=== PATIENT | female | born 1955 | race Caucasian/White ===

== ENCOUNTER 2017-01-13 12:57 | Outpatient (CLI) | payer OTHER ==
[2017-01-13 14:46] LABS: Mean Platelet Volume 7.7 fL (7.4-10.4); Red Blood Cell (RBC) Count 4.62 mill/uL (4.20-5.40); White Blood Cell (WBC) Count 6.5 thou/uL (4.8-10.8)
[2017-01-13 14:55] LABS: Prothrombin Time 12.7 SEC (12.0-14.7)
[2017-01-13 15:07] LABS: ALT (SGPT) 12 U/L (8-55); AST (SGOT) 12 U/L (5-34); Alkaline Phosphatase 53 U/L (40-150); Anion Gap 7 mmol/L (10-20); BUN (Urea Nitrogen) 32 mg/dL (9.8-20.1); Bilirubin, Total 0.4 mg/dL (0.2-1.2); Calc. Creatinine Clearance 0 mL/min (70-130); Calcium 9.1 mg/dL (7.8-10.44); Carbon Dioxide 36 mmol/L (22-29); Chloride 101 mmol/L (98-107); Estimated GFR-MDRD 49; Globulin 2.7 g/dL (2.4-3.5); Protein, Total 6.4 g/dL (6.0-8.3)
--- NOTE | 2017-01-13 15:30 | EKG ---
Test Reason : Blood Pressure : / mmHG Vent. Rate : 059 BPM Atrial Rate : 059 BPM P-R Int : 170 ms QRS Dur : 090 ms QT Int : 456 ms P-R-T Axes : 048 023 025 degrees QTc Int : 451 ms Sinus bradycardia Nonspecific ST abnormality Abnormal ECG When compared with ECG of 03-FEB-2013 07:49, No significant change was found Confirmed by DR. Hermes BAEZ ([id number]) on 01/13/2017 3:30:28 PM Referred By: YO Confirmed By:DR. Hermes BAEZ
--- OUTSIDE RECORDS SUMMARY | 2017-01-13 16:06 | XMS | Clinical Summary ---
:1955 Author Organization [facility] Address [address] [place] [address] Phone Care Team Providers Name Role Phone , Primary Care Provider Unavailable Allergies Not on File Current Medications Not on file Active Problems Not on file Social History Tobacco Use Types Packs/Day Years Used Date Never Assessed Sex Assigned at Date Recorded Not on file Last Filed Vital Signs Not on file Plan of Treatment Not on file Results Not on filefrom Last 3 Months
--- OUTSIDE RECORDS SUMMARY | 2017-01-13 16:06 | XMS | Clinical Summary ---
:1955 Author Organization [facility] Address [address] [place] [phone] Phone Care Team Providers Name Role Phone [...]
--- NOTE | 2017-01-13 16:17 | RAD ---
PA AND LATERAL VIEWS CHEST: 01/13/17 HISTORY: Preoperative evaluation. FINDINGS: The heart size is normal. A large hiatal hernia with herniation of the stomach in the right posterio r lower thorax with an air fluid level is again seen as on the CT scan obtained 12/07/16. No focal ar eas of consolidation, pneumothoraces, or left sided pleural effusion are identified. A right pleural effusion cannot be completely excluded on this study. There are degenerative changes in the spine. IMPRESSION: Large hiatal hernia. POS: SAMEER
== END 2017-01-13 12:58 | disposition home or self-care (01) ==
LOC: LABBT 12:57
PROVIDERS: ATTEND Internal Medicine
DX: Z01.818 Encounter for other preprocedural examination (principal); R93.1 Abnormal findings on diagnostic imaging of heart and coronary circulation; K44.9 Diaphragmatic hernia without obstruction or gangrene
CPT/HCPCS: 71020; 80053; 85027; 85610; 85730; 93005; 93010

== ENCOUNTER 2017-03-29 13:30 | Outpatient (CLI) | payer OTHER | END 2017-03-29 13:31 | disposition home or self-care (01) | LOC: BICCT 13:30 | PROVIDERS: ATTEND Internal Medicine Nephrology | DX: N18.9 Chronic kidney disease, unspecified (principal); K80.20 Calculus of gallbladder without cholecystitis without obstruction; N28.89 Other specified disorders of kidney and ureter; K44.9 Diaphragmatic hernia without obstruction or gangrene | CPT/HCPCS: 74176 ==

== ENCOUNTER 2017-05-29 19:16 | Observation (INO) | payer OTHER ==
[2017-05-29] MEDS ORDERED: Sodium Chloride 0.9% 1,000 ML IV SCH (22:03)
[2017-05-29] MEDS ORDERED: Ondansetron HCl/PF 4 MG/2 ML Vial IVP PRN (22:17)
[2017-05-29] MEDS ORDERED: Milk Of Magnesia 30 ML UDCUP PO PRN (22:17)
[2017-05-29] MEDS: Acetaminophen 325 MG TAB PO PRN (22:28)
[2017-05-29 22:59] VITALS: BMI 48.9
[2017-05-29] MEDS: Sodium Chloride 0.9% 1,000 ML IV SCH (23:00)
[2017-05-30] MEDS: traMADol HCl 50 MG TAB PO PRN ×4 (01:06→20:29)
[2017-05-30] MEDS: Sodium Chloride 0.9% 1,000 ML IV SCH (01:08)
[2017-05-30] MEDS: Acetaminophen 325 MG TAB PO PRN ×2 (03:26→22:32)
[2017-05-30 05:45] LABS: #Eosinphils 0.2 thou/uL (0.0-0.7); #Lymphocytes 1.4 thou/uL (1.20-3.40); #Monocytes 0.5 thou/uL (0.11-0.59); #Neutrophils 3.5 thou/uL (1.40-6.50); %Basophils 0.8 % (0.0-1.0); %Eosinophils 4.2 % (0.0-10.0); %Lymphocytes 24.7 % (21.0-51.0); %Monocytes 8.2 % (0.0-10.0); %Neutrophils 62.1 % (42.0-75.0); Hemoglobin 11.6 g/dL (12.0-16.0); Mean Corpuscular HGB CONC 32.7 g/dL (32.0-36.0); Mean Corpuscular Hemoglobin 28.2 pg (27.0-31.0); Mean Corpuscular Volume 86.3 fl (81.0-99.0); Mean Platelet Volume 7.9 fL (7.4-10.4); Platelet Count 198 thou/uL (130-400); RBC Distribution Width 15.7 % (11.5-14.5); Red Blood Cell (RBC) Count 4.11 mill/uL (4.20-5.40); White Blood Cell (WBC) Count 5.6 thou/uL (4.8-10.8)
[2017-05-30 05:54] LABS: Anion Gap 11 mmol/L (10-20); BUN (Urea Nitrogen) 20 mg/dL (9.8-20.1); Calc. Creatinine Clearance 103 mL/min (70-130); Calcium 8.9 mg/dL (7.8-10.44); Carbon Dioxide 35 mmol/L (22-29); Chloride 100 mmol/L (98-107); Estimated GFR-MDRD 46; Glucose 124 mg/dL (70-105); Potassium 3.1 mmol/L (3.5-5.1); Sodium 143 mmol/L (136-145)
--- NOTE | 2017-05-30 06:18 | HP ---
PRESENTING COMPLAINT: Abdominal pain. PRIMARY CARE PHYSICIAN: None. HISTORY OF PRESENT ILLNESS: Patient is a 62-year-old female with a past medical history of hypertension, PUD, cholelithiasis, and nephrolithiasis as well as a history of myocardial infarction 10 years ago, who presented to the emergency room with complaints of suprapubic pain, dysuria, and urinary frequency for several days. She was diagnosed with UTI at [facility] emergency room and was started on Macrobid; however, the patient reported continued symptoms with malaise, generalized weakness, dysuria, frequency, chills, diaphoresis, poor appetite, and reports she has been unable to ambulate for the past 24 hours. She went to [facility] and was given one dose of IV antibiotics, IV fluids, and was sent home. She however continued to have the same symptoms and presents to our emergency room here. Her suprapubic pain is described as 4-5/10 , burning/dull, does not radiate, with no aggravating or relieving factors. She also has dysuria, frequency, and urgency. PAST MEDICAL HISTORY: Arthritis, hernia, cholelithiasis, PUD, nephrolithiasis, hypertension, [place]. PAST SURGICAL HISTORY: Tonsillectomy. FAMILY HISTORY: Reviewed and noncontributory. SOCIAL HISTORY: Denies smoking, alcohol use, or illicit drug use. ALLERGIES: MORPHINE (hives), lisinopril (angioedema). HOME MEDICATIONS: Atenolol/chlorthalidone 100 mg/25 mg q.a.m., doxycycline 100 mg b.i.d., gabapentin 600 mg t.i.d., hydralazine 25 mg b.i.d., loratadine 10 mg daily, melatonin 20 mg at bedtime, amoxicillin 875 mg b.i.d. CODE STATUS: Full. REVIEW OF SYSTEMS: Constitutional: Positive for fever and malaise. Cardiovascular: Negative. Respiratory: Negative. GI: Per HPI. : Per HPI. Skin: Negative. Neurologic: Negative. Hematologic/lymphatic: Negative. Allergy/immunology: Negative. Musculoskeletal: Negative. Psychiatric: Negative. A 12-point review of systems conducted and negative apart from as stated in HPI. PHYSICAL EXAMINATION: VITAL SIGNS: Blood pressure 148/93, pulse rate 59, respiratory rate 20, temperature 98.4 degree Fahrenheit, oxygen saturation 97% on room air. CONSTITUTIONAL: Not in acute distress. Lying comfortably in bed. HEENT: Normocephalic, atraumatic. Not pale, anicteric. Moist mucous membranes. PERRLA. EOMI. RESPIRATORY: Vesicular breath sounds bilaterally. No wheezes or rales. CARDIOVASCULAR: S1 and S2 only. Regular rate and rhythm. No murmurs, rubs, or gallops. ABDOMEN: Tenderness in the suprapubic region, mild with no rebound or guarding. Bowel sounds present. No hepatosplenomegaly. NEUROLOGIC: Alert and oriented to time, place, and person. No focal deficits. MUSCULOSKELETAL: No edema, no skeletal abnormalities. SKIN: Warm, dry, well perfused. LABORATORY DATA: Chemistry significant for hypokalemia (3.1) and elevated BUN/ creatinine 23/1.23. WBC largely unremarkable. Urinalysis showed clear yellow urine with moderate amount of blood, leukocyte esterase, and 4-6 wbc's. ASSESSMENT AND PLAN: 1. Urinary tract infection: Persistent. Failed outpatient treatment. We will start on IV ceftriaxone and follow up urine cultures. 2. Acute kidney injury likely due to volume depletion from poor p.o. intake. She has been started on parenteral fluids. We will monitor creatinine. If not improving, we will consider retroperitoneal ultrasound to rule out obstructive uropathy. 3. Hypokalemia, likely due to probably poor p.o. intake. We will replete. 4. Hypertension. Blood pressure is currently at goal. We will restart her home medications. 5. Dehydration: As above. Deep venous thrombosis prophylaxis: subcutaneous heparin. MTDD
[2017-05-30] MEDS: Gabapentin 300 MG CAP PO SCH ×3 (08:44→20:29)
[2017-05-30] MEDS: Potassium Chloride 20 MEQ TAB PO SCH ×2 (08:44→17:31)
[2017-05-30] MEDS: Docusate 100 MG CAP PO SCH ×2 (08:45→20:29)
[2017-05-30] MEDS: hydrALAZINE 25 MG TAB PO SCH ×2 (08:45→20:29)
[2017-05-30] MEDS: Heparin 5,000 UNITS/ML VIAL SC SCH ×3 (08:45→20:30)
[2017-05-30] MEDS: cefTRIAXone\\ROCEPHIN 1 GM in Sterile Water 10 ML SLOW IVP SCH (08:59)
--- NOTE | 2017-05-30 13:25 | PDOC.PN ---
- Subjective Encounter Start Date: 05/30/17 Encounter Start Time: 10:40 Subjective: patient slightly improved, but continued abd pain and fatigue. - Objective Resuscitation Status: Resuscitation Status FULL:Full Resuscitation MAR Reviewed: Yes Vital Signs & Weight: Vital Signs (12 hours) Temp Pulse Resp BP BP Pulse Ox 05/30/17 12:41 97.7 F 64 20 128/76 05/30/17 08:45 60 05/30/17 08:20 98.2 F 60 20 147/92 H 96 05/30/17 08:00 98.3 F 65 18 05/30/17 04:15 98.3 F 65 18 113/54 L 95 Weight Weight 285 lb I&O: 05/29/17 05/30/17 05/31/17 06:59 06:59 06:59 Intake Total 1060 Output Total 550 Balance 510 Result Diagrams: 05/30/17 04:55 05/30/17 04:55 Phys Exam - Physical Examination Constitutional: NAD HEENT: PERRLA, moist MMs, sclera anicteric Neck: supple, full ROM Respiratory: no rhonchi, clear to auscultation bilateral Cardiovascular: RRR, no significant murmur Gastrointestinal: soft, non-tender, positive bowel sounds Musculoskeletal: no edema Neurological: non-focal, moves all 4 limbs Psychiatric: normal affect, A&O x 3 Skin: no rash Dx/Plan (1) UTI (urinary tract infection) Status: Acute (2) Staghorn calculus Code(s): N20.0 - CALCULUS OF KIDNEY Status: Chronic (3) Obesities, morbid Code(s): E66.01 - MORBID (SEVERE) OBESITY DUE TO EXCESS CALORIES Status: Chronic - Plan cont current plan of care, continue antibiotics EVAL FOR STONE REMOVAL. * .
--- NOTE | 2017-05-30 13:46 | CON ---
DATE OF CONSULTATION: 05/30/2017 HISTORY OF PRESENT ILLNESS: This is a 62-year-old white female I was asked to see [facility] regarding recurrent urinary tract infections. I have reviewed her Radiology and notes from her admissions in this hospital, also talked with her, she has a long history of kidney stones. She has had partial staghorns in both kidneys dating back to 2012. She has had 2 different procedures do fl since then. She saw Dr. Bennett in [place] and I believe had left ureteroscopy with some laser l ithotripsy and there was less stone burden seen on a CAT scan a year ago than that was in 2012. She also has seen Dr. Jameson at the [facility] and he apparently also has done something ureteroscopically on her also. She has not seen any of these doctors recently. She has been having what she feels is re current urinary tract infections and this is actually why she has been admitted. She has, however, a normal white blood cell count and she has had nothing higher than a low grade temperature and she weir s not had any blood pressure issues or pulse issues to suggest that she is septic. Her symptoms are some chills, some shakes, some fatigue and generally just not feeling well. Also for the last few da ys, she has had some dysuria that has not been severe, but she has had some and she says she has had this off and on for a number of months. Looking over her culture reports, she had a urine culture on 04/17/2017, on 04/10/2017 of this year that both were negative and in 06/2015 and 06/2014, she had u rine cultures that were not positive and she has not had any positive blood cultures here. She appar ently has been seen in [place] as well as the [facility] and I do not know if she has had positive cultu res there. As mentioned, her vital signs here are stable. She has been afebrile and her urinalysis here does show as expected, 4-6 white cells, 0-3 red cells and rare bacteria. This urine would look abnormal because of her kidney stones. Her creatinine is 1.19, potassium is slightly low at 3.1 and her white count was 5.6, hemoglobin is 11.6. She currently is on ceftriaxone for presumed infection, but again no fever and no elevated white count. She has been on antibiotics recently. She says she will be on them and off of them, on them and off of them per these presumed infections and that really gets much better, so it is certainly possible t hat maybe she has a vaginitis causing her dysuria. She does not have flank pain or anything that wou ld suggest urinary tract obstruction pain or kidney stone pain. PAST MEDICAL HISTORY: Arthritis, hiatal hernia, gallbladder disease, peptic ulcer disease, hypertens ion, history in the past of [facility]. PAST SURGICAL HISTORY: Includes these 2 procedures for stones both done apparently through her urete r and tonsillectomy. SOCIAL HISTORY: She does not smoke. She does not drink. HOME MEDICATIONS: Listed. PHYSICAL EXAMINATION: ABDOMEN: She has no flank tenderness. Her abdomen is obese. : She does have some vaginitis, probably this is a combination of possibly yeast, but probably jus t also atrophic vaginitis. There is no pelvic mass. There is no urethral mass. IMPRESSION: 1. Pyuria, which is consistent with having these bilateral partial staghorn stones. It is not clear that this is urinary tract source; in fact, she has had negative urine cultures when checked in the past. She has had repeat cultures done here. We will check and see what they show. 2. Bilateral renal stones. She has had at least 2 procedures done for this using a ureteroscope whi ch I would not be able to do because of the size of these stones perhaps she could revisit Dr. Alan hess in [place] or Dr. Jameson at the [facility] who both have attempted to do this and have taken her throug h this, but they would need to continue to do that to get her stone free. Percutaneous approach for this is certainly not unreasonable; however, because of her obesity, I do not know that we could get a tube from her skin into her kidney. I do think it is reasonable to repeat a noncontrast CAT scan t o look at her stone burden and see if it is increased. PLAN: At this point in time, I would wait for her urine culture to come back. If it is negative, I would stop her antibiotics and I think I would look at treating her with some Diflucan for possible y east vaginitis and possibly even considering using a topical Premarin or Estrace cream a couple of ti mes a week to see if that would help with some of her occasional dysuria. I do not think if her bloo d cultures are negative, urine cultures are negative and the fact that she has not demonstrated at le ast to this hospital positive blood or urine cultures ever that we should assume that her weakness, f atigue, and occasional shakes are related to sepsis. In any event, I will follow along with you and check on these cultures as they return hopefully tomorrow.
--- NOTE | 2017-05-30 14:53 | CT ---
CT ABDOMEN AND PELVIS NONCONTRAST: History: Right flank pain. Comparison: 04-28-16 FINDINGS: Each renal collecting system, ureter, and urinary bladder are decompressed. There is severe thinning of the cortex of each kidney. Multiple calcifications are present within the calices of each kidney. A 1.3 cm irregular coarse calc ification is associated with the cortex of the right kidney. At the inferior pole of the left kidney is a similar appearing 1.5 cm calcification favored to be associated with the cortex. At the left raysa al pelvis is an oval 0.8 cm calculus. Lack of contrast limits evaluation for other abnormalities. Hyperdense stones are apparent within the gallbladder lumen. The oval fluid density mass at the left adnexa is stable. IMPRESSION: 1. Multiple nonobstructing bilateral renal calculi, as detailed above. Overall stone burden has decre ased significantly compared to the 05-26-16 study. 2. Bilateral renal cortical atrophy. 3. Cholelithiasis. 4. Left adnexal mass is stable. POS: SAMEER
[2017-05-31 06:23] LABS: Anion Gap 10 mmol/L (10-20); BUN (Urea Nitrogen) 25 mg/dL (9.8-20.1); Calc. Creatinine Clearance 94 mL/min (70-130); Calcium 8.8 mg/dL (7.8-10.44); Carbon Dioxide 31 mmol/L (22-29); Chloride 104 mmol/L (98-107); Estimated GFR-MDRD 42; Glucose 101 mg/dL (70-105); Sodium 141 mmol/L (136-145)
--- NOTE | 2017-05-31 08:37 | PDOC.PN ---
- Subjective Encounter Start Date: 05/31/17 Encounter Start Time: 08:36 Subjective: FEELS A LITTLE BETTER TODAY - Objective Resuscitation Status: Resuscitation Status FULL:Full Resuscitation MAR Reviewed: Yes Vital Signs & Weight: Vital Signs (12 hours) Temp Pulse Resp BP Pulse Ox 05/31/17 07:44 97.6 F 69 20 05/31/17 07:43 97.6 F 69 20 125/72 97 Weight Admit Weight 285 lb Weight 285 lb I&O: 05/30/17 05/31/17 06/01/17 06:59 06:59 06:59 Intake Total 1060 2620 Output Total 550 600 Balance 510 2019 Result Diagrams: 05/30/17 04:55 05/31/17 05:27 Phys Exam - Physical Examination Constitutional: NAD HEENT: PERRLA, moist MMs, sclera anicteric Neck: supple, full ROM Respiratory: no wheezing, no rhonchi Cardiovascular: RRR, no significant murmur Gastrointestinal: soft MORBIDLY OBESE Musculoskeletal: edema present Neurological: non-focal, moves all 4 limbs Psychiatric: normal affect, A&O x 3 Skin: normal turgor Dx/Plan (1) UTI (urinary tract infection) Status: Acute (2) Staghorn calculus Code(s): N20.0 - CALCULUS OF KIDNEY Status: Chronic (3) Obesities, morbid Code(s): E66.01 - MORBID (SEVERE) OBESITY DUE TO EXCESS CALORIES Status: Chronic - Plan cont current plan of care, continue antibiotics URINE AND BCX FROM 05/29 NEGATIVE. WILL START DIFLUCAN . -: MOST LIKELY D/C TOMORROW F/U WITH PRIVATE ONCE CLEARED BY DR. MORGAN * .
[2017-05-31] MEDS: Docusate 100 MG CAP PO SCH ×2 (09:24→19:26)
[2017-05-31] MEDS: Gabapentin 300 MG CAP PO SCH ×3 (09:24→19:25)
[2017-05-31] MEDS: cefTRIAXone\\ROCEPHIN 1 GM in Sterile Water 10 ML SLOW IVP SCH (09:25)
[2017-05-31] MEDS: hydrALAZINE 25 MG TAB PO SCH ×2 (09:25→19:25)
[2017-05-31] MEDS: Heparin 5,000 UNITS/ML VIAL SC SCH ×3 (09:25→19:26)
[2017-05-31] MEDS: Capsaician 0.025% Cream 60 gm Tube TOP SCH ×3 (12:20→19:27)
[2017-05-31] MEDS: Fluconazole 100 MG TAB PO SCH (12:21)
[2017-05-31] MEDS: Acetaminophen 325 MG TAB PO PRN (19:26)
[2017-06-01 05:52] LABS: #Eosinphils 0.3 thou/uL (0.0-0.7); #Lymphocytes 1.3 thou/uL (1.20-3.40); #Monocytes 0.5 thou/uL (0.11-0.59); #Neutrophils 3.4 thou/uL (1.40-6.50); %Basophils 0.8 % (0.0-1.0); %Eosinophils 4.8 % (0.0-10.0); %Lymphocytes 23.1 % (21.0-51.0); %Monocytes 8.2 % (0.0-10.0); Anion Gap 10 mmol/L (10-20); BUN (Urea Nitrogen) 24 mg/dL (9.8-20.1); Calc. Creatinine Clearance 107 mL/min (70-130); Calcium 9.2 mg/dL (7.8-10.44); Carbon Dioxide 35 mmol/L (22-29); Chloride 99 mmol/L (98-107); Estimated GFR-MDRD 49; Glucose 108 mg/dL (70-105); Hemoglobin 11.7 g/dL (12.0-16.0); Mean Corpuscular HGB CONC 30.4 g/dL (32.0-36.0); Mean Corpuscular Hemoglobin 27.3 pg (27.0-31.0); Mean Corpuscular Volume 89.6 fl (81.0-99.0); Mean Platelet Volume 8.3 fL (7.4-10.4); Platelet Count 191 thou/uL (130-400); Potassium 4.1 mmol/L (3.5-5.1); RBC Distribution Width 16.1 % (11.5-14.5); Red Blood Cell (RBC) Count 4.29 mill/uL (4.20-5.40); Sodium 140 mmol/L (136-145); White Blood Cell (WBC) Count 5.4 thou/uL (4.8-10.8)
[2017-06-01] MEDS: Gabapentin 300 MG CAP PO SCH (09:16)
[2017-06-01] MEDS: hydrALAZINE 25 MG TAB PO SCH (09:16)
[2017-06-01] MEDS: cefTRIAXone\\ROCEPHIN 1 GM in Sterile Water 10 ML SLOW IVP SCH (09:17)
[2017-06-01] MEDS: Fluconazole 100 MG TAB PO SCH (09:17)
[2017-06-01] MEDS: Docusate 100 MG CAP PO SCH (09:17)
[2017-06-01] MEDS: Heparin 5,000 UNITS/ML VIAL SC SCH (09:18)
[2017-06-01] MEDS: Capsaician 0.025% Cream 60 gm Tube TOP SCH (09:19)
[2017-06-01 12:19] VITALS: TEMP 97.8
[2017-06-01] MEDS ORDERED: hydrALAZINE 25 MG TAB PO SCH (13:00)
[2017-06-01 14:02] VITALS: BP 138/94
--- NOTE | 2017-06-01 18:52 | DIS ---
DATE OF ADMISSION: 05/29/2017 DATE OF DISCHARGE: 06/01/2017 PRIMARY DISCHARGE DIAGNOSES: 1. Renal staghorn calculi. 2. Vaginitis. 3. Hypertension. 4. Acute kidney injury, resolved. HOSPITAL COURSE: The patient is a female who presented with suprapubic pain and dysuria. The patien t noted to have a history of multiple staghorn calculi and multiple UTIs or episodes of dysuria. Uro logy was consulted who evaluated the patient. It was felt that the patient should follow up with her prior urologist to possibly have another lithotripsy. Our urologists offered nothing at this time a nd felt that the patient did not have a UTI as her cultures were negative. CONSULTANTS: Dr. Carlisle, Urology. PROCEDURES: None. DISCHARGE DISPOSITION: To home. DISCHARGE DIET: Heart healthy. DISCHARGE ACTIVITY: As tolerated. DISCHARGE MEDICATIONS: We will resume her home medication regimen. We added capsaicin for arthritic pain and we also offered Diflucan for possible Bibi vaginitis. PHYSICAL EXAMINATION: GENERAL: No acute distress. HEENT: Normocephalic, atraumatic. EYES: PERRL. Extraocular muscles are intact. CARDIAC: Regular rate and rhythm. LUNGS: Clear to auscultation, but diminished. ABDOMEN: Morbidly obese, nontender. EXTREMITIES: No clubbing or cyanosis. There is trace to 1+ edema bilaterally. FOLLOWUP: The patient is encouraged to obtain a PCP for general preventive medicine management. She is also encouraged to follow up with her two prior urologists to consider a staghorn stone removal.
== END 2017-06-01 14:20 | disposition home or self-care (01) ==
LOC: ERS 19:16 → 3SE 21:53
PROVIDERS: ADMIT Internal Medicine; ATTEND Internal Medicine
DX: N20.0 Calculus of kidney (principal); I10 Essential (primary) hypertension; N17.9 Acute kidney failure, unspecified; N76.0 Acute vaginitis; I25.2 Old myocardial infarction; N39.0 Urinary tract infection, site not specified; M19.90 Unspecified osteoarthritis, unspecified site; E87.6 Hypokalemia; E86.0 Dehydration; E66.01 Morbid (severe) obesity due to excess calories; Z68.42 Body mass index [BMI] 45.0-49.9, adult; Z87.11 Personal history of peptic ulcer disease; Z87.442 Personal history of urinary calculi; Z87.440 Personal history of urinary (tract) infections; Z79.899 Other long term (current) drug therapy; Z88.5 Allergy status to narcotic agent; Z88.8 Allergy status to other drugs, medicaments and biological substances; Z79.2 Long term (current) use of antibiotics; Z98.890 Other specified postprocedural states
CPT/HCPCS: 36415; 74176; 80048; 85025; 96361; 96374; 96375; 96376; 99285; A4216; G0378; J0696; J1644; J2405

== ENCOUNTER 2017-06-21 17:17 | Observation (INO) | payer OTHER ==
[2017-06-21 18:35] LABS: ALT (SGPT) 9 U/L (8-55); AST (SGOT) 17 U/L (5-34); Albumin 4.1 g/dL (3.5-5.0); Alkaline Phosphatase 56 U/L (40-150); Anion Gap 12 mmol/L (10-20); BUN (Urea Nitrogen) 31 mg/dL (9.8-20.1); Bilirubin, Total 0.3 mg/dL (0.2-1.2); Calc. Creatinine Clearance 0 mL/min (70-130); Calcium 9.3 mg/dL (7.8-10.44); Carbon Dioxide 29 mmol/L (22-29); Chloride 102 mmol/L (98-107); Estimated GFR-MDRD 36; Globulin 3.5 g/dL (2.4-3.5); Glucose 106 mg/dL (70-105); Lipase 74 U/L (8-78); Potassium 3.2 mmol/L (3.5-5.1); Protein, Total 7.6 g/dL (6.0-8.3); Sodium 140 mmol/L (136-145)
[2017-06-21 18:39] LABS: #Basophils 0.1 thou/uL (0.0-0.2); #Eosinphils 0.2 thou/uL (0.0-0.7); #Lymphocytes 1.7 thou/uL (1.20-3.40); #Monocytes 0.4 thou/uL (0.11-0.59); %Basophils 0.7 % (0.0-1.0); %Eosinophils 2.6 % (0.0-10.0); %Lymphocytes 20.1 % (21.0-51.0); %Monocytes 5.2 % (0.0-10.0); %Neutrophils 71.3 % (42.0-75.0); Hemoglobin 14.5 g/dL (12.0-16.0); Mean Corpuscular HGB CONC 32.8 g/dL (32.0-36.0); Mean Corpuscular Hemoglobin 28.3 pg (27.0-31.0); Mean Corpuscular Volume 86.4 fl (81.0-99.0); Mean Platelet Volume 7.2 fL (7.4-10.4); Platelet Count 320 thou/uL (130-400); RBC Distribution Width 14.8 % (11.5-14.5); Red Blood Cell (RBC) Count 5.12 mill/uL (4.20-5.40); White Blood Cell (WBC) Count 8.5 thou/uL (4.8-10.8)
[2017-06-21 21:11] LABS: Bilirubin Negative (Negative); Clarity TURBID (Clear); Glucose, Urine (Dipstick) Negative (Negative); Leukocyte Large (Negative); Nitrite Positive (Negative); Protein, Urine (Dipstick) 30 mg/dL (Neg-Trace)
[2017-06-21 21:16] LABS: Bacteria/HPF None Seen HPF (None Seen); Hyaline Casts/LPF 4-6 HYALINE CAST LPF (0-3 Hyaline); Pathc Cast-AUWi Flag 1.47 (0-2.49)
[2017-06-21 21:24] LABS: Blood, Urine Trace (Negative)
[2017-06-21 21:25] LABS: Yeast-All Forms 1+ HPF (None Seen)
[2017-06-21] MEDS ORDERED: HYDROcodone/Acetaminophen 5/325 mg Tablet ONE (23:16)
--- NOTE | 2017-06-22 00:14 | CT ---
CT ABDOMEN AND PELVIS WITHOUT CONTRAST: 06/21/17 Multiple axial tomograms obtained through the abdomen and pelvis without IV enhancement. HISTORY: UTI. Kidney stones. Right flank pain. Comparison made to recent CT of 05/30/[address] of 05/26/16. The large diaphragmatic hernia is again noted. The entire stomach is located above the diaphragm pred ominantly in the right chest. The colon herniates through this defect and is located in the right yoly st. This large hernia is unchanged in appearance. Cholelithiasis again noted. Liver, spleen, and pancreas unremarkable. There are bilateral renal calculi which have been described previously. Large calculus in the inferio r left kidney measuring 1.5 to 2.0 cm, stable. There is a calculus in the left renal pelvis measuring up to 1.0 cm, stable from prior exam. Calculi in the lower pole right kidney unchanged. No hydronephrosis. No evidence of uterine calculus. Small bowel loops are normal caliber. Stool throughout the colon. The uterus is unremarkable. There is a left adnexal mass which has been previously described and is s table, continuing to measure approximately 3.8 cm. IMPRESSION: 1. The large diaphragmatic hernia is again noted as previously described. 2. Renal calculi appear stable from the recent exam. There is no ureteral calculus or hydronephr osis. 3. The left adnexal mass lesion is stable. 4. Cholelithiasis again noted. 5. No significant change from the recent exam of 05/30/17. POS: AGW
[2017-06-22] MEDS ORDERED: Ondansetron ODT 4 MG TAB SL PRN (01:39)
[2017-06-22] MEDS ORDERED: Acetaminophen 325 MG TAB PO PRN ×2 (01:39→22:11)
[2017-06-22] MEDS ORDERED: Ondansetron HCl/PF 4 MG/2 ML Vial IVP PRN (01:39)
[2017-06-22] MEDS ORDERED: Sodium Chloride 0.9% 1,000 ML IV SCH (01:45)
[2017-06-22] MEDS ORDERED: cefTRIAXone\\ROCEPHIN 1 GM, Syringe 0.4 ML in Sterile Water 9.6 ML SLOW IVP SCH (01:45)
[2017-06-22 02:02] VITALS: BMI 47.7
[2017-06-22] MEDS ORDERED: diphenhydrAMINE 25 MG CAP PO PRN (02:24)
[2017-06-22] MEDS: Sodium Chloride 0.9% 1,000 ML IV SCH ×2 (08:30→17:12)
[2017-06-22] MEDS: Potassium Chloride 20 MEQ TAB PO SCH ×2 (08:31→16:34)
[2017-06-22] MEDS ORDERED: Dicyclomine 20 MG TAB PO PRN (10:03)
[2017-06-22] MEDS ORDERED: Non-Formulary Item 1 EACH (Gabapentin [Gabapentin] 600 MG) PO PRN (10:03)
[2017-06-22] MEDS ORDERED: Metoclopramide HCl 10 MG TAB PO PRN (10:03)
[2017-06-22] MEDS ORDERED: Loratadine 10 MG TAB PO SCH (10:30)
[2017-06-22] MEDS: Gabapentin 300 MG CAP PO PRN ×2 (13:10→20:31)
[2017-06-22] MEDS: cefTRIAXone\\ROCEPHIN 1 GM, Syringe 0.4 ML in Sterile Water 9.6 ML SLOW IVP SCH (16:31)
[2017-06-22] MEDS: traMADol HCl 50 MG TAB PO PRN (16:33)
--- NOTE | 2017-06-22 17:56 | HP ---
PRIMARY CARE PHYSICIAN: The patient does not remember his name. PRESENTING COMPLAINT: Right abdominal pain. HISTORY OF PRESENT ILLNESS: Ms. Sung Clay is a 62-year-old female with a past medical history of nephrolithiasis, chronic recurrent UTIs, hypertension and history of myocardial infarction who wa s sent to the emergency room by her primary care physician due to failed outpatient treatment for UTI . She was started on Keflex, but her symptoms persisted. She complains of right lower quadrant pain rated 5-6/10, colicky and associated with subjective fevers and chills. She also had dysuria, but n o frequency or hematuria. She also reports some nausea, but no vomiting, no clear aggravating or rel ieving factors reported by the patient. PAST MEDICAL HISTORY: As stated in the HPI. PAST SURGICAL HISTORY: Tonsillectomy. FAMILY HISTORY: Reviewed and noncontributory. SOCIAL HISTORY: Denies drinking alcohol, smoking cigarettes or use of illicit drugs. ALLERGIES: LISINOPRIL, MORPHINE (causes rash). HOME MEDICATIONS: Keflex 500 mg q.6 hours, amlodipine 2.5 mg daily, atenolol/chlorthalidone one tabl et q.a.m., dicyclomine 20 mg q.i.d., gabapentin 600 mg t.i.d., hydralazine 25 mg b.i.d., loratadine 1 0 mg daily, melatonin 20 mg at bedtime, metoclopramide 10 mg t.i.d. REVIEW OF SYSTEMS: Constitutional: Positive for chills, subjective fever. Denies headache. HEENT: Negative. Cardiovascular: Negative. Respiratory: Negative. Gastrointestinal: Positive f or abdominal pain and nausea. Denies vomiting, diarrhea or constipation. Musculoskeletal: Negative. Genitourinary: Per HPI. Neurologic: Negative. Hematologic: Negative. Allergy/immunology: Neg ative. Psychiatric: Negative. PHYSICAL EXAMINATION: VITAL SIGNS: Temperature 97.9 degree Fahrenheit, pulse 61, respiratory rate 18, oxygen saturation 96 % on room air, blood pressure 116/86. GENERAL: Not in acute distress, sitting comfortably in bed, eating breakfast. HEENT: Not pale, anicteric. PERRLA, EOMI. Moist mucous membranes. RESPIRATORY: Vesicular breath sounds bilaterally. No wheezes, rales or rhonchi. NECK: Supple, full range of movement. No JVD. CARDIOVASCULAR: Regular rate and rhythm, S1 and S2 only. No murmurs, rubs or gallop. ABDOMEN: Mild tenderness in the right lower quadrant, not distended, no guarding or rebound tenderne ss. No organomegaly. No CVA tenderness. Bowel sounds normoactive. GENITOURINARY: Deferred. NEUROLOGIC: Alert and well oriented. No focal deficit. PSYCHIATRIC: Normal mood and affect. SKIN: Warm, dry, well-perfused. No rashes or lesions. PSYCHIATRIC: Normal mood and affect. LABORATORY DATA: CBC was unremarkable. CMP showed hypokalemia with potassium of 3.2, also with elev ated BUN and creatinine of 31 and 1.4. Urinalysis showed nitrites, leukocyte esterase, and WBC great er than 50. Culture is pending. Abdomen/pelvis CT: Showed large diaphragmatic hernia, unchanged. Renal calculi, which appear stable from recent exam. No calculus or hydronephrosis. Left adnexa are stable. Cholelithiasis again noted. No significant changes in the imaging from recent exam taken o n 05/30/2017. ASSESSMENT AND PLAN: 1. Recurrent urinary tract infections. The patient has failed outpatient therapy with Keflex. We w ill follow up blood cultures. Continue with parenteral hydration and continue IV ceftriaxone that wa s started in the emergency room. We will follow sensitivities and adjust antibiotics as necessary. ID will also be consulted. 2. Acute kidney injury, likely from poor p.o. intake. She has prerenal acute kidney injury. We cornelia l start her on parenteral hydration and monitor, also encourage the patient on her p.o. intake. 3. Hypertension. Blood pressure is at goal. We will gradually reintroduce her home medications. 4. History of nephrolithiasis. Current imaging shows more or less unchanged findings on CT abdomen. Patient follows up with Urology on outpatient basis, we will need to continue her follow up. 5. Diaphragmatic hernia. Patient to follow up on an outpatient basis. She is asymptomatic and ther e are no signs of obstruction or strangulation.
[2017-06-22] MEDS: hydrALAZINE 25 MG TAB PO SCH (20:27)
[2017-06-22] MEDS ORDERED: MELATONIN 20 MG PO SCH ×2 (21:00)
[2017-06-22] MEDS ORDERED: Melatonin 3 MG TAB PO PRN (22:11)
[2017-06-22] MEDS ORDERED: Acetaminophen/Codeine 30-300mg Tablet PO SCH (22:15)
[2017-06-23 04:19] LABS: #Basophils 0.1 thou/uL (0.0-0.2); #Eosinphils 0.3 thou/uL (0.0-0.7); #Lymphocytes 1.6 thou/uL (1.20-3.40); #Monocytes 0.6 thou/uL (0.11-0.59); #Neutrophils 3.6 thou/uL (1.40-6.50); %Eosinophils 4.9 % (0.0-10.0); %Lymphocytes 25.8 % (21.0-51.0); %Monocytes 10.2 % (0.0-10.0); %Neutrophils 58.1 % (42.0-75.0); Hemoglobin 11.8 g/dL (12.0-16.0); Mean Corpuscular HGB CONC 32.5 g/dL (32.0-36.0); Mean Corpuscular Hemoglobin 28.3 pg (27.0-31.0); Mean Corpuscular Volume 87.1 fl (81.0-99.0); Mean Platelet Volume 7.4 fL (7.4-10.4); Platelet Count 239 thou/uL (130-400); RBC Distribution Width 14.6 % (11.5-14.5); Red Blood Cell (RBC) Count 4.18 mill/uL (4.20-5.40); White Blood Cell (WBC) Count 6.2 thou/uL (4.8-10.8)
[2017-06-23 04:26] LABS: Anion Gap 9 mmol/L (10-20); BUN (Urea Nitrogen) 30 mg/dL (9.8-20.1); Calc. Creatinine Clearance 95 mL/min (70-130); Calcium 8.6 mg/dL (7.8-10.44); Carbon Dioxide 32 mmol/L (22-29); Chloride 105 mmol/L (98-107); Estimated GFR-MDRD 43; Glucose 118 mg/dL (70-105); Potassium 3.6 mmol/L (3.5-5.1); Sodium 142 mmol/L (136-145)
--- NOTE | 2017-06-23 04:56 | CON ---
DATE OF CONSULTATION: 06/22/2017 REASON FOR CONSULTATION: Urinary tract infection, pyelonephritis. HISTORY OF PRESENT ILLNESS: A 62-year-old patient who has a history of coronary artery disease, rheumatoid arthritis, nephrolithiasis. The patient has had extensive interventions reportedly previous at [facility] and eventually in May, she quit the other physicians and decided to come to [facility] with dysuria. The initial evaluation and exam demonstrated blood pressure 140/90, pulse 59, respirations 20, temperature 98.4. She had some tenderness in suprapubic region. The creatinine 1.23. White cell count was normal. Urinalysis, moderate amount of leukocyte esterase, but 4-6 wbc's. Last cultures from last admission was no growth at 36 hours. Last imaging study from 05/30/2017 showed multiple nonobstructing bilateral renal calculi. The strong burden was noted to have decreased significantly compared with 05/26/2017 study. There was bilateral renal cortical atrophy and stable left adrenal mass. At this time, patient presents with recurrence of dysuria, lower quadrant pain in the right lower quadrant, fever and chills subjectively. Initial findings included temperature 97.9, pulse 61, respirations 18. Mild tenderness in right lower quadrant. Initial labs included white cell count 8.5, normal hemoglobin and platelets normal, 71% neutrophils. Urinalysis with greater than 50 wbc's. Potassium 3.2 and creatinine 1.48, GFR is 36. The patient had a repeat abdomen and pelvis CT and this showed large diaphragmatic hernia, renal calculi stable, no ureteral calculus and no hydronephrosis. Currently, she is sitting up in bed. She does not appear in distress. No headaches, no visual symptoms, sore throat, odynophagia, dysphagia. No respiratory symptoms. No abdominal pain. Still with some dysuria. No back pain, no joint symptoms. PAST MEDICAL HISTORY: Includes obesity, nephrolithiasis, rheumatoid arthritis, gallstones with prior interventions including at [facility] with endoscopic laser lithotripsy, hypertension, and coronary artery disease with prior GA in 2007. PAST SURGICAL HISTORY: Tonsillectomy. ALLERGIES: MORPHINE and CODEINE. CURRENT MEDICATIONS: Norvasc, Tenormin, Rocephin, Hygroton, Benadryl, Neurontin , Apresoline, Claritin, and Reglan. PHYSICAL EXAMINATION: VITAL SIGNS: T-max 98.3, blood pressure 120/77, pulse 80, respirations 20, O2 saturation 94% to 97%. SKIN: Area of presacral erythema without ulceration. Peripheral IV access and no Lobato catheter. HEENT: Ocular movements conjugate. Oral cavity normal. NECK: Supple. LUNGS: With symmetric clear breath sounds. HEART: S1, S2, regular rate. No S3, S4. ABDOMEN: Soft, nondistended or tender except for the suprapubic area mild tenderness there. No bladder distention, no ascites. EXTREMITIES: No joint inflammatory activity. Pulses are 1+ in dorsalis pedis. Moves all extremities equally. NEUROLOGIC: Cognitive function appears to be intact. LABORATORY DATA: The labs have been discussed above. ASSESSMENT: Recurrent nephrolithiasis of uncertain etiology, prior interventions both at [facility] and at [facility], now with dysuria and subjective fever which has not been reproduced here in the hospital. The nephrolithiasis burden has improved markedly compared to prior exams. We will continue to monitor cultures. She does not have neutrophilia and may have been admitted just for cystitis. If the cultures remain negative, she will be eligible for discharge planning off antimicrobial therapy, if they turn positive, treatment according to results of susceptibility testing. If she develops fever or other signs of inflammatory change and then we will have to consider treating for longer period of time assuming upper tract involvement. GAB
[2017-06-23] MEDS: Gabapentin 300 MG CAP PO PRN ×2 (08:15→13:35)
[2017-06-23] MEDS: hydrALAZINE 25 MG TAB PO SCH (08:16)
[2017-06-23] MEDS: traMADol HCl 50 MG TAB PO PRN ×2 (08:19→16:00)
[2017-06-23] MEDS: Sodium Chloride 0.9% 1,000 ML IV SCH ×2 (08:22)
[2017-06-23] MEDS ORDERED: cefTRIAXone\\ROCEPHIN 1 GM in Sodium Chloride 0.9% 100 ML IVPB SCH (09:00)
[2017-06-23] MEDS ORDERED: [UNRECOGNIZED DRUG - OTHER] PO SCH (09:00)
[2017-06-23] MEDS ORDERED: CHLORTHALIDONE PO SCH (09:00)
[2017-06-23] MEDS ORDERED: Amlodipine 5 MG TAB PO SCH (09:00)
[2017-06-23] MEDS ORDERED: Atenolol 50 MG TAB PO SCH (09:00)
[2017-06-23] MEDS ORDERED: Chlorthalidone 25 MG TAB PO SCH (09:00)
[2017-06-23] MEDS ORDERED: Loratadine 10 MG TAB PO SCH ×2 (09:00)
[2017-06-23] MEDS ORDERED: ATENOLOL PO SCH (09:00)
[2017-06-23] MEDS: cefTRIAXone\\ROCEPHIN 1 GM, Syringe 0.4 ML in Sterile Water 9.6 ML SLOW IVP SCH (13:30)
[2017-06-23 16:13] VITALS: BP 140/95; TEMP 97.9
--- NOTE | 2017-06-26 14:55 | DIS ---
DATE OF ADMISSION: 06/22/2017 DATE OF DISCHARGE: 06/23/2017 DISCHARGE DIAGNOSES: Recurrent urinary tract infection, acute kidney injury, hypertension, history of nephrolithiasis, and diaphragmatic hernia. HISTORY OF PRESENT ILLNESS/HOSPITAL COURSE: Ms. Sung Clay is a 62-year- old female with a history of nephrolithiasis, chronic recurrent UTIs, hypertension, and myocardial infarction, who was sent to the emergency room by her primary care physician on accounts of abdominal pain, right-sided on lower quadrant, rates it 5/10 to 6/10, colicky associated with subjective fevers and chills. She also reports intermittent dysuria, but no history of frequency, urgency, or hematuria. She was seen by her primary care physician and started on p.o. antibiotics, but due to her continued symptoms, she was sent to the emergency room for evaluation. Her physical examination was largely unremarkable. Labs showed unremarkable CBC, but CMP showed hypokalemia with potassium of 3.2 and elevated BUN and creatinine of 31 and 1.4 respectively. She had a urinalysis done which showed nitrites, leukocyte esterase, and wbc greater than 50, but no bacteria. Cultures were taken. The abdomen/pelvis CT was also done that showed a large diaphragmatic hernia, which is unchanged from previous. She also had renal calculi, which appear stable from her recent examination. No calculus or hydronephrosis, with no significant changes and imaging from recent imaging taken on the 05/30/2017. She was started on IV fluids and IV ceftriaxone for possible urinary tract infection. Infectious Disease was called to evaluate and stated that patient could be discharged if urine culture remained negative and did not need any antibiotics on discharge. On day of discharge, she had no complaints and was deemed stable for discharge. DISCHARGE MEDICATIONS: Melatonin 20 mg oral at bedtime, gabapentin 600 mg t.i.d. as needed for neuropathy, hydralazine 25 mg twice a day, loratadine 10 mg daily, atenolol/chlorthalidone 1 tablet every morning, cephalexin 500 mg every 6 hours, dicyclomine, Bentyl 20 mg 4 times a day as needed for stomach pain, metoclopramide 10 mg 3 times a day as needed for stomach pain, and amlodipine 2.5 mg daily. PHYSICAL EXAMINATION: She was examined on the day of discharge. VITAL SIGNS: Temperature 98.5 degree Fahrenheit, pulse 72, respiratory rate 16 , oxygen saturation 97% on room air, blood pressure 121/66. GENERAL: Not in acute distress, lying comfortably in bed. HEENT: Not pale, anicteric. PERRLA, EOMI. Normocephalic, atraumatic. RESPIRATORY: Vesicular breath sounds. No wheezes or rales. CARDIOVASCULAR: S1 and S2, only with regular rate and rhythm. No murmurs, rubs or gallops. ABDOMEN: Soft, bowel sounds normoactive, nontender, nondistended. No hepatosplenomegaly or hernia demonstrated. NEUROLOGIC: Alert and well oriented to time, place and person. No focal deficits. SKIN: Warm, dry, well-perfused. No rashes or lesions. PSYCHIATRIC: Normal mood and affect. MUSCULOSKELETAL: No edema. LABORATORY DATA: WBC 6.2, hemoglobin 11.8, platelet count 239. Sodium 142, potassium 3.6, chloride 105, carbon dioxide 32, anion gap 9, BUN 30, creatinine 1.26, glucose 118, calcium 8.6. Urine culture grew yeast species less than 10, 000 CFU per mL, normal skin melina present on yeast species 10,000-25,000 CFU per mL. IMAGING: Abdomen/pelvis CT result as stated in HPI. PROCEDURES: None. CONSULTS: Infectious Disease. DIET: Heart healthy, low sodium. CONDITION AT DISCHARGE: Stable and improved. ACTIVITY: To resume as tolerated. CARE GOALS: To follow up with her primary care physician after discharge for repeat labs. Discharge time 65 minutes including chart review and documentation. [facility]
== END 2017-06-23 17:08 | disposition home or self-care (01) ==
LOC: ERS 17:17 → T4-A 06-22 01:26
PROVIDERS: ADMIT Internal Medicine; ATTEND Internal Medicine
DX: N39.0 Urinary tract infection, site not specified (principal); N17.9 Acute kidney failure, unspecified; I10 Essential (primary) hypertension; K44.9 Diaphragmatic hernia without obstruction or gangrene; I25.2 Old myocardial infarction; N20.0 Calculus of kidney; Z87.442 Personal history of urinary calculi; Z87.440 Personal history of urinary (tract) infections; Z79.899 Other long term (current) drug therapy; Z88.5 Allergy status to narcotic agent; Z88.8 Allergy status to other drugs, medicaments and biological substances
CPT/HCPCS: 36415; 36416; 74176; 80048; 80053; 81003; 81015; 83690; 85025; 87086; 96361; 96365; 96375; 96376; A4216; G0378; J0696; J0744; Q0162

== ENCOUNTER 2018-02-21 13:16 | Inpatient (IN) | payer OTHER ==
[2018-02-21] MEDS ORDERED: Ondansetron ODT 4 MG TAB PO PRN (15:19)
[2018-02-21] MEDS ORDERED: Acetaminophen 650 MG Suppository PR PRN (15:19)
[2018-02-21] MEDS ORDERED: Ondansetron PF 4 MG/2 ML Vial IVP PRN (15:19)
[2018-02-21] MEDS: Sodium Chloride 0.9% 1,000 ML IV SCH ×2 (16:24→20:05)
[2018-02-21] MEDS ORDERED: Acetaminophen 1,000 MG in Premix Bag 1 BAG IVPB SCH (16:45)
--- NOTE | 2018-02-21 16:48 | PDOC.EVN ---
Event Note - Event Note Event Note: S: Residents called to the bedside to assess abdominal pain. Patient reports pain is all over her abdomen and goes from neck to groin. This happens 8-10 times a year and she believes it is related to her hernia. She reports it improves with GI cocktail and "pain shot." She states it started at 1030 this morning. She denies any hematemesis or melena. She endorses nausea. This pain is not any different than prior episodes. O: VS 112/75 R 26 P 76 T 98.5 SPO2 92% on 4L NC Gen: awake, alert HEENT: atraumatic, NC in place CV: RRR, heart sound distant RESP: diminished air entry at bases, CTAB ABD: soft, nondistended, slightly diffusely tender, no rebound or guarding A/P: 62 F with abdominal pain - Suspect related to hernia - Will give GI cocktail and ofirmev as patient is nauseous and hx of morphine allergy (rash) - Received morphine with benadryl at OSH in ER with no reported reaction - Will re-assess with full H&P shortly MD Matilda, PGY-3
[2018-02-21] MEDS ORDERED: Lidocaine 2% Viscous Solution 10 ML, Aluminum & Magnesium Hydroxide 30 ML SSW SCH (18:00)
--- NOTE | 2018-02-21 18:16 | PDOC.FPRHP ---
- History of Present Illness Chief Complaint: Abdominal pain History of Present Illness: Ms. Almaraz presents from [facility] as a direct admit. She reports a long history of nonspecific back/abdominal pain, frequent work ups and unsuccessful treatment for UTIs. Currently she is reporting pain, chills , and SOLO. She denies an chest pain, syncope or confusion. She is at baseline SOB when she walks around and reports that a large hernia is compressing her lungs and causing this. She does not use O2 at home. She has been recently taking NSAIDs for her pain and reports decreased PO intake over the past two days. ED Course: Direct admit from [facility] CBC, CMP, CT ab/pelvis - Allergies/Adverse Reactions Allergies Allergy/AdvReac Type Severity Reaction Status Date / Time lisinopril Allergy Severe Anaphylaxis Verified 01/13/17 13:32 morphine Allergy Mild Rash Verified 01/13/17 13:32 - Home Medications Medication Instructions Recorded Confirmed Type Loratadine [Claritin] 10 mg PO DAILY 01/13/17 02/21/18 History hydrALAZINE [Apresoline] 25 mg PO BID 01/13/17 02/21/18 History Amlodipine [Norvasc] 2.5 mg PO DAILY 06/22/17 02/21/18 History Gabapentin 600 mg PO TID PRN 02/21/18 02/21/18 History Zolpidem Tartrate [Ambien] 10 mg PO HS PRN 02/21/18 02/21/18 History - History PMHx: HTN PSHx: Appendectomy FHx:DMII Social: no TAD - Review of Systems General: reports: fever/chills, night sweats, fatigue Eyes: denies: eye pain, vision changes ENT: denies: nasal congestion, rhinorrhea Respiratory: reports: shortness of breath. denies: cough, congestion Cardiovascular: denies: chest pain, palpitation, edema Gastrointestinal: reports: abdominal pain. denies: nausea, vomiting, diarrhea Genitourinary: denies: incontinence, dysuria, polyuria Skin: denies: rashes Musculoskeletal: reports: pain, tenderness Neurological: denies: numbness, syncope - Vital signs BP: 112/75 HR: 76 RR: 26 Tmax: 98.5 Pox: 92% on 4L Wt: - Physical Exam Constitutional: NAD, awake, alert and oriented HEENT: normocephalic and atraumatic, grossly normal vision, grossly normal hearing Neck: supple, trachea midline Chest: no-tender to palpation, no lesions Heart: RRR, normal S1/S2 Lungs: CTAB, no respiratory distress, good air movement, other (decreased lung sounds in RLL) Abdomen: soft, other (tender on lateral abdominal wall and superior to pubic symphisis) Musculoskeletal: normal structure, ROM grossly normal Neurological: no focal deficit, normal sensation Skin: no rash/lesions, good turgor Heme/Lymphatic: no unusual bruising or bleeding Psychiatric: other (poor insight) FMR H&P: Results - Labs Result Diagrams: 02/22/18 03:56 02/22/18 03:56 FMR H&P: A/P - Problem List (1) Acute and chronic respiratory failure with hypoxia Current Visit: Yes Status: Acute Code(s): J96.21 - ACUTE AND CHRONIC RESPIRATORY FAILURE WITH HYPOXIA (2) Acute kidney injury Current Visit: Yes Status: Acute Code(s): N17.9 - ACUTE KIDNEY FAILURE, UNSPECIFIED (3) History of chronic urinary tract infection Current Visit: Yes Status: Acute Code(s): Z87.440 - PERSONAL HISTORY OF URINARY (TRACT) INFECTIONS (4) HTN (hypertension) Current Visit: Yes Status: Acute Code(s): I10 - ESSENTIAL (PRIMARY) HYPERTENSION (5) Hiatal hernia Current Visit: Yes Status: Acute Code(s): K44.9 - DIAPHRAGMATIC HERNIA WITHOUT OBSTRUCTION OR GANGRENE (6) Leukocytosis Current Visit: Yes Status: Acute Code(s): D72.829 - ELEVATED WHITE BLOOD CELL COUNT, UNSPECIFIED - Plan Acute hypoxic respiratory failure - dropped to 76%, O2 NC began, most recently satting in the low 90s on 3L - continuous O2 monitoring - hx of hiatal hernia, possible cause - EKG, CXR to further evaluate COLLIN - elevated Cr above baseline upon admission, CT abdomen/pelvis neg for stones - recent NSAID use and decreased PO intake - hold NSAIDS - NS 150ml/hr - repeat CMP in AM hx of recurrent UTI - no positive cultures to date, most likely IC - UA, UCx pending - tylenol PRN for pain - consider urology consult in AM HTN - continue home meds leukocytosis - elevated from CBC in outside ER - LA pending - begin broad spectrum abx Code: full ppx: [facility] Disposition/LOS: monitor on onc, further evaluate hypoxia FMR H&P: Upper Level - Pertinent history Transfer from [place]. Noted negative urine culture recently on Cipro. Worsening renal function. States she is having abdominal pain that comes and goes and also has a hiatal hernia that gives her pain. - Pertinent findings EXAM significant findings. Morbid obesity, labored breathing, decreased R lung sounds, nontender or distended abdomen. On 3L O2 at 96%. VS reviewed. - Plan Date/Time: 02/21/181813 I, Parviz dean, have evaluated this patient and agree with findings/plan as outlined by international representative resident. Pertinent changes/additions are listed here. 1. Acute hypoxic respiratory failure - Likely 2/2 her severe R sided hiatal hernia occupying a large portion of her R lung cavity. Stable on O2, will order ABG and transfer to [facility] for closer monitoring. Does seem to be an acute problem, possibly worsened but overall weakness as she is developing sepsis. Pulm consult in am. EKG reviewed and initial trops negative. 2. Presumed Sepsis- Cultures pending. Spiked WBC to 14 today and fever this evening after our initial evaluation. CXR shows no evidence of PNA, Urine culture on 02/19 NGTD, repeat. Broad spectrum abx and IVF to maintain MAP >65. Has peripheral IV access. 3. Acute Renal Failure on CKD3 - Suspected etiology is her recent NSAID use that has been discontinued. Continue fluids. Cr is improving from 3.3-->3. Will order renal US. Recent CT yesterday shows small nonconstructive nephrolithiasis. Consult renal in AM. 4. HTN - Hold home meds including diuretic. 5. Hiatal Hernia: Severe on R side complicating #1. Consider surgery consult. 6. Morbid Obesity: Also contributing to respiratory difficulties. 7. CKD3: Avoid nephrotoxic medications 8: Arthritis: Stop NSAIDS. Tylenol PRN. Attending Addendum - Attending Addendum Date/Time: 02/22/18 0707 I personally evaluated the patient and discussed the management with Dr. Dean and Bon at time of admission yesterday. I agree with the History, Examination, Assessment and Plan documented above with any addition or exceptions noted below.
[2018-02-21] MEDS: Acetaminophen 325 MG TAB PO PRN (20:54)
--- NOTE | 2018-02-21 21:11 | RAD ---
RADIOGRAPH CHEST 1 VIEW: Date: 02/21/18 Time: 8:51 p.m. HISTORY: 62-year-old female with hypoxia. COMPARISON: 12/06/17, 11:56 a.m. FINDINGS: The previously very large right sided hiatal hernia or diaphragmatic hernia, has become even larger, and now occupies approximately 75% of the right hemithoracic volume. Only a small portion of the righ t pulmonary apex is aerated. The left upper and mid lung zones are grossly clear. No pneumothorax. IMPRESSION: Extremely large right sided hiatal hernia or diaphragmatic hernia has become even larger, occupying a n estimated approximately 75% of the right hemithoracic cavity volume. MANE [] POS: SAMEER
[2018-02-21 21:21] LABS: #Lymphocytes 0.8 thou/uL (1.20-3.40); #Neutrophils 12.3 thou/uL (1.40-6.50); %Basophils 0.1 % (0.0-1.0); %Eosinophils 0.3 % (0.0-10.0); %Lymphocytes 5.8 % (21.0-51.0); %Monocytes 6.9 % (0.0-10.0); Hemoglobin 12.7 g/dL (12.0-16.0); Mean Corpuscular HGB CONC 31.1 g/dL (32.0-36.0); Mean Corpuscular Hemoglobin 28.8 pg (27.0-31.0); Mean Corpuscular Volume 92.4 fL (78.0-98.0); Mean Platelet Volume 7.9 fL (7.4-10.4); Platelet Count 244 thou/uL (130-400); RBC Distribution Width 14.7 % (11.5-14.5); White Blood Cell (WBC) Count 14.1 thou/uL (4.8-10.8)
[2018-02-21 21:33] LABS: ALT (SGPT) Less than 7 U/L (8-55); AST (SGOT) 10 U/L (5-34); Albumin 2.8 g/dL (3.5-5.0); Alkaline Phosphatase 36 U/L (40-150); Anion Gap 11 mmol/L (10-20); BUN (Urea Nitrogen) 32 mg/dL (9.8-20.1); Bilirubin, Total 0.4 mg/dL (0.2-1.2); Calc. Creatinine Clearance 42 mL/min (70-130); Calcium 6.4 mg/dL (7.8-10.44); Carbon Dioxide 20 mmol/L (22-29); Chloride 114 mmol/L (98-107); Estimated GFR-MDRD 16; Glucose 98 mg/dL (70-105); Potassium 3.5 mmol/L (3.5-5.1); Protein, Total 4.8 g/dL (6.0-8.3); Sodium 141 mmol/L (136-145)
[2018-02-21 21:44] LABS: Bilirubin Small (Negative); Blood, Urine Moderate (Negative); Clarity TURBID (Clear); Glucose, Urine (Dipstick) Negative (Negative); Leukocyte Large (Negative); Nitrite Negative (Negative); Protein, Urine (Dipstick) 300 mg/dL (Neg-Trace); Specific Gravity, Urine 1.019 (1.002-1.036); Urobilinogen 0.2 mg/dL (0.2-1.0)
[2018-02-21 21:47] LABS: Pathc Cast-AUWi Flag 5.37 (0-2.49); Yeast-AUWi Flag 145.1 (0-25.0)
[2018-02-21 21:50] LABS: Bacteria/HPF 1+ HPF (None Seen); Crystals/HPF 3+ AMORPH URATES HPF (Negative); Yeast-All Forms None Seen HPF (None Seen)
[2018-02-21 21:53] LABS: Osmolality, Urine 345 mOsm/kg (300-900)
[2018-02-21 21:59] LABS: Sodium, Urine 54 mmol/L (Not Available)
[2018-02-21] MEDS: Piperacillin/Tazobactam 2.25 GM in Sodium Chloride 0.9% 100 ML IVPB SCH (22:23)
[2018-02-21 22:41] LABS: Hyaline Casts/LPF 0-3 HYALINE CAST LPF (0-3 Hyaline)
--- NOTE | 2018-02-21 22:52 | PDOC.EVN ---
Event Note - Event Note Event Note: evaluated Ms. Almaraz. Over the past hour she has complained of epigastric pain and chest pain adn abck pain. Over the course of the past several hours she has developed an oxygen requirement. She has developed a fever. Her WBC are elevated; her CXr shows a hiatal hernia that occupie sa clover postion of the right chest. An EKG was normal. Her HR is in the 80s. Her BP is normal. Her RR is 18. We suspected wither pneumonia, bacteremia, or UTI with sepsis. Because of her worsening condition in the context of a new oxygen requirement and sepsis we are moving her to the IMCU. Blood cultures ordered. Empiric antibiotics ordered. ABG will obtained after her arrival to the IMCU. Lactic acid has been ordered as well.
[2018-02-21] MEDS ORDERED: Lidocaine 2% Viscous Solution 20 ML, Aluminum & Magnesium Hydroxide 30 ML, Donnatal Eli... SSW SCH (23:30)
[2018-02-21 23:45] LABS: Actual Bicarbonate (HCO3a) 25.5 mEq/L (22-28); Calcium, Ionized 1.15 mmol/L (1.12-1.30); Carboxyhemoglobin (COHb) 2.1 gm% (0.0-3.0); Hemoglobin (Hb) 12.5 g/dL (12.0-16.0); O2 Tension (PaO2) 62.3 mmHg (> 80.0); Potassium - ABG Lab 4.21 mmol/L (3.70-5.30)
[2018-02-21 23:55] LABS: CO2 Tension 62.2 mmHg (35.0-45.0); Puncture Site RRA; pH, Arterial 7.23 (7.35-7.45)
[2018-02-21] MEDS ORDERED: Vancomycin HCl 1.5 GM in Sodium Chloride 0.9% 250 ML 300 ML IVPB SCH (23:59)
--- NOTE | 2018-02-22 00:41 | PDOC.EVN ---
Event Note - Event Note Event Note: upon arrival to [facility] ABG was obtained significant for respiratory acidosis, mentation and respiratory status improved upon reassesment. pt AOx3. continue to monitor respiratory status and mentation closely, repeat ABG in 1.5 hrs.
[2018-02-22] MEDS: Acetaminophen 325 MG TAB PO PRN ×2 (02:30→09:23)
[2018-02-22] MEDS ORDERED: Sodium Chloride 0.9% 1,000 ML IV SCH (03:30)
[2018-02-22 04:19] LABS: Actual Bicarbonate (HCO3a) 25.9 mEq/L (22-28); Base Excess (BEa) -3.1 mEq/L (-2.0 to +3.0); Calcium, Ionized 1.09 mmol/L (1.12-1.30); Carboxyhemoglobin (COHb) 2.4 gm% (0.0-3.0); Hemoglobin (Hb) 12.3 g/dL (12.0-16.0); O2 Tension (PaO2) 60.4 mmHg (> 80.0); Potassium - ABG Lab 4.34 mmol/L (3.70-5.30)
[2018-02-22 04:20] LABS: CO2 Tension 66.2 mmHg (35.0-45.0); Puncture Site RRA; pH, Arterial 7.21 (7.35-7.45)
[2018-02-22 04:36] LABS: #Lymphocytes 0.9 thou/uL (1.20-3.40); #Monocytes 1.1 thou/uL (0.11-0.59); #Neutrophils 14.4 thou/uL (1.40-6.50); %Basophils 0.1 % (0.0-1.0); %Eosinophils 0.2 % (0.0-10.0); %Lymphocytes 5.7 % (21.0-51.0); %Monocytes 6.4 % (0.0-10.0); %Neutrophils 87.7 % (42.0-75.0); Hemoglobin 12.1 g/dL (12.0-16.0); Mean Corpuscular HGB CONC 31.3 g/dL (32.0-36.0); Mean Corpuscular Hemoglobin 28.2 pg (27.0-31.0); Mean Corpuscular Volume 90.3 fL (78.0-98.0); Mean Platelet Volume 8.3 fL (7.4-10.4); Platelet Count 189 thou/uL (130-400); RBC Distribution Width 14.8 % (11.5-14.5); Red Blood Cell (RBC) Count 4.29 mill/uL (4.20-5.40); White Blood Cell (WBC) Count 16.4 thou/uL (4.8-10.8)
--- NOTE | 2018-02-22 04:50 | PDOC.EVN ---
Event Note - Event Note Event Note: repeat ABG shows worsening hypercapneic respiratory acidosis, pH 7.23-->7.21, CO2 62-->66. Will begin BiPAP at this time. repeat ABG one hour after beginning BiPAP. mental status unchanged, AOx3. monitor closely.
[2018-02-22 05:25] LABS: Anion Gap 17 mmol/L (10-20); BUN (Urea Nitrogen) 40 mg/dL (9.8-20.1); Calc. Creatinine Clearance 32 mL/min (70-130); Calcium 8.2 mg/dL (7.8-10.44); Carbon Dioxide 20 mmol/L (22-29); Chloride 107 mmol/L (98-107); Estimated GFR-MDRD 11; Glucose 122 mg/dL (70-105); Potassium 4.7 mmol/L (3.5-5.1); Sodium 139 mmol/L (136-145)
[2018-02-22] MEDS: Sodium Chloride 0.9% 1,000 ML IV SCH ×3 (05:39→15:05)
[2018-02-22] MEDS: Piperacillin/Tazobactam 2.25 GM in Sodium Chloride 0.9% 100 ML IVPB SCH ×3 (05:39→20:20)
[2018-02-22 06:09] LABS: Base Excess (BEa) -5.2 mEq/L (-2.0 to +3.0); CO2 Tension 56.8 mmHg (35.0-45.0); Carboxyhemoglobin (COHb) 1.9 gm% (0.0-3.0); Hemoglobin (Hb) 12.4 g/dL (12.0-16.0); O2 Tension (PaO2) 67.9 mmHg (> 80.0); Potassium - ABG Lab 4.43 mmol/L (3.70-5.30)
[2018-02-22 06:15] LABS: Puncture Site RRA; pH, Arterial 7.23 (7.35-7.45)
--- NOTE | 2018-02-22 07:17 | PDOC.EVN ---
Event Note - Event Note Event Note: Danna is more talkative this morning, still has back pain, Bipap has improved her PCo2 but respiratory acidosis has not improved much. Will consult pulmonology for recommendations, and gen surg for hiatal hernia recommendations. Nephrology consult for worsening renal function. antibiotics have been initiated over night.
[2018-02-22] MEDS ORDERED: Prevnar 13-Val Conj/PF 0.5 ML SYRINGE IM ONE (09:00)
[2018-02-22] MEDS ORDERED: Pantoprazole 40 MG VIAL IVP SCH ×2 (09:00→17:15)
--- NOTE | 2018-02-22 09:00 | ULT ---
RENAL ULTRASOUND: HISTORY: Acute renal failure. COMPARISON: None. TECHNIQUE: Sagittal and transverse imaging of the kidneys is performed. FINDINGS: Limited evaluation of both renal parenchyma. There appears to be diffuse bilateral renal cortical th inning, severe. The right kidney .3 x 7.1 x 6.0 cm. The left kidney measures 6.3 x 6.5 x 11.9 cm. There is an echogenic focus in the mid pole of the right kidney measuring 1.8 cm. Nonobstructing win culus is suspected. There is an echogenic focus in the inferior pole of the left kidney measuring 2. 6 cm which may represent a nonobstructing calculus or possible cortical calcification. The urinary bladder cannot be assessed. IMPRESSION: 1. Marked bilateral renal cortical thinning. No evidence of hydronephrosis. 2. Echogenic foci noted in the left and right kidney are compatible with calcifications as demonstra mayelin on CT performed on 02/20/2018. POS: SAMEER
--- NOTE | 2018-02-22 09:57 | PDOC.FM ---
- Subjective Subjective: Pt reports having a lot of pain in her mid epigastric area and in her mid chest. Pain radiates to the right side and back. She reports pain as constant and sharp. Pt is in some distress due to pain. Pt denies any fevers. Denies any vomiting. Reports nausea and constipation. She reports breathing better since being put on bipap. Pt denies any leg swelling. - Objective MAR Reviewed: Yes Vital Signs & Weight: Vital Signs (12 hours) Temp Pulse Resp BP BP Pulse Ox 02/22/18 07:23 98.2 F 82 20 116/87 100 02/22/18 03:42 99.0 F 91 18 114/49 L 96 02/22/18 03:00 92 18 85/63 L 96 02/22/18 02:00 88 22 H 98/75 95 02/22/18 01:00 88 88/57 L 02/22/18 00:15 98.8 F 02/22/18 00:00 88 20 91/58 L 95 02/21/18 22:40 98.8 F 87 18 104/68 95 02/21/18 21:57 99.5 F 87 18 105/71 94 L Weight Weight 135.199 kg I&O: 02/21/18 02/22/18 02/23/18 06:59 06:59 06:59 Intake Total 3060 Output Total 200 Balance 2860 Result Diagrams: 02/22/18 03:56 02/22/18 03:56 EKG Reviewed by me: Yes Radiology Reviewed by me: Yes Radiology: Renal U/S- marked bilateral renal cortical thinning. No evidence hydronephrosis. Echogenic foci noted in left and right kidney compatible with calcifications. 02/21/18 Cxray- Extemely large right sided hiatal hernia or diaphramatic hernia has become even larger. Occupying an estimated 75% of right hemithoracic cavity volume. <Kulwinder Duenas - Last Filed: 02/22/18 09:55> - Objective Vital Signs & Weight: Vital Signs (12 hours) Temp Pulse Resp BP BP Pulse Ox 02/22/18 10:48 98.3 F 84 21 H 105/73 96 02/22/18 10:23 85 19 02/22/18 08:00 95 02/22/18 07:23 98.2 F 82 20 116/87 100 02/22/18 03:42 99.0 F 91 18 114/49 L 96 02/22/18 03:00 92 18 85/63 L 96 Weight Weight 135.199 kg I&O: 02/21/18 02/22/18 02/23/18 06:59 06:59 06:59 Intake Total 3060 Output Total 200 Balance 2860 Result Diagrams: 02/22/18 03:56 02/22/18 03:56 <Glenda Carrera - Last Filed: 02/22/18 15:00> Phys Exam - Physical Examination Pt is in distress from pain. HEENT: PERRLA, moist MMs Neck: no nodes, no JVD, supple, full ROM Decreased breath sounds on the R. No wheezes or crackles noted Cardiovascular: RRR, no significant murmur, no rub Very TTP in the epigastric area. Tender in RUQ and R. flank. No massess noted. Hard to assess due to pt body habitus Musculoskeletal: no edema, pulses present Neurological: non-focal, normal sensation, moves all 4 limbs Lymphatic: no nodes Psychiatric: normal affect Skin: no rash, normal turgor, cap refill <2 seconds <Kulwinder Duenas - Last Filed: 02/22/18 09:55> Dx/Plan (1) Acute and chronic respiratory failure with hypoxia Code(s): J96.21 - ACUTE AND CHRONIC RESPIRATORY FAILURE WITH HYPOXIA Status: Acute (2) HTN (hypertension) Code(s): I10 - ESSENTIAL (PRIMARY) HYPERTENSION Status: Acute (3) Hiatal hernia Code(s): K44.9 - DIAPHRAGMATIC HERNIA WITHOUT OBSTRUCTION OR GANGRENE Status: Acute (4) Leukocytosis Code(s): D72.829 - ELEVATED WHITE BLOOD CELL COUNT, UNSPECIFIED Status: Acute (5) Acute renal failure Status: Acute (6) Obesities, morbid Code(s): E66.01 - MORBID (SEVERE) OBESITY DUE TO EXCESS CALORIES Status: Chronic - Plan Plan: Acute hypoxic respiratory failure -Likely related to large hernia in R. thoracic cavity. - Pt PCO2 on ABG elevated overnight. Pt hypoxic on nasal cannula. transitioned to IMCU for BIPAP. O2 sats and ABG improved. - continuous O2 monitoring -Pulmonology consulted- Dr. Prather- follow recs -General Surgery consulted- Dr. Hassan- want to assess hernia at this time. follow recs Hiatal vs Diaphragmatic Hernia -Likely cause of problem above. Pt CO2 dropped to 20 from 30's at prior hospitilizations. Concern for some form of strangluated bowel in the hernia due to patient pain and new metabolic acidosis. -General surgery consulted- Dr. Hassan- follow recs -Morphine for pain ARF - elevated Cr above baseline upon admission, CT abdomen/pelvis at outside hospital shows nonobstructive stone. -Cr increased to 4 today. - recent NSAID use and decreased PO intake - NS 150ml/hr -Nephrology consulted- Dr. Parker- follow recs hx of recurrent UTI - no positive cultures to date, most likely IC - UA, UCx pending- NGTD - tylenol/morphine PRN for pain HTN - continue home meds leukocytosis - elevated from CBC in outside ER. WBC count increased. Concern for possible infection. Possible strangulation of bowel vs chronic UTI -Vanc and Zosyn for abx coverage. - LA normal. -Procalcitonin pending. <Kulwinder Duenas - Last Filed: 02/22/18 09:55> Attending Addendum - Attending Addendum Date/Time: 02/22/18 [id number] I personally evaluated the patient and discussed the management with Dr. Duenas. I agree with the History, Examination, Assessment and Plan documented above with any addition or exceptions noted below. Pt is on bipap this morning. She is complaining of severe abdominal pain and has tenderness to palpation in the epigastric region with guarding which is new from yesterday. Dr. Hassan has been consulted as has Dr. Prather. <Glenda Carrera - Last Filed: 02/22/18 15:00>
[2018-02-22] MEDS ORDERED: Morphine 4 MG/ML VIAL SLOW IVP PRN (10:15)
[2018-02-22] MEDS ORDERED: diphenhydrAMINE 50 MG/ML VIAL IM SCH (10:15)
[2018-02-22] MEDS ORDERED: Bupivacaine/Epinephrine 0.25% 30 ML VIAL ONE (10:42)
[2018-02-22] MEDS ORDERED: Fentanyl 100 MCG/2 ML VIAL ONE (10:49)
[2018-02-22] MEDS ORDERED: Phenylephrine HCL 10 MG/ML VIAL ONE ×2 (10:50→14:19)
[2018-02-22] MEDS ORDERED: HYDROmorphone 2 MG/ML VIAL ONE (10:50)
[2018-02-22] MEDS ORDERED: Lidocaine 1% PF 5 ML VIAL ONE (11:53)
[2018-02-22] MEDS ORDERED: PHENYLEPHRINE-NS 100 MCG/ML 10 ML SYRINGE ONE ×2 (11:53→14:19)
[2018-02-22] MEDS ORDERED: PROPOFOL 200 MG/20 ML VIAL ONE (11:53)
[2018-02-22] MEDS ORDERED: ePHEDrine/0.9% NaCl/PF SYRINGE 50 mg/10 ml ONE (11:53)
[2018-02-22] MEDS ORDERED: Midazolam HCl 5 mg/5 ml Vial ONE (12:56)
--- NOTE | 2018-02-22 13:11 | CON ---
DATE OF CONSULTATION: 02/22/2018 CONSULTING PHYSICIAN: Dr. Arambula. REASON FOR CONSULTATION: Hypercapnic respiratory failure and a large hiatal hernia. HISTORY OF THE PRESENT ILLNESS: Ms. Almaraz is a 62-year-old female, who was transferred here from [place] last night. She has developed subacute abdominal pain in the xiphoid area. She is having a difficult time breathing. She had to be placed on BiPAP last night. She has been taking NSAIDs over the last several days for pain. She has had diminished oral intake. She has a history of a large hiatal hernia on the right. She has seen a surgeon in [place] in the past, who said this was something he cannot fix. In looking at her lab, she has a history of a chronic metabolic alkalosis indicating that she probably has a chronic respiratory acidosis. PAST MEDICAL HISTORY: Hypertension. PAST SURGICAL HISTORY: Appendectomy. FAMILY MEDICAL HISTORY: Remarkable for diabetes mellitus type 2. SOCIAL HISTORY: Nonsmoker. Does not consume alcohol. MEDICATIONS: Prior to admission, 1. Claritin 10 mg daily. 2. Hydralazine 25 mg b.i.d. 3. Amlodipine 2.5 mg daily. 4. Gabapentin 600 mg t.i.d. 5. Ambien 10 mg at night as needed. ALLERGIES: LISINOPRIL CAUSES ANGIOEDEMA. MORPHINE CAUSES MILD RASH. PHYSICAL EXAMINATION: VITAL SIGNS: Temperature 98.2, pulse 82, respirations 20 to 25, O2 sat 100% on BiPAP, and blood pressure 116/87. HEENT: Pupils are reactive. Sclerae are anicteric. Oropharynx has a BiPAP mask on. NECK: No adenopathy. No JVD. LUNGS: Almost absent breath sounds on the right chest, clear on the left. CARDIAC: S1 and S2. Slightly tachycardic. No murmur. ABDOMEN: She has palpable pain just below the xiphoid process. Some rebound tenderness. She has diffuse pain over right flank. Left side is fairly benign. EXTREMITIES: No clubbing, cyanosis, or edema. LABORATORY DATA: White blood cell count is 16.4, hematocrit 38.8, and platelet count 189. PH of 7.23, pCO2 of 56, and pO2 of 67. Sodium 139, potassium 4.7, chloride 107, CO2 of 20, BUN 40, creatinine 4.0, and glucose 122. IMAGING STUDIES: CT and chest x-ray were reviewed. She has almost 85% of a right hemothorax compromised by hiatal hernia. ASSESSMENT: 1. Severe metabolic acidosis. This could be from either compromised kidneys or from something worse such as ischemic bowel. 2. Chronic hypercapnic respiratory failure. 3. Acute renal failure. RECOMMENDATIONS: 1. General Surgery consultation to see if this is an acute abdomen and if operative repair is needed here or transfer as needed. 2. Agree with hydration. 3. BiPAP for the time being, but low threshold for endotracheal intubation, if she worsens. 4. We will follow with you. Job ID: [id number]
[2018-02-22] MEDS ORDERED: Sodium Chloride 0.9% 30 ML ONE (14:05)
[2018-02-22] MEDS ORDERED: Heparin 10,000 UNITS/1 ML VIAL ONE (14:05)
--- NOTE | 2018-02-22 14:52 | PQF ---
CLINICAL DOCUMENTATION IMPROVEMENT CLARIFICATION FORM: ICD-10 Updated PLEASE DO AN ADDENDUM TO THE PROGRESS NOTE WITH ANY DOCUMENTATION UPDATES OR ADDITIONS AND CARRY THROUGH TO DC SUMMARY. THANK YOU. DATE: 02/22/18 ATTN: DR. MCCLURE Please exercise your independent, professional judgment in responding to the clarification form. Clinical indicators are provided on the bottom of this form for your review Please check appropriate box(es): [ x] Sepsis due to: (Pna, UTI, gangrenous gall bladder, etc.) ___peforated ulcer Due to: [ ] Device (please specify) [ ] Implant [ ] Graft [ ] Infusion [ ] SIRS due to non-infectious process (please specify etiology) [ ] with organ dysfunction [ ] without organ dysfunction [ ] Severe sepsis with acute organ dysfunction of: (Examples: respiratory failure, encephalopathy, acute kidney failure, other) [ ] Septic Shock [ ] Localized infection without sepsis [ ] Other diagnosis [ ] Unable to determine In addition, please specify: Present on Admission (POA): [ ] Yes [ ] No [ ] Unable to determine For continuity of documentation, please document condition throughout progress notes and discharge summary. Thank You. CLINICAL INDICATORS - SIGNS / SYMPTOMS / LABS EVENT NOTE 02/21: "WE SUSPECT EITHER PNEUMONIA, BACTEREMIA, OR UTI WITH SEPSIS." "REPORTS CHILLS" (H&P) WBC 14.1 / 16.4 RR 21-26 RISKS: SUSPECTED PNEUMONIA (EVENT NOTE 02/21) SUSPECTED BACTEREMIA (EVENT NOTE 02/21) SUSPECTED UTI (EVENT NOTE 02/21) TREATMENT: IV ZOSYN (02/21-PRESENT) IV FLUIDS (02/21-PRESENT) IV VANCOMYCIN (02/21-PRESENT) URINE AND BLOOD CULTURES SERIAL LABS IMCU MONITORING (This form is maintained as a part of the permanent medical record) 2014 [employer] All Rights Reserved MARISOL [email or web address] Office: [phone] Attending: Sepsis 2/2 perforated ulcer GAB
[2018-02-22 15:25] LABS: Actual Bicarbonate (HCO3a) 21.3 mEq/L (22-28); Base Excess (BEa) -3.6 mEq/L (-2.0 to +3.0); CO2 Tension 37.8 mmHg (35.0-45.0); Calcium, Ionized 1.05 mmol/L (1.12-1.30); Carboxyhemoglobin (COHb) 1.6 gm% (0.0-3.0); Hemoglobin (Hb) 11.7 g/dL (12.0-16.0); O2 Tension (PaO2) 67.3 mmHg (> 80.0); pH, Arterial 7.37 (7.35-7.45)
[2018-02-22 15:30] LABS: Puncture Site LINE
[2018-02-22] MEDS ORDERED: Dextrose 5% in Water 1,000 ML IV PRN (15:32)
[2018-02-22] MEDS ORDERED: hydrALAZINE 20 MG/ML VIAL SLOW IVP PRN (15:32)
[2018-02-22] MEDS ORDERED: HumaLOG 300 UNITS/3 ML VIAL SC PRN (15:32)
[2018-02-22] MEDS ORDERED: Dextrose 50% Abboject 50 ML SYRINGE SLOW IVP PRN (15:32)
[2018-02-22] MEDS ORDERED: TAZOBACTAM IVPB PRN (15:43)
[2018-02-22] MEDS ORDERED: PIPERACILLIN IVPB PRN (15:43)
[2018-02-22] MEDS ORDERED: FLUCONAZOLE IVPB PRN (15:43)
[2018-02-22] MEDS ORDERED: Propofol 1,000 MG/100 ML VIAL IV PRN (15:58)
[2018-02-22] MEDS ORDERED: Lorazepam 2 MG/ML VIAL SLOW IVP PRN (15:58)
[2018-02-22] MEDS ORDERED: Propofol BOLUS 1,000 MG/100 ML VIAL IV PRN (15:58)
[2018-02-22] MEDS ORDERED: Fentanyl BOLUS 250 ML IVPB PRN (15:58)
[2018-02-22] MEDS ORDERED: fentaNYL Citrate/PF 2,000 MCG in Sodium Chloride 0.9% 60 ML IV SCH (15:58)
[2018-02-22] MEDS ORDERED: DISCONTINUE PREVIOUS NARCOTIC PAIN MEDICATIONS AND BENZODIAZEPINES FS SCH (15:58)
--- NOTE | 2018-02-22 16:15 | RAD ---
RADIOGRAPH OF THE UPPER ABDOMEN 02/22/18 COMPARISON: None. HISTORY: Needle count in operating room. FINDINGS: There is a nasogastric tube curling in the expected location of the gastric fundus. Gastrostomy tube overlies the left upper quadrant. Vertically oriented cutaneous corry overlie the upper abdomen. There are also cutaneous corry in the right and left upper quadrant. calcifications in the right upper quadrant suggests two right allison l stones measuring up to 9-10 mm. There is a probable stone in the left kidney measuring 1.9 cm in tr ansverse dimension. There is increased density in the perihilar regions and both lung bases, left gre ater than right, which may represent volume loss. No metallic foreign body to suggest a needle is see n in the imaged upper abdomen. The lower abdomen/pelvis is not imaged on this exam. The large hiatal hernia seen on the prior examination appears status post surgical reduction. IMPRESSION: Postoperative findings as detailed above. The imaged abdomen demonstrates no metallic foreign body to suggest residual needle. POS: [facility]
[2018-02-22 16:51] LABS: Anion Gap 13 mmol/L (10-20); BUN (Urea Nitrogen) 43 mg/dL (9.8-20.1); Calc. Creatinine Clearance 40 mL/min (70-130); Calcium 8.1 mg/dL (7.8-10.44); Carbon Dioxide 22 mmol/L (22-29); Chloride 109 mmol/L (98-107); Estimated GFR-MDRD 15; Glucose 130 mg/dL (70-105); Potassium 3.9 mmol/L (3.5-5.1); Sodium 140 mmol/L (136-145)
--- NOTE | 2018-02-22 17:16 | CON ---
DATE OF CONSULTATION: 02/22/2018 CHIEF COMPLAINT: Severe upper abdominal pain. HISTORY OF PRESENT ILLNESS: This is a 62-year-old female with a history of chronic renal insufficiency, who presents after being seen in [place] for upper abdominal pain, acute on chronic renal insufficiency, respiratory failure. The patient was transferred here from [place] [facility] for these symptoms, admitted to the [facility] service overnight. The patient was rolled over on her side and screaming of severe upper abdominal pain. She is also on the BiPAP right now, which makes it very difficult to obtain significant history. Most of the history thus is performed from the chart. PAST MEDICAL HISTORY: Includes hypertension and chronic renal insufficiency. SURGICAL HISTORY: Appendectomy. MEDICATIONS: Medicines taken daily at home include, 1. Claritin. 2. Amlodipine. 3. Hydralazine. 4. Gabapentin. 5. Ambien. ALLERGIES: LISINOPRIL, MORPHINE. REVIEW OF SYSTEMS: Unable to obtain secondary to her respiratory insufficiency. PHYSICAL EXAMINATION: VITAL SIGNS: Blood pressure is 105/73, pulse 84, respirations 21, O2 saturation 96% on BiPAP. Urine, 200 so far. GENERAL: The patient is alert, seems to be oriented, but complaining and screaming of pain, lying on her right side. HEENT: Sclerae anicteric. Oropharynx clear. NECK: No lymphadenopathy. CHEST: Clear. HEART: Regular rate and rhythm. ABDOMEN: Soft. It is diffusely tender. More tender in the upper abdomen. EXTREMITIES: No ischemia or edema to the extremities. LABORATORY DATA: White blood cell count is 16, hemoglobin 12, platelet count is 189. She has no bands. Sodium 139, potassium 4.7, creatinine is 4.04, that is up from 3 yesterday. Urine with too numerous to count wbc's, large leukocyte esterase, negative nitrite. CT scan of the abdomen and pelvis reveals large hiatal hernia with colon and stomach in the right chest larger than normal amounts. Cholelithiasis without cholecystitis. ASSESSMENT: Peritonitis with acidosis and acute renal insufficiency, respiratory insufficiency, concerning for ischemic changes to stomach or colon in her large hiatal hernia. PLAN: Discussed with Dr. Prather and Dr. Wilson. I recommended diagnostic laparoscopy, possible laparotomy. She is not the best surgical candidate given her renal failure and obesity. However, significant acute changes with severe pain, I am concerned for something in her abdomen that could be causing her to be septic. Planned surgery today. Job ID: [id number]
--- NOTE | 2018-02-22 17:46 | RAD ---
CHEST ONE VIEW: 02/22/18 HISTORY: Status post central line placement. FINDINGS: There is a right sided central venous catheter with the distal tip in the expected region of the supe rior vena cava. Endotracheal tube at the level of clavicle. Enlarged cardiac silhouette. Pulmonary ve ssels and hilum are normal. Costophrenic angles are clear. Chronic changes in the lung parenchyma, wi thout consolidation or mass. previously noted large right sided hiatal hernia, diaphragmatic hernia i s no longer evident. No pneumothorax IMPRESSION: 1. Lines and tubes as above. 2. No pneumothorax. POS: [facility]
--- NOTE | 2018-02-22 23:37 | OP ---
DATE OF PROCEDURE: 02/22/2018 PREOPERATIVE DIAGNOSES: Peritonitis and acidosis. POSTOPERATIVE DIAGNOSES: 1. Perforated gastric ulcer near the gastroesophageal junction. 2. Large hiatal hernia. PROCEDURES PERFORMED: 1. Laparoscopy converted to exploratory laparotomy with reduction of large hiatal hernia including most of stomach and nearly the entire transverse colon, omental patch repair of perforated prepyloric gastric ulcer posteriorly into the lesser sac. 2. Placement of G tube for decompression of stomach. 3. Central line placement, right internal jugular vein and dialysis catheter placement, right femoral vein. ESTIMATED BLOOD LOSS: Minimal. COMPLICATIONS: None. FINDINGS: There was purulent material found along the lesser curve high up near the esophageal hiatus. Cultures taken for anaerobes and aerobes. DESCRIPTION OF PROCEDURE: The patient was taken to the operating room and laid supine on the operating room table. After general anesthetic was obtained, legs were double strapped to bariatric table and split. Art line was placed by Anesthesia. The abdomen was prepped and draped in a sterile fashion. Left subcostal 5-mm Optiview trocar was placed in usual fashion without injury. Three other 5-mm trocars were placed as well as a liver tractor. The patient's pneumoperitoneum was limited by her body habitus. When I reached up to pull down on the stomach going into the chest, there was gross purulence. Decision was made to open. Midline incision was made from xiphoid to umbilicus. Bookwalter retractor was placed. The transverse colon was able to be pulled down out of the hiatal hernia without significant difficulty reaching up into the right chest through the hiatus. The stomach felt to be twisted and full, so an OG tube was passed down by Anesthesia. The stomach was decompressed. It was then able to be mostly pulled down into the abdominal cavity. There was no anterior evidence of perforation in the stomach. The lesser sac was entered using a LigaSure to take down the short gastrics and a posterior prepyloric ulcer was seen, perforation or inflammatory changes in the area. A 3-0 PDS was used to close the ulcer primarily. Omental patch repair was performed using a small finger. Omentum was able to be easily pulled up and patched over the top of this. The stomach appeared viable without evidence of perforation or ischemia. There was no ongoing bleeding in the abdomen. The upper abdomen and chest cavity was irrigated using warm sterile solution until returns were clear. A 19 round drain was brought out through a right abdominal stab incision and left up through the esophageal hiatus into this area and connected to a bulb for drainage. There was no obvious bleeding. Mallinckrodt catheter was brought in through a left upper quadrant incision and placed in along the greater curve of the distal stomach. This G-tube would serve for decompression as well as to anchor the stomach down in the abdomen. The G-tube was performed by pursestring of silk suture. A gastrotomy was made. The Mallinckrodt was placed into the stomach. The pursestring was tied down. The stomach was able to be pulled up against the posterior abdominal wall in the left upper abdomen and 2-0 silk sutures were used circumferentially to affix the stomach serosa to the posterior peritoneum. All instrument counts, needle counts, and lap counts were correct. Midline fascia was closed using #1 PDS from the top and bottom and tied in the middle. The subcutaneous tissues were irrigated copiously using sterile solution. The skin was closed using skin clips. Telfa alhaji were placed in between the corry. Sterile dressings were placed. The right groin was shaved, prepped, and draped in a sterile fashion. Seldinger needle was placed into the right femoral vein and a wire was passed under no tension. A small sage was made at the wire entrance site. The wire was used to guide to dilate the femoral vein. The Trialysis catheter was placed to its fullest extent. The wire was removed. The Trialysis catheter was sewn in place. All three ports were flushed and estee blood. Each was flushed with a saline solution. Heparin solution was left in the lumen of the dialysis catheters. Sterile dressings were placed. Next, the right neck was prepped and draped in a sterile fashion and a 22-gauge finer needle was used to cannulate the right internal jugular vein followed by a Seldinger needle. Wire was passed into superior vena cava under fluoroscopic guidance. A sage was made to watch inside. The wire was used the guide to dilate the internal jugular vein. The triple-lumen catheter started at 16 cm sewn to the neck using close silk and connector. All ports were flushed and estee out both without difficulty. It was flushed with a saline solution. The patient was then returned to ICU in critical, but stable condition. All instrument counts, needle counts, and lap counts were correct. Job ID: [id number]
[2018-02-23] MEDS: Piperacillin/Tazobactam 2.25 GM in Sodium Chloride 0.9% 100 ML IVPB SCH ×3 (01:32→16:30)
[2018-02-23] MEDS: Sodium Chloride 0.9% 1,000 ML IV SCH ×3 (01:33→17:05)
[2018-02-23 05:11] LABS: #Lymphocytes 0.5 thou/uL (1.20-3.40); #Monocytes 0.5 thou/uL (0.11-0.59); #Neutrophils 6.8 thou/uL (1.40-6.50); %Basophils 0.1 % (0.0-1.0); %Eosinophils 0.4 % (0.0-10.0); %Lymphocytes 6.8 % (21.0-51.0); %Monocytes 6.2 % (0.0-10.0); %Neutrophils 86.5 % (42.0-75.0); Hemoglobin 10.3 g/dL (12.0-16.0); Mean Corpuscular HGB CONC 33.3 g/dL (32.0-36.0); Mean Corpuscular Hemoglobin 29.5 pg (27.0-31.0); Mean Corpuscular Volume 88.6 fL (78.0-98.0); Mean Platelet Volume 8.3 fL (7.4-10.4); Platelet Count 187 thou/uL (130-400); RBC Distribution Width 14.6 % (11.5-14.5); Red Blood Cell (RBC) Count 3.51 mill/uL (4.20-5.40); White Blood Cell (WBC) Count 7.9 thou/uL (4.8-10.8)
[2018-02-23 05:34] LABS: ALT (SGPT) 12 U/L (8-55); AST (SGOT) 21 U/L (5-34); Albumin 2.5 g/dL (3.5-5.0); Alkaline Phosphatase 42 U/L (40-150); Anion Gap 12 mmol/L (10-20); BUN (Urea Nitrogen) 47 mg/dL (9.8-20.1); Bilirubin, Total 0.5 mg/dL (0.2-1.2); Calc. Creatinine Clearance 45 mL/min (70-130); Calcium 7.7 mg/dL (7.8-10.44); Carbon Dioxide 24 mmol/L (22-29); Chloride 111 mmol/L (98-107); Estimated GFR-MDRD 17; Globulin 2.6 g/dL (2.4-3.5); Glucose 113 mg/dL (70-105); Potassium 3.8 mmol/L (3.5-5.1); Protein, Total 5.1 g/dL (6.0-8.3); Sodium 143 mmol/L (136-145)
[2018-02-23] MEDS ORDERED: DC Sedation Protocol FS ONE (06:35)
[2018-02-23 06:38] LABS: Actual Bicarbonate (HCO3a) 23.4 mEq/L (22-28); Base Excess (BEa) -1.3 mEq/L (-2.0 to +3.0); CO2 Tension 39.5 mmHg (35.0-45.0); Calcium, Ionized 1.03 mmol/L (1.12-1.30); Carboxyhemoglobin (COHb) 1.2 gm% (0.0-3.0); Hemoglobin (Hb) 10.9 g/dL (12.0-16.0); Potassium - ABG Lab 3.65 mmol/L (3.70-5.30); pH, Arterial 7.39 (7.35-7.45)
[2018-02-23 07:14] LABS: O2 Tension (PaO2) 52.4 mmHg (> 80.0); Puncture Site ALINE
[2018-02-23 07:16] LABS: ALV-art Gradient 112.125 (0-20)
--- NOTE | 2018-02-23 07:32 | CON ---
DATE OF CONSULTATION: NEPHROLOGY CONSULT REASON FOR CONSULTATION: Elevated creatinine. HISTORY OF PRESENT ILLNESS: This is a very pleasant 62-year-old female presented to the hospital The patient has a hiatal hernia which is in her chest, and she is having progressive abdominal pain. The patient denies fever, chills, or abdominal pain. The patient is in [id number] distress and cannot give no further detailed history. The patient has decreased urine output. PAST MEDICAL HISTORY: Significant for kidney stone, glaucoma, tonsillectomy, hysterectomy, cystoscopy. MEDICATIONS: Home medications: Reviewed. Hospital medications: Reviewed. ALLERGIES: REVIEWED. REVIEW OF SYSTEMS: A 15-point review of systems was unobtainable. The patient is on BiPAP. FAMILY HISTORY: Negative for ESRD. PHYSICAL EXAMINATION: See above. GENERAL: The patient is awake, in [id number]-[id number] distress. VITAL SIGNS: Afebrile, pulse 62, breathing 16, blood pressure 116/87. GENERAL APPEARANCE AND MENTAL STATUS: Fair. HEAD/NECK: Normocephalic. Atraumatic. EYES: EOMI. No deformity. EARS: Clear. No ulcers. NOSE: Intact. No lesions. MOUTH: Clear. No discharge. THROAT: Clear. No exudate. LUNGS: Clear. No crackles. CARDIAC: S1, S2. No rub. ABDOMEN: Benign. Bowel sounds positive. GENITALIA/RECTUM: Lobato absent. BACK/EXTREMITIES: Edema 0+. NEUROLOGICAL: Alert and motor intact. SKIN: LYMPHATICS: LABORATORY DATA: Labs show creatinine 4.0, potassium 4.7. ASSESSMENT AND PLAN: 1. Acute kidney injury on chronic kidney disease, mostly likely due to sepsis, no urgent indication for dialysis. 2. Hypertension, stable. 3. Anemia, stable. 4. Abdominal pain management per primary team. Renal ultrasound does not show any obstruction. Job ID: [id number] MTDD
[2018-02-23] MEDS: Pantoprazole 40 MG VIAL IVP SCH (07:54)
--- NOTE | 2018-02-23 08:16 | PRG ---
DATE OF SERVICE: 02/23/2018 PULMONARY CRITICAL CARE PROGRESS NOTE TIME SPENT: 35 minutes critical care time. SUBJECTIVE: The patient remains intubated on mechanical ventilation. She will wake up and follow commands. She is sedated on a very small amount of fentanyl. OBJECTIVE: VITAL SIGNS: Temperature 98.7, pulse is 93, blood pressure 99/57, and O2 saturation running 94% on 30% oxygen. A 24-hour intake 1531, output 880. HEENT: Unremarkable. NECK: No JVD. LUNGS: A few expiratory wheezes bilaterally. CARDIOVASCULAR: S1 and S2 regular. ABDOMEN: Soft, nontender. PEG tube noted. EXTREMITIES: No edema. LABORATORY DATA: White blood cell count 7.9, down from 16.4; hemoglobin 10.3; hematocrit 31.1; and platelet count 187. ABG result pending. Sodium 143, potassium 3.8, chloride 111, CO2 of 24, BUN 47, creatinine 2.8, glucose 113, and albumin 2.5. Chest x-ray shows that her intestines and stomach have largely been pulled back down into her abdominal cavity. The right lung field looks fairly clear. ASSESSMENT: 1. Status post perforated gastric ulcer. 2. Large hiatal hernia with previous appearance of colon and stomach in the chest cavity - has now been pulled back down to the abdomen with a PEG tube now anchoring. At some point in the future, hiatal hernia will probably need to be repaired surgically at a tertiary center. 3. Underlying obstructive sleep apnea-Pickwickian syndrome. PLAN: 1. Continue IV antibiotics. 2. The patient can likely be extubated if she passes her spontaneous breathing trial this morning. 3. Continue slow IV fluid resuscitation. Her renal insufficiency is improving with the fluids. 4. Initiate DVT prophylaxis with subcu heparin. Job ID: [id number]
[2018-02-23] MEDS: Morphine 4 MG/ML VIAL SLOW IVP PRN ×3 (08:21→19:37)
[2018-02-23] MEDS: Heparin 5,000 UNITS/ML VIAL SC SCH ×2 (08:24→21:13)
--- NOTE | 2018-02-23 08:48 | PDOC.FM ---
- Subjective Subjective: Pt extubated this morning. Reports having lots of pain in her belly. Pt alert and oriented. Pt denies any diarrhea constipation. Pt denies any SOB. Pt denies any chest pain. Pt reports feeling a little better. Pt denies any leg swelling. - Objective Vital Signs & Weight: Vital Signs (12 hours) Temp Pulse Resp Pulse Ox 02/23/18 08:00 100.2 F H 02/23/18 07:10 91 L 02/23/18 06:55 85 L 02/23/18 06:45 72 L 02/23/18 06:35 101 H 27 H 72 L 02/23/18 06:00 15 02/23/18 04:00 98.7 F 15 02/23/18 03:21 96 02/23/18 02:00 14 02/23/18 00:00 98.8 F 14 02/22/18 22:37 78 02/22/18 22:00 15 Weight Weight 135.199 kg Most Recent Monitor Data Heart Rate from ECG 95 NIBP 112/68 NIBP BP-Mean 82 Respiration from ECG 25 SpO2 94 I&O: 02/22/18 02/23/18 02/24/18 06:59 06:59 06:59 Intake Total 3060 1531 100 Output Total 200 1000 110 Balance 2860 531 -10 Result Diagrams: 02/23/18 04:55 02/23/18 04:55 EKG Reviewed by me: Yes Radiology Reviewed by me: Yes Radiology: 02/22 Renal US: Marked bilateral renal cortical thinning. No evidence hydronephrosis. Echogenic foci noted in left and R. kideny compatible with calcifications as demonstrated on CT 02/23 CXRay- appears stable. Official read pending. <Kulwinder Duenas - Last Filed: 02/23/18 09:12> - Objective Vital Signs & Weight: Vital Signs (12 hours) Temp Pulse Resp Pulse Ox 02/23/18 12:27 93 L 02/23/18 12:00 99.8 F H 02/23/18 08:00 100.2 F H 02/23/18 07:10 91 L 02/23/18 06:55 85 L 02/23/18 06:45 72 L 02/23/18 06:35 101 H 27 H 72 L 02/23/18 06:00 15 02/23/18 04:00 98.7 F 15 02/23/18 03:21 96 Weight Weight 135.199 kg Most Recent Monitor Data Heart Rate from ECG 84 NIBP 115/69 NIBP BP-Mean 84 Respiration from ECG 18 SpO2 93 I&O: 02/22/18 02/23/18 02/24/18 06:59 06:59 06:59 Intake Total 3060 1531 350 Output Total 200 1000 430 Balance 2860 531 -80 Result Diagrams: 02/23/18 04:55 02/23/18 04:55 <Glenda Carrera - Last Filed: 02/23/18 14:41> Phys Exam - Physical Examination Constitutional: NAD HEENT: PERRLA, moist MMs Neck: no nodes, supple, full ROM some mild rales noted. Good symmetrical chest expansion Cardiovascular: RRR, no significant murmur, no rub Pt incicsion dressed. No sign of new drainage. some old blood soaked on icision sited. Pt head filter press tender. Musculoskeletal: no edema, pulses present Neurological: non-focal, moves all 4 limbs Psychiatric: normal affect, A&O x 3 Skin: no rash, normal turgor, cap refill <2 seconds <Kulwinder Duenas - Last Filed: 02/23/18 09:12> Dx/Plan (1) Perforated ulcer Code(s): K27.5 - CHRONIC OR UNSP PEPTIC ULCER, SITE UNSP, WITH PERFORATION Status: Acute (2) Hiatal hernia Code(s): K44.9 - DIAPHRAGMATIC HERNIA WITHOUT OBSTRUCTION OR GANGRENE Status: Chronic (3) Acute and chronic respiratory failure with hypoxia Code(s): J96.21 - ACUTE AND CHRONIC RESPIRATORY FAILURE WITH HYPOXIA Status: Acute (4) HTN (hypertension) Code(s): I10 - ESSENTIAL (PRIMARY) HYPERTENSION Status: Acute Qualifiers: Hypertension type: essential hypertension Qualified Code(s): I10 - Essential (primary) hypertension (5) Leukocytosis Code(s): D72.829 - ELEVATED WHITE BLOOD CELL COUNT, UNSPECIFIED Status: Acute (6) Acute renal failure Status: Acute (7) Obesities, morbid Code(s): E66.01 - MORBID (SEVERE) OBESITY DUE TO EXCESS CALORIES Status: Chronic - Plan Plan: Perforated Ulcer at GE junction -Pt had ex lap y12/6 with patch repair. -General Surgery- Dr. Hassan- follow recommendations -Pt has G-tube in place to keep stomach from reherniating. Continue to follow with General surgery. -Morphine PRN for pain control with Benadryl as pt has had itchiness with medication before. -IV vanc and zosyn for abx coverage at this time Hiatal Hernia -Reduced on 02/22 with surgery above with G-tube in place -General surgery consulted- Dr. Hassan- follow recs -Morphine for pain Acute hypoxic respiratory failure -Hernia reduced. -Pt intubated after surgery 02/22. Extubated 02/23. On high flow NC at this time. Pt likely has some underlying pikwickian syndrome. -Pulmonology consulted- Dr. Prather- follow recs ARF - elevated Cr above baseline upon admission, CT abdomen/pelvis at outside hospital shows nonobstructive stone. Recent NSAID use and decreased PO intake. -Cr increased to 4 on 02/22. Cr today 2.9. Showing good improvement. Making urine. -Continue fluid rescusitaion -Nephrology consulted- Dr. Parker- follow recs hx of recurrent UTI - no positive cultures to date, most likely IC - UA, UCx pending- NGTD - tylenol/morphine PRN for pain HTN - continue home meds leukocytosis (resolved) - elevated from CBC in outside ER. WBC count increased yesterday. WBC has resolved at this time. Had perforated ulcer per above. -Vanc and Zosyn for abx coverage due to perforation. - LA normal. -Procalcitonin 7.17 <Kulwinder Duenas - Last Filed: 02/23/18 09:12> Attending Addendum - Attending Addendum Date/Time: 02/23/18 1440 I personally evaluated the patient and discussed the management with Dr. Duenas. I agree with the History, Examination, Assessment and Plan documented above with any addition or exceptions noted below. The patient is POD 1 following ex lap for perforated gastric ulcer. Pt on morphine for post-op pain. G-tube in place. Renal function improving. <Glenda Carrera - Last Filed: 02/23/18 14:41>
--- NOTE | 2018-02-23 09:09 | RAD ---
AP VIEW CHEST: HISTORY: Status post intubation. FINDINGS: AP view chest is obtained on 02/23/2018. Comparison is made to previous exam from 02/22/2018. AP view chest demonstrates EKG leads seen over the chest. Cardiomegaly is seen. The patient was intubated. There is a right jugular central line in place. A mediastinal surgical drain is also in place. Radiographic appearance of the chest is stable. Pulm onary vascular congestion is seen. IMPRESSION: Lines and tubes in stable position. Cardiomegaly and pulmonary vascular congestion seen. POS: [facility]
[2018-02-23] MEDS ORDERED: Sodium Chloride 0.9% 250 ML IV SCH (09:30)
--- NOTE | 2018-02-23 11:51 | PRG ---
DATE OF SERVICE: 02/23/2018 SUBJECTIVE: A 62-year-old female, being seen for acute kidney injury. The patient remains intubated OBJECTIVE: VITAL SIGNS: Afebrile, pulse 88, breathing 16, and blood pressure 96/56. GENERAL APPEARANCE AND MENTAL STATUS: Fair. HEAD/NECK: Normocephalic. Atraumatic. EYES: EOMI. No deformity. EARS: Clear. No ulcers. NOSE: Intact. No lesions. MOUTH: Clear. No discharge. THROAT: Clear. No exudate. LUNGS: Clear. No crackles. CARDIAC: S1, S2. No rub. ABDOMEN: Benign. Bowel sounds positive. GENITALIA/RECTUM: Lobato absent. BACK/EXTREMITIES: Edema 0+. LABORATORY DATA: Hemoglobin 10.3 and creatinine 2.8. ASSESSMENT AND PLAN: 1. Acute kidney injury, improved, nonoliguric. 2. Hypertension, stable. 3. Hyperkalemia, stable. 4. Metabolic acidosis, stable. 5. Low indication for dialysis. 6. Sepsis management per primary team. Job ID: [id number]
[2018-02-23] MEDS: Acetaminophen 1,000 MG in Premix Bag 1 BAG IVPB PRN ×2 (12:48→21:14)
--- NOTE | 2018-02-23 13:17 | PRG ---
DATE OF SERVICE: 02/23/2018 SUBJECTIVE: Ms. Almaraz is extubated this morning. She is able to answer questions. She is slightly confused. She notes pain that is controlled. OBJECTIVE: VITAL SIGNS: Blood pressure 113/82 and heart rate 91. Urine output is 550 overnight, already 390 this shift. HEART: Regular rate and rhythm. ABDOMEN: Soft. Her midline wounds are dressed. There is some serous fluid in the dressings consistent with the underlying alhaji. G-tube is to gravity with some bilious output. LABORATORY DATA: White blood cell count is 7, hemoglobin 10, and platelet count is 187. Creatinine is down to 2.82. ASSESSMENT: On postop day #1; reduction, hiatal hernia repair, gastric ulcer perforation. PLAN: Sometimes this weekend if she is doing well, I suspect Dr. Simons will do contrast study through her G-tube. Continue to trend her creatinine and start to mobilize. Job ID: [id number]
[2018-02-23] MEDS: Fluconazole In NaCl,Iso-Osm 200 MG in Premix Bag 1 BAG IVPB SCH (18:16)
--- NOTE | 2018-02-23 18:48 | EKG ---
Test Reason : Blood Pressure : / mmHG Vent. Rate : 087 BPM Atrial Rate : 087 BPM P-R Int : 162 ms QRS Dur : 078 ms QT Int : 366 ms P-R-T Axes : 063 030 044 degrees QTc Int : 440 ms Normal sinus rhythm Normal ECG When compared with ECG of 13-JAN-2017 13:42, No significant change was found Confirmed by Maria MOORE ([id number]) on 02/23/2018 6:48:28 PM Referred By: Confirmed By:Maria MOORE
[2018-02-24] MEDS: Piperacillin/Tazobactam 2.25 GM in Sodium Chloride 0.9% 100 ML IVPB SCH ×4 (01:00→23:37)
[2018-02-24] MEDS: Sodium Chloride 0.9% 1,000 ML IV SCH ×2 (01:59→17:34)
[2018-02-24] MEDS: diphenhydrAMINE 50 MG/ML VIAL IVP SCH (02:00)
[2018-02-24] MEDS: Morphine 4 MG/ML VIAL SLOW IVP PRN ×2 (04:00→10:24)
[2018-02-24] MEDS: Pantoprazole 40 MG VIAL IVP SCH (09:28)
[2018-02-24] MEDS: Heparin 5,000 UNITS/ML VIAL SC SCH ×2 (09:28→20:13)
--- NOTE | 2018-02-24 11:31 | PRG ---
DATE OF SERVICE: 02/24/2018 SUBJECTIVE: A 62-year-old female, being seen for acute kidney injury. The patient denies any nausea, vomiting, or chest pain. OBJECTIVE: GENERAL: The patient is awake and alert. VITAL SIGNS: breathing 16, and blood pressure 135/68. GENERAL APPEARANCE AND MENTAL STATUS: Fair. HEAD/NECK: Normocephalic. Atraumatic. EYES: EOMI. No deformity. EARS: Clear. No ulcers. NOSE: Intact. No lesions. MOUTH: Clear. No discharge. THROAT: Clear. No exudate. LUNGS: Clear. No crackles. CARDIAC: S1, S2. No rub. ABDOMEN: Benign. Bowel sounds positive. GENITALIA/RECTUM: Lobato absent. BACK/EXTREMITIES: Edema 0+. NEUROLOGICAL: Alert and motor intact. SKIN: LYMPHATICS: LABORATORY DATA: Hemoglobin 10.3. Creatinine is 2.8. ASSESSMENT: 1. Chronic kidney disease, stage 4, stable. 2. Hypertension, stable. 3. Anemia, stable. 4. Medications based on GFR appropriate. No indication for dialysis at this time. Job ID: [id number]
--- NOTE | 2018-02-24 11:42 | PDOC.FM ---
- Subjective Subjective: 62F seen in bed. She has no complaint today except for dry mouth which she asked for her PRN ice chips. Nursing staff noted no events overnight. Patient's labwork has shown improvement. Patient specifically denies fever, chills, abd pain, sob, chest pain. - Objective Vital Signs & Weight: Vital Signs (12 hours) Temp Pulse Pulse BP BP Pulse Ox Pulse Ox 02/24/18 10:35 109 H 106 H 137/94 H 127/83 95 02/24/18 08:00 98.6 F 95 02/24/18 04:00 98.9 F 02/24/18 00:00 98.5 F Pulse Ox 02/24/18 10:35 95 02/24/18 08:00 02/24/18 04:00 02/24/18 00:00 Weight Admit Weight 136.616 kg Weight 137.1 kg Most Recent Monitor Data Heart Rate from ECG 103 NIBP 135/88 NIBP BP-Mean 103 Respiration from ECG 29 SpO2 96 I&O: 02/23/18 02/24/18 02/25/18 06:59 06:59 06:59 Intake Total 1531 3523 Output Total 1250 1730 230 Balance 281 1793 -230 Result Diagrams: 02/23/18 04:55 02/23/18 04:55 Phys Exam - Physical Examination Constitutional: NAD HEENT: moist MMs Neck: no nodes on 40 L of high flow. Air movement heard through out. Cardiovascular: RRR, no significant murmur Gastrointestinal: soft Musculoskeletal: no edema Neurological: moves all 4 limbs Psychiatric: normal affect, A&O x 3 Skin: no rash Dx/Plan (1) Acute and chronic respiratory failure with hypoxia Code(s): J96.21 - ACUTE AND CHRONIC RESPIRATORY FAILURE WITH HYPOXIA Status: Acute (2) Perforated ulcer Code(s): K27.5 - CHRONIC OR UNSP PEPTIC ULCER, SITE UNSP, WITH PERFORATION Status: Acute (3) Hiatal hernia Code(s): K44.9 - DIAPHRAGMATIC HERNIA WITHOUT OBSTRUCTION OR GANGRENE Status: Chronic (4) Acute renal failure Status: Acute (5) Obesities, morbid Code(s): E66.01 - MORBID (SEVERE) OBESITY DUE TO EXCESS CALORIES Status: Chronic (6) Leukocytosis Code(s): D72.829 - ELEVATED WHITE BLOOD CELL COUNT, UNSPECIFIED Status: Resolved (7) HTN (hypertension) Code(s): I10 - ESSENTIAL (PRIMARY) HYPERTENSION Status: Acute Qualifiers: Hypertension type: essential hypertension Qualified Code(s): I10 - Essential (primary) hypertension (8) UTI (urinary tract infection) Status: Acute - Plan Plan: Plan: Perforated Ulcer at GE junction -Pt had ex lap y104/25 with patch repair. -General Surgery- Dr. Hassan- May have contrast study today per Gen Surg -Pt has G-tube in place to keep stomach from reherniating. Continue to follow with General surgery. -Morphine PRN for pain control with Benadryl as pt has had itchiness with medication before. -IV zosyn for abx coverage at this time Hiatal Hernia -Reduced on 02/22 with surgery above with G-tube in place -General surgery consulted- Dr. Hassan- follow recs -Morphine for pain Acute hypoxic respiratory failure -Hernia reduced. -Pt intubated after surgery 02/22. Extubated 02/23. On high flow NC at this time. Pt likely has some underlying pikwickian syndrome. -Pulmonology consulted- Dr. Prather- follow recs -Patient tolerating high flow o2. ARF - Patient shows appropriate urine output, apx 1300 out. - Dialysis not indicated per Nephro hx of recurrent UTI - UCX shows mixed melina, but includes yeast. - Currently on fluconazole, started 02/23 HTN - continue current meds - BP at goal this morning Obesity - Alberene Stone Setter on discharge
--- NOTE | 2018-02-24 12:15 | PRG ---
DATE OF SERVICE: 02/24/2018 SERVICE: Pulmonary Medicine. INTERVAL HISTORY: The patient is doing fine from respiratory standpoint. She is breathing comfortably. She denies any chest pain. She has been working with Physical Therapy, and she has improved strength today. She is sitting in the neuro chair. Otherwise, there has been no interval change to her condition. PHYSICAL EXAMINATION: VITAL SIGNS: Afebrile with a T-max of 100.2, pulse 109, blood pressure 135/88, respirations 16, and saturation 100% on 60% FiO2 delivered via high-flow nasal cannula. GENERAL: The patient is awake and alert, in no apparent distress. LUNGS: Excellent air entry. There is some crackling present. Rhonchi clear with cough. No prolonged expiratory phase or wheezing appreciated. HEART: Normal rate, regular. ABDOMEN: Soft, nontender, and nondistended. Bowel sounds are positive. MUSCULOSKELETAL: No cyanosis or clubbing. There is trace pitting in the bilateral lower extremities. NEUROLOGIC: Grossly nonfocal. LABORATORY DATA: WBC 7.9, hemoglobin 10.3, and platelets 187,000. Glucose 84 to 104. All culture results are negative to date. IMAGING: Chest x-ray demonstrates stable positions of lines and tubes. Cardiomegaly and vascular congestion are present, but likely accentuated by low lung volumes. ASSESSMENT: 1. Acute hypoxic respiratory failure. 2. Hiatal hernia, large, status post PEG tube anchor. 3. Gross peritonitis secondary to perforated gastric ulcer, status post oversew. 4. Obstructive sleep apnea. 5. Morbid obesity with obesity hypoventilation syndrome. DISCUSSION AND PLAN: We will continue supportive care. We will wean away her oxygen as tolerated through time. She will need to remain in the ICU for an additional 24 to 48 hours until she demonstrates slightly improved strength and is on less oxygen. Critical Care will continue to follow along for now. Job ID: [id number]
--- NOTE | 2018-02-24 13:24 | PRG ---
DATE OF SERVICE: 02/24/2018 SUBJECTIVE: Danna Almaraz is in ICU. She is awake and alert, up in a neuro chair. She is two days postoperative laparotomy, oversew, Johnathon patch, duodenal ulcer with incarcerated hiatal hernia. She is morbidly obese. She is on BiPAP. OBJECTIVE: VITAL SIGNS: Rate 109, blood pressure 137/94. Mediastinal PASTOR drain is serosanguineous, 40 mL in the last 24 hours. G-tube 400 mL. LUNGS: Clear to auscultation. CARDIAC: Sinus tachycardia 100 to 105. ABDOMEN: Morbidly obese, soft, nontender. Midline wound looks good. ASSESSMENT AND PLAN: Doing well. Continue ICU observation. Continue mobility. Continue n.p.o. for now. LABORATORY DATA: White count 7, hemoglobin 10.3 yesterday. No labs today. Job ID: [id number]
[2018-02-24] MEDS: 1/2 NS w/KCL 20 mEq 1,000 ML IV SCH ×2 (17:20→20:13)
[2018-02-24] MEDS: Fluconazole In NaCl,Iso-Osm 200 MG in Premix Bag 1 BAG IVPB SCH (17:21)
[2018-02-24] MEDS ORDERED: Lorazepam 2 MG/ML VIAL ONE (21:22)
[2018-02-24] MEDS: Acetaminophen 1,000 MG in Premix Bag 1 BAG IVPB PRN (22:26)
[2018-02-24] MEDS: Lorazepam 2 MG/ML VIAL SLOW IVP PRN (23:34)
[2018-02-25] MEDS: Lorazepam 2 MG/ML VIAL SLOW IVP PRN ×6 (02:03→20:47)
[2018-02-25] MEDS: 1/2 NS w/KCL 20 mEq 1,000 ML IV SCH (05:52)
--- NOTE | 2018-02-25 08:41 | PDOC.FM ---
- Subjective Subjective: Patiented noted by staff to be agitated overnight, requiring ativan. Patient seen today was only oriented to self, and visibilty agitated compared to yesterday. She was unable to say if she was having any pain, discomfort or fever. - Objective MAR Reviewed: Yes Vital Signs & Weight: Vital Signs (12 hours) Temp Pulse 02/25/18 07:15 126 H 02/25/18 04:00 98.8 F 02/25/18 00:00 98.4 F Weight Admit Weight 136.616 kg Weight 138.5 kg Most Recent Monitor Data Heart Rate from ECG 104 NIBP 169/102 NIBP BP-Mean 124 Respiration from ECG 24 SpO2 80 I&O: 02/24/18 02/25/18 02/26/18 06:59 06:59 06:59 Intake Total 3523 2960 Output Total 1730 1810 80 Balance 1793 1150 -80 Result Diagrams: 02/23/18 04:55 02/23/18 04:55 <Attila Sheffield - Last Filed: 02/25/18 09:01> - Objective Vital Signs & Weight: Vital Signs (12 hours) Temp Pulse 02/25/18 07:15 126 H 02/25/18 04:00 98.8 F 02/25/18 00:00 98.4 F Weight Admit Weight 136.616 kg Weight 138.5 kg Most Recent Monitor Data Heart Rate from ECG 104 NIBP 169/102 NIBP BP-Mean 124 Respiration from ECG 24 SpO2 80 I&O: 02/24/18 02/25/18 02/26/18 06:59 06:59 06:59 Intake Total 3523 2960 Output Total 1730 1810 80 Balance 1793 1150 -80 Result Diagrams: 02/25/18 08:45 02/23/18 04:55 <Helder Jones - Last Filed: 02/25/18 09:27> Phys Exam - Physical Examination Constitutional: NAD HEENT: moist MMs Neck: no nodes Respiratory: no wheezing Currently on bipap while in room. Cardiovascular: RRR, no significant murmur Gastrointestinal: soft, non-tender, no distention Trace edema on lara Neurological: moves all 4 limbs Currently soft restraint, confused, AOx1 Lymphatic: no nodes Deviation from normal: Delerium Skin: no rash <Attila Sheffield - Last Filed: 02/25/18 09:01> Dx/Plan (1) Acute and chronic respiratory failure with hypoxia Code(s): J96.21 - ACUTE AND CHRONIC RESPIRATORY FAILURE WITH HYPOXIA Status: Acute (2) Perforated ulcer Code(s): K27.5 - CHRONIC OR UNSP PEPTIC ULCER, SITE UNSP, WITH PERFORATION Status: Acute (3) Hiatal hernia Code(s): K44.9 - DIAPHRAGMATIC HERNIA WITHOUT OBSTRUCTION OR GANGRENE Status: Chronic (4) Acute renal failure Status: Acute (5) Obesities, morbid Code(s): E66.01 - MORBID (SEVERE) OBESITY DUE TO EXCESS CALORIES Status: Chronic (6) Leukocytosis Code(s): D72.829 - ELEVATED WHITE BLOOD CELL COUNT, UNSPECIFIED Status: Resolved (7) HTN (hypertension) Code(s): I10 - ESSENTIAL (PRIMARY) HYPERTENSION Status: Acute Qualifiers: Hypertension type: essential hypertension Qualified Code(s): I10 - Essential (primary) hypertension (8) UTI (urinary tract infection) Status: Acute (9) Acute delirium Code(s): R41.0 - DISORIENTATION, UNSPECIFIED Status: Acute - Plan Plan: Perforated Ulcer at GE junction -Pt had ex lap y104/25 with patch repair. -General Surgery- Dr. Hassan. Gen Surg indicate they will probably do contrast study at some point to reassess ulcer -Pt has G-tube in place to keep stomach from reherniating. Continue to follow with General surgery. -Morphine PRN for pain control with Benadryl as pt has had itchiness with medication before. -IV zosyn for abx coverage at this time Hiatal Hernia -Reduced on 02/22 with surgery above with G-tube in place -General surgery consulted- Dr. Hassan- follow recs -Morphine for pain Acute hypoxic respiratory failure -Hernia reduced. -Pt intubated after surgery 02/22. Extubated 02/23. On bipap at this time, O2 sat at 95%. Pt likely has some underlying pikwickian syndrome. -Pulmonology consulted- Dr. Prather- follow rec ARF - Patient shows appropriate urine output, apx 1300 out. - Dialysis not indicated per Nephro hx of recurrent UTI - UCX shows mixed melina, but includes yeast. - Currently on fluconazole, started 02/23 HTN - continue current meds - BP at goal this morning Obesity - Engine Monitor on discharge Acute delirium - Consider ICU/post surgery delerium, , infectious causes, electrolyte imbalance - Plan to obtain urine, cbc, cmp. Will adjust management plan based on results as they arrive. - <Attila Sheffield - Last Filed: 02/25/18 09:01> Attending Addendum - Attending Addendum Date/Time: 02/25/18923 I personally evaluated the patient and discussed the management with Dr. Sheffield I agree with the History, Examination, Assessment and Plan documented above with any addition or exceptions noted below. The patient is POD 3 following ex lap for perforated gastric ulcer. Patient continuing to get ativan Q2PRN. G-tube in place. Renal function improving. <Helder Jones - Last Filed: 02/25/18 09:27>
[2018-02-25 09:05] LABS: #Eosinphils 0.1 thou/uL (0.0-0.7); #Monocytes 0.7 thou/uL (0.11-0.59); %Basophils 0.2 % (0.0-1.0); %Eosinophils 0.5 % (0.0-10.0); %Lymphocytes 8.6 % (21.0-51.0); %Monocytes 6.2 % (0.0-10.0); %Neutrophils 84.5 % (42.0-75.0); Hemoglobin 11.7 g/dL (12.0-16.0); Mean Corpuscular HGB CONC 32.4 g/dL (32.0-36.0); Mean Corpuscular Hemoglobin 28.9 pg (27.0-31.0); Mean Corpuscular Volume 89.5 fL (78.0-98.0); Mean Platelet Volume 7.7 fL (7.4-10.4); Platelet Count 326 thou/uL (130-400); RBC Distribution Width 15.1 % (11.5-14.5); Red Blood Cell (RBC) Count 4.05 mill/uL (4.20-5.40); White Blood Cell (WBC) Count 11.9 thou/uL (4.8-10.8)
[2018-02-25] MEDS: Piperacillin/Tazobactam 2.25 GM in Sodium Chloride 0.9% 100 ML IVPB SCH ×3 (09:24→23:20)
[2018-02-25] MEDS: Heparin 5,000 UNITS/ML VIAL SC SCH ×2 (09:25→20:46)
[2018-02-25] MEDS: Pantoprazole 40 MG VIAL IVP SCH (09:25)
[2018-02-25 09:27] LABS: ALT (SGPT) 13 U/L (8-55); AST (SGOT) 22 U/L (5-34); Albumin 3.2 g/dL (3.5-5.0); Alkaline Phosphatase 71 U/L (40-150); Anion Gap 14 mmol/L (10-20); BUN (Urea Nitrogen) 36 mg/dL (9.8-20.1); Bilirubin, Total 0.7 mg/dL (0.2-1.2); Calc. Creatinine Clearance 92 mL/min (70-130); Calcium 9.2 mg/dL (7.8-10.44); Carbon Dioxide 22 mmol/L (22-29); Chloride 113 mmol/L (98-107); Estimated GFR-MDRD 38; Globulin 3.5 g/dL (2.4-3.5); Glucose 111 mg/dL (70-105); Potassium 3.4 mmol/L (3.5-5.1); Protein, Total 6.7 g/dL (6.0-8.3); Sodium 146 mmol/L (136-145)
[2018-02-25] MEDS ORDERED: Ziprasidone 20 MG VIAL IM SCH (09:30)
[2018-02-25] MEDS ORDERED: Sterile Water 10 ML ONE (10:02)
--- NOTE | 2018-02-25 11:12 | PRG ---
DATE OF SERVICE: 02/25/2018 SERVICE: Pulmonary Medicine. INTERVAL HISTORY: The patient is doing poorly from mentation standpoint. She is quite agitated. She is requiring things to keep her comfortable. She wore BiPAP last night, but stayed the entire night awake. She was pulling on lines and tubes. That being said, hemodynamically, she has been perfectly stable. She cannot provide any true additional elements of the history. Nursing reports no overnight events, other than her agitation. PHYSICAL EXAMINATION: VITAL SIGNS: Afebrile with last elevated temperature being at 08:00 yesterday morning, pulse 126, blood pressure 169/102, respirations 24, and saturation 94% on 37% FiO2. HEENT: Normocephalic and atraumatic. Sclerae white. Conjunctivae pink. Oral mucosa is moist without lesions. LUNGS: Crackles are present. There is no prolonged expiratory phase or wheezing appreciated. HEART: Tachycardic. Regular. ABDOMEN: Soft. Bowel sounds are present. There is tenderness to palpation throughout, but no rebound or guarding. MUSCULOSKELETAL: No cyanosis or clubbing. There is still trace 1+ pitting in the bilateral lower extremities. LABORATORY DATA: WBC 11.9, hemoglobin 11.7, and platelets 326,000. Creatinine 1.42 and beautifully downtrending. BUN 36, potassium 3.4, sodium 146, and bicarb remains stable at 22. All culture results are negative to date. ASSESSMENT: 1. Acute hypoxic respiratory failure, improving. 2. Hiatal hernia, large, status post PEG tube anchor. 3. Gross peritonitis secondary to perforated gastric ulcer, status post oversew. 4. Obstructive sleep apnea. 5. Morbid obesity. 6. Obesity hypoventilation syndrome. DISCUSSION AND PLAN: We will continue to diurese the patient until she returns to euvolemia. Her sodium is creeping up, so we will give her some free water. Potassium to be replaced today. We will continue working on moving the patient as much as she can tolerate. She will be on and off BiPAP throughout the day, but I would prefer that she wear it whenever she is sleeping, as she has significant obstructive events that have been witnessed at bedside. Job ID: [id number]
[2018-02-25] MEDS ORDERED: Morphine 4 MG/ML VIAL ONE (11:23)
[2018-02-25] MEDS: Dextrose 5% in Water 1,000 ML IV SCH (12:20)
[2018-02-25] MEDS: Potassium Chloride 40 MEQ in Premix Bag 1 BAG IVPB SCH ×2 (12:20→15:17)
--- NOTE | 2018-02-25 12:36 | PRG ---
DATE OF SERVICE: 02/25/2018 SUBJECTIVE: A 62-year-old female, being seen for acute kidney injury. The patient denies any nausea, vomiting, or chest pain. OBJECTIVE: GENERAL: On examination, the patient is awake and alert. VITAL SIGNS: Afebrile, pulse 126, breathing 16, and blood pressure 169/102. GENERAL APPEARANCE AND MENTAL STATUS: Fair. HEAD/NECK: Normocephalic. Atraumatic. EYES: EOMI. No deformity. EARS: Clear. No ulcers. NOSE: Intact. No lesions. MOUTH: Clear. No discharge. THROAT: Clear. No exudate. LUNGS: Clear. No crackles. CARDIAC: S1, S2. No rub. ABDOMEN: Benign. Bowel sounds positive. GENITALIA/RECTUM: Lobato absent. BACK/EXTREMITIES: Edema 0+. NEUROLOGICAL: Alert and motor intact. SKIN: LYMPHATICS: LABORATORY DATA: Hemoglobin 11.7. Sodium 146. Creatinine 1.4. ASSESSMENT: 1. Acute kidney injury, improved. 2. Hypertension, stable. 3. Anemia, stable. 4. Hypernatremia, recommend increasing free water. 5. Hypokalemia, recommend 20 mEq of potassium. No indication for dialysis. Job ID: [id number]
[2018-02-25] MEDS ORDERED: Ziprasidone 20 MG VIAL IM PRN (12:51)
[2018-02-25] MEDS ORDERED: Sterile Water 10 ML VIAL FS PRN (12:54)
[2018-02-25] MEDS: Fluconazole In NaCl,Iso-Osm 200 MG in Premix Bag 1 BAG IVPB SCH (17:19)
[2018-02-25] MEDS: Acetaminophen 1,000 MG in Premix Bag 1 BAG IVPB PRN (17:24)
[2018-02-25 18:06] LABS: Bilirubin Negative (Negative); Blood, Urine Moderate (Negative); Clarity CLOUDY (Clear); Glucose, Urine (Dipstick) Negative (Negative); Leukocyte Large (Negative); Nitrite Negative (Negative); Protein, Urine (Dipstick) 30 mg/dL (Neg-Trace); Specific Gravity, Urine 1.015 (1.002-1.036); Urobilinogen 0.2 mg/dL (0.2-1.0); pH, Urine 6.5 (5.0-9.0)
[2018-02-25 18:08] LABS: Hyaline Casts/LPF 4-6 HYALINE CAST LPF (0-3 Hyaline); Pathc Cast-AUWi Flag 1.88 (0-2.49); Squamous Epithelial 0-3 HPF (0-3)
[2018-02-25 18:09] LABS: Yeast-AUWi Flag 170.5 (0-25.0)
[2018-02-25 18:18] LABS: Bacteria/HPF Rare-Few HPF (None Seen); Yeast-All Forms 1+ HPF (None Seen)
[2018-02-25] MEDS: diphenhydrAMINE 50 MG/ML VIAL IVP SCH (20:53)
--- NOTE | 2018-02-25 21:16 | PRG ---
DATE OF SERVICE: SUBJECTIVE: Ms. Almaraz is in the ICU. She is in bed, sedated, on a CPAP. She is followed by Dr. Trinh. Dr. Trinh is planning to continue diuresis moving towards euvolemia with some free water given for hypernatremia. OBJECTIVE: LUNGS: Clear. No wheezing. CARDIAC: Sinus tachycardia 105 to 108. ABDOMEN: Soft, obese, nontender. Mediastinal drain, serosanguineous. Zero meals for the last 24 hours, suspecting to remove this tomorrow. LABORATORY DATA: White count 11, hemoglobin 11.7. Sodium 146, potassium 3.4, BUN 36, and creatinine 1.42. ASSESSMENT AND PLAN: Morbid obesity, hypoventilation syndrome, status post duodenal perforation with incarcerated hiatal hernia, status post reduction and gastrostomy tube placement to gravity. Continue current management. Dr. Martinez will return tomorrow and probably could remove her mediastinal PASTOR drain tomorrow. Job ID: [id number]
[2018-02-26] MEDS: Lorazepam 2 MG/ML VIAL SLOW IVP PRN ×2 (03:41→06:07)
[2018-02-26] MEDS: diphenhydrAMINE 50 MG/ML VIAL IVP SCH (03:41)
[2018-02-26] MEDS: Dextrose 5% in Water 1,000 ML IV SCH ×2 (06:04→20:40)
[2018-02-26 06:31] LABS: #Eosinphils 0.2 thou/uL (0.0-0.7); #Lymphocytes 0.7 thou/uL (1.20-3.40); #Monocytes 0.6 thou/uL (0.11-0.59); #Neutrophils 5.3 thou/uL (1.40-6.50); %Basophils 0.1 % (0.0-1.0); %Eosinophils 2.4 % (0.0-10.0); %Lymphocytes 10.2 % (21.0-51.0); %Monocytes 8.7 % (0.0-10.0); %Neutrophils 78.7 % (42.0-75.0); Hemoglobin 9.7 g/dL (12.0-16.0); Mean Corpuscular HGB CONC 31.6 g/dL (32.0-36.0); Mean Corpuscular Hemoglobin 28.5 pg (27.0-31.0); Mean Corpuscular Volume 90.2 fL (78.0-98.0); Mean Platelet Volume 7.7 fL (7.4-10.4); Platelet Count 236 thou/uL (130-400); RBC Distribution Width 15.1 % (11.5-14.5); Red Blood Cell (RBC) Count 3.39 mill/uL (4.20-5.40); White Blood Cell (WBC) Count 6.8 thou/uL (4.8-10.8)
--- NOTE | 2018-02-26 06:56 | PDOC.FM ---
- Subjective Subjective: Pt sleeping in bed upon entering room. Pt wearing Nonrebreather O2 mask. O2 sats stable. Pt somewhat hard to arouse. Sleeping soundly. Pt reports pain being well controlled. Pt denies any acute events overnight. Pt A&Ox2 to person and place. - Objective MAR Reviewed: Yes Vital Signs & Weight: Vital Signs (12 hours) Temp Pulse Ox 02/26/18 06:48 100 02/26/18 04:00 99.3 F 02/26/18 00:00 99.2 F 02/25/18 20:00 98.6 F Weight Admit Weight 136.616 kg Weight 139.2 kg Most Recent Monitor Data Heart Rate from ECG 98 NIBP 134/94 NIBP BP-Mean 107 Respiration from ECG 28 SpO2 82 I&O: 02/24/18 02/25/18 02/26/18 06:59 06:59 06:59 Intake Total 3523 2960 2023 Output Total 1730 1810 1715 Balance 1793 1150 309 Result Diagrams: 02/26/18 05:30 02/25/18 08:45 Radiology Reviewed by me: Yes Radiology: No new imaging to review at this time. <Kulwinder Duenas - Last Filed: 02/26/18 06:54> - Objective Vital Signs & Weight: Vital Signs (12 hours) Temp Pulse Ox 02/26/18 08:00 97.6 F 99 02/26/18 06:48 100 02/26/18 04:00 99.3 F 02/26/18 00:00 99.2 F Weight Admit Weight 136.616 kg Weight 139.2 kg Most Recent Monitor Data Heart Rate from ECG 71 NIBP 118/86 NIBP BP-Mean 96 Respiration from ECG 19 SpO2 100 I&O: 02/25/18 02/26/18 02/27/18 06:59 06:59 06:59 Intake Total 2960 4 Output Total 1810 1715 214 Balance 1150 309 -214 Result Diagrams: 02/26/18 05:30 02/26/18 05:30 <Fareed Lobato - Last Filed: 02/26/18 11:52> Phys Exam - Physical Examination Constitutional: NAD HEENT: PERRLA, moist MMs Neck: no nodes, supple, full ROM Hard to auscultate due to pt body habitus. No acute rales aor crackles Cardiovascular: RRR, no significant murmur Hard to auscultate due to pt body habitus Mildly distended. Dressing in place. No sign of drainage. Drains in place. Low output in drains noted Musculoskeletal: no edema, pulses present Hard to assess as pt sleepy Arouses to answer questions but doesn't stay awake Lymphatic: no nodes Psychiatric: normal affect Skin: no rash, normal turgor, cap refill <2 seconds <Kulwinder Duenas - Last Filed: 02/26/18 06:54> Dx/Plan (1) Perforated ulcer Code(s): K27.5 - CHRONIC OR UNSP PEPTIC ULCER, SITE UNSP, WITH PERFORATION Status: Acute (2) Hiatal hernia Code(s): K44.9 - DIAPHRAGMATIC HERNIA WITHOUT OBSTRUCTION OR GANGRENE Status: Chronic (3) Acute and chronic respiratory failure with hypoxia Code(s): J96.21 - ACUTE AND CHRONIC RESPIRATORY FAILURE WITH HYPOXIA Status: Acute (4) HTN (hypertension) Code(s): I10 - ESSENTIAL (PRIMARY) HYPERTENSION Status: Acute Qualifiers: Hypertension type: essential hypertension Qualified Code(s): I10 - Essential (primary) hypertension (5) Leukocytosis Code(s): D72.829 - ELEVATED WHITE BLOOD CELL COUNT, UNSPECIFIED Status: Resolved (6) Acute renal failure Status: Acute (7) Obesities, morbid Code(s): E66.01 - MORBID (SEVERE) OBESITY DUE TO EXCESS CALORIES Status: Chronic - Plan Plan: Perforated Ulcer at GE junction -Pt had ex lap 02/22 with patch repair. -General Surgery- Dr. Hassan. Gen Surg indicate they will probably do contrast study at some point to reassess ulcer -Pt has G-tube in place to keep stomach from reherniating. Continue to follow with General surgery. -Morphine PRN for pain control. benadryl was gerry with itching. Pt having some confusion. D/C benadryl at this time. -IV zosyn for abx coverage at this time Hiatal Hernia -Reduced on 02/22 with surgery above with G-tube in place -General surgery consulted- Dr. Hassan- follow recs -Morphine for pain Acute hypoxic respiratory failure -Hernia reduced. -Pt intubated after surgery 02/22. Extubated 02/23. Pt uses bipap when sleeping. On O2 nonreabreather mask on at this time. Pt likely has some underlying pikwickian syndrome. -Pulmonology consulted- Dr. Prather- follow rec ARF - Patient shows appropriate urine output, apx 1300 out. - Dialysis not indicated per Nephro hx of recurrent UTI - UCX shows mixed melina, but includes yeast. - Currently on fluconazole, started 02/23 HTN - continue current meds - BP at goal this morning Obesity - Business Intelligence Developer on discharge Acute delirium - Consider ICU/post surgery delerium, , infectious causes, electrolyte imbalance - Nothing acute noted in U/A. -CBC stable, no sign of infection. -CMP this morning pending. - <Kulwinder Duenas - Last Filed: 02/26/18 06:54> Attending Addendum - Attending Addendum Date/Time: 02/26/18 1152 I personally evaluated the patient and discussed the management with Dr. Asher and Henrique. I agree with and repeated the History, Examination, Assessment and Plan documented above with any addition or exceptions noted below. <Fareed Lobato - Last Filed: 02/26/18 11:52>
[2018-02-26 07:03] LABS: ALT (SGPT) 12 U/L (8-55); AST (SGOT) 21 U/L (5-34); Albumin 2.8 g/dL (3.5-5.0); Alkaline Phosphatase 72 U/L (40-150); Anion Gap 12 mmol/L (10-20); BUN (Urea Nitrogen) 37 mg/dL (9.8-20.1); Bilirubin, Total 0.6 mg/dL (0.2-1.2); Calc. Creatinine Clearance 91 mL/min (70-130); Calcium 8.5 mg/dL (7.8-10.44); Carbon Dioxide 25 mmol/L (22-29); Chloride 115 mmol/L (98-107); Estimated GFR-MDRD 37; Glucose 140 mg/dL (70-105); Potassium 4.5 mmol/L (3.5-5.1); Protein, Total 5.8 g/dL (6.0-8.3); Sodium 147 mmol/L (136-145)
--- NOTE | 2018-02-26 08:24 | PRG ---
DATE OF SERVICE: 02/26/2018 SUBJECTIVE: The patient has had continued problems with encephalopathy over the weekend. From a respiratory standpoint, she has been doing fairly well. She is requiring a Precedex drip because of her extreme agitation. OBJECTIVE: VITAL SIGNS: Her temperature is 99.3, pulse 98, blood pressure 134/94. A 24-hour intake 2023, output 1715. HEENT: Unremarkable. NECK: Without adenopathy, JVD, or bruits. LUNGS: Clear anteriorly. CARDIAC: S1, S2. Regular. ABDOMEN: PEG tube noted. EXTREMITIES: No edema. LABORATORY DATA: Sodium 147, potassium 4.5, chloride 115, CO2 of 25, BUN 37, creatinine 1.4, glucose 140, and albumin 2.8. White blood cell count 6.8, hematocrit 13.6, and platelet count 236. ASSESSMENT: 1. Severe ICU psychosis/encephalopathy. 2. Status post acute respiratory failure related to perforated gastric ulcer. 3. Status post repair of perforated gastric ulcer. 4. Status post percutaneous endoscopic gastrostomy tube. PLAN: 1. Start feeds when okay with Dr. Hassan. 2. I will go ahead and start thiamine. 3. Try to minimize Precedex. 4. Discontinue benzodiazepines, as that can worsen ICU psychosis. Job ID: [id number]
[2018-02-26] MEDS: Pantoprazole 40 MG VIAL IVP SCH (09:01)
[2018-02-26] MEDS: Piperacillin/Tazobactam 2.25 GM in Sodium Chloride 0.9% 100 ML IVPB SCH (09:01)
[2018-02-26] MEDS: Heparin 5,000 UNITS/ML VIAL SC SCH ×2 (09:02→20:37)
--- NOTE | 2018-02-26 11:49 | PRG ---
DATE OF SERVICE: 02/26/2018 SUBJECTIVE: Patient was seen and examined at bedside and overnight events noted. Patient denies any shortness of breath or chest pain or palpitation. No history of nausea or vomiting or diarrhea or fever or chills or cramps. OBJECTIVE: GENERAL: This is an obese female, in no acute distress. VITAL SIGNS: Temperature 97.6, pulse 71, respiratory rate 19, blood pressure 118/86. HEENT: Atraumatic, normocephalic. Oral mucosa is moist NECK: Supple. CARDIOVASCULAR: S1, S2 heard. Rate and rhythm regular. RESPIRATORY: Clear to auscultation. GASTROINTESTINAL: Abdomen is soft. MUSCULOSKELETAL: No tenderness. No edema. DERMATOLOGIC: No skin rash. NEUROLOGIC: Alert and awake and oriented X3. No focal neurologic deficits. Moving all the extremities. PSYCHIATRIC: Mood and affect normal. LABORATORY DATA: Potassium is 4.5, BUN is 37, and creatinine is 1.5. ASSESSMENT AND PLAN: 1. Acute kidney injury on chronic kidney disease, stable. 2. Hypernatremia with hyperchloremia. 3. Hypertension. 4. Anemia. 5. Hypokalemia, stable. 6. Avoid nephrotoxins. We will monitor. Continue hydration. Job ID: [id number]
[2018-02-26] MEDS: Piperacillin/Tazobactam 3.375 GM in Sodium Chloride 0.9% 100 ML IVPB SCH ×3 (12:54→23:49)
[2018-02-26] MEDS: Fluconazole In NaCl,Iso-Osm 200 MG in Premix Bag 1 BAG IVPB SCH (18:37)
[2018-02-27] MEDS: Dextrose 5% in Water 1,000 ML IV SCH ×2 (03:58→22:27)
[2018-02-27 05:30] LABS: Anion Gap 9 mmol/L (10-20); BUN (Urea Nitrogen) 30 mg/dL (9.8-20.1); Calc. Creatinine Clearance 109 mL/min (70-130); Calcium 8.7 mg/dL (7.8-10.44); Carbon Dioxide 27 mmol/L (23-31); Chloride 114 mmol/L (98-107); Estimated GFR-MDRD 45; Glucose 108 mg/dL (80-115); Potassium 3.8 mmol/L (3.5-5.1); Sodium 146 mmol/L (136-145)
[2018-02-27] MEDS: Piperacillin/Tazobactam 3.375 GM in Sodium Chloride 0.9% 100 ML IVPB SCH ×3 (06:27→18:10)
[2018-02-27 06:28] LABS: Band 7 % (5-11); Eosinophils 4 % (0-10); Hemoglobin 9.2 g/dL (12.0-16.0); Lymphocytes 10 % (21-51); MDiff Complete? YES; Mean Corpuscular HGB CONC 31.8 g/dL (32.0-36.0); Mean Corpuscular Hemoglobin 28.6 pg (27.0-31.0); Mean Corpuscular Volume 90.2 fL (78.0-98.0); Mean Platelet Volume 7.7 fL (7.4-10.4); Monocytes 10 % (0-10); Neutrophil 69 % (42-75); Platelet Count 231 thou/uL (130-400); RBC Distribution Width 15.1 % (11.5-14.5); Red Blood Cell (RBC) Count 3.21 mill/uL (4.20-5.40); White Blood Cell (WBC) Count 6.3 thou/uL (4.8-10.8)
--- NOTE | 2018-02-27 06:54 | PDOC.FM ---
- Subjective Subjective: Pt A&Ox3. Pt up and appears well. Pt reports pain well controlled. Pt reports feeling better. Pt denies any acute events overnight. Pt reports having BM last night. Pt denies any swelling. Pt On 3L NC and denies any SOB. Pt denies any other acute concerns at this time. - Objective MAR Reviewed: Yes Vital Signs & Weight: Vital Signs (12 hours) Temp Pulse Ox 02/27/18 00:00 97.6 F 02/26/18 20:00 98.0 F 98 Weight Admit Weight 136.616 kg Weight 141 kg Most Recent Monitor Data Heart Rate from ECG 92 NIBP 123/80 NIBP BP-Mean 94 Respiration from ECG 28 SpO2 99 I&O: 02/25/18 02/26/18 02/27/18 06:59 06:59 06:59 Intake Total 2960 2024 1207.1 Output Total 1810 1715 999 Balance 1150 309 208.1 Result Diagrams: 02/27/18 04:04 02/27/18 04:04 Radiology Reviewed by me: Yes Radiology: CT abdomen ordered and pending for today. <Kulwinder Duenas - Last Filed: 02/27/18 06:52> - Objective Vital Signs & Weight: Vital Signs (12 hours) Temp Pulse Ox 02/27/18 07:53 98 02/27/18 07:00 97.7 F 02/27/18 00:00 97.6 F Weight Admit Weight 136.616 kg Weight 141 kg Most Recent Monitor Data Heart Rate from ECG 114 NIBP 154/97 NIBP BP-Mean 116 Respiration from ECG 36 SpO2 98 I&O: 02/26/18 02/27/18 02/28/18 06:59 06:59 06:59 Intake Total 2024 2318.1 100 Output Total 1715 1054 2 Balance 309 1264.1 98 Result Diagrams: 02/27/18 04:04 02/27/18 04:04 <Fareed Lobato - Last Filed: 02/27/18 11:29> Phys Exam - Physical Examination Constitutional: NAD HEENT: PERRLA, moist MMs Neck: no nodes, supple, full ROM Respiratory: no wheezing, no rales difficult to auscultate due to pt body habitus Cardiovascular: no significant murmur, no rub Regular Rhythm. A little tachy. Gastrointestinal: positive bowel sounds Mildly distended. Mildly tender to palpation around surgical site Incision intact, dressed, no drainage, no sign redness. Drains in place Musculoskeletal: no edema, pulses present Neurological: non-focal, moves all 4 limbs Psychiatric: normal affect, A&O x 3 Skin: no rash, normal turgor, cap refill <2 seconds <Kulwinder Duenas - Last Filed: 02/27/18 06:52> Dx/Plan (1) Perforated ulcer Code(s): K27.5 - CHRONIC OR UNSP PEPTIC ULCER, SITE UNSP, WITH PERFORATION Status: Acute (2) Hiatal hernia Code(s): K44.9 - DIAPHRAGMATIC HERNIA WITHOUT OBSTRUCTION OR GANGRENE Status: Chronic (3) Acute and chronic respiratory failure with hypoxia Code(s): J96.21 - ACUTE AND CHRONIC RESPIRATORY FAILURE WITH HYPOXIA Status: Acute (4) HTN (hypertension) Code(s): I10 - ESSENTIAL (PRIMARY) HYPERTENSION Status: Acute Qualifiers: Hypertension type: essential hypertension Qualified Code(s): I10 - Essential (primary) hypertension (5) Acute renal failure Status: Resolved (6) Obesities, morbid Code(s): E66.01 - MORBID (SEVERE) OBESITY DUE TO EXCESS CALORIES Status: Chronic - Plan Plan: Perforated Ulcer at GE junction -Pt had ex lap 02/22 with patch repair. -General Surgery- Dr. Hassan. Gen Surg indicate they will probably do contrast study at some point to reassess ulcer. CT abdomen orderded for today. -Pt has G-tube in place to keep stomach from reherniating. Continue to follow with General surgery. -Will await General Surgery recs for when pt can eat. On D5 at this time. -Morphine PRN for pain control. -IV zosyn for abx coverage at this time Hiatal Hernia -Reduced on 02/22 with surgery above with G-tube in place -General surgery consulted- Dr. Hassan- follow recs -Morphine for pain Acute hypoxic respiratory failure -Hernia reduced. -Pt intubated after surgery 02/22. Extubated 02/23. Pt uses bipap when sleeping. Pt on 3LNC and maintaining O2 sats above 92%. Pt likely has some underlying pikwickian syndrome. -Pulmonology consulted- Dr. Prather- follow recs ARF - Patient having good urine output. -Cr trending down to 1.21. -D5@75mls/hr. hx of recurrent UTI - UCX shows mixed melina, but includes yeast. 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 Urine cx-ngtd. -CBC stable, no sign of infection. -CMP stable this morning. -continue geodon PRN. <Kulwinder Duenas - Last Filed: 02/27/18 06:52> Attending Addendum - Attending Addendum Date/Time: 02/27/18 1129 I personally evaluated the patient and discussed the management with Dr. Duenas. I agree with and repeated the History, Examination, Assessment and Plan documented above with any addition or exceptions noted below. <Fareed Lobato - Last Filed: 02/27/18 11:29>
[2018-02-27] MEDS: Heparin 5,000 UNITS/ML VIAL SC SCH ×2 (09:38→20:17)
[2018-02-27] MEDS: Pantoprazole 40 MG VIAL IVP SCH (09:38)
--- NOTE | 2018-02-27 10:08 | PRG ---
DATE OF SERVICE: 02/27/2018 SUBJECTIVE: The patient is much more awake and alert today. She is oriented to place and time. OBJECTIVE: VITAL SIGNS: Temperature 97.7, pulse 101, respirations 28, blood pressure 142/93, and O2 saturation 98%. Intake for the last 24 hours was 2318 and output 1054. HEENT: Unremarkable. NECK: No adenopathy or JVD. LUNGS: Slightly tachypneic, but clear breath sounds. CARDIOVASCULAR: S1 and S2, regular. ABDOMEN: Soft, generally nontender. EXTREMITIES: No edema. LABORATORY DATA: White blood cell count 6.3, hematocrit 28.9, and platelet count 231. Sodium 146, potassium 3.8, chloride 114, CO2 of 27, BUN 30, creatinine 1.2, glucose 108. ASSESSMENT: 1. ICU psychosis/encephalopathy, which is improved. 2. Status post acute respiratory failure. 3. Status post repair of a perforated gastric ulcer and subsequent PEG tube placement to tack down the stomach to the abdominal wall. PLAN: The patient is using Precedex to sleep at night because she is dependent on Ambien. If she clears her swallowing study, she is able to go to the floor, then the Precedex can be stopped and she can restart the Ambien. She could probably also switch to oral antibiotics when she is cleared to swallow. Discussed with the ICU resident. Job ID: [id number]
--- NOTE | 2018-02-27 10:25 | PRG ---
DATE OF SERVICE: 02/27/2018 SUBJECTIVE: Ms. Almaraz is awake and seems to be breathing pretty well today. I have ordered a CT with oral contrast through her G-tube to evaluate this perforated gastric ulcer repair prior to starting oral feeds. Pain is well controlled. She is mostly thirsty and there is also a desire to start oral medications for her anxiety. OBJECTIVE: VITAL SIGNS: Heart rate 101 and blood pressure 142/93. She is afebrile. Urine output 350 overnight. Her G-tube is 50 and her PASTOR is minimal at 5. ABDOMEN: Soft, appropriately tender. Wound is healing well. No evidence of infection. LABORATORY DATA: White count is 6 and hemoglobin 9. Creatinine is 1.21. ASSESSMENT: Status post repair of perforated gastric prepyloric ulcer. PLAN: CT with contrast through G-tube today to evaluate the repair. If clear, she could probably start liquid diet and start taking her pills. We will leave the G-tube in for 4 to 6 weeks. Job ID: [id number]
--- NOTE | 2018-02-27 10:28 | CT ---
CT ABDOMEN WITHOUT CONTRAST: HISTORY: Repair of perforated ulcer. The patient had a large hiatal hernia, status post omental patch repair. COMPARISON: None. TECHNIQUE: Multiple contiguous axial images were obtained in a CT of the abdomen only, without contrast. Contra st was administered p.o. Coronal reformats were performed. FINDINGS: The patient has a gastrostomy tube. Contrast is seen within the stomach and duodenum. No leakage of the contrast from the stomach is seen. No free air or free fluid is seen in the visualized abdomen. There are cortical calcifications in the lower pole of both kidneys. Hyperdensity is seen in the dep endent gallbladder, which likely represents gallstones. The liver, adrenal glands, spleen, and pancr eas are unremarkable, although evaluation is limited without IV contrast. The visualized large and small bowel are unremarkable. A surgical drain is seen in the upper abdomen , with its tip near the gastroesophageal junction. There is a moderate right pleural effusion with adjacent atelectasis. A small left pleural effusion and adjacent atelectasis is seen. Degenerative changes are seen in the spine. Vilas are seen in t he upper midline of the abdominal wall. IMPRESSION: 1. Gastrostomy tube and contrast confined to the stomach and bowel. 2. Cholelithiasis. 3. Cortical calcifications in the lower pole of both kidneys. 4. Moderate right pleural effusion. POS: [facility]
--- NOTE | 2018-02-27 10:56 | PRG ---
DATE OF SERVICE: 02/27/2018 SUBJECTIVE: Patient was seen and examined at bedside and overnight events noted. Patient denies any shortness of breath or chest pain or palpitation. No history of nausea or vomiting or diarrhea or fever or chills or cramps. OBJECTIVE: GENERAL: This is an obese female, in no apparent distress. VITAL SIGNS: Temperature 97.7. Heart rate 101. Respiratory rate 28. Blood pressure 142/93. HEENT: Atraumatic, normocephalic. Oral mucosa is moist NECK: Supple. CARDIOVASCULAR: S1, S2 heard. Rate and rhythm regular. RESPIRATORY: Clear to auscultation. GASTROINTESTINAL: Abdomen is soft. MUSCULOSKELETAL: No tenderness. No edema. DERMATOLOGIC: No skin rash. NEUROLOGIC: Alert and awake and oriented X3. No focal neurologic deficits. Moving all the extremities. PSYCHIATRIC: Mood and affect normal. LABORATORY DATA: Potassium is 3.8, BUN is 30, and creatinine is 1.2. ASSESSMENT AND PLAN: 1. Acute kidney injury on chronic kidney disease, better. 2. Hypernatremia with hyperchloremia, agree with free water. 3. Hypertension. 4. Anemia. 5. Hypokalemia, stable. 6. Avoid nephrotoxins. Job ID: [id number] MTDD
[2018-02-27 16:09] LABS: Actual Bicarbonate (HCO3a) 22.8 mEq/L (22-28); Analyzer IN Cardio OR; Base Excess (BEa) -3.6 mEq/L (-2.0 to +3.0); CO2 Tension 46.5 mmHg (35.0-45.0); Calcium, Ionized 1.03 mmol/L (1.12-1.30); Carboxyhemoglobin (COHb) 1.1 gm% (0.0-3.0); Hemoglobin (Hb) 11.6 g/dL (12.0-16.0); O2 Tension (PaO2) 145.5 mmHg (> 80.0); Potassium - ABG Lab 4.26 mmol/L (3.70-5.30); pH, Arterial 7.31 (7.35-7.45)
[2018-02-27 16:12] LABS: Puncture Site ALINE
[2018-02-27] MEDS: Fluconazole In NaCl,Iso-Osm 200 MG in Premix Bag 1 BAG IVPB SCH (18:05)
[2018-02-27] MEDS: hydrALAZINE 25 MG TAB PO SCH (20:16)
[2018-02-27] MEDS: Zolpidem Tartrate 5 MG TAB PO PRN (20:17)
[2018-02-27] MEDS ORDERED: Loratadine 10 MG TAB PO PRN (20:32)
[2018-02-27] MEDS: Acetaminophen 325 MG TAB PO PRN (20:56)
[2018-02-27] MEDS: Promethazine HCl 25 MG/ML VIAL IM PRN (22:47)
[2018-02-27] MEDS: Gabapentin 300 MG CAP PO PRN (23:16)
[2018-02-28] MEDS ORDERED: Diltiazem 125 MG in Sodium Chloride 0.9% 100 ML IVPB SCH (00:15)
--- NOTE | 2018-02-28 00:19 | PDOC.EVN ---
Addendum entered and electronically signed by Parviz Torrez DO 02/28/18 01:20 : Rechecked pt at 00:47 and Diltiazem not yet sent up from pharmacy after 30 min. Pt remained 160-170 hr. Asymptomatic, concerned about her nasal congestion. with only lower back pain. Nurse called pharmacy and medication sent. HR dropped back to 110 after around 5 mins of diltiazem injection. Now on Dilt drip with stable HR at 110. Will repeat EKG to confirm sinus tachycardia and closely monitor. Original Note: Event Note - Event Note Event Note: residents paged to evaluate pt 0005, HR in the 170s. Monitor appears to be afib/ flutter with RVR. pt is at baseline SOB/anxiey, denies CP. EKG, diltiazem bolus , diltiazem drip ordered. monitor closely. <Robel Crockett - Last Filed: 02/28/18 00:17> - Event Note Event Note: Agree with plan. Asymptomatic at this time. No need to cardiovert. Will start with medical therapy. Monitor closely. Cards in AM. ECHO if not up to date. Continue anticoagulation. Correct electrolyte abnormalities. Monitor fluid status closely. Theresa <Vivian Durham - Last Filed: 02/28/18 21:20>
[2018-02-28] MEDS: Piperacillin/Tazobactam 3.375 GM in Sodium Chloride 0.9% 100 ML IVPB SCH ×5 (00:40→23:45)
[2018-02-28] MEDS ORDERED: Fluticasone Propionate Nasal Spray 16 gm Bottle NASAL SCH ×2 (01:30→09:00)
[2018-02-28] MEDS: Acetaminophen 325 MG TAB PO PRN ×2 (06:11→13:10)
--- NOTE | 2018-02-28 07:31 | PDOC.FM ---
- Subjective Subjective: Pt A&Ox3. Pt resting in bed. Pt states feeling much better than she did yesterday. Pt has been eating clear liquids and tolerating. No problems with PO. Pt denies any chest pain or SOB. Pt denies any swelling. Reports pain being well controlled. Pt went into A.fib with RVR overnight. Was given diltizam 10 mg bolus. Pt HR stable this morning. No sign of A. fib at this time. Appears to be in sinus - Objective MAR Reviewed: Yes Vital Signs & Weight: Vital Signs (12 hours) Temp Pulse Resp BP BP Pulse Ox 02/28/18 07:22 98.0 F 95 20 113/75 99 02/28/18 03:48 98.4 F 99 20 133/85 98 02/28/18 02:00 98 22 H 100 02/28/18 01:02 160 H 140/100 H 02/28/18 00:55 172 H 147/115 H 02/28/18 00:04 97.8 F 167 H 24 H 160/105 H 100 02/27/18 20:16 110 H 154/96 H Weight Admit Weight 136.616 kg Weight 142.003 kg Most Recent Monitor Data Heart Rate from ECG 109 NIBP 141/108 NIBP BP-Mean 119 Respiration from ECG 38 SpO2 99 I&O: 02/27/18 02/28/18 03/01/18 06:59 06:59 06:59 Intake Total 2318.1 2898 Output Total 1054 172 Balance 1264.1 2726 Result Diagrams: 02/27/18 04:04 02/27/18 04:04 EKG Reviewed by me: Yes (Pt had episode of A.fib w/ RVR and SVT. HR normal at this time) Radiology Reviewed by me: Yes Radiology: 02/27 CT abdomen shows G-tube in place. Shows no leakage of contrast. <Kulwinder Duenas - Last Filed: 02/28/18 07:29> - Objective Vital Signs & Weight: Vital Signs (12 hours) Temp Pulse Resp BP BP Pulse Ox 02/28/18 15:15 99.1 F 98 22 H 139/81 95 02/28/18 11:01 98.3 F 104 H 20 139/95 H 98 02/28/18 08:47 95 118/79 02/28/18 07:57 97 02/28/18 07:22 98.0 F 95 20 113/75 99 Weight Admit Weight 136.616 kg Weight 142.003 kg Most Recent Monitor Data Heart Rate from ECG 109 NIBP 141/108 NIBP BP-Mean 119 Respiration from ECG 38 SpO2 99 I&O: 02/27/18 02/28/18 03/01/18 06:59 06:59 06:59 Intake Total 2318.1 2898 Output Total 1054 172 15 Balance 1264.1 2726 -15 Result Diagrams: 02/28/18 07:44 02/28/18 07:44 <Fareed Lobato - Last Filed: 02/28/18 17:01> Phys Exam - Physical Examination Constitutional: NAD HEENT: PERRLA, moist MMs Neck: no nodes, supple, full ROM Respiratory: no wheezing, no rales Hard to auscultate due to patient body habitus Cardiovascular: RRR, no significant murmur, no rub Gastrointestinal: non-tender, positive bowel sounds Mildly distended Incision dressed. No sign drainage or redness. Tubes in place Musculoskeletal: no edema, pulses present Neurological: non-focal, moves all 4 limbs Psychiatric: normal affect, A&O x 3 Skin: no rash, normal turgor <Kulwinder Duenas - Last Filed: 02/28/18 07:29> Dx/Plan (1) Perforated ulcer Code(s): K27.5 - CHRONIC OR UNSP PEPTIC ULCER, SITE UNSP, WITH PERFORATION Status: Acute (2) Hiatal hernia Code(s): K44.9 - DIAPHRAGMATIC HERNIA WITHOUT OBSTRUCTION OR GANGRENE Status: Chronic (3) Acute and chronic respiratory failure with hypoxia Code(s): J96.21 - ACUTE AND CHRONIC RESPIRATORY FAILURE WITH HYPOXIA Status: Acute (4) HTN (hypertension) Code(s): I10 - ESSENTIAL (PRIMARY) HYPERTENSION Status: Acute Qualifiers: Hypertension type: essential hypertension Qualified Code(s): I10 - Essential (primary) hypertension (5) A-fib Code(s): I48.91 - UNSPECIFIED ATRIAL FIBRILLATION Status: Acute (6) Acute renal failure Status: Resolved (7) Obesities, morbid Code(s): E66.01 - MORBID (SEVERE) OBESITY DUE TO EXCESS CALORIES Status: Chronic - Plan Plan: Perforated Ulcer at GE junction -Pt had ex lap 02/22 with patch repair. -General Surgery- Dr. Hassan. CT abdomen showed no leakage. Adv to clear liquid diet. tolerating well. continue D5 as pt only eating a little -Pt has G-tube in place to keep stomach from reherniating. Continue to follow with General surgery. -Morphine PRN for pain control. -IV zosyn for abx coverage at this time Hiatal Hernia -Reduced on 02/22 with surgery above with G-tube in place -General surgery consulted- Dr. Hassan- follow recs -Morphine for pain Acute hypoxic respiratory failure -Hernia reduced. -Pt intubated after surgery 02/22. Extubated 02/23. Pt uses bipap when sleeping. Pt on 2LNC and maintaining O2 sats above 92%. Pt likely has some underlying pikwickian syndrome. continue to wean off O2 -Pulmonology consulted- Dr. Prather- follow recs A.fib w/ RVR -Pt had episode of A.fib w/ RVR overnight. Given Diltiazem bolus 10 mg and rate is normal this morning. -will continue continuos ECG monitoring. -Pt back in sinus at this time ARF - Patient having good urine output. -Cr trending down to 1.21. BMP pending today. -D5@75mls/hr. hx of recurrent UTI - UCX shows mixed melina, but includes yeast. 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 <Kulwinder Duenas - Last Filed: 02/28/18 07:29> Attending Addendum - Attending Addendum Date/Time: 02/28/18 1701 I personally evaluated the patient and discussed the management with Dr. Duenas. I agree with and repeated the History, Examination, Assessment and Plan documented above with any addition or exceptions noted below. <Fareed Lobato - Last Filed: 02/28/18 17:01>
[2018-02-28 07:56] LABS: #Eosinphils 0.2 thou/uL (0.0-0.7); #Monocytes 0.6 thou/uL (0.11-0.59); #Neutrophils 6.6 thou/uL (1.40-6.50); %Basophils 0.2 % (0.0-1.0); %Eosinophils 2.6 % (0.0-10.0); %Lymphocytes 11.8 % (21.0-51.0); %Monocytes 7.4 % (0.0-10.0); Hemoglobin 9.6 g/dL (12.0-16.0); Mean Corpuscular HGB CONC 30.7 g/dL (32.0-36.0); Mean Corpuscular Hemoglobin 27.8 pg (27.0-31.0); Mean Corpuscular Volume 90.5 fL (78.0-98.0); Mean Platelet Volume 7.3 fL (7.4-10.4); Platelet Count 267 thou/uL (130-400); RBC Distribution Width 15.4 % (11.5-14.5); Red Blood Cell (RBC) Count 3.46 mill/uL (4.20-5.40); White Blood Cell (WBC) Count 8.4 thou/uL (4.8-10.8)
[2018-02-28 08:22] LABS: Anion Gap 12 mmol/L (10-20); BUN (Urea Nitrogen) 22 mg/dL (9.8-20.1); Calc. Creatinine Clearance 110 mL/min (70-130); Calcium 8.6 mg/dL (7.8-10.44); Carbon Dioxide 26 mmol/L (23-31); Chloride 111 mmol/L (98-107); Estimated GFR-MDRD 46; Glucose 121 mg/dL (80-115); Potassium 3.2 mmol/L (3.5-5.1); Sodium 146 mmol/L (136-145)
[2018-02-28] MEDS: Heparin 5,000 UNITS/ML VIAL SC SCH ×2 (08:46→20:31)
[2018-02-28] MEDS: Loratadine 10 MG TAB PO SCH (08:47)
[2018-02-28] MEDS: Amlodipine 5 MG TAB PO SCH (08:47)
[2018-02-28] MEDS: hydrALAZINE 25 MG TAB PO SCH ×2 (08:47→20:31)
[2018-02-28] MEDS: Pantoprazole 40 MG VIAL IVP SCH (08:47)
--- NOTE | 2018-02-28 10:57 | PRG ---
DATE OF SERVICE: 02/28/2018 SUBJECTIVE: The patient had an episode of RVR with her atrial fibrillation last night. OBJECTIVE: VITAL SIGNS: Temperature 98.0, pulse 95, respiratory rate 20, O2 saturation 99% on 2 L, and blood pressure 113/75. HEENT: Unremarkable. NECK: No JVD. CARDIAC: S1 and S2. Regular. LUNGS: Clear. ABDOMEN: Soft. EXTREMITIES: No edema. LABORATORY DATA: White blood cell count 8.4, hematocrit 31.3, and platelet count 267. Sodium 146, potassium 3.2, chloride 111, CO2 of 26, BUN 22, creatinine 1.2, and glucose 121. ASSESSMENT: 1. Status post repair of a perforated gastric ulcer. 2. Status post acute respiratory failure. 3. Status post pull-down of colon and stomach from her thoracic cavity. 4. Status post PEG-tube placement. 5. Mild encephalopathy. 6. Paroxysmal atrial fibrillation. PLAN: She is continuing antibiotics. If she tolerates her oral medication, she can probably be switched to oral antibiotics by tomorrow. Physical Therapy needs to get the patient up and work on reconditioning. Job ID: [id number]
[2018-02-28] MEDS ORDERED: HYDROcodone/Acetaminophen 5/325 mg Tablet PO SCH (13:45)
--- NOTE | 2018-02-28 15:28 | PRG ---
DATE OF SERVICE: 02/28/2018 SUBJECTIVE: Patient was seen and examined at bedside and overnight events noted. Patient denies any shortness of breath or chest pain or palpitation. No history of nausea or vomiting or diarrhea or fever or chills or cramps. OBJECTIVE: GENERAL: This is a morbidly obese female, in no apparent distress. VITAL SIGNS: Temperature 98.3. Heart rate 104. Respiratory rate 20. Blood pressure 139/95. HEENT: Atraumatic, normocephalic. Oral mucosa is moist NECK: Supple. CARDIOVASCULAR: S1, S2 heard. Rate and rhythm regular. RESPIRATORY: Clear to auscultation. GASTROINTESTINAL: Abdomen is soft. MUSCULOSKELETAL: No tenderness. No edema. DERMATOLOGIC: No skin rash. NEUROLOGIC: Alert and awake and oriented X3. No focal neurologic deficits. Moving all the extremities. PSYCHIATRIC: Mood and affect normal. LABORATORY DATA: Potassium is 3.2, BUN is 22, creatinine 1.2. ASSESSMENT AND PLAN: 1. Acute kidney injury on chronic kidney disease stage 3 with stable labs. 2. Hypernatremia with hyperchloremia, stable likely with free water supplementation. 3. Hypertension, stable. 4. Anemia. 5. Hypokalemia, replaced. 6. Renal function is stable. Avoid nephrotoxins. Job ID: [id number]
--- NOTE | 2018-02-28 16:19 | PRG ---
DATE OF SERVICE: 02/28/2018 SUBJECTIVE: Ms. Almaraz is doing better today. Her breathing status is stabilized. She has been transferred to the [facility], tolerating the clear liquids without difficulty. OBJECTIVE: VITAL SIGNS: Pulse is 98, blood pressure 139/81, respirations 22, O2 saturation 95% on 2 L nasal cannula. GENITOURINARY: She has voided multiple times. PASTOR has put out 15 mL serosanguineous. LABORATORY DATA: White blood cell count is 8, hemoglobin is 9.6, platelet count is 267. Creatinine 1.2. ASSESSMENT: Postoperative reduction of hiatal hernia, repair of perforated gastric ulcer. CT scan shows sealed, shows no leak. PLAN: Advance to full liquids. We will add hydrocodone p.r.n. pain. Continue PT. Job ID: [id number]
[2018-02-28] MEDS: Fluconazole In NaCl,Iso-Osm 200 MG in Premix Bag 1 BAG IVPB SCH (17:32)
[2018-02-28] MEDS: Dextrose 5% in Water 1,000 ML IV SCH (17:33)
[2018-02-28] MEDS: HYDROcodone/Acetaminophen 7.5/325 mg Tablet PO PRN (18:06)
--- NOTE | 2018-02-28 22:08 | CON ---
DATE OF CONSULTATION: 02/28/2018 REASON FOR CONSULTATION: Supraventricular tachycardia. HISTORY OF PRESENT ILLNESS: Ms. Danna Almaraz is a pleasant 63-year-old woman. She was admitted to the hospital, it appears on 02/21/2018. At that point, the patient was having back, abdominal pain and recurrent urinary tract infection. She reported pain, chills, and dyspnea on exertion. No chest pain. It is noted that she has a large hernia, apparently hiatal hernia. She was admitted for further evaluation. The patient was seen by Dr. Hassan. He noted that the CT scan shows a large hiatal hernia with colon and stomach and the right chest. Also have gallstones. The patient underwent surgical therapy on 02/22/2018. She was found to have perforated gastric ulcer near the gastroesophageal junction and a large hiatal hernia. She had a laparoscopy converted to exploratory laparotomy, placement of G-tube for decompression of her stomach and central line placement. The patient has been doing okay from a cardiac standpoint, but does have some tachycardia that will be outlined below. She saw Dr. White as an outpatient. She had an abnormal stress test and underwent cardiac catheterization on 01/16/2017. The patient was found have normal coronary arteries and normal left ventricular function. PAST MEDICAL HISTORY: 1. Hiatal hernia. 2. Catheterization, normal in 2017. SOCIAL HISTORY: No alcohol or tobacco that I am aware of. REVIEW OF SYSTEMS: CONSTITUTIONAL: Positive for weakness and fatigue. VISION: No changes. HEARING: No changes. PULMONARY: Positive for shortness of breath. GASTROINTESTINAL: As outlined above. SKIN: No rashes. NEUROLOGIC: No unilateral weakness or numbness. PSYCHIATRIC: No unusual depression or anxiety. PHYSICAL EXAMINATION: GENERAL: This is a morbidly obese 63-year-old woman, 5 feet 4 inches tall, 313 pounds. EYES: Sclerae nonicteric. MOUTH: Mucous membranes moist. NECK: Supple. No lymphadenopathy. LUNGS: Clear with no wheezing, rales, or rhonchi. CARDIAC: Normal S1, normal S2. There is no murmur, rub, or gallop. ABDOMEN: Obese, nontender. No hepatosplenomegaly. EXTREMITIES: Warm, dry. No clubbing or cyanosis. There is no edema. I do feel pedal pulses bilaterally. PERTINENT LABORATORY DATA: Hemoglobin is 9.6, hematocrit 31.3. EKG, currently sinus rhythm, but she does have episodes of very rapid supraventricular tachycardia with a rate of 180, occurred last night and she is in sinus rhythm. ASSESSMENT: 1. Postoperative status as outlined above. 2. Renal failure, fortunately is improved and resolved. 3. Supraventricular tachycardia. 4. Normal coronary arteries. Normal left ventricular function, previous catheterization. PLAN: We will begin diltiazem orally. If she has recurrent tachycardia, ablation could be considered. Conservative medical therapy appears to be most appropriate now including in view of all the problem that she is having. Job ID: [id number]
[2018-03-01] MEDS: HYDROcodone/Acetaminophen 7.5/325 mg Tablet PO PRN ×3 (00:31→17:39)
[2018-03-01] MEDS: Zolpidem Tartrate 5 MG TAB PO PRN ×2 (00:31→20:50)
[2018-03-01] MEDS: Piperacillin/Tazobactam 3.375 GM in Sodium Chloride 0.9% 100 ML IVPB SCH (05:48)
[2018-03-01] MEDS: Dextrose 5% in Water 1,000 ML IV SCH (05:51)
--- NOTE | 2018-03-01 07:46 | PDOC.FM ---
- Subjective Subjective: Pt doing well this morning. Resting in bed upon entering. Pt denies any acute events overnight. Pt still on 2LNC. Denies any SOB. Pt denies any chest pain. Reports pain in incision doing well. Pt ate lots of ice cream yesterday and tolerated well. Pt denies any palpitations. Denies any dizziness, lightheadness or vision changes. Pt has no other concerns or complaints at this time. - Objective Vital Signs & Weight: Vital Signs (12 hours) Temp Pulse Resp BP Pulse Ox 03/01/18 04:00 98.3 F 101 H 18 128/76 97 03/01/18 00:00 97.6 F 95 18 138/87 95 02/28/18 20:30 98.1 F 102 H 22 H 143/94 H 95 Weight Admit Weight 136.616 kg Weight 142.541 kg Most Recent Monitor Data Heart Rate from ECG 109 NIBP 141/108 NIBP BP-Mean 119 Respiration from ECG 38 SpO2 99 I&O: 02/28/18 03/01/18 03/02/18 06:59 06:59 06:59 Intake Total 2898 2646 Output Total 172 15 Balance 2726 2631 Result Diagrams: 02/28/18 07:44 02/28/18 07:44 EKG Reviewed by me: Yes (Sinus Tach) Radiology Reviewed by me: Yes Radiology: No new imaging to review <Kulwinder Duenas - Last Filed: 03/01/18 07:44> - Objective Vital Signs & Weight: Vital Signs (12 hours) Temp Pulse Resp BP Pulse Ox 03/01/18 10:42 109 H 03/01/18 10:40 109 H 03/01/18 07:47 97.6 F 109 H 144/87 H 90 L 03/01/18 04:00 98.3 F 101 H 18 128/76 97 03/01/18 00:00 97.6 F 95 18 138/87 95 Weight Admit Weight 136.616 kg Weight 142.541 kg Most Recent Monitor Data Heart Rate from ECG 109 NIBP 141/108 NIBP BP-Mean 119 Respiration from ECG 38 SpO2 99 I&O: 02/28/18 03/01/18 03/02/18 06:59 06:59 06:59 Intake Total 2898 2646 Output Total 172 15 Balance 2726 2631 Result Diagrams: 02/28/18 07:44 12/13/18 08:00 <Fareed Lobato - Last Filed: 03/01/18 10:46> Phys Exam - Physical Examination Constitutional: NAD HEENT: PERRLA, moist MMs, oral pharynx no lesions Neck: no nodes, no JVD, supple, full ROM Respiratory: no wheezing, no rales, no rhonchi, clear to auscultation bilateral Hard to auscultate due to body habitus Cardiovascular: no significant murmur, no rub Regular rhythm. Sinus tach Gastrointestinal: soft Mildly distended. NTTP Incision dressed and no sign of drainage or redness. Musculoskeletal: no edema, pulses present Neurological: non-focal, normal sensation, moves all 4 limbs Lymphatic: no nodes Psychiatric: normal affect, A&O x 3 Skin: no rash, normal turgor, cap refill <2 seconds <Kulwinder Duenas - Last Filed: 03/01/18 07:44> Dx/Plan (1) Perforated ulcer Code(s): K27.5 - CHRONIC OR UNSP PEPTIC ULCER, SITE UNSP, WITH PERFORATION Status: Acute (2) Hiatal hernia Code(s): K44.9 - DIAPHRAGMATIC HERNIA WITHOUT OBSTRUCTION OR GANGRENE Status: Chronic (3) Acute and chronic respiratory failure with hypoxia Code(s): J96.21 - ACUTE AND CHRONIC RESPIRATORY FAILURE WITH HYPOXIA Status: Acute (4) HTN (hypertension) Code(s): I10 - ESSENTIAL (PRIMARY) HYPERTENSION Status: Acute Qualifiers: Hypertension type: essential hypertension Qualified Code(s): I10 - Essential (primary) hypertension (5) A-fib Code(s): I48.91 - UNSPECIFIED ATRIAL FIBRILLATION Status: Acute (6) Acute renal failure Status: Resolved (7) Obesities, morbid Code(s): E66.01 - MORBID (SEVERE) OBESITY DUE TO EXCESS CALORIES Status: Chronic - Plan Plan: Perforated Ulcer at GE junction -Pt had ex lap 02/22 with patch repair. -General Surgery- Dr. Hassan. CT abdomen showed no leakage. Adv to full liquid diet at this time. tolerating well. -will discontinue fluids at this time as pt eating and drinking more. -Pt has G-tube in place to keep stomach from reherniating. Continue to follow with General surgery. PASTOR drain removed -Tylenol and hydrocodene for pain control. -IV zosyn for abx coverage at this time. Day 9 of abx. Likely will D/C tmrw Hiatal Hernia -Reduced on 02/22 with surgery above with G-tube in place -General surgery consulted- Dr. Hassan- follow recs -Tylenol and hydrocodene for pain Acute hypoxic respiratory failure -Hernia reduced. -Pt intubated after surgery 02/22. Extubated 02/23. Pt uses bipap when sleeping. Pt on 2LNC and maintaining O2 sats above 92%. Pt likely has some underlying pikwickian syndrome. continue to wean off O2 -Pulmonology consulted- Dr. Prather- follow recs A.fib w/ RVR -Pt had episode of A.fib w/ RVR 02/27 overnight. Given Diltiazem bolus 10 mg and weaned off dilt drip that morning. -Switched to oral diltiazem at this time. -will continue continuos ECG monitoring. -Pt back in sinus at this time. Tachy at this time -Cardiology consulted- Jennifer- follow recs ARF - Patient having good urine output. -Cr trending down to 1.20. BMP pending today. -Pt tolerating PO. Will stop IV fluids at this time. hx of recurrent UTI - UCX shows mixed melina, but includes yeast. - Currently on fluconazole, started 02/23. will continue for total of 7 days HTN - continue current meds - BP at goal this morning Obesity - Location Man on discharge Acute delirium (Resolved) -continue geodon PRN. <Kulwinder Duenas - Last Filed: 03/01/18 07:44> Attending Addendum - Attending Addendum Date/Time: 03/01/18 1046 I personally evaluated the patient and discussed the management with Dr. Asher. I agree with and repeated the History, Examination, Assessment and Plan documented above with any addition or exceptions noted below. <Fareed Lobato - Last Filed: 03/01/18 10:46>
[2018-03-01 08:25] LABS: Anion Gap 11 mmol/L (10-20); BUN (Urea Nitrogen) 18 mg/dL (9.8-20.1); Calc. Creatinine Clearance 104 mL/min (70-130); Calcium 8.8 mg/dL (7.8-10.44); Carbon Dioxide 27 mmol/L (23-31); Chloride 108 mmol/L (98-107); Estimated GFR-MDRD 42; Glucose 120 mg/dL (80-115); Potassium 3.2 mmol/L (3.5-5.1); Sodium 143 mmol/L (136-145)
[2018-03-01] MEDS: Pantoprazole 40 MG VIAL IVP SCH (09:36)
--- NOTE | 2018-03-01 10:37 | PRG ---
DATE OF SERVICE: 03/01/2018 SUBJECTIVE: Ms. Almaraz is doing well and had no acute complaints. OBJECTIVE: VITAL SIGNS: Temperature is 97.6, pulse 109, respirations 18, O2 saturation on 2 L, blood pressure 144/87. HEENT: Unremarkable. NECK: No JVD. LUNGS: Clear anteriorly. CARDIAC: S1 and S2, regular. ABDOMEN: Soft. EXTREMITIES: No edema. LABORATORY DATA: Sodium 143, potassium 3.6, , BUN 18, creatinine 1.3, and glucose 120. ASSESSMENT: 1. Improved mental status. 2. Status post reduction of hiatal hernia and repair of perforated gastric ulcer. 3. Status post acute respiratory failure. PLAN: She is to be transferred up to the medical floor. We can go ahead and switch her over to oral antibiotics. Job ID: [id number]
[2018-03-01] MEDS: Fluconazole 100 MG TAB PO SCH (10:40)
[2018-03-01] MEDS: Amlodipine 5 MG TAB PO SCH (10:40)
[2018-03-01] MEDS: Cefdinir 300 MG CAP PO SCH (10:40)
[2018-03-01] MEDS: Heparin 5,000 UNITS/ML VIAL SC SCH ×2 (10:40→20:52)
[2018-03-01] MEDS: Loratadine 10 MG TAB PO SCH (10:42)
[2018-03-01] MEDS: hydrALAZINE 25 MG TAB PO SCH ×2 (10:42→20:49)
--- NOTE | 2018-03-01 11:37 | PRG ---
DATE OF SERVICE: 03/01/2018 SUBJECTIVE: Patient was seen and examined at bedside and overnight events noted. Patient denies any shortness of breath or chest pain or palpitation. No history of nausea or vomiting or diarrhea or fever or chills or cramps. OBJECTIVE: GENERAL: This is an obese female, in no apparent distress. VITAL SIGNS: Temperature 97.6. Heart rate 109. Respiratory rate 19. Blood pressure 144/87. HEENT: Atraumatic, normocephalic. Oral mucosa is moist NECK: Supple. CARDIOVASCULAR: S1, S2 heard. Rate and rhythm regular. RESPIRATORY: Clear to auscultation. GASTROINTESTINAL: Abdomen is soft. MUSCULOSKELETAL: No tenderness. No edema. DERMATOLOGIC: No skin rash. NEUROLOGIC: Alert and awake and oriented X3. No focal neurologic deficits. Moving all the extremities. PSYCHIATRIC: Mood and affect normal. LABORATORY DATA: No labs done today. ASSESSMENT AND PLAN: 1. Acute kidney injury. Monitor labs. 2. Chronic kidney disease stage 3. 3. Hyponatremia. 4. Hypokalemia. 5. Hypertension. 6. Anemia. Monitor labs. Replace electrolytes. Avoid nephrotoxins. Continue hydration as tolerated. Job ID: [id number] MTDD
[2018-03-01] MEDS: Ondansetron PF 4 MG/2 ML Vial IVP PRN (12:07)
[2018-03-01] MEDS: Acetaminophen 325 MG TAB PO PRN ×2 (12:10→20:51)
--- NOTE | 2018-03-01 14:29 | PRG ---
DATE OF SERVICE: 03/01/2018 SUBJECTIVE: Ms. Almaraz is resting comfortably this afternoon, tolerating full liquids without difficulty. She is up on the floor now, not really getting out of bed much. OBJECTIVE: VITAL SIGNS: She is afebrile. Vital signs are stable. ABDOMEN: Soft. Her wound is healing well. Her G-tube site is clamped. ASSESSMENT: Doing well, status post omental patch of perforated ulcer. PLAN: Continue PT. Likely going to need senior care. Job ID: [id number]
[2018-03-01] MEDS: Promethazine HCl 25 MG/ML VIAL IM PRN (14:41)
[2018-03-01] MEDS: Ondansetron ODT 4 MG TAB PO PRN (17:44)
[2018-03-01 18:34] LABS: Troponin I Less than 0.010 ng/mL (< 0.028)
[2018-03-01] MEDS: Gabapentin 300 MG CAP PO PRN (20:50)
[2018-03-02] MEDS: Acetaminophen 325 MG TAB PO PRN ×2 (04:40→18:03)
[2018-03-02 04:52] LABS: Anion Gap 11 mmol/L (10-20); BUN (Urea Nitrogen) 17 mg/dL (9.8-20.1); Calc. Creatinine Clearance 100 mL/min (70-130); Calcium 9.1 mg/dL (7.8-10.44); Carbon Dioxide 29 mmol/L (23-31); Chloride 108 mmol/L (98-107); Estimated GFR-MDRD 41; Glucose 118 mg/dL (80-115); Potassium 3.8 mmol/L (3.5-5.1); Sodium 144 mmol/L (136-145)
--- NOTE | 2018-03-02 07:21 | PDOC.FM ---
- Subjective Subjective: Pt resting in bed upon evaluation this morning. Pt doing well. Denies any acute events overnight. Denies any SOB or chest pain. Pt denies any n/v/d/c. Denies any swelling. Pt still requiring 2-3L NC for O2 saturation. Reports pain well controlled at this time. Pt is somewhat drowsy. - Objective MAR Reviewed: Yes Vital Signs & Weight: Vital Signs (12 hours) Temp Pulse Resp BP BP Pulse Ox 03/02/18 04:00 98.3 F 99 20 157/85 H 92 L 03/01/18 20:49 100 147/91 H 03/01/18 20:00 97.9 F 100 18 147/91 H 93 L Weight Admit Weight 136.616 kg Weight 141.748 kg Most Recent Monitor Data Heart Rate from ECG 109 NIBP 141/108 NIBP BP-Mean 119 Respiration from ECG 38 SpO2 99 I&O: 03/01/18 03/02/18 03/03/18 06:59 06:59 06:59 Intake Total 2646 960 Output Total 15 Balance 2631 960 Result Diagrams: 02/28/18 07:44 03/02/18 04:07 Radiology Reviewed by me: Yes Radiology: No new imaging to review today. <Kulwinder Duenas - Last Filed: 03/02/18 07:19> - Objective Vital Signs & Weight: Vital Signs (12 hours) Temp Pulse Resp BP BP Pulse Ox 03/02/18 11:13 98.3 F 104 H 20 139/82 90 L 03/02/18 09:14 92 L 03/02/18 08:53 103 H 150/85 H 03/02/18 07:40 98.3 F 103 H 16 150/85 H 87 L 03/02/18 04:00 98.3 F 99 20 157/85 H 92 L Weight Admit Weight 136.616 kg Weight 141.748 kg Most Recent Monitor Data Heart Rate from ECG 109 NIBP 141/108 NIBP BP-Mean 119 Respiration from ECG 38 SpO2 99 I&O: 03/01/18 03/02/18 03/03/18 06:59 06:59 06:59 Intake Total 2646 960 Output Total 15 Balance 2631 960 Result Diagrams: 02/28/18 07:44 03/02/18 04:07 <Fareed Lobato - Last Filed: 03/02/18 11:57> Phys Exam - Physical Examination Constitutional: NAD HEENT: PERRLA, moist MMs Neck: no nodes, no JVD, supple, full ROM Respiratory: no wheezing, no rales, no rhonchi, clear to auscultation bilateral Cardiovascular: RRR, no significant murmur, no rub Gastrointestinal: soft, positive bowel sounds Incision dressed. No sign redness or drainage Musculoskeletal: no edema, pulses present Neurological: non-focal, normal sensation, moves all 4 limbs Lymphatic: no nodes Psychiatric: normal affect, A&O x 3 Skin: no rash, normal turgor, cap refill <2 seconds <MargauxKulwinder baer - Last Filed: 03/02/18 07:19> Dx/Plan (1) Perforated ulcer Code(s): K27.5 - CHRONIC OR UNSP PEPTIC ULCER, SITE UNSP, WITH PERFORATION Status: Acute (2) Hiatal hernia Code(s): K44.9 - DIAPHRAGMATIC HERNIA WITHOUT OBSTRUCTION OR GANGRENE Status: Chronic (3) Acute and chronic respiratory failure with hypoxia Code(s): J96.21 - ACUTE AND CHRONIC RESPIRATORY FAILURE WITH HYPOXIA Status: Acute (4) HTN (hypertension) Code(s): I10 - ESSENTIAL (PRIMARY) HYPERTENSION Status: Acute Qualifiers: Hypertension type: essential hypertension Qualified Code(s): I10 - Essential (primary) hypertension (5) A-fib Code(s): I48.91 - UNSPECIFIED ATRIAL FIBRILLATION Status: Acute (6) Acute renal failure Status: Resolved (7) Obesities, morbid Code(s): E66.01 - MORBID (SEVERE) OBESITY DUE TO EXCESS CALORIES Status: Chronic - Plan Plan: Perforated Ulcer at GE junction -Pt had ex lap 02/22 with patch repair. -General Surgery- Dr. Hassan. CT abdomen showed no leakage. Adv to full liquid diet at this time. tolerating well. -Pt has G-tube in place to keep stomach from reherniating. Continue to follow with General surgery. PASTOR drain removed 03/01 -Tylenol and hydrocodene for pain control. -On omnicef for abx coverage at this time. Recieved 9 days of zosyn abx coverage. Hiatal Hernia -Reduced on 02/22 with surgery above with G-tube in place -General surgery consulted- Dr. Hassan- follow recs -Tylenol and hydrocodene for pain Acute hypoxic respiratory failure -Hernia reduced. -Pt intubated after surgery 02/22. Extubated 02/23. Pt uses bipap when sleeping. Pt on 2LNC and maintaining O2 sats above 92%. Pt likely has some underlying pikwickian syndrome. continue to wean off O2 -Pt possibly has some underlying AMI. May benefit from CPAP at night. -Pulmonology consulted- Dr. Prather- follow recs A.fib w/ RVR -Pt had episode of A.fib w/ RVR 02/27 overnight. Given Diltiazem bolus 10 mg and weaned off dilt drip that morning. -Switched to oral diltiazem at this time. -Pt back in sinus at this time. -Cardiology consulted- Jennifer- follow recs ARF - Patient having good urine output. -Cr trending up the last few days. -Will add IV hydration with D5NS @ 75 mls/hr as pt likely not taking enough PO hx of recurrent UTI - UCX shows mixed melina, but includes yeast. - Currently on fluconazole, started 02/23. will continue for total of 7 days HTN - continue current meds - BP elevated the last day. Increased Amlodipine to 5 mg on 03/02. Obesity - Mid Level Clinician on discharge Acute delirium (Resolved) -continue geodon PRN. <Kulwinder Duenas - Last Filed: 03/02/18 07:19> Attending Addendum - Attending Addendum Date/Time: 03/02/18 1156 I personally evaluated the patient and discussed the management with Dr. Duenas. I agree with and repeated the History, Examination, Assessment and Plan documented above with any addition or exceptions noted below. Patient transferred but still requiring O2 and somewhat poor respirations despite not complaining of any shortness of breath. Monitor on the floor closely. <Fareed Lobato - Last Filed: 03/02/18 11:57>
[2018-03-02] MEDS ORDERED: Dextrose 5% in Water 1,000 ML IV SCH (07:30)
[2018-03-02] MEDS: Fluconazole 100 MG TAB PO SCH (08:53)
[2018-03-02] MEDS: hydrALAZINE 25 MG TAB PO SCH ×2 (08:53→20:12)
[2018-03-02] MEDS: Amlodipine 5 MG TAB PO SCH (08:53)
[2018-03-02] MEDS: Loratadine 10 MG TAB PO SCH (08:53)
[2018-03-02] MEDS: Cefdinir 300 MG CAP PO SCH (08:53)
[2018-03-02] MEDS: Heparin 5,000 UNITS/ML VIAL SC SCH ×2 (08:54→20:16)
[2018-03-02] MEDS: Pantoprazole 40 MG VIAL IVP SCH (09:03)
--- NOTE | 2018-03-02 09:25 | PRG ---
DATE OF SERVICE: 03/02/2018 SUBJECTIVE: Patient was seen and examined at bedside and overnight events noted. Patient denies any shortness of breath or chest pain or palpitation. No history of nausea or vomiting or diarrhea or fever or chills or cramps. OBJECTIVE: GENERAL: This is a morbidly obese female, in no apparent distress. She is reporting that she is feeling better. VITAL SIGNS: Temperature 98.3. Heart rate 99. Respiratory rate . Blood pressure 150/85. HEENT: Atraumatic, normocephalic. Oral mucosa is moist NECK: Supple. CARDIOVASCULAR: S1, S2 heard. Rate and rhythm regular. RESPIRATORY: Clear to auscultation. GASTROINTESTINAL: Abdomen is soft. MUSCULOSKELETAL: No tenderness. No edema. DERMATOLOGIC: No skin rash. NEUROLOGIC: Alert and awake and oriented X3. No focal neurologic deficits. Moving all the extremities. PSYCHIATRIC: Mood and affect normal. LABORATORY DATA: Potassium is 3.8, BUN is 17, and creatinine is 1.3 ASSESSMENT AND PLAN: 1. Acute kidney injury on chronic kidney disease, stage 3. Renal function is stable. 2. Hypernatremia. 3. Hyperchloremia. 4. Hypertension, stable. 5. Anemia. Labs are stable. I will sign off. Please call back with any questions. Job ID: [id number]
--- NOTE | 2018-03-02 10:06 | PRG ---
DATE OF SERVICE: 03/02/2018 SUBJECTIVE: The patient is lying in bed. She is conversant. She says she feels okay. OBJECTIVE: VITAL SIGNS: On exam, her O2 sats are running at 87% to 88% on 3.5 L, temperature 98.3, pulse 103, and blood pressure 150/85. GENERAL: She is a morbidly obese female, in no acute distress. HEENT: Unremarkable. NECK: No JVD. LUNGS: Diminished breath sounds bilaterally. CARDIAC: S1 and S2, regular. ABDOMEN: Soft. Surgical sites are clean. EXTREMITIES: No edema. LABORATORY DATA: Sodium 144, potassium 3.8, chloride 108, CO2 of 29, BUN 17, creatinine 1.3, and glucose 118. ASSESSMENT: 1. Status post repair of a perforated duodenal ulcer. 2. Status post pull-down of stomach contents and colon back into the abdomen from the right chest. 3. Likely underlying Pickwickian syndrome. PLAN: The patient needs a sleep study as an outpatient. In the meantime, she needs to continue supplemental oxygen. She needs to get up into a chair. Her IV fluids can be stopped. Job ID: [id number]
--- NOTE | 2018-03-02 16:10 | PDOC.GSPN ---
Surgery Progress Note: Subj - Subjective Patient reports: no new complaints Surgery Progress Note: Obj - Vital signs Vital signs: Vital Signs - Most Recent Temp Pulse Resp BP Pulse Ox 98.3 F 104 H 20 139/82 90 L 03/02/18 11:13 03/02/18 11:13 03/02/18 11:13 03/02/18 11:13 03/02/18 11:13 - Physical Exam Respiratory: clear to auscultation Abdomen: soft, non tender, nondistended Wound: dressing clean,dry,intact Surgery Progress Note: Results - Labs Result Diagrams: 02/28/18 07:44 03/02/18 04:07 Lab results: Laboratory Results - last 24 hr 03/02/18 04:07 Sodium 144 Potassium 3.8 Chloride 108 H Carbon Dioxide 29 Anion Gap 11 BUN 17 Creatinine 1.32 H Estimated GFR (MDRD) 41 Glucose 118 H Calcium 9.1 Surgery Progress Note: A/P - Problem (1) Perforated ulcer Current Visit: Yes Code(s): K27.5 - CHRONIC OR UNSP PEPTIC ULCER, SITE UNSP, WITH PERFORATION Status: Acute - Plan Plan: Postop perforated repair. -continue PT/OT -likely will need rehab or snf. -continue diet as tolerated -G tube must stay in for another month. Keep clamped
[2018-03-02] MEDS: HYDROcodone/Acetaminophen 7.5/325 mg Tablet PO PRN (22:12)
[2018-03-02] MEDS: Ondansetron PF 4 MG/2 ML Vial IVP PRN (22:37)
[2018-03-03] MEDS: HYDROcodone/Acetaminophen 7.5/325 mg Tablet PO PRN (05:40)
--- NOTE | 2018-03-03 07:49 | PDOC.FM ---
- Subjective Subjective: pt somewhat drowsy upon entering room. Pt reports doing well. Denies any acute SOB overnight. Denies any fever or chills. Pt reports pain being well controlled. Pt denies any n/v/d/c. Pt denies any headache. Per nursing pt did not sleep well overnight. Pt did not have any acute events but nurse states couldn't get comfortable. - Objective MAR Reviewed: Yes Vital Signs & Weight: Vital Signs (12 hours) Temp Pulse Resp BP BP Pulse Ox 03/03/18 07:41 98.1 F 101 H 22 H 137/82 91 L 03/03/18 03:54 97.8 F 109 H 18 162/79 H 91 L 03/03/18 00:50 97.8 F 103 H 16 149/79 H 91 L 03/02/18 20:12 103 H 167/90 H 03/02/18 20:00 93 L Weight Admit Weight 136.616 kg Weight 141.748 kg Most Recent Monitor Data Heart Rate from ECG 109 NIBP 141/108 NIBP BP-Mean 119 Respiration from ECG 38 SpO2 99 I&O: 03/02/18 03/03/18 03/04/18 06:59 06:59 06:59 Intake Total 960 1475 Balance 960 1475 Result Diagrams: 02/28/18 07:44 03/02/18 04:07 Radiology Reviewed by me: Yes Radiology: 03/03 ECHO- EF normal. Showed some left ventricular hypertrophy. Phys Exam - Physical Examination Constitutional: NAD HEENT: PERRLA, moist MMs Neck: no nodes, no JVD, supple, full ROM Respiratory: clear to auscultation bilateral Hard to auscultate due to body habitus Cardiovascular: RRR, no significant murmur Hard to auscultate due to body habitus Gastrointestinal: soft, positive bowel sounds NTTP. Incision dressed. No redness or drainage noted Musculoskeletal: pulses present Neurological: non-focal, moves all 4 limbs Deviation from normal: Pt somewhat drowsy Skin: no rash, normal turgor, cap refill <2 seconds Dx/Plan (1) Perforated ulcer Code(s): K27.5 - CHRONIC OR UNSP PEPTIC ULCER, SITE UNSP, WITH PERFORATION Status: Acute (2) Hiatal hernia Code(s): K44.9 - DIAPHRAGMATIC HERNIA WITHOUT OBSTRUCTION OR GANGRENE Status: Chronic (3) Acute and chronic respiratory failure with hypoxia Code(s): J96.21 - ACUTE AND CHRONIC RESPIRATORY FAILURE WITH HYPOXIA Status: Acute (4) HTN (hypertension) Code(s): I10 - ESSENTIAL (PRIMARY) HYPERTENSION Status: Acute Qualifiers: Hypertension type: essential hypertension Qualified Code(s): I10 - Essential (primary) hypertension (5) A-fib Code(s): I48.91 - UNSPECIFIED ATRIAL FIBRILLATION Status: Acute (6) Acute renal failure Status: Resolved (7) Obesities, morbid Code(s): E66.01 - MORBID (SEVERE) OBESITY DUE TO EXCESS CALORIES Status: Chronic - Plan Plan: Perforated Ulcer at GE junction -Pt had ex lap 02/22 with patch repair. -General Surgery- Dr. Hassan. CT abdomen showed no leakage. Adv to full liquid diet at this time. tolerating well. -Pt has G-tube in place to keep stomach from reherniating. Continue to follow with General surgery. PASTOR drain removed 03/01 -Tylenol and hydrocodene for pain control. -On omnicef for abx coverage at this time. Recieved 9 days of zosyn abx coverage. Hiatal Hernia -Reduced on 02/22 with surgery above with G-tube in place -General surgery consulted- Dr. Hassan- follow recs -Tylenol and hydrocodene for pain Acute hypoxic respiratory failure -Hernia reduced. -Pt intubated after surgery 02/22. Extubated 02/23. .Pt on 3L NC at this time this morning. Pt likely has some underlying pikwickian syndrome. continue to wean off O2 -Pt possibly has some underlying AMI. May benefit from CPAP at night. -Pulmonology consulted- Dr. Prather- follow recs A.fib w/ RVR -Pt had episode of A.fib w/ RVR 02/27 overnight. Given Diltiazem bolus 10 mg and weaned off dilt drip that morning. -Switched to oral diltiazem at this time. -Pt back in sinus at this time. -Cardiology consulted- Jennifer- follow recs -Echo shows LVH. EF normal ARF - Patient having good urine output. -Cr trending up the last few days. BMP pending today. -Will add IV hydration with D5NS @ 75 mls/hr as pt likely not taking enough PO hx of recurrent UTI - UCX shows mixed melina, but includes yeast. - Currently on fluconazole, started 02/23. Has finished 7 day course. HTN - continue current meds - BP elevated. Increased Amlodipine to 5 mg on 03/02. 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
[2018-03-03] MEDS ORDERED: Melatonin 3 MG TAB PO PRN (07:54)
[2018-03-03] MEDS: Cefdinir 300 MG CAP PO SCH (08:23)
[2018-03-03] MEDS: Amlodipine 5 MG TAB PO SCH (08:23)
[2018-03-03] MEDS: hydrALAZINE 25 MG TAB PO SCH ×2 (08:24→21:03)
[2018-03-03] MEDS: Loratadine 10 MG TAB PO SCH (08:24)
[2018-03-03] MEDS: Fluconazole 100 MG TAB PO SCH (08:24)
[2018-03-03] MEDS: Heparin 5,000 UNITS/ML VIAL SC SCH ×2 (08:24→20:33)
[2018-03-03] MEDS: Pantoprazole 40 MG VIAL IVP SCH (08:25)
[2018-03-03 08:30] LABS: Hemoglobin 11.3 g/dL (12.0-16.0); Mean Corpuscular HGB CONC 29.8 g/dL (32.0-36.0); Mean Corpuscular Hemoglobin 28.3 pg (27.0-31.0); Mean Corpuscular Volume 95.1 fL (78.0-98.0); Mean Platelet Volume 7.3 fL (7.4-10.4); Platelet Count 317 thou/uL (130-400); RBC Distribution Width 16.2 % (11.5-14.5); Red Blood Cell (RBC) Count 4.01 mill/uL (4.20-5.40); White Blood Cell (WBC) Count 18.2 thou/uL (4.8-10.8)
[2018-03-03] MEDS: Acetaminophen 325 MG TAB PO PRN (08:31)
[2018-03-03 08:39] LABS: Anion Gap 13 mmol/L (10-20); BUN (Urea Nitrogen) 18 mg/dL (9.8-20.1); Calc. Creatinine Clearance 75 mL/min (70-130); Calcium 9.1 mg/dL (7.8-10.44); Carbon Dioxide 22 mmol/L (23-31); Chloride 108 mmol/L (98-107); Estimated GFR-MDRD 29; Glucose 126 mg/dL (80-115); Sodium 139 mmol/L (136-145)
[2018-03-03 08:59] LABS: Hypochromia SLIGHT = 6-15 cells (100X) (0-5/hpf); Large Platelets SLIGHT; Lymphocytes 2 % (21-51); MDiff Complete? YES; Microcytosis SLIGHT = 6-15 cells (100X) (0-5/hpf); Monocytes 6 % (0-10); Neutrophil 91 % (42-75); Nucleated RBC 1 % (0); PLT Morphology Comment Appears Adequate; Reactive Lymphocytes 1 % (0-10)
[2018-03-03 08:59] LABS: Actual Bicarbonate (HCO3a) 33.4 mEq/L (22-28); Base Excess (BEa) 2.5 mEq/L (-2.0 to +3.0); Calcium, Ionized 1.23 mmol/L (1.12-1.30); Carboxyhemoglobin (COHb) 1.9 gm% (0.0-3.0); Potassium - ABG Lab 3.82 mmol/L (3.70-5.30)
[2018-03-03 09:02] LABS: CO2 Tension 93.1 mmHg (35.0-45.0); pH, Arterial 7.17 (7.35-7.45)
[2018-03-03 09:03] LABS: ALV-art Gradient 91.505 (0-20); O2 Tension (PaO2) 48.8 mmHg (> 80.0); Puncture Site RR
--- NOTE | 2018-03-03 09:58 | PRG ---
DATE OF SERVICE: 03/03/2018 SUBJECTIVE: Ms. Almaraz is being moved to the ICU this morning. She is drowsy and not able to answer questions this morning. OBJECTIVE: VITAL SIGNS: Pulse 101, blood pressure 137/82, temperature 98.1. Saturations are 91% on nasal cannula. GENITOURINARY: Multiple voids in the diaper. ABDOMEN: She had a bowel movement yesterday. Her abdomen is soft. Her wounds are healing well. G-tube site is clear. PASTOR site is draining a little serosanguineous. LABORATORY DATA: This morning, her white blood cell count is up to 18, hemoglobin 11, platelet count is 317. Creatinine is 1.76. Her ABG reveals a pH of 7.17, O2 of 48, and a CO2 of 93. ASSESSMENT: 1. Status post patch repair of perforated gastric ulcer. 2. Retaining CO2, likely due to chronic hypoventilation. Transferred to ICU. 3. N.p.o. for now. If needs to be intubated, if unable to swallow, we can use her G-tube for feeds. Job ID: [id number]
[2018-03-03] MEDS ORDERED: Lactated Ringer's 1,000 ML IV SCH (10:45)
[2018-03-03] MEDS: Ondansetron PF 4 MG/2 ML Vial IVP PRN (10:52)
[2018-03-03] MEDS: Sodium Chloride 0.9% 1,000 ML IV SCH (11:11)
--- NOTE | 2018-03-03 11:11 | RAD ---
SINGLE VIEW CHEST: Date: 03/03/18 COMPARISON: 02/23/18. HISTORY: Chest pain. FINDINGS: Single view of the chest shows an enlarged but stable cardiomediastinal silhouette. The endotracheal tube has been removed. The central venous catheter is unchanged in position. There is questionable ai r space opacity in the left lower lobe. There may be a small right pleural effusion. IMPRESSION: 1. Possible small right pleural effusion. 2. Possible left lower lobe infiltrate. POS: [facility]
[2018-03-03 11:28] LABS: Bilirubin Negative (Negative); Blood, Urine Moderate (Negative); Clarity TURBID (Clear); Glucose, Urine (Dipstick) Negative (Negative); Leukocyte Large (Negative); Nitrite Negative (Negative); Protein, Urine (Dipstick) 100 mg/dL (Neg-Trace); Specific Gravity, Urine 1.013 (1.002-1.036); Urobilinogen 0.2 mg/dL (0.2-1.0); pH, Urine 5.5 (5.0-9.0)
[2018-03-03 11:34] LABS: Bacteria/HPF None Seen HPF (None Seen); Hyaline Casts/LPF 4-6 HYALINE CAST LPF (0-3 Hyaline); Squamous Epithelial 0-3 HPF (0-3)
[2018-03-03 11:46] LABS: Yeast-All Forms 1+ HPF (None Seen)
[2018-03-03 11:48] LABS: Actual Bicarbonate (HCO3a) 31.5 mEq/L (22-28); Base Excess (BEa) 1.8 mEq/L (-2.0 to +3.0); Calcium, Ionized 1.21 mmol/L (1.12-1.30); Carboxyhemoglobin (COHb) 1.4 gm% (0.0-3.0); Potassium - ABG Lab 3.62 mmol/L (3.70-5.30)
[2018-03-03 11:49] LABS: O2 Tension (PaO2) 58.9 mmHg (> 80.0); Puncture Site RRA; pH, Arterial 7.21 (7.35-7.45)
--- NOTE | 2018-03-03 11:57 | PRG ---
DATE OF SERVICE: 03/03/2018 SUBJECTIVE: A 63-year-old female, being seen for acute kidney injury. The patient today was transferred to ICU for respiratory distress. OBJECTIVE: VITAL SIGNS: On examination, the patient is afebrile, pulse 101, breathing 16, and blood pressure 145/83. CONSTITUTIONAL: Awake, alert, in no acute distress. GENERAL APPEARANCE AND MENTAL STATUS: Fair. HEAD/NECK: Normocephalic. Atraumatic. EYES: EOMI. No deformity. EARS: Clear. No ulcers. NOSE: Intact. No lesions. MOUTH: Clear. No discharge. THROAT: Clear. No exudate. LUNGS: Clear. No crackles. CARDIAC: S1, S2. No rub. ABDOMEN: Benign. Bowel sounds positive. GENITALIA/RECTUM: Lobato absent. BACK/EXTREMITIES: Edema 0+. NEUROLOGICAL: Alert and motor intact. LABORATORY DATA: Labs show hemoglobin 10.1. Bicarb 18, creatinine of 1.7. ASSESSMENT AND PLAN: 1. Acute kidney injury with chronic kidney disease. It could be because of sepsis, elevated white cell count. 2. Anemia, stable. 3. Medications based on glomerular filtration rate are appropriate. 4. Respiratory failure. Management per primary team. I will get a chest x-ray for further evaluation and workup. 5. No indication for dialysis. Job ID: [id number]
--- NOTE | 2018-03-03 20:28 | PRG ---
DATE OF SERVICE: SUBJECTIVE: Danna Almaraz was moved to the Critical Care Unit because of a respiratory acidosis. She awakens quickly when I evaluated earlier today on BiPAP. She is in no distress. She had no complaints. She denied pain. OBJECTIVE: VITAL SIGNS: Currently, she is afebrile. Heart rate 73, respiratory rate 17, oximetry is 94% on her BiPAP. Her FiO2 was turned down because of her hypercarbia. We are shooting for a goal sat between 86 and 90. Her blood pressure is currently 139/73. LUNGS: Clear and distant. HEART: Regular rhythm. ABDOMEN: Soft and quite large. She is 5 feet 4 inches, 312 pounds. EXTREMITIES: With only [id number] edema. LABORATORY DATA: White count 18.2, hemoglobin 11.3, platelets 317,000. She has 91 segs. She has no bands on her peripheral smear. Sodium 139, potassium 4, chloride 108, bicarb 22, BUN 18, creatinine 1.6. Intake and output, not recorded for yesterday. I reviewed her CT. I suspect this fluid in her right chest after talking to Dr. Hassan is just fluid that is filling the space and there is a chronically trapped lung above that. I would not think that the chest tube will be indicated at this time. She appears stable. I met with family and discussed all the issues surrounding Ms. Almaraz. I have also explained to Ms. Almaraz's family that her deconditioning is a huge factor that may influence her survival here. I suspect, she has severe sleep apnea. We will continue the BiPAP all day and all night and then continue on a nightly basis after that. Looking back through her lab, I am surprised, she has not had any elevated bicarb on any of her labs, although her first blood gas did show a pH of 7.23 with a pCO2 of 62. Her last blood gas today after about an hour on BiPAP improved pH, CO2 of 81, pO2 of 58. We will continue to follow with the other physician's care for her. Critical care time 30 minutes. Job ID: [id number] MTDD
[2018-03-04] MEDS: Acetaminophen 325 MG TAB PO PRN ×3 (00:40→14:17)
[2018-03-04] MEDS: Sodium Chloride 0.9% 1,000 ML IV SCH (04:27)
[2018-03-04] MEDS: hydrALAZINE 25 MG TAB PO SCH ×2 (07:18→21:03)
[2018-03-04] MEDS: Amlodipine 5 MG TAB PO SCH (07:19)
[2018-03-04] MEDS: Pantoprazole 40 MG VIAL IVP SCH (08:03)
[2018-03-04] MEDS: Cefdinir 300 MG CAP PO SCH (08:03)
[2018-03-04] MEDS: Heparin 5,000 UNITS/ML VIAL SC SCH ×2 (08:03→21:04)
[2018-03-04] MEDS: Fluconazole 100 MG TAB PO SCH (08:03)
[2018-03-04] MEDS: Loratadine 10 MG TAB PO SCH (08:03)
[2018-03-04 08:43] LABS: #Eosinphils 0.1 thou/uL (0.0-0.7); #Monocytes 0.7 thou/uL (0.11-0.59); #Neutrophils 10.3 thou/uL (1.40-6.50); %Basophils 0.2 % (0.0-1.0); %Eosinophils 0.7 % (0.0-10.0); %Lymphocytes 8.1 % (21.0-51.0); %Monocytes 5.5 % (0.0-10.0); %Neutrophils 85.5 % (42.0-75.0); Hemoglobin 10.1 g/dL (12.0-16.0); Mean Corpuscular HGB CONC 31.9 g/dL (32.0-36.0); Mean Corpuscular Volume 90.8 fL (78.0-98.0); Mean Platelet Volume 7.6 fL (7.4-10.4); Platelet Count 239 thou/uL (130-400); RBC Distribution Width 16.2 % (11.5-14.5)
[2018-03-04 08:46] LABS: Anion Gap 9 mmol/L (10-20); BUN (Urea Nitrogen) 20 mg/dL (9.8-20.1); Calc. Creatinine Clearance 88 mL/min (70-130); Calcium 8.8 mg/dL (7.8-10.44); Carbon Dioxide 30 mmol/L (23-31); Chloride 105 mmol/L (98-107); Estimated GFR-MDRD 35; Glucose 95 mg/dL (80-115); Potassium 3.2 mmol/L (3.5-5.1); Sodium 141 mmol/L (136-145)
[2018-03-04 08:52] LABS: Actual Bicarbonate (HCO3a) 27.9 mEq/L (22-28); Base Excess (BEa) 3.5 mEq/L (-2.0 to +3.0); CO2 Tension 41.4 mmHg (35.0-45.0); Calcium, Ionized 1.15 mmol/L (1.12-1.30); Carboxyhemoglobin (COHb) 1.2 gm% (0.0-3.0); Hemoglobin (Hb) 10.6 g/dL (12.0-16.0); Potassium - ABG Lab 3.12 mmol/L (3.70-5.30); pH, Arterial 7.45 (7.35-7.45)
[2018-03-04 09:02] LABS: O2 Tension (PaO2) 46.8 mmHg (> 80.0)
[2018-03-04 09:03] LABS: Puncture Site RRA
--- NOTE | 2018-03-04 10:09 | PDOC.FM ---
- Subjective Subjective: Pt doing well this morning. Was wearing bipap at this time. Reports breathing well. Pt reports sleeping well overnight. No acute events overnight. Pt reports pain being well controlled. Denies any chest pain. Denied any fever or chills. No acute concerns from nursing at this time. - Objective MAR Reviewed: Yes Vital Signs & Weight: Vital Signs (12 hours) Temp Pulse Resp BP Pulse Ox 03/04/18 09:03 92 L 03/04/18 08:43 92 L 03/04/18 08:00 99.3 F 90 L 03/04/18 07:19 112 H 185/105 H 03/04/18 07:18 112 H 03/04/18 06:35 112 H 24 H 90 L 03/04/18 03:00 98.3 F 03/04/18 02:06 97 17 93 L 03/03/18 23:00 97.7 F Weight Admit Weight 136.616 kg Weight 141.748 kg Most Recent Monitor Data Heart Rate from ECG 117 NIBP 145/90 NIBP BP-Mean 108 Respiration from ECG 25 SpO2 94 I&O: 03/03/18 03/04/18 03/05/18 06:59 06:59 06:59 Intake Total 1475 891 480 Output Total 1179 1 Balance 1475 -288 479 Result Diagrams: 03/04/18 07:56 03/04/18 07:56 EKG Reviewed by me: Yes (sinus tachycardia) Radiology Reviewed by me: Yes Radiology: 03/03 cxr- small r. pleural effusion. Possible LLL PNA Phys Exam - Physical Examination Constitutional: NAD HEENT: PERRLA, moist MMs, sclera anicteric, oral pharynx no lesions Neck: no nodes, supple, full ROM Hard to auscultate due to body habitus decreased breath sounds in both bases. Some mild rales and crackles noted Cardiovascular: no significant murmur, no rub Tachy, Regular rhythm Gastrointestinal: soft, positive bowel sounds Incision dressed and intact. No sign redness Musculoskeletal: no edema, pulses present Neurological: non-focal, moves all 4 limbs Lymphatic: no nodes Psychiatric: normal affect, A&O x 3 Skin: no rash, normal turgor, cap refill <2 seconds Dx/Plan (1) Perforated ulcer Code(s): K27.5 - CHRONIC OR UNSP PEPTIC ULCER, SITE UNSP, WITH PERFORATION Status: Acute (2) Hiatal hernia Code(s): K44.9 - DIAPHRAGMATIC HERNIA WITHOUT OBSTRUCTION OR GANGRENE Status: Chronic (3) Acute and chronic respiratory failure with hypoxia Code(s): J96.21 - ACUTE AND CHRONIC RESPIRATORY FAILURE WITH HYPOXIA Status: Acute (4) HTN (hypertension) Code(s): I10 - ESSENTIAL (PRIMARY) HYPERTENSION Status: Acute Qualifiers: Hypertension type: essential hypertension Qualified Code(s): I10 - Essential (primary) hypertension (5) A-fib Code(s): I48.91 - UNSPECIFIED ATRIAL FIBRILLATION Status: Acute (6) Acute renal failure Status: Resolved (7) Obesities, morbid Code(s): E66.01 - MORBID (SEVERE) OBESITY DUE TO EXCESS CALORIES Status: Chronic (8) Leukocytosis Code(s): D72.829 - ELEVATED WHITE BLOOD CELL COUNT, UNSPECIFIED Status: Acute - Plan Plan: Perforated Ulcer at GE junction -Pt had ex lap 02/22 with patch repair. -General Surgery- Dr. Hassan. CT abdomen showed no leakage. Adv to full liquid diet at this time. tolerating well. -Pt has G-tube in place to keep stomach from reherniating. Continue to follow with General surgery. PASTOR drain removed 03/01 -Tylenol and hydrocodene for pain control. -On omnicef for abx coverage at this time. Recieved 9 days of zosyn abx coverage. Hiatal Hernia -Reduced on 02/22 with surgery above with G-tube in place -General surgery consulted- Dr. Hassan- follow recs -Tylenol and hydrocodene for pain Acute hypoxic respiratory failure -Hernia reduced. -Pt intubated after surgery 02/22. Extubated 02/23. -Pt had event yesterday where she was requiring more O2 and confused. ABG showed low pH and retained CO2. Pt moved to ICU 03/03 and put on BIPAP. Pt had good improvement on repeat ABG yesterday. .Pt on BIPAP Pt likely has some underlying pikwickian syndrome. -Has small R. pleural effusion. -Pt likely has underlying sleep apnea. -Pulmonology consulted- Dr. Prather- follow recs Leukocytosis -Pt had elevated WBC yesterday when checked. Was at 18 and downtrended to 12 today. Pt had event yesterday due retained CO2 -Pt has not had any fevers. With recent surgery checked Ucx, Blood cx and U/A. -03/03 Cxray shows possible LLL PNA. Pulm consulted- follow recs. -Pt on cefdinir per above. Will await new cx and adjust tx if needed. Will continue current tx for now. A.fib w/ RVR episode -Pt had episode of A.fib w/ RVR 02/27 overnight. Given Diltiazem bolus 10 mg and weaned off dilt drip that morning. -Switched to oral diltiazem at this time. -Pt back in sinus at this time. -Cardiology consulted- Jennifer- follow recs -Echo shows LVH. EF normal COLLIN - Patient having good urine output. -Cr trended down today. -Will continue IV hydration with D5NS @ 75 mls/hr as pt likely not taking enough PO hx of recurrent UTI - UCX 02/22 shows mixed melina, but includes yeast. -Ucx 03/03 pending, NTD Repeat U/A taken yesterday shows no real change from previous U/A - Currently on fluconazole, started 02/23. Has finished 7 day course. HTN - continue current meds - BP stable now. Increased Amlodipine to 5 mg on 03/02. will continue to monitor and adjust Obesity - Medical Front Desk Coordinator on discharge Acute delirium (Resolved) -continue colette GONZALEZ.
[2018-03-04] MEDS ORDERED: Potassium Chloride 20 MEQ TAB PO SCH (10:45)
--- NOTE | 2018-03-04 13:06 | PRG ---
DATE OF SERVICE: 03/04/2018 SUBJECTIVE: A 63-year-old female being seen for acute kidney injury. The patient denies any nausea, vomiting, or chest pain. OBJECTIVE: CONSTITUTIONAL: The patient is awake, alert. VITAL SIGNS: Afebrile, pulse 89, breathing is 16, and blood pressure 129/71. GENERAL APPEARANCE AND MENTAL STATUS: Fair. HEAD/NECK: Normocephalic. Atraumatic. EYES: EOMI. No deformity. EARS: Clear. No ulcers. NOSE: Intact. No lesions. MOUTH: Clear. No discharge. THROAT: Clear. No exudate. LUNGS: Clear. No crackles. CARDIAC: S1, S2. No rub. ABDOMEN: Benign. Bowel sounds positive. GENITALIA/RECTUM: [place] absent. BACK/EXTREMITIES: Edema 0+. NEUROLOGICAL: Alert and motor intact. LABORATORY DATA: Hemoglobin 10.1. Potassium 3.2, creatinine 1.5. ASSESSMENT AND PLAN: 1. Acute kidney injury, improved. 2. Hypokalemia, recommend 40 mEq of potassium. 3. Anemia, stable. 4. Medications based on glomerular filtration rate are appropriate. No indication for dialysis. I will sign off for this patient. Please reconsult as needed. Job ID: [id number]
[2018-03-04] MEDS: Ondansetron ODT 4 MG TAB PO PRN (14:14)
[2018-03-04] MEDS ORDERED: acetaZOLAMIDE Sodium 500 MG in Sodium Chloride 0.9% 50 ML IVPB SCH (15:15)
--- NOTE | 2018-03-04 15:33 | PRG ---
DATE OF SERVICE: 03/04/2018 SUBJECTIVE: Ms. Almaraz is in no distress this morning. She is actually able to hold a lucid conversation with me today. It has been relayed to me by the nursing staff that the family has been given the nurses a hard time for wanting to try to get her up and moving. I have explained to her that she does not get up and moving, she will get pneumonia and she will this admission. She was willing to get up in the neuro chair today. She told us not to listen to her family and to do what we need to do to take care of her. She is extremely hypercarbic yesterday. Today's blood gas shows a pH of 7.45, pCO2 41, PO2 of 46. She has underlying metabolic alkalosis, combined with her likely obesity hypoventilation syndrome. OBJECTIVE: GENERAL: She is in no distress today. VITAL SIGNS: Blood pressure is 133/96, heart rate is 108, respiratory rate in the 20s, oximetry is 93. LUNGS: Markedly decreased breath sounds at the right base HEART: Regular rhythm. Distant S1 and S2 consistent with her obesity. ABDOMEN: Distended, but nontender. EXTREMITIES: Without asymmetry or significant edema. LABORATORY DATA: Sodium 141; potassium 3.2; chloride 105; bicarb 30; BUN 20; creatinine 1.51, down from 1.76 yesterday. White count is 12.0, hemoglobin 10.1, and platelets 239. IMPRESSION: 1. Status post surgical correction of a massive diaphragm hernia. She likely has a space problem on the right with trapped lung. The fluid at the right base likely showing space for lung that will not inflate because of chronic atelectasis. 2. Status post repair of a perforated duodenal ulcer. 3. Obesity hypoventilation syndrome. 4. Mild metabolic alkalosis. She will be given some Diamox today. 5. She will continue to need to sleep with BiPAP whenever she naps, whenever she sleeps. She needs a sleep evaluation after she is discharged. 6. She looks 100% better than she looked yesterday. Critical care time 30 minutes. Job ID: [id number]
[2018-03-04] MEDS: HYDROcodone/Acetaminophen 7.5/325 mg Tablet PO PRN ×2 (17:13→22:40)
[2018-03-04] MEDS: Ondansetron PF 4 MG/2 ML Vial IVP PRN (20:59)
[2018-03-05] MEDS: Zolpidem Tartrate 5 MG TAB PO PRN ×2 (00:35→23:29)
[2018-03-05 04:36] LABS: #Eosinphils 0.2 thou/uL (0.0-0.7); #Lymphocytes 1.2 thou/uL (1.20-3.40); #Monocytes 0.6 thou/uL (0.11-0.59); #Neutrophils 6.7 thou/uL (1.40-6.50); %Basophils 0.4 % (0.0-1.0); %Eosinophils 2.2 % (0.0-10.0); %Lymphocytes 13.2 % (21.0-51.0); %Monocytes 7.2 % (0.0-10.0); Hemoglobin 9.9 g/dL (12.0-16.0); Mean Corpuscular HGB CONC 32.3 g/dL (32.0-36.0); Mean Corpuscular Hemoglobin 29.3 pg (27.0-31.0); Mean Corpuscular Volume 90.6 fL (78.0-98.0); Mean Platelet Volume 7.5 fL (7.4-10.4); Platelet Count 259 thou/uL (130-400); RBC Distribution Width 16.4 % (11.5-14.5); Red Blood Cell (RBC) Count 3.37 mill/uL (4.20-5.40); White Blood Cell (WBC) Count 8.7 thou/uL (4.8-10.8)
[2018-03-05 04:55] LABS: Anion Gap 11 mmol/L (10-20); BUN (Urea Nitrogen) 19 mg/dL (9.8-20.1); Calc. Creatinine Clearance 100 mL/min (70-130); Calcium 8.8 mg/dL (7.8-10.44); Carbon Dioxide 29 mmol/L (23-31); Chloride 102 mmol/L (98-107); Estimated GFR-MDRD 41; Glucose 95 mg/dL (80-115); Sodium 139 mmol/L (136-145)
--- NOTE | 2018-03-05 05:42 | PDOC.FM ---
- Subjective Subjective: Patient doing well this morning. She is sitting up in bed in NAD. She states that she is hungry this AM because she missed her meals last night. Patient is A &Ox3. Patient is also willing to continue to improve her mobility and is ready to get to rehab to improve overall. She still does not enjoy the BIPAP mask at night. No other complaints. - Objective Vital Signs & Weight: Vital Signs (12 hours) Temp Pulse BP Pulse Ox 03/05/18 04:00 98.4 F 98 03/05/18 00:44 95 03/05/18 00:00 98.4 F 03/04/18 21:03 100 124/74 03/04/18 20:00 98.0 F 96 Weight Admit Weight 136.616 kg Weight 141.748 kg Most Recent Monitor Data Heart Rate from ECG 103 NIBP 137/79 NIBP BP-Mean 98 Respiration from ECG 29 SpO2 95 I&O: 03/03/18 03/04/18 03/05/18 06:59 06:59 06:59 Intake Total 0436 222 6603 Output Total 1179 8 Balance 1475 -288 1346 Result Diagrams: 03/05/18 04:32 03/05/18 04:32 <Henok Ayoub - Last Filed: 03/05/18 09:22> - Objective Vital Signs & Weight: Vital Signs (12 hours) Temp Pulse Pulse Ox 03/05/18 08:00 94 L 03/05/18 04:00 98.4 F 98 03/05/18 00:44 95 03/05/18 00:00 98.4 F Weight Admit Weight 136.616 kg Weight 141.2 kg Most Recent Monitor Data Heart Rate from ECG 90 NIBP 127/88 NIBP BP-Mean 101 Respiration from ECG 18 SpO2 92 I&O: 03/04/18 03/05/18 03/06/18 06:59 06:59 06:59 Intake Total 891 1354 Output Total 1179 8 1 Balance -288 1346 -1 Result Diagrams: 03/05/18 04:32 03/05/18 04:32 <Brice Rollins - Last Filed: 03/05/18 09:47> Phys Exam - Physical Examination Constitutional: NAD HEENT: moist MMs Neck: supple Some decreased breath sounds to bilateral bases with crackles at bases Cardiovascular: RRR, no significant murmur Gastrointestinal: soft, non-tender, no distention, positive bowel sounds Incision sites clean dry and intact Musculoskeletal: edema present Neurological: non-focal, normal sensation, moves all 4 limbs Psychiatric: normal affect, A&O x 3 Skin: no rash <Henok Ayoub - Last Filed: 03/05/18 09:22> Dx/Plan (1) Perforated ulcer Code(s): K27.5 - CHRONIC OR UNSP PEPTIC ULCER, SITE UNSP, WITH PERFORATION Status: Acute (2) Hiatal hernia Code(s): K44.9 - DIAPHRAGMATIC HERNIA WITHOUT OBSTRUCTION OR GANGRENE Status: Chronic (3) Acute kidney injury Code(s): N17.9 - ACUTE KIDNEY FAILURE, UNSPECIFIED Status: Acute (4) Acute and chronic respiratory failure with hypoxia Code(s): J96.21 - ACUTE AND CHRONIC RESPIRATORY FAILURE WITH HYPOXIA Status: Acute (5) A-fib Code(s): I48.91 - UNSPECIFIED ATRIAL FIBRILLATION Status: Acute (6) Acute delirium Code(s): R41.0 - DISORIENTATION, UNSPECIFIED Status: Acute (7) HTN (hypertension) Code(s): I10 - ESSENTIAL (PRIMARY) HYPERTENSION Status: Acute Qualifiers: Hypertension type: essential hypertension Qualified Code(s): I10 - Essential (primary) hypertension (8) History of chronic urinary tract infection Code(s): Z87.440 - PERSONAL HISTORY OF URINARY (TRACT) INFECTIONS Status: Acute (9) Leukocytosis Code(s): D72.829 - ELEVATED WHITE BLOOD CELL COUNT, UNSPECIFIED Status: Acute (10) Obesities, morbid Code(s): E66.01 - MORBID (SEVERE) OBESITY DUE TO EXCESS CALORIES Status: Chronic - Plan Plan: Perforated Ulcer at GE junction -Pt had ex lap 02/22 with patch repair. -General Surgery- Dr. Hassan. CT abdomen showed no leakage. Adv diet as tolerated. Currently GI soft tolerating well. -Pt has G-tube in place to keep stomach from reherniating. Continue to follow with General surgery. PASTOR drain removed 03/01 -Tylenol and hydrocodone for pain control. -On omnicef for abx coverage at this time. Recieved 9 days of zosyn abx coverage. - Urine and blood cultures negative to date. Hiatal Hernia -Reduced on 02/22 with surgery above with G-tube in place -General surgery consulted- Dr. Hassan- follow recs -Tylenol and hydrocodone for pain Acute hypoxic respiratory failure -Hernia reduced. -Pt intubated after surgery 02/22. Extubated 02/23. -03/03 ABG showed low pH and retained CO2. Pt moved to ICU 03/03 and put on BIPAP. Pt had good improvement on repeat ABG yesterday. -Pt on BIPAP at all times sleeping including naps. Pt likely has some underlying pikwickian syndrome. -Has small R. pleural effusion. -Pt likely has underlying sleep apnea and will need outpatient sleep study upon discharge. -Pulmonology consulted- Dr. Prather- follow recs Leukocytosis -8.7 this AM -Pt has not had any fevers. - Negative cultures to date. -03/03 CXR shows possible LLL PNA. Pulm consulted- follow recs. -Pt on cefdinir per above. A.fib w/ RVR episode -Pt had episode of A.fib w/ RVR 02/27 overnight. Given Diltiazem bolus 10 mg and weaned off dilt drip that morning. -Switched to oral diltiazem at this time. -Pt maintained sinus rhythm since that time. -Cardiology consulted- Jennifer- follow recs -Echo shows LVH. EF 60-65% COLLIN - Likely resolved - Patient having good urine output without monitoring due to voiding in bedpan - Cr trended down today. - IVF discontinued - Dr. Wilson signed off. hx of recurrent UTI - UCX 02/22 shows mixed melina, but includes yeast. -Ucx 03/03 pending, NTD Repeat U/A taken yesterday shows no real change from previous U/A - Fluconazole daily discontinued after 4 days. - Omnicef coverage currently as well. HTN - BP well controlled on current regimen. - Increased Amlodipine to 5 mg on 03/02 - Recommend outpatient follow up. Obesity - Public Relations Counselor on discharge Acute delirium (Resolved) -continue geodon PRN. - likely due to Obesity Hypoventilation - Continue BIPAP while sleeping Disposition: Stable, will continue current plan of care with hopeful discharge to Rehab in near future. <Henok Ayoub - Last Filed: 03/05/18 09:22> Attending Addendum - Attending Addendum Date/Time: 03/05/18 0946 I personally evaluated the patient and discussed the management with Dr. Ayoub. I agree with the History, Examination, Assessment and Plan documented above with any addition or exceptions noted below. Patient feeling improved. WBC downtrending and afebrile. Continue to advance diet as able. Renal function improved though unable to verify UOP at this time. She did well on Bipap overnight. Awaiting further recs from [facility] and will work on getting transferred to rehab facility once that has been set up. <Brice Rollins R - Last Filed: 03/05/18 09:47>
--- NOTE | 2018-03-05 08:04 | PRG ---
DATE OF SERVICE: 03/04/2018 ADDENDUM: Please see the note from Dr. Kulwinder Duenas, for which I agree. The patient was seen, evaluated, examined, and discussed with the residents by bedside. She was moved yesterday morning when I saw her to the ICU, was put on BiPAP, and sounds like, she was placed on BiPAP now for 24 hours and which was taken off this morning. Breathing more comfortably and little bit more mentally with it than yesterday. Alert and oriented x3 currently. Still extremely deconditioned, extremely weak, but it sounds like breathing is doing better. Big picture, we were trying to slowly feed her, advance feeds, and hopefully get her to the point, where she could go to Jail Facility or some kind of rodent exterminator facility, obviously poor prognosis. Will need to be on BiPAP at night at least. Job ID: [id number]
--- NOTE | 2018-03-05 08:13 | CON ---
DATE OF CONSULTATION: ADDENDUM: Please see the note from Dr. Kulwinder Duenas, for which I agree. Came in to see this patient, who is now 10 days hospitalization for a perforated GE junction bleed with a severe hiatal hernia and diaphragmatic hernia bad enough that she basically was bleeding, it sound like into her thorax when this occurred. Now, has a G-tube, really just for traction to keep her stomach in her abdomen while this heals. She is tolerating p.o. intake and was moved up to the floor, but when I walked in the room, she had a slightly disconjugate gaze, altered mental status, had very swallow breathing. She is morbidly obese. Pickwickian syndrome type of a look. Did some stat labs on her. White count went up to 18 and an ABG was done, which showed that her pH had dropped to 7.17, pCO2 is up to 93, pO2 is 48% and so we moved to the unit on BiPAP. She was still communicating well. Did not appear to be in a state, where we needed to intubate her even though her gas look so bad, just looks like she really just needs BiPAP and hopefully that will control. Her lungs had decreased breath sounds throughout. Abdomen is benign. No evidence of infection or an acute abdomen palpating her. Pulmonary will be involved. We will repeat an ABG after couple of hours on the BiPAP. Otherwise, we will continue same current medications. Job ID: [id number]
--- NOTE | 2018-03-05 08:40 | PRG ---
DATE OF SERVICE: 03/05/2018 SUBJECTIVE: This patient was moved to the CCU over the weekend for hypercapnia. She seems fine today. She has no acute complaints. She has been sleeping on the BiPAP at night. OBJECTIVE: VITAL SIGNS: Her temperature is 98.4, pulse 89, blood pressure 143/74, O2 saturation 94%. A 24-hour intake 1354, output was not quantitated. Weight 311 pounds. HEENT: Unremarkable. NECK: No JVD. LUNGS: Clear anteriorly. CARDIOVASCULAR: S1, S2 regular. ABDOMEN: Morbidly obese, soft. EXTREMITIES: 3+ edema from her knees downward. LABORATORY DATA: Sodium 139, potassium 3, chloride 102, CO2 of 29, BUN 19, creatinine 1.3, glucose 95. White blood cell count 8.7, hematocrit 38.5, platelet count 259. ASSESSMENT: 1. Respiratory failure, requiring mechanical ventilation - mainly a Pickwickian-type issue. 2. Status post repair of perforated duodenal ulcer and pull-down of stomach with subsequent PEG tube placement. 3. Hypokalemia. 4. Edema. PLAN: The patient needs to be diuresed some. She also will need to have her potassium replaced. I will write for that. She can be transferred to [facility] from my standpoint. Job ID: [id number]
[2018-03-05] MEDS: Amlodipine 5 MG TAB PO SCH (09:44)
[2018-03-05] MEDS: Potassium Chloride 20 MEQ TAB PO SCH ×2 (09:44→17:03)
[2018-03-05] MEDS: Cefdinir 300 MG CAP PO SCH (09:45)
[2018-03-05] MEDS: Fluconazole 100 MG TAB PO SCH (09:45)
[2018-03-05] MEDS: Pantoprazole 40 MG VIAL IVP SCH (09:46)
[2018-03-05] MEDS: hydrALAZINE 25 MG TAB PO SCH ×2 (09:46→20:10)
[2018-03-05] MEDS: Loratadine 10 MG TAB PO SCH (09:46)
[2018-03-05] MEDS: Heparin 5,000 UNITS/ML VIAL SC SCH ×2 (10:05→20:09)
[2018-03-05] MEDS: Furosemide 40 MG/4 ML VIAL IVP SCH ×2 (11:28→20:09)
[2018-03-05] MEDS: Metoclopramide HCl 10 MG TAB PO SCH ×3 (13:06→20:10)
[2018-03-05] MEDS ORDERED: Docusate Sodium 100 MG/10 ML UDCUP PO PRN (16:17)
[2018-03-05] MEDS ORDERED: Polyethylene Glycol 3350 17 GM Packet PO PRN (16:17)
[2018-03-05] MEDS: HYDROcodone/Acetaminophen 7.5/325 mg Tablet PO PRN (17:03)
[2018-03-06] MEDS: Acetaminophen 325 MG TAB PO PRN (02:05)
[2018-03-06 05:22] LABS: Anion Gap 12 mmol/L (10-20); BUN (Urea Nitrogen) 17 mg/dL (9.8-20.1); Calc. Creatinine Clearance 98 mL/min (70-130); Calcium 8.7 mg/dL (7.8-10.44); Carbon Dioxide 32 mmol/L (23-31); Chloride 100 mmol/L (98-107); Estimated GFR-MDRD 40; Glucose 93 mg/dL (80-115); Potassium 3.3 mmol/L (3.5-5.1); Sodium 141 mmol/L (136-145)
--- NOTE | 2018-03-06 05:59 | PDOC.FM ---
- Subjective Subjective: Patient is 63 yo female seen at bedside this AM. Patient is doing well overall. She was not impressed by the amount of urine she has had. She states she wasn't able to sleep at all last night due to her urine output. She states that she is ready to go to rehab and to get better. She states that she does rest better with the new machine. She is A&O x3 this AM. No other complaints. - Objective MAR Reviewed: Yes Vital Signs & Weight: Vital Signs (12 hours) Temp Pulse Resp BP Pulse Ox 03/06/18 04:28 97.8 F 93 19 119/78 100 03/06/18 04:12 92 03/06/18 01:25 106 H 03/06/18 01:24 93 L 03/06/18 00:35 97.7 F 95 20 124/87 97 03/05/18 20:10 102 H 03/05/18 20:00 92 L 03/05/18 19:50 98.7 F 102 H 16 148/97 H 92 L Weight Admit Weight 136.616 kg Weight 141.2 kg Most Recent Monitor Data Heart Rate from ECG 112 NIBP 147/99 NIBP BP-Mean 115 Respiration from ECG 21 SpO2 96 I&O: 03/04/18 03/05/18 03/06/18 06:59 06:59 06:59 Intake Total 891 1354 720 Output Total 1179 8 483 Balance -288 1346 237 Result Diagrams: 03/05/18 04:32 03/06/18 04:55 <Henok Ayoub - Last Filed: 03/06/18 08:11> - Objective Vital Signs & Weight: Vital Signs (12 hours) Temp Pulse Resp BP BP Pulse Ox 03/06/18 08:43 100 126/76 03/06/18 07:42 98 03/06/18 07:34 98.4 F 100 20 130/73 98 03/06/18 06:36 93 L 03/06/18 04:28 97.8 F 93 19 119/78 100 03/06/18 04:12 92 03/06/18 01:25 106 H 03/06/18 01:24 93 L 03/06/18 00:35 97.7 F 95 20 124/87 97 Weight Admit Weight 136.616 kg Weight 139.207 kg Most Recent Monitor Data Heart Rate from ECG 112 NIBP 147/99 NIBP BP-Mean 115 Respiration from ECG 21 SpO2 96 I&O: 03/05/18 03/06/18 03/07/18 06:59 06:59 06:59 Intake Total 1354 990 Output Total 8 483 Balance 1346 507 Result Diagrams: 03/05/18 04:32 03/06/18 04:55 <Brice Rollins - Last Filed: 03/06/18 09:52> Phys Exam - Physical Examination Constitutional: NAD HEENT: moist MMs Neck: no nodes, supple Respiratory: no wheezing, clear to auscultation bilateral Cardiovascular: RRR, no significant murmur Gastrointestinal: soft, non-tender, no distention, positive bowel sounds Musculoskeletal: pulses present, edema present 2+ bilaterally Neurological: non-focal, normal sensation, moves all 4 limbs Psychiatric: normal affect, A&O x 3 Skin: no rash <Henok Ayoub - Last Filed: 03/06/18 08:11> Dx/Plan (1) Perforated ulcer Code(s): K27.5 - CHRONIC OR UNSP PEPTIC ULCER, SITE UNSP, WITH PERFORATION Status: Acute (2) Hiatal hernia Code(s): K44.9 - DIAPHRAGMATIC HERNIA WITHOUT OBSTRUCTION OR GANGRENE Status: Chronic (3) Acute kidney injury Code(s): N17.9 - ACUTE KIDNEY FAILURE, UNSPECIFIED Status: Acute (4) Acute and chronic respiratory failure with hypoxia Code(s): J96.21 - ACUTE AND CHRONIC RESPIRATORY FAILURE WITH HYPOXIA Status: Acute (5) A-fib Code(s): I48.91 - UNSPECIFIED ATRIAL FIBRILLATION Status: Acute (6) Acute delirium Code(s): R41.0 - DISORIENTATION, UNSPECIFIED Status: Acute (7) HTN (hypertension) Code(s): I10 - ESSENTIAL (PRIMARY) HYPERTENSION Status: Acute Qualifiers: Hypertension type: essential hypertension Qualified Code(s): I10 - Essential (primary) hypertension (8) History of chronic urinary tract infection Code(s): Z87.440 - PERSONAL HISTORY OF URINARY (TRACT) INFECTIONS Status: Acute (9) Leukocytosis Code(s): D72.829 - ELEVATED WHITE BLOOD CELL COUNT, UNSPECIFIED Status: Acute (10) Obesities, morbid Code(s): E66.01 - MORBID (SEVERE) OBESITY DUE TO EXCESS CALORIES Status: Chronic (11) Fungus present in urine Code(s): B49 - UNSPECIFIED MYCOSIS Status: Acute - Plan Plan: Perforated Ulcer at GE junction -Pt had ex lap 02/22 with patch repair. -General Surgery- Dr. Hassan. CT abdomen showed no leakage. Adv diet as tolerated. Currently GI soft tolerating well. -Pt has G-tube in place to keep stomach from reherniating. Continue to follow with General surgery. PASTOR drain removed 03/01 -Tylenol and hydrocodone for pain control. -On omnicef for abx coverage at this time. Received 9 days of zosyn abx coverage. - blood cultures negative to date. Urine cultures grew yeast, status post 4 days of treatment. Hiatal Hernia -Reduced on 02/22 with surgery above with G-tube in place -General surgery consulted- Dr. Hassan- follow recs -Tylenol and hydrocodone for pain Acute hypoxic respiratory failure -Hernia reduced. -Pt intubated after surgery 02/22. Extubated 02/23. -03/03 ABG showed low pH and retained CO2. Pt moved to ICU 03/03 and put on BIPAP. Pt had good improvement on repeat ABG yesterday. -Pt on BIPAP at all times sleeping including naps. Pt likely has some underlying pikwickian syndrome. -Has small R. pleural effusion. -Pt likely has underlying sleep apnea and will need outpatient sleep study upon discharge. -Pulmonology consulted- Dr. Prather- follow recs Leukocytosis - Not repeated this AM. - Pt has not had any fevers. - Negative cultures to date. - 03/03 CXR shows possible LLL PNA. Pulm consulted- follow recs. - Pt on cefdinir per above. A.fib w/ RVR episode - Pt had episode of A.fib w/ RVR 02/27 overnight. Given Diltiazem bolus 10 mg and weaned off dilt drip that morning. - Switched to oral diltiazem at this time. - Pt maintained sinus rhythm since that time. - Cardiology consulted- Jennifer- follow recs - Echo shows LVH. EF 60-65% COLLIN - Likely resolved - Patient having good urine output without monitoring due to voiding in bedpan - Cr stabilized. - IVF discontinued - Dr. Wilson signed off. hx of recurrent UTI - UCX 02/22 shows mixed melina, but includes yeast. -Ucx 03/03 shows likely Bibi species - Fluconazole daily will need to be continued for 14 days. - Omnicef coverage currently as well. HTN - BP well controlled on current regimen. - Increased Amlodipine to 5 mg on 03/02 - Recommend outpatient follow up. Obesity - Gr[employer] 1 [employer]ru 6 Home [employer] on discharge Acute delirium (Resolved) -continue geodon PRN. - likely due to Obesity Hypoventilation - Continue BIPAP while sleeping Disposition: Stable, will continue current plan of care. Patient has been accepted to [facility]. Will discharge to that facility when fully cleared by surgery and pulmonology. <Henok Ayoub - Last Filed: 03/06/18 08:11> Attending Addendum - Attending Addendum Date/Time: 03/06/18950 I personally evaluated the patient and discussed the management with Dr. Ayoub. I agree with the History, Examination, Assessment and Plan documented above with any addition or exceptions noted below. Patient doing well. Denies complaints. She has been accepted to inpatient rehab. Awaiting further recs from Pulmonology and CM to see if we can provide Bipap services at rehab. Dispo pending that conversation. Diuresing well though unable to quantify as she refuses rudd catheter placement and otherwise unable to quantify her voids. <Brice Rollins - Last Filed: 03/06/18 09:52>
[2018-03-06] MEDS: Furosemide 40 MG/4 ML VIAL IVP SCH (08:42)
[2018-03-06] MEDS: Cefdinir 300 MG CAP PO SCH (08:42)
[2018-03-06] MEDS: Fluconazole 100 MG TAB PO SCH (08:42)
[2018-03-06] MEDS: Potassium Chloride 20 MEQ TAB PO SCH (08:42)
[2018-03-06] MEDS: hydrALAZINE 25 MG TAB PO SCH ×2 (08:43→20:12)
[2018-03-06] MEDS: Heparin 5,000 UNITS/ML VIAL SC SCH ×2 (08:43→20:12)
[2018-03-06] MEDS: Pantoprazole 40 MG VIAL IVP SCH (08:43)
[2018-03-06] MEDS: Amlodipine 5 MG TAB PO SCH (08:43)
[2018-03-06] MEDS: Loratadine 10 MG TAB PO SCH (08:43)
[2018-03-06] MEDS: Metoclopramide HCl 10 MG TAB PO SCH ×4 (08:43→20:12)
--- NOTE | 2018-03-06 09:09 | PRG ---
DATE OF SERVICE: 02/24/2018 SUBJECTIVE: The patient is doing better. She had no acute complaints. OBJECTIVE: VITAL SIGNS: Temperature 98.4, pulse 100, respirations 20, O2 saturation 98%, blood pressure 130/73. A 24-hour intake 990 and output 43. HEENT: Unremarkable. NECK: No JVD. CHEST: Fairly clear anteriorly. CARDIAC: S1 and S2, regular. ABDOMEN: Soft. PEG tube noted. EXTREMITIES: Edematous throughout. LABORATORY DATA: Sodium 141, potassium 3.3, chloride 100, CO2 of 32, BUN 17, creatinine 1.3, glucose 93. ASSESSMENT: 1. Slowly improving respiratory status. 2. Obesity hypoventilation syndrome. 3. Status post repair of perforated duodenal ulcer and pulled out of stomach into the abdomen with subsequent percutaneous endoscopic gastrostomy tube placement. 4. Hypokalemia. PLAN: The patient is getting last dose of Lasix this morning. If she does well today, she can probably be moved to the medical floor tomorrow. This patient will need extensive inpatient rehab. Job ID: [id number]
[2018-03-06] MEDS: HYDROcodone/Acetaminophen 7.5/325 mg Tablet PO PRN ×2 (12:53→17:00)
[2018-03-06] MEDS: Zolpidem Tartrate 5 MG TAB PO PRN (21:19)
--- NOTE | 2018-03-07 05:50 | PDOC.FM ---
- Subjective Subjective: 63 yo female is seen at bedside this AM. Patient states she had a better night, but she still does not like wearing the mask. She states that she is ready to get up and moving to go to rehab. She states that her energy is increasing every day. She requests to not have any more lasix for the present time if she does not need it due to the amount of urine she has had. Patient denies chest pain, sob, n/v/d, but does complain of abdominal soreness following her surgery. No other complaints. - Objective MAR Reviewed: Yes Vital Signs & Weight: Vital Signs (12 hours) Temp Pulse Resp BP Pulse Ox 03/07/18 04:29 98.1 F 98 22 H 126/78 100 03/07/18 00:47 98.0 F 97 23 H 122/73 98 03/06/18 21:00 98 03/06/18 20:12 107 H 03/06/18 20:00 96 03/06/18 19:37 97.9 F 107 H 17 145/91 H 96 Weight Admit Weight 136.616 kg Weight 139.207 kg Most Recent Monitor Data Heart Rate from ECG 112 NIBP 147/99 NIBP BP-Mean 115 Respiration from ECG 21 SpO2 96 I&O: 03/05/18 03/06/18 03/07/18 06:59 06:59 06:59 Intake Total 2240 184 8418 Output Total 8 483 Balance 8016 189 4494 Result Diagrams: 03/05/18 04:32 03/06/18 04:55 Phys Exam - Physical Examination Constitutional: NAD HEENT: moist MMs Neck: no nodes, supple Respiratory: no wheezing, clear to auscultation bilateral Cardiovascular: RRR, no significant murmur Gastrointestinal: soft, non-tender, no distention, positive bowel sounds G tube in place. Musculoskeletal: pulses present, edema present 2+ bilaterally to mid lara Neurological: non-focal, normal sensation, moves all 4 limbs Psychiatric: normal affect, A&O x 3 Skin: no rash, cap refill <2 seconds Dx/Plan (1) Perforated ulcer Code(s): K27.5 - CHRONIC OR UNSP PEPTIC ULCER, SITE UNSP, WITH PERFORATION Status: Acute (2) Hiatal hernia Code(s): K44.9 - DIAPHRAGMATIC HERNIA WITHOUT OBSTRUCTION OR GANGRENE Status: Chronic (3) Acute kidney injury Code(s): N17.9 - ACUTE KIDNEY FAILURE, UNSPECIFIED Status: Acute (4) Acute and chronic respiratory failure with hypoxia Code(s): J96.21 - ACUTE AND CHRONIC RESPIRATORY FAILURE WITH HYPOXIA Status: Acute (5) A-fib Code(s): I48.91 - UNSPECIFIED ATRIAL FIBRILLATION Status: Acute (6) Acute delirium Code(s): R41.0 - DISORIENTATION, UNSPECIFIED Status: Acute (7) HTN (hypertension) Code(s): I10 - ESSENTIAL (PRIMARY) HYPERTENSION Status: Acute Qualifiers: Hypertension type: essential hypertension Qualified Code(s): I10 - Essential (primary) hypertension (8) History of chronic urinary tract infection Code(s): Z87.440 - PERSONAL HISTORY OF URINARY (TRACT) INFECTIONS Status: Acute (9) Leukocytosis Code(s): D72.829 - ELEVATED WHITE BLOOD CELL COUNT, UNSPECIFIED Status: Acute (10) Obesities, morbid Code(s): E66.01 - MORBID (SEVERE) OBESITY DUE TO EXCESS CALORIES Status: Chronic (11) Fungus present in urine Code(s): B49 - UNSPECIFIED MYCOSIS Status: Acute - Plan Plan: Perforated Ulcer at GE junction - Pt had ex lap 02/22 with patch repair. - General Surgery- Dr. Hassan. CT abdomen showed no leakage. Adv diet as tolerated. Currently GI soft tolerating well. - Pt has G-tube in place to keep stomach from reherniating. PASTOR drain removed - Tylenol and hydrocodone for pain control. - On omnicef for abx coverage at this time. Received 9 days of zosyn abx coverage. - blood cultures negative to date. - Routine 6 week follow up with Dr. Hassan as outpatient Hiatal Hernia - Reduced on 02/22 with surgery above with G-tube in place - General surgery consulted- Dr. Hassan- signed off the case - Tylenol and hydrocodone for pain Acute hypoxic respiratory failure - Hernia reduced. - Pt intubated after surgery 02/22. Extubated 02/23. - 03/03 ABG showed low pH and retained CO2. Pt moved to ICU 03/03 and put on BIPAP. - Pt on BIPAP at all times sleeping including naps. Pt likely has some underlying pikwickian syndrome. - Has small R. pleural effusion. - Pt likely has underlying sleep apnea and will need outpatient sleep study upon discharge. - Discharge to Rehab will need BIPAP at settings of - Pulmonology consulted- Dr. Prather- follow recs Leukocytosis - Not repeated this AM. - Pt has not had any fevers. - Negative cultures to date. - 03/03 CXR shows possible LLL PNA. Pulm consulted- follow recs. - Pt on cefdinir per above. A.fib w/ RVR episode - Pt had episode of A.fib w/ RVR 02/27 overnight. Given Diltiazem bolus 10 mg and weaned off dilt drip that morning. - Switched to oral diltiazem at this time. - Pt maintained sinus rhythm since that time. - Cardiology consulted- Jennifer- signed off. - Echo shows LVH. EF 60-65% COLLIN - Likely resolved - Patient having good urine output without monitoring due to voiding in bedpan - s/p 3 doses of lasix with good response - Cr stabilized. - IVF discontinued - Dr. Wilson signed off. hx of recurrent UTI - UCX 02/22 shows mixed melina, but includes yeast. - Ucx 03/03 shows likely Bibi species - Fluconazole daily will need to be continued for 14 days. HTN - BP well controlled on current regimen. - Increased Amlodipine to 5 mg on 03/02 - Recommend outpatient follow up. Obesity - [employer] on discharge Acute delirium (Resolved) - continue geodon PRN. - likely due to Obesity Hypoventilation - Continue BIPAP while sleeping Disposition: Stable, will continue current plan of care. Patient has been accepted to [facility]. Will discharge to that facility when fully cleared by pulmonology. Addendum - Attending - Attending Attestation Date/Time: 03/07/18 4904 I personally evaluated the patient and discussed the management with Dr. Ayoub. I agree with the History, Examination, Assessment and Plan documented above with any addition or exceptions noted below. Patient stable. Breathing well. She has been cleared for discharge from surgery and pulm standpoint and she will be discharged to the inpatient rehab facility.
[2018-03-07 07:31] VITALS: TEMP 98.5
[2018-03-07] MEDS ORDERED: ALPRAZolam 0.25 MG TAB PO PRN (08:25)
[2018-03-07] MEDS: Loratadine 10 MG TAB PO SCH (08:47)
[2018-03-07] MEDS: Pantoprazole 40 MG VIAL IVP SCH (08:47)
[2018-03-07] MEDS: Heparin 5,000 UNITS/ML VIAL SC SCH (08:47)
[2018-03-07] MEDS: Cefdinir 300 MG CAP PO SCH (08:47)
[2018-03-07] MEDS: Fluconazole 100 MG TAB PO SCH (08:47)
[2018-03-07] MEDS: Amlodipine 5 MG TAB PO SCH (08:47)
[2018-03-07] MEDS: Metoclopramide HCl 10 MG TAB PO SCH ×2 (08:48→12:22)
[2018-03-07] MEDS: hydrALAZINE 25 MG TAB PO SCH (08:48)
--- NOTE | 2018-03-07 09:29 | PRG ---
DATE OF SERVICE: 03/07/2018 SUBJECTIVE: Ms. Almaraz is anxious. She is scheduled to go to rehab later today. OBJECTIVE: VITAL SIGNS: Temperature 98.5, pulse 100, respirations 20, O2 saturation 98% on 3 L, and blood pressure 131/76. HEENT: Unremarkable. NECK: No JVD. CHEST: Clear without wheezing. CARDIAC: S1, S2 regular. ABDOMEN: Obese, soft, nontender. EXTREMITIES: No edema. LABORATORY DATA: No new labs were done today. ASSESSMENT: 1. Stable respiratory status. 2. Likely obesity hypoventilation syndrome. 3. Status post perforated gastric ulcer repair and subsequent pull down of stomach back into the abdomen. 4. Anxiety. PLAN: 1. I told her I would give her a little Xanax for her anxiety. 2. She will need an outpatient sleep study down the road. 3. She needs extensive rehab. 4. I told her she needs to lose an extensive amount of weight. Job ID: [id number]
[2018-03-07] MEDS: HYDROcodone/Acetaminophen 7.5/325 mg Tablet PO PRN (12:22)
[2018-03-07 12:26] VITALS: BMI 52.7
[2018-03-07 16:09] VITALS: BP 127/82
== END 2018-03-07 14:32 | DRG 853 ==
LOC: ONC 14:59 → IMCU/EMU 22:48 → CCU 02-22 13:06 → IMCU/EMU 02-27 19:13 → T4-B 03-01 11:40 → CCU 03-03 09:56 → IMCU/EMU 03-05 18:03
PROVIDERS: ADMIT Family Medicine; ATTEND Family Medicine
PROC: 0BJT4ZZ Inspection of Diaphragm, Percutaneous Endoscopic Approach (ICD-10-PCS; principal; 2018-02-22)
PROC: 0BQT0ZZ Repair Diaphragm, Open Approach (ICD-10-PCS; 2018-02-22)
PROC: 0DU Gastrointestinal System, Supplement (ICD-10-PCS; 2018-02-22)
PROC: 5A09357 Assistance with Respiratory Ventilation, Less than 24 Consecutive Hours, Continuous Positive Airway Pressure (ICD-10-PCS; 2018-02-22)
PROC: 0DH63UZ Insertion of Feeding Device into Stomach, Percutaneous Approach (ICD-10-PCS; 2018-02-22)
PROC: 06HM33Z Insertion of Infusion Device into Right Femoral Vein, Percutaneous Approach (ICD-10-PCS; 2018-02-22)
PROC: 02HV33Z Insertion of Infusion Device into Superior Vena Cava, Percutaneous Approach (ICD-10-PCS; 2018-02-22)
PROC: B5181ZA Fluoroscopy of Superior Vena Cava using Low Osmolar Contrast, Guidance (ICD-10-PCS; 2018-02-22)
DX: A41.9 Sepsis, unspecified organism (principal); J96.21 Acute and chronic respiratory failure with hypoxia; K27.5 Chronic or unspecified peptic ulcer, site unspecified, with perforation; K65.9 Peritonitis, unspecified; N17.9 Acute kidney failure, unspecified; E87.2 Acidosis; E66.2 Morbid (severe) obesity with alveolar hypoventilation; B49 Unspecified mycosis; Z68.43 Body mass index [BMI] 50.0-59.9, adult; I47.1 Supraventricular tachycardia; E87.0 Hyperosmolality and hypernatremia; G93.40 Encephalopathy, unspecified; K44.9 Diaphragmatic hernia without obstruction or gangrene; D72.829 Elevated white blood cell count, unspecified; M19.90 Unspecified osteoarthritis, unspecified site; I12.9 Hypertensive chronic kidney disease with stage 1 through stage 4 chronic kidney disease, or unspecified chronic kidney disease; N18.3 Chronic kidney disease, stage 3 (moderate); I48.91 Unspecified atrial fibrillation; R41.0 Disorientation, unspecified; E87.6 Hypokalemia; I48.0 Paroxysmal atrial fibrillation; Z87.440 Personal history of urinary (tract) infections; Z83.3 Family history of diabetes mellitus
CPT/HCPCS: 36415; 36416; 71045; 74018; 74150; 76770; 80048; 80053; 81003; 81015; 82436; 82570; 82805; 83605; 83935; 84145; 84300; 84484; 85007; 85025; 85027; 87040; 87070; 87086; 87205; 90471; 90686; 93005; 93010; 93306; 94002; 94003; 94640; 94660; A4216; C1752; C9113; G0008; G8978-GP-CL; G8978-GP-CM; G8979-GP-CJ; G8979-GP-CK; G8987-GO-CL; G8987-GO-CM; G8988-GO-CJ; G8988-GO-CK; J0131; J0360; J1120; J1170; J1200; J1450; J1644; J1940; J2001; J2060; J2250; J2270; J2370; J2405; J2543; J2550; J2704; J3010; J3370; J3411; J3480; J3486; J7050; J7620; Q0162

== ENCOUNTER 2018-04-17 11:56 | Inpatient (IN) | payer OTHER ==
[2018-04-17 14:05] LABS: #Eosinphils 0.1 thou/uL (0.0-0.7); #Lymphocytes 1.2 thou/uL (1.20-3.40); #Monocytes 0.3 thou/uL (0.11-0.59); #Neutrophils 3.7 thou/uL (1.40-6.50); %Basophils 0.8 % (0.0-1.0); %Eosinophils 1.5 % (0.0-10.0); %Lymphocytes 22.3 % (21.0-51.0); %Monocytes 5.7 % (0.0-10.0); %Neutrophils 69.7 % (42.0-75.0); Hemoglobin 9.7 g/dL (12.0-16.0); Mean Corpuscular HGB CONC 31.5 g/dL (32.0-36.0); Mean Corpuscular Hemoglobin 26.4 pg (27.0-31.0); Mean Corpuscular Volume 83.8 fL (78.0-98.0); Platelet Count 274 thou/uL (130-400); RBC Distribution Width 15.9 % (11.5-14.5); Red Blood Cell (RBC) Count 3.65 mill/uL (4.20-5.40); White Blood Cell (WBC) Count 5.2 thou/uL (4.8-10.8)
[2018-04-17] MEDS ORDERED: HYDROcodone/Acetaminophen 5/325 mg Tablet ONE ×2 (14:21→20:53)
[2018-04-17 14:31] LABS: ALT (SGPT) 7 U/L (8-55); AST (SGOT) 10 U/L (5-34); Albumin 3.1 g/dL (3.4-4.8); Alkaline Phosphatase 53 U/L (40-150); Anion Gap 14 mmol/L (10-20); BUN (Urea Nitrogen) 11 mg/dL (9.8-20.1); Bilirubin, Total 0.3 mg/dL (0.2-1.2); Calc. Creatinine Clearance 0 mL/min (70-130); Carbon Dioxide 29 mmol/L (23-31); Chloride 102 mmol/L (98-107); Estimated GFR-MDRD 70; Globulin 2.9 g/dL (2.4-3.5); Glucose 95 mg/dL (80-115); Potassium 3.4 mmol/L (3.5-5.1); Sodium 142 mmol/L (136-145)
--- NOTE | 2018-04-17 14:42 | RAD ---
PORTABLE AP CHEST: Date: 04/17/18 HISTORY: Dyspnea. COMPARISON: 03/03/18. FINDINGS: Right internal jugular vein central venous catheter has been removed. Patient is rotated to the right , which accentuates cardiac silhouette, but the cardiac silhouette is probably enlarged. Pulmonary va sculature is at the upper limits of normal. There is patchy increased density at the left lung base i n the left infrahilar region which may be related to a developing area of pneumonia. There is curvili near area of increased density overlying the expected location of the minor fissure, likely related t o a small amount of pleural fluid in the minor fissure. There is mild hazy increased density seen in the right perihilar region and right lung base. This may be related to patient rotation. Follow-up ev aluation is recommended. Vascular calcifications are seen in the thoracic aorta. No other interval ch jamie. IMPRESSION: 1. Patchy parenchymal changes left infrahilar region which may be related to developing pneumonia. F ollow-up to resolution is recommended. 2. Small amount of pleural fluid within the minor fissure. 3. Mild increased density in the right perihilar region, thought to be related to accentuation of ri ght hilar structures due to patient rotation. However, follow-up PA and lateral chest x-ray is recomm ended. POS: SAMEER
[2018-04-17] MEDS ORDERED: Metoprolol Tartrate 5 MG/5 ML VIAL ONE (15:23)
[2018-04-17] MEDS ORDERED: Metoprolol Tartrate 25 MG TAB ONE (15:23)
[2018-04-17] MEDS ORDERED: Piperacillin/Tazobactam 4.5 GM VIAL ONE (16:03)
[2018-04-17] MEDS ORDERED: Acetaminophen 650 MG Suppository PR PRN (16:31)
--- NOTE | 2018-04-17 16:37 | PDOC.FPRHP ---
- History of Present Illness Chief Complaint: SOB History of Present Illness: Ms. Almaraz presents with shortness of breath, she is a poor historian. The following history is compiled from her and medical records. She presents to [facility] ED from [facility] after being told that she had a fluid collection in/around her lungs that may be related to her surgery and that she needs to follow up with her surgeon. She reports that for the past two days she has been feeling bad with increasing pain along her left side. She reports in rehab she started feeling this way and at one point her eyes rolled back on her and no one would help, her sister reports she may have been having a seizure or mini-stroke They both verbalize at multiple times that the surgeon messed her up and needs to fix the air pockets and the large amount of water in her lungs. She denies any substernal chest pain, fever, chills, syncope, or increased SOB. She is normally on 2L NC at home and at rehab ED Course: metoprolol, norco CBC, CMP, Trop, CXR - Allergies/Adverse Reactions Allergies Allergy/AdvReac Type Severity Reaction Status Date / Time lisinopril Allergy Severe Anaphylaxis Verified 01/13/17 13:32 morphine Allergy Mild Rash Verified 01/13/17 13:32 - Home Medications Medication Instructions Recorded Confirmed Type Loratadine [Claritin] 10 mg PO DAILY 01/13/17 02/21/18 History hydrALAZINE [Apresoline] 25 mg PO BID 01/13/17 02/21/18 History Amlodipine [Norvasc] 2.5 mg PO DAILY 06/22/17 02/21/18 History Gabapentin 600 mg PO TID PRN 02/21/18 02/21/18 History Zolpidem Tartrate [Ambien] 10 mg PO HS PRN 02/21/18 02/21/18 History Diltiazem HCl [Cardizem CD] 180 mg PO DAILY #30 cap 03/07/18 Rx Fluconazole [Diflucan] 200 mg PO DAILY #10 tab 03/07/18 Rx Melatonin 3 mg PO HS PRN #30 tab 03/07/18 Rx Metoclopramide HCl [Reglan] 10 mg PO ACHS #60 tab 03/07/18 Rx Polyethylene Glycol 3350 [Miralax] 17 gm PO DAILYPRN PRN #1 pk 03/07/18 Rx - History PMHx:HTN PSHx: Esophageal leak/diaphragmatic hernia repair 03/06, appendectomy FHx: DM Social: no TAD - Review of Systems General: denies: fever/chills, weight/appetite/sleep changes Eyes: denies: eye pain, vision changes ENT: denies: nasal congestion Respiratory: reports: congestion, shortness of breath, exercise intolerance Cardiovascular: reports: edema, paroxysmal nocturnal dyspnea, orthopnea. denies : chest pain, palpitation Gastrointestinal: reports: nausea, vomiting. denies: diarrhea Genitourinary: denies: incontinence, dysuria Skin: denies: rashes, lesions Musculoskeletal: reports: pain. denies: tenderness Neurological: denies: numbness, syncope - Vital signs BP: 136/99 HR: 95 RR: 19 Tmax: 98.6 Pox: 96% on 2L Wt: 136kg - Physical Exam Constitutional: NAD, awake, alert and oriented HEENT: normocephalic and atraumatic, grossly normal vision, grossly normal hearing Neck: supple, trachea midline, no JVD Chest: no lesions, other (tender to palpation) Heart: RRR, normal S1/S2, no murmurs/rubs/gallops, pulses present, other (edema present) Lungs: other (crackles LLL, poor air movemnt) Abdomen: soft, non-tender, bowel sounds present Musculoskeletal: normal structure, normal tone Neurological: no focal deficit Skin: no rash/lesions Heme/Lymphatic: no unusual bruising or bleeding Psychiatric: other (poor judgement/insight) FMR H&P: Results - Labs Result Diagrams: 04/17/18 13:41 04/17/18 13:41 Lab results: WBC 5.2 thou/uL (4.8-10.8) 04/17/18 13:41 Hgb 9.7 g/dL (12.0-16.0) L 04/17/18 13:41 Hct 30.6 % (36.0-47.0) L 04/17/18 13:41 MCV 83.8 fL (78.0-98.0) 04/17/18 13:41 Plt Count 274 thou/uL (130-400) 04/17/18 13:41 Neutrophils % 69.7 % (42.0-75.0) 04/17/18 13:41 Sodium 142 mmol/L (136-145) 04/17/18 13:41 Potassium 3.4 mmol/L (3.5-5.1) L 04/17/18 13:41 Chloride 102 mmol/L (98-107) 04/17/18 13:41 Carbon Dioxide 29 mmol/L (23-31) 04/17/18 13:41 BUN 11 mg/dL (9.8-20.1) 04/17/18 13:41 Creatinine 0.83 mg/dL (0.6-1.1) 04/17/18 13:41 Glucose 95 mg/dL (80-115) 04/17/18 13:41 Calcium 9.0 mg/dL (7.8-10.44) 04/17/18 13:41 Total Bilirubin 0.3 mg/dL (0.2-1.2) 04/17/18 13:41 AST 10 U/L (5-34) 04/17/18 13:41 ALT 7 U/L (8-55) L 04/17/18 13:41 Alkaline Phosphatase 53 U/L (40-150) 04/17/18 13:41 Serum Total Protein 6.0 g/dL (6.0-8.3) 04/17/18 13:41 Albumin 3.1 g/dL (3.4-4.8) L 04/17/18 13:41 FMR H&P: A/P - Problem List (1) Community acquired pneumonia Current Visit: Yes Status: Acute Code(s): J18.9 - PNEUMONIA, UNSPECIFIED ORGANISM (2) Pickwickian syndrome Current Visit: Yes Status: Acute Code(s): E66.2 - MORBID (SEVERE) OBESITY WITH ALVEOLAR HYPOVENTILATION (3) A-fib Current Visit: No Status: Acute Code(s): I48.91 - UNSPECIFIED ATRIAL FIBRILLATION (4) HTN (hypertension) Current Visit: No Status: Acute Code(s): I10 - ESSENTIAL (PRIMARY) HYPERTENSION Qualifiers: Hypertension type: essential hypertension Qualified Code(s): I10 - Essential (primary) hypertension (5) Obesities, morbid Current Visit: No Status: Chronic Code(s): E66.01 - MORBID (SEVERE) OBESITY DUE TO EXCESS CALORIES - Plan CAP with fluid collection - Afebrile, no elevated WBC, CXR positive for patchy infiltrates/possible pleural effusion, procal/lactic acid pending - Azithromycin and rocephin, blood cultures pending - Monitor daily CBC Diaphragmatic hernia, repaired esophageal leak - s/p repair on 03/06, Dr. Hassan evaluated in ED - no surgical worsening/intervention indicated at this time Pickwickian syndrome - Possible effusion w/ LE edema, BNP pending, Lasix 40mg IV one time, recent normal EF on echocardiogram, increased pulmonary artery pressure - Hold fluid for now - CPAP qhs Paroxysmal Afib - NSR on presentation - Continue to monitor - Continue home medications HTN - Labetolol PRN for SBP>180 - Continue home medications Seasonal allergies - Continue Claritin Hx Recurrent UTI -checking urinalysis at this time. Possible cause of back pain. Will culture and adjust abx if needed. Code: full Ppx: lovenox Disposition/LOS: Admit to medical, treat for pneumonia/possible fluid overload FMR H&P: Upper Level - Pertinent history Pt very poor historian. I was present with the international controller during the history taking. I agree with what he typed above. Pt did not give a clear history of what was going on at this time. Reports SOB for 2 days with pain radiating to the back. Pt on O2 at this time. Pt reports using O2 at home unsure of her baseline. - Pertinent findings Hard to assess breath sounds due to pt weight. Pt had some mild pain to palpation in the UQ of the abdomen. Inspected surgical sites. No redness or drainage noted. No sign of acute infection. - Plan Date/Time: 04/17/18 467 I, Dr. Kulwinder Duenas, have evaluated this patient and agree with findings/plan as outlined by international controller resident. Pertinent changes/additions are listed here. I made edits to interns plans above. Pt very poor historian. Pt recently discharged from rehab. Have requested records from pts recent rehab stint to assess oxygen use and see what her baseline is. Addendum - Attending - Attending Attestation Date/Time: 04/17/182001 I personally evaluated the patient and discussed the management with I agree with the History, Examination, Assessment and Plan documented above with any addition or exceptions noted below. Patient s/p perforated GE ulcer repair Jan 2018 started with left sided chest wall pain and chills . Patient seen at [facility] ER last pm and notable for left sided pleural effusion and patchy infiltrates c/w CAP. Concern bty ER this was post operative related condition.Patient followed up at ER [facility] today for further surgery consideration by Dr Zayas who didnt feel thoracentesis warranted.EXAM Morbidly obese patient sating well 2 liters Patient recently in rehab will need further review of PMHX for further details as patient with evolving history with questioning. Vancomycin /levaquin started in ER. Rec f/u AM CXR for progress. Patient will be monitored for ongoing respiratory status for Non invasive ventilatory support prn
[2018-04-17] MEDS ORDERED: Furosemide 40 MG/4 ML VIAL SLOW IVP SCH (17:00)
[2018-04-17] MEDS ORDERED: hydrALAZINE 20 MG/ML VIAL SLOW IVP PRN (17:00)
[2018-04-17] MEDS ORDERED: Ondansetron PF 4 MG/2 ML Vial ONE (20:46)
[2018-04-17] MEDS: Ondansetron PF 4 MG/2 ML Vial IVP PRN (20:47)
[2018-04-17] MEDS ORDERED: Mag-Al 1200 mg/1200 mg/30 ML UDCUP ONE (20:53)
[2018-04-18] MEDS ORDERED: Zolpidem Tartrate 5 MG TAB ONE (00:16)
[2018-04-18] MEDS ORDERED: hydrOXYzine 25 MG TAB ONE (01:03)
[2018-04-18 04:39] LABS: #Eosinphils 0.1 thou/uL (0.0-0.7); #Monocytes 0.4 thou/uL (0.11-0.59); #Neutrophils 3.4 thou/uL (1.40-6.50); %Basophils 0.8 % (0.0-1.0); %Eosinophils 2.7 % (0.0-10.0); %Lymphocytes 19.6 % (21.0-51.0); %Monocytes 8.5 % (0.0-10.0); %Neutrophils 68.4 % (42.0-75.0); Hemoglobin 9.6 g/dL (12.0-16.0); Mean Corpuscular HGB CONC 31.4 g/dL (32.0-36.0); Mean Corpuscular Hemoglobin 26.4 pg (27.0-31.0); Mean Corpuscular Volume 83.8 fL (78.0-98.0); Platelet Count 247 thou/uL (130-400); Red Blood Cell (RBC) Count 3.65 mill/uL (4.20-5.40)
[2018-04-18 05:02] LABS: ALT (SGPT) Less than 7 U/L (8-55); AST (SGOT) 10 U/L (5-34); Alkaline Phosphatase 52 U/L (40-150); Anion Gap 14 mmol/L (10-20); BUN (Urea Nitrogen) 10 mg/dL (9.8-20.1); Bilirubin, Total 0.3 mg/dL (0.2-1.2); Calc. Creatinine Clearance 0 mL/min (70-130); Calcium 8.9 mg/dL (7.8-10.44); Carbon Dioxide 29 mmol/L (23-31); Chloride 101 mmol/L (98-107); Estimated GFR-MDRD 71; Globulin 2.8 g/dL (2.4-3.5); Glucose 91 mg/dL (80-115); Magnesium 1.6 mg/dL (1.6-2.6); Potassium 3.2 mmol/L (3.5-5.1); Protein, Total 5.8 g/dL (6.0-8.3); Sodium 141 mmol/L (136-145)
[2018-04-18] MEDS: Ondansetron PF 4 MG/2 ML Vial IVP PRN ×3 (05:18→23:25)
[2018-04-18] MEDS: Acetaminophen 325 MG TAB PO PRN ×2 (05:20→17:58)
[2018-04-18] MEDS: cefTRIAXone\\ROCEPHIN 1 GM in Sodium Chloride 0.9% 100 ML IVPB SCH ×2 (06:07→19:11)
[2018-04-18] MEDS: Azithromycin 500 MG in Sodium Chloride 0.9% 250 ML 250 ML IVPB SCH ×2 (06:07→18:03)
[2018-04-18] MEDS ORDERED: Potassium Chloride 20 MEQ TAB PO SCH (06:15)
--- NOTE | 2018-04-18 06:42 | PDOC.FM ---
- Subjective Subjective: Pt reports having headache and having hard time breathing. Reports feels like nose is clogged at this time. Pt also reports still having abdominal pain. States only ate banana last night. Is asking for GI cocktail to help with stomach pain. Pt states she feels weak and unable to stand for xray at this time. Pt denies chest pain at this time. Pt reports being nauseated. Denies any vomit, diarrhea or constipation. No acute events overnight. - Objective MAR Reviewed: Yes Vital Signs & Weight: Vital Signs (12 hours) Temp Pulse Resp BP Pulse Ox 04/18/18 05:10 98.1 F 103 H 22 H 156/110 H 98 Weight Weight 136 kg Result Diagrams: 04/18/18 03:40 04/18/18 03:40 Radiology Reviewed by me: Yes (Repeat Cxray pending today) Phys Exam - Physical Examination Constitutional: NAD HEENT: PERRLA, moist MMs Neck: no nodes, supple, full ROM Decreased lung sounds in Left base. Some rales noted Hard to auscultate due to patients body habitus Cardiovascular: RRR, no significant murmur, no rub Hard to auscultate due to patients body habitus Gastrointestinal: soft, non-tender (Pt did not react to deep palpation), no distention, positive bowel sounds Incision sites intact. No sign of redness or infection Musculoskeletal: pulses present +2 pitting edema in lower extremities Neurological: non-focal, normal sensation, moves all 4 limbs Lymphatic: no nodes Psychiatric: normal affect Deviation from normal: Pt in some distress due to pain Skin: no rash, normal turgor Dx/Plan (1) Community acquired pneumonia Code(s): J18.9 - PNEUMONIA, UNSPECIFIED ORGANISM Status: Acute (2) Pickwickian syndrome Code(s): E66.2 - MORBID (SEVERE) OBESITY WITH ALVEOLAR HYPOVENTILATION Status : Acute (3) A-fib Code(s): I48.91 - UNSPECIFIED ATRIAL FIBRILLATION Status: Acute (4) HTN (hypertension) Code(s): I10 - ESSENTIAL (PRIMARY) HYPERTENSION Status: Acute Qualifiers: Hypertension type: essential hypertension Qualified Code(s): I10 - Essential (primary) hypertension (5) Obesities, morbid Code(s): E66.01 - MORBID (SEVERE) OBESITY DUE TO EXCESS CALORIES Status: Chronic - Plan Plan: CAP with fluid collection - Afebrile, no elevated WBC, CXR positive for patchy infiltrates/possible pleural effusion -Repeat CXR pending to assess pleural effusion. -Procalcitonin negative. - Azithromycin and rocephin for abx coverage, blood cultures-NGTD -Will continue with 40 mg lasix -Will await records possibly to assess pts oxygen baseline Diaphragmatic hernia, repaired gastroesophageal leak - s/p repair on 03/06, Dr. Hassan evaluated in ED - no surgical worsening/intervention indicated at this time -Pt still having pain and not being able to eat. Will get Abdomen CT to assess. -Px GI cocktail to help with nausea. Pickwickian syndrome - Possible effusion w/ LE edema, -Pt had some LE edema. Given lasix 40 mg x1 upon admission. Will continue as is still having edema. -BNP 91. Recent ECHO done back in 02/2018 showed normal EF and showed some elevated pulm artery pressure likely 2/2 to obesity. - Hold fluid for now - CPAP qhs Paroxysmal Afib - NSR on presentation - Continue to monitor - Continue home medications HTN - Labetolol PRN for SBP>180 - Continue home medications Seasonal allergies - Continue Claritin -Px flonase to help with nose clogged Hx Recurrent UTI -checking urinalysis at this time. Possible cause of back pain. Will culture and adjust abx if needed. Pt having some headaches and pain. Px tramadol for pain. Addendum - Attending - Attending Attestation Date/Time: 04/18/18 [id number] I personally evaluated the patient and discussed the management with Dr. Duenas I agree with the History, Examination, Assessment and Plan documented above with any addition or exceptions noted below.
[2018-04-18 08:07] LABS: Phosphorus 4.2 mg/dL (2.3-4.7)
[2018-04-18] MEDS ORDERED: Enoxaparin Sodium 40 MG/0.4 ML SYRINGE SC SCH (09:00)
[2018-04-18] MEDS ORDERED: Lidocaine 2% Viscous Solution 10 ML, Aluminum & Magnesium Hydroxide 30 ML SSW SCH (09:15)
[2018-04-18] MEDS: Loratadine 10 MG TAB PO SCH (09:30)
[2018-04-18] MEDS: Amlodipine 5 MG TAB PO SCH (09:31)
--- NOTE | 2018-04-18 12:52 | CT ---
CT ABDOMEN AND PELVIS WITH IV AND ORAL CONTRAST: HISTORY: Abdominal pain. Recent hiatal hernia repair surgery. COMPARISON: 02/27/2018. FINDINGS: Interval postoperative changes of the right hemidiaphragm and posterior mediastinum. An encapsulated pocket of fluid posterior to the fundus of the stomach that remains in a hiatal hernia the posterior mediastinum measures up to 9.9 x 7.2 cm diameters on the axial images. A small amount of bilateral pleural fluid is also apparent. Bibasilar lung atelectasis. Postoperative changes anterior abdominal wall. Dystrophic calcification at the inferior pole of each kidney is stable. Inferior vena cava filter now in place. No evidence of bowel obstruction. Urinary bladder is incompletely distended. IMPRESSION: 1. Some residual hiatal hernia with the gastric fundus to the right of midline in the lower posterio r mediastinum. A large homogeneous pocket of fluid within the posterior right chest is likely relate d to recent surgery. There is no internal gas to suggest ongoing inflammation of the fluid. 2. Small bilateral pleural effusions and bibasilar lung atelectasis. 3. New inferior vena cava filter. 4. Chronic-type findings are stable. POS: [facility]
[2018-04-18] MEDS ORDERED: ISOVUE-370 76%-LOCM 1 ML ONE (13:31)
[2018-04-18] MEDS ORDERED: Iopamidol 370 76% 50 ML VIAL FS ONE (13:31)
--- NOTE | 2018-04-18 13:45 | RAD ---
CHEST ONE VIEW: HISTORY: Dyspnea. Evaluate for fluid. COMPARISON: 04/17/2018 FINDINGS: The cardiac silhouette remains predominantly obscured by locular fluid and a hiatal hernia to the rig ht of midline. Pulmonary vasculature is less engorged. Bilateral pleural fluid appears unchanged. No evidence of pneumothorax. IMPRESSION: 1. Slight interval decrease in radiographic degree of pulmonary vascular congestion. 2. Bilateral pleural fluid and right medial basilar parenchymal opacities are otherwise stable and b jannie demonstrated on recent CT abdomen. Please see that report. POS: [facility]
--- NOTE | 2018-04-18 16:35 | CON ---
DATE OF CONSULTATION: HISTORY OF PRESENT ILLNESS: Ms. Almaraz is well known to me from her prior emergent operative reduction of hiatal hernia and repair of gastric ulcer in early February 2018. The patient had initially presented with severe abdominal pain and shortness of breath, respiratory insufficiency. At that point, she was septic and in renal failure. She underwent laparoscopic converted to exploratory laparotomy. Most of her transverse colon and only almost all of her stomach was up in her chest, mostly in the right chest cavity. She had a perforated prepyloric gastric ulcer that was repaired via omental patch and primary closure. Postop course was associated with prolonged ventilation. I also put in a feeding tube. Eventually, she was discharged to a senior living rehab in [place] and was eating well enough to have her feeding tube removed there by Dr. Mendoza. The patient recently had several emergency room visits over there with CTs of the chest to rule out PE. Mostly, she has chest pain. She also notes some mild epigastric pain. States that she has been eating well and having bowel movements. ER physician in [facility] had called me a few nights ago and noted a CT there showing residual fluid collection in the right chest that was a little smaller than on previous CTs there and I recommended she will follow up with me in the office. She was supposed to follow up with me in the office yesterday; however, her family called 911 to have her transferred here instead of bringing her. I saw her in the emergency room yesterday. She has well-healed abdominal incisions. Her vital signs are stable. She is eating and her CT scan is reviewed. Her chest has bilateral coarse breath sounds. Her heart is increased rate, regular rhythm without murmur. Her abdomen is soft and nontender. Incision is well healed. No hernia. G-tube site is closed. CT scan, see report in the chart. ASSESSMENT: Recurrent hiatal hernia with residual fluid collection in the right chest. It is actually smaller than on previous scans. PLAN: No further surgical treatment recommended. The question is whether this fluid collection needs to be drained. I would defer to Pulmonary. Certainly it appears to be accessible via percutaneous drainage. It is not associated with complication from the repair. It is likely not infectious. She has pain, but she has chronic pain. I do not think that this is causing her epigastric pain. In fact, her lung capacity looks improved overall in comparison to before my hernia surgery. Her hiatal hernia is not able to be repaired. She is not a candidate for that surgical procedure that would require a thoracotomy and procedure that would be done in [place] or [place]; however, they are not going to recommend surgery in a patient with her obesity and chronic lung disease. If she has persistent dysphagia, she could have a upper endoscopy done. I would recommend consulting Dr. Prather, having him look at the CT to see if he would recommend drainage. Otherwise, no further treatment needed and she does not need any sort of surgical procedures. Even though, her hiatal hernia was not fixed at the time of surgery. She had an abscess cavity in the area of her diaphragm, so no repair was going to be possible. She did have a G-tube placed, which will keep the stomach at least if distal greater curve of the stomach in the abdomen at its scarred in site. This will keep a volvulus of the stomach from occurring, which would be a complicated urgent problem. I think this is low likelihood given now that her stomach is fixed in the abdomen. Even though she has recurrent hernia, even though she will have some symptoms associated with that. No further treatment needed from my standpoint. Job ID: [id number]
[2018-04-18 18:29] LABS: Bilirubin Small (Negative); Blood, Urine Large (Negative); Clarity TURBID (Clear); Glucose, Urine (Dipstick) Negative (Negative); Leukocyte Large (Negative); Nitrite Negative (Negative); Protein, Urine (Dipstick) Negative (Neg-Trace); Specific Gravity, Urine 1.021 (1.002-1.036); pH, Urine 8.5 (5.0-9.0)
[2018-04-18 18:31] LABS: Hyaline Casts/LPF 0-3 HYALINE CAST LPF (0-3 Hyaline); Pathc Cast-AUWi Flag 0.29 (0-2.49); Squamous Epithelial 0-3 HPF (0-3)
[2018-04-18 18:46] LABS: Yeast-AUWi Flag 348.4 (0-25.0)
[2018-04-18] MEDS: Sucralfate 1 GM/10 ML UDCUP PO PRN (18:48)
[2018-04-18 18:59] LABS: Bacteria/HPF 3+ HPF (None Seen)
[2018-04-18 19:00] LABS: Crystals/HPF 1+ AMORPH PHOS HPF (Negative); Yeast-All Forms 1+ HPF (None Seen)
[2018-04-18] MEDS: Magnesium Chloride 64 MG TAB PO SCH (21:04)
[2018-04-18 21:24] LABS: Troponin I Less than 0.010 ng/mL (< 0.028)
--- NOTE | 2018-04-18 21:54 | PDOC.EVN ---
Event Note - Event Note Event Note: Paged by the nurses about this patient around 2029. Patient had an episode where her eyes rolled back into her head. Nurse reported her vitals: BP 160/108, O2 93 % on 1.5 L, P 112, Went to examine the patient, by the time I arrived her symptoms were starting to resolve. Eyes were deviated upwards bilaterally, and patient could hardly open her eyes but kept them squeezed shut. Patient reported that this was the third time this had happened. She is a poor historian, but states that it always start with chest tightness then causes her eyes to roll back in her head. She complained of headache, and stated that she could not see but had lights flashing in her vision. PE: Eyes: PERRLA but sensitive to light, deviated upwards initially, then as slowly resolved she was able to look right and left, but nystagmus present bilaterally and eyes disconjugate. On Confrontation, she could see in all four quadrants but she stated her vision was still somewhat blurry. Neuro: Except for upward eye deviation and blurry vision, CN 2-12 intact. Strength 5/5 in upper and lower extremities bilat. Alert and oriented. No slurring of speech. Lungs BCTA. Cardiac RRR, no murmur. Differential for her presentation includes cardiac causes (vtach, atrial fibrillation), complex migraine, partial seizure, other. Ordered EKG, TSH, cardiac enzymes, ESR, Venous sono. Transfer to tele for closer cardiac monitoring. Addendum - Attending - Attending Attestation Date/Time: 04/18/18 3658 I personally evaluated the patient and discussed the management with Dr. Keyes Concern with [employer] i.e. partial complex Sz,migraine,cardiac dysrhythmia,vasovagal, drug reaction with move to higher level of care for further monitoring
--- NOTE | 2018-04-18 23:05 | ULT ---
ULTRASOUND WITH DOPPLER DUPLEX VENOUS LOWER EXTREMITY BILATERAL CPT: 76481 ICD-10-PCS: B54D HISTORY: History of PE. Bilateral lower extremity edema. TECHNIQUE: Color flow Doppler, spectral waveform analysis of pulsed Doppler, and kern-scale imaging with janette ryan and augmentation, were used to evaluate the bilateral common femoral, femoral, popliteal, study lead ior tibial, and superficial femoral, veins; and the proximal portions of the profunda femoral and gre ater saphenous, veins. FINDINGS: There is abnormal increased echogenicity with diminished flow and lack of normal compressibility invo lving the right popliteal vein compatible with deep vein thrombus. No evidence of left side DVT. Ther e is generalized soft tissue edema bilaterally. IMPRESSION: Evidence of DVT involving the right popliteal vein. Findings were conveyed to the patient's nurse, Heidi at the time of the exam. Code CR POS: [facility]
[2018-04-18] MEDS: Zolpidem Tartrate 5 MG TAB PO PRN (23:26)
[2018-04-19] MEDS ORDERED: hydrOXYzine 25 MG TAB PO PRN (00:05)
[2018-04-19] MEDS: clonazePAM 0.5 MG TAB PO PRN ×3 (00:32→22:41)
[2018-04-19] MEDS: Sucralfate 1 GM/10 ML UDCUP PO PRN ×3 (00:32→16:31)
[2018-04-19] MEDS ORDERED: Enoxaparin Sodium 100 MG/ML SYRINGE SC SCH (02:45)
[2018-04-19] MEDS ORDERED: Enoxaparin Sodium 30 MG/0.3 ML SYRINGE SC SCH (02:45)
--- NOTE | 2018-04-19 09:03 | PDOC.FM ---
- Subjective Subjective: Pt resting in bed when we enter the room. Pt reports getting some sleep after events earlier in the night. Pt did not have cpap in the room. Pt reports still feeling somwehat SOB. Reports still having pain in her LUQ of her abdomen and around her back. Pt reports having some trouble urinating and controlling her pee at this time. Denies any fever or chills. Denies any burning with urination. - Objective MAR Reviewed: Yes Vital Signs & Weight: Vital Signs (12 hours) Temp Pulse Resp BP Pulse Ox 04/19/18 04:00 99.4 F 106 H 18 135/84 93 L 04/18/18 22:15 98.2 F 115 H 22 H 144/96 H 94 L Weight Admit Weight 135.996 kg Weight 136 kg I&O: 04/18/18 04/19/18 04/20/18 06:59 06:59 06:59 Intake Total 900 Output Total 300 Balance 600 Result Diagrams: 04/19/18 16:56 04/19/18 16:56 EKG Reviewed by me: Yes Radiology Reviewed by me: Yes Radiology: Venogram: Evidence of DVT in R. popliteal vein. 04/18 Abdomen Pelvis/CT: Some residual hiatal hernia w/ gastric fundus to right of midline in lower posterior mediastinum. Large homogeneous pocket of fluid w/ n the posterior right chest. Small bliateral pleural effusion and bibasilar lung atelectasis. New IVC. Chronic findings stable. Phys Exam - Physical Examination Constitutional: NAD HEENT: PERRLA, moist MMs Neck: no nodes, no JVD, supple, full ROM Hard to auscultate due to body habitus Decreased breath sounds on the left side Cardiovascular: RRR, no significant murmur, no rub Gastrointestinal: soft, non-tender, no distention, positive bowel sounds Musculoskeletal: pulses present +2 pitting edema bilaterally Neurological: non-focal, normal sensation, moves all 4 limbs Psychiatric: normal affect Deviation from normal: Pt very poor historian Skin: no rash, normal turgor, cap refill <2 seconds Dx/Plan (1) Community acquired pneumonia Code(s): J18.9 - PNEUMONIA, UNSPECIFIED ORGANISM Status: Acute (2) Pickwickian syndrome Code(s): E66.2 - MORBID (SEVERE) OBESITY WITH ALVEOLAR HYPOVENTILATION Status : Acute (3) DVT (deep venous thrombosis) Code(s): I82.409 - ACUTE EMBOLISM AND THOMBOS UNSP DEEP VN UNSP LOWER EXTREMITY Status: Acute (4) A-fib Code(s): I48.91 - UNSPECIFIED ATRIAL FIBRILLATION Status: Acute (5) HTN (hypertension) Code(s): I10 - ESSENTIAL (PRIMARY) HYPERTENSION Status: Acute Qualifiers: Hypertension type: essential hypertension Qualified Code(s): I10 - Essential (primary) hypertension (6) Obesities, morbid Code(s): E66.01 - MORBID (SEVERE) OBESITY DUE TO EXCESS CALORIES Status: Chronic - Plan Plan: CAP with fluid collection - Afebrile, no elevated WBC, CXR positive for patchy infiltrates/possible pleural effusion -CT abdomen Pelvis shows collection in left and R. lung bases. Read described above. -Procalcitonin negative. - Azithromycin and rocephin for abx coverage, blood cultures-NGTD -Will await records possibly to assess pts oxygen baseline. Pt states has been on O2 since getting home -Pulm consulted- Dr. Prather- Will await recs. Consulted for possible drainage of fluid collection -General Surgery- Dr. Hassan consulted due to findings on CT scan initially. Recommend Pulm consult. Will follow recs. DVT Venogram shows DVT in R. popliteal vein -Given therapeutic lovenox yesterday. Holding anticoagulation today for possible drainage of fluid in lungs. -Will continue with Noac therapy Diaphragmatic hernia, repaired gastroesophageal leak - s/p repair on 03/06, Dr. Hassan evaluated in ED - no surgical worsening/intervention indicated at this time -General Surgery- Dr. Hassan consulted- follow recs. CT abdomen shows no acute pathology related to recent surgery at this time. Plan as above. -Will px GI cocktail as neededto help with nausea. Pickwickian syndrome - Possible effusion w/ LE edema, -Pt had some LE edema. -BNP 91. Recent ECHO done back in 02/2018 showed normal EF and showed some elevated pulm artery pressure likely 2/2 to obesity. - Hold fluid for now - CPAP qhs Paroxysmal Afib - NSR on presentation - Continue to monitor - Continue home medications HTN - Labetolol PRN for SBP>180 - Continue home medications Seasonal allergies - Continue Claritin -Px flonase to help with nose clogged Hx Recurrent UTI -Pt U/A shows UTI at this time. On abx per above. Possible cause of back pain. Will culture and adjust abx if needed. Addendum - Attending - Attending Attestation Date/Time: 04/19/182028 I personally evaluated the patient and discussed the management with Dr. Duenas I agree with the History, Examination, Assessment and Plan documented above with any addition or exceptions noted below. Note DVT recieved loading dose lovenox await Pulmonary recommendations regard fluid collection in chest cavity. Patient with recurrent episode of spells with eyes rolling back and disconjugate gaze remains alert and responsive VSS consider partial complex seizure, TIA, complex migraine . Patient with hypoventilation will encourage CPAP QHS.
[2018-04-19] MEDS: PARoxetine 20 MG TAB PO SCH (09:25)
[2018-04-19] MEDS: Amlodipine 5 MG TAB PO SCH (09:25)
[2018-04-19] MEDS: Loratadine 10 MG TAB PO SCH (09:26)
[2018-04-19] MEDS: Magnesium Chloride 64 MG TAB PO SCH ×2 (09:26→21:30)
[2018-04-19] MEDS: Ondansetron PF 4 MG/2 ML Vial IVP PRN ×3 (09:41→22:41)
[2018-04-19] MEDS: Fluticasone Propionate Nasal Spray 16 gm Bottle NASAL SCH (12:41)
--- NOTE | 2018-04-19 13:16 | EKG ---
Test Reason : STAT Blood Pressure : / mmHG Vent. Rate : 110 BPM Atrial Rate : 110 BPM P-R Int : 166 ms QRS Dur : 084 ms QT Int : 352 ms P-R-T Axes : 045 -08 015 degrees QTc Int : 476 ms Sinus tachycardia Otherwise normal ECG When compared with ECG of 17-APR-2018 13:55, (Unconfirmed) No significant change was found Confirmed by IJEOMA YOU, SLawrence ([id number]) on 04/19/2018 1:16:39 PM Referred By: MELANIA Confirmed By:DR. Jeannine RAPHAEL MD
[2018-04-19] MEDS: Calcium Carbonate 500 MG ChewTAB PO PRN (13:24)
[2018-04-19] MEDS ORDERED: Enoxaparin Sodium 120 MG/0.8 ML SYRINGE SC SCH (14:30)
[2018-04-19] MEDS: metroNIDAZOLE 500 MG TAB PO SCH ×2 (14:39→21:30)
--- NOTE | 2018-04-19 16:26 | CON ---
DATE OF CONSULTATION: 04/19/2018 TIME SPENT: This encompassed 70 minutes time, of that time, greater than 50% was spent with the patient and/or the patient's engel in the hospital. HISTORY OF PRESENT ILLNESS: Ms. Almaraz's case is well known to me. She is a 63-year-old female, who was hospitalized in February of 2018 with a large right hiatal hernia protruding in the right chest. She developed severe abdominal pain and respiratory insufficiency. Dr. Hassan took her to the operating room and brought her abdomen back to her stomach. The PEG tube was placed. Unfortunately, the PEG tube has now been removed. The patient has been having some mid epigastric pain. She brought in a CT from [facility] and [facility], which I have reviewed with the radiologist and also she has had abdominal CT done here. PAST MEDICAL HISTORY: 1. Hiatal hernia. 2. Obesity. 3. Hypertension. PAST SURGICAL HISTORY: 1. Recent hernia repair-diaphragm was not repaired. 2. Appendectomy. 3. Esophageal leak. FAMILY MEDICAL HISTORY: Diabetes mellitus. SOCIAL HISTORY: Nonsmoker. Does not consume alcohol. MEDICATIONS: Reviewed. See summary section on chart. REVIEW OF SYSTEMS: 12-point review of systems is otherwise negative. PHYSICAL EXAMINATION: VITAL SIGNS: Temperature 99.2, pulse 111, respirations 18, and O2 saturation 94% on 1.5 L. HEENT: Unremarkable. NECK: No adenopathy, JVD, or bruits. LUNGS: Fairly clear anteriorly. CARDIAC: S1 and S2 regular. ABDOMEN: Mildly tender at the midline. EXTREMITIES: No edema. LABORATORY DATA: White blood cell count 5, hematocrit 30, and platelet count 247. No significant left shift. Sodium 141, potassium 3.2, chloride 101, CO2 of 29, BUN 10, creatinine 0.8, and glucose 91. Lactate is 1.0. ASSESSMENT: Fluid collection behind the hiatal hernia extending from the abdomen up into the chest area. I reviewed this with Radiology and we thought this could possibly hematoma left from the previous surgery. There is a rind around this area. The fact that she is afebrile, has no white count, and no elevated lactate, would go against this being infection; however, I cannot completely rule this out. I think intervening here with a catheter would cause potential disaster. If this would need to be drained, she might need to be transferred to a higher level of care for further evaluation with someone, who deals with these type of hiatal hernias and diaphragmatic defects. For the time being, I would just watch her and see how this goes. Job ID: [id number]
[2018-04-19] MEDS: Azithromycin 500 MG in Sodium Chloride 0.9% 250 ML 250 ML IVPB SCH (16:32)
[2018-04-19 17:03] LABS: Hemoglobin 10.1 g/dL (12.0-16.0); Platelet Count 258 thou/uL (130-400)
--- NOTE | 2018-04-19 17:34 | PDOC.EVN ---
Event Note - Event Note Event Note: Called around 4:45 about pt from nurse that her eyes were twitching and that her eyes were rolling back. When I arrived to the room pt eyelids were still twitching and her eyes were partially rolled upwards. Pt reported that vision was blurry. Pt denied any headache. Denied any numbness or tingling. Pt denied any change in taste. Pt was A&Ox3 and speaking appropriately. CN 1-12 grossly intact. Pt was able to perform H test. Pt did have some nystagmus and some drift towards CN6 at times. No focal neuro defecit noted. Strength 5/5/. HR on monitor in sinus tach. No new arrhythmia. At this time we will order CT head. We will check mag, phos and electrolytes. Will check ABG as well.
[2018-04-19 17:54] LABS: ALT (SGPT) 8 U/L (8-55); AST (SGOT) 13 U/L (5-34); Albumin 3.2 g/dL (3.4-4.8); Alkaline Phosphatase 52 U/L (40-150); Anion Gap 16 mmol/L (10-20); BUN (Urea Nitrogen) 7 mg/dL (9.8-20.1); Bilirubin, Total 0.3 mg/dL (0.2-1.2); Calc. Creatinine Clearance 149 mL/min (70-130); Calcium 9.1 mg/dL (7.8-10.44); Carbon Dioxide 27 mmol/L (23-31); Chloride 103 mmol/L (98-107); Estimated GFR-MDRD 68; Glucose 108 mg/dL (80-115); Magnesium 1.9 mg/dL (1.6-2.6); Phosphorus 3.5 mg/dL (2.3-4.7); Potassium 3.6 mmol/L (3.5-5.1); Protein, Total 6.2 g/dL (6.0-8.3); Sodium 142 mmol/L (136-145)
[2018-04-19] MEDS: cefTRIAXone\\ROCEPHIN 1 GM in Sodium Chloride 0.9% 100 ML IVPB SCH (19:34)
--- NOTE | 2018-04-19 19:41 | CT ---
CT BRAIN NONCONTRAST: 04/19/18 at 6:08 p.m. HISTORY: 63-year-old female with involuntary eye movements. FINDINGS: There is no midline shift or any other mass effect. There is no evidence of acute intracranial hemor rhage, large cortical infarct, obstructive hydrocephalus, or extraaxial fluid collection. The calvar ium is intact. IMPRESSION: No acute intracranial findings. jn [] POS: [facility]
[2018-04-19] MEDS ORDERED: Lidocaine 2% Viscous Solution 20 ML, Aluminum & Magnesium Hydroxide 30 ML, Donnatal Eli... SSW SCH (20:00)
[2018-04-19] MEDS: Heparin 10,000 UNITS/ 10 ML VIAL SLOW IVP SCH (20:12)
[2018-04-19] MEDS: Heparin 25,000 units/D5W 500 ML IVPB SCH (20:13)
[2018-04-19 20:32] LABS: Actual Bicarbonate (HCO3a) 28.5 mEq/L (22-28); Base Excess (BEa) 4.8 mEq/L (-2.0 to +3.0); CO2 Tension 39.3 mmHg (35.0-45.0); Calcium, Ionized 1.15 mmol/L (1.12-1.30); Carboxyhemoglobin (COHb) 1.4 gm% (0.0-3.0); Hemoglobin (Hb) 12.2 g/dL (12.0-16.0); O2 Tension (PaO2) 71.7 mmHg (> 80.0); Potassium - ABG Lab 3.46 mmol/L (3.70-5.30); pH, Arterial 7.48 (7.35-7.45)
[2018-04-19 20:33] LABS: ALV-art Gradient 107.335 (0-20); Puncture Site RBR
[2018-04-19] MEDS: Acetaminophen 325 MG TAB PO PRN (21:30)
[2018-04-19] MEDS: Zolpidem Tartrate 5 MG TAB PO PRN (21:30)
[2018-04-20] MEDS: Nystatin Powder 15 GM BOT TOP PRN ×3 (03:10→23:40)
[2018-04-20 03:17] LABS: PTT 200.3 SEC (22.9-36.1)
[2018-04-20] MEDS: Sucralfate 1 GM/10 ML UDCUP PO PRN ×4 (03:20→23:39)
[2018-04-20] MEDS: traMADol HCl 50 MG TAB PO PRN ×4 (03:34→16:37)
[2018-04-20 06:23] LABS: #Eosinphils 0.2 thou/uL (0.0-0.7); #Lymphocytes 1.1 thou/uL (1.20-3.40); #Monocytes 0.4 thou/uL (0.11-0.59); #Neutrophils 3.1 thou/uL (1.40-6.50); %Basophils 0.7 % (0.0-1.0); %Eosinophils 3.5 % (0.0-10.0); %Monocytes 8.2 % (0.0-10.0); %Neutrophils 64.7 % (42.0-75.0); Mean Corpuscular HGB CONC 31.2 g/dL (32.0-36.0); Mean Corpuscular Hemoglobin 26.3 pg (27.0-31.0); Mean Corpuscular Volume 84.4 fL (78.0-98.0); Platelet Count 252 thou/uL (130-400); RBC Distribution Width 16.2 % (11.5-14.5); Red Blood Cell (RBC) Count 3.42 mill/uL (4.20-5.40); White Blood Cell (WBC) Count 4.8 thou/uL (4.8-10.8)
[2018-04-20 06:45] LABS: ALT (SGPT) Less than 7 U/L (8-55); AST (SGOT) 11 U/L (5-34); Albumin 2.9 g/dL (3.4-4.8); Alkaline Phosphatase 48 U/L (40-150); Anion Gap 11 mmol/L (10-20); BUN (Urea Nitrogen) 6 mg/dL (9.8-20.1); Bilirubin, Total 0.3 mg/dL (0.2-1.2); Calc. Creatinine Clearance 144 mL/min (70-130); Calcium 8.9 mg/dL (7.8-10.44); Carbon Dioxide 29 mmol/L (23-31); Chloride 104 mmol/L (98-107); Estimated GFR-MDRD 68; Globulin 2.5 g/dL (2.4-3.5); Glucose 102 mg/dL (80-115); Potassium 3.3 mmol/L (3.5-5.1); Protein, Total 5.4 g/dL (6.0-8.3); Sodium 141 mmol/L (136-145)
[2018-04-20] MEDS: Ondansetron PF 4 MG/2 ML Vial IVP PRN ×3 (08:19→23:40)
--- NOTE | 2018-04-20 08:34 | PDOC.FM ---
- Subjective Subjective: Pt resting in bed. Pt reports still having stomach ache and having back pain. Pt got BIPAP overnight. Reports getting better rest. Pt denies any chest pain. Pt denies any n/v. Denies any acute events overnight. - Objective MAR Reviewed: Yes Vital Signs & Weight: Vital Signs (12 hours) Temp Pulse Resp BP Pulse Ox 04/20/18 03:11 98.8 F 102 H 20 137/67 94 L 04/20/18 00:45 99.5 F 108 H 18 125/76 96 04/19/18 21:35 167/76 H Weight Admit Weight 135.996 kg Weight 130.907 kg I&O: 04/19/18 04/20/18 04/21/18 06:59 06:59 06:59 Intake Total 900 850 Output Total 300 111 Balance 600 739 Result Diagrams: 04/20/18 05:52 04/20/18 05:52 EKG Reviewed by me: Yes (sinus tach) Radiology Reviewed by me: Yes (CT Head: No acute intracranial abnormality) Phys Exam - Physical Examination Constitutional: NAD HEENT: PERRLA, moist MMs Neck: no nodes, no JVD, supple, full ROM decreased breath sounds on the left. Rales noted bilaterally Cardiovascular: no significant murmur, no rub Tachycardic, regular rhythm Gastrointestinal: soft, no distention, positive bowel sounds Musculoskeletal: pulses present +2 pitting edema Neurological: non-focal, normal sensation, moves all 4 limbs Psychiatric: normal affect Skin: no rash, normal turgor, cap refill <2 seconds Dx/Plan (1) Community acquired pneumonia Code(s): J18.9 - PNEUMONIA, UNSPECIFIED ORGANISM Status: Acute (2) Pickwickian syndrome Code(s): E66.2 - MORBID (SEVERE) OBESITY WITH ALVEOLAR HYPOVENTILATION Status : Acute (3) DVT (deep venous thrombosis) Code(s): I82.409 - ACUTE EMBOLISM AND THOMBOS UNSP DEEP VN UNSP LOWER EXTREMITY Status: Acute (4) A-fib Code(s): I48.91 - UNSPECIFIED ATRIAL FIBRILLATION Status: Acute (5) HTN (hypertension) Code(s): I10 - ESSENTIAL (PRIMARY) HYPERTENSION Status: Acute Qualifiers: Hypertension type: essential hypertension Qualified Code(s): I10 - Essential (primary) hypertension (6) Perforated ulcer Code(s): K27.5 - CHRONIC OR UNSP PEPTIC ULCER, SITE UNSP, WITH PERFORATION Status: Resolved (7) Hiatal hernia Code(s): K44.9 - DIAPHRAGMATIC HERNIA WITHOUT OBSTRUCTION OR GANGRENE Status: Resolved (8) Obesities, morbid Code(s): E66.01 - MORBID (SEVERE) OBESITY DUE TO EXCESS CALORIES Status: Chronic - Plan Plan: CAP with fluid collection - Afebrile, no elevated WBC, CXR positive for patchy infiltrates/possible pleural effusion -CT abdomen Pelvis shows collection in left and R. lung bases. -Procalcitonin negative. - Azithromycin and rocephin for abx coverage, blood cultures-NGTD -Pt been on O2 since previous discharge. -Pulm consulted- Dr. Prather- Will await recs. Consulted for possible drainage of fluid collection -General Surgery- Dr. Hassan consulted due to findings on CT scan initially. Will follow recs. At this time pt still having pain and we do not see it getting better. Pt having stomach pain as well. Pulm recommends that it will not be easy to drain fluid at this time here. Will begin transfer to higher level of care. Pt is not being active due to pain. Having decreased breathing effort. DVT Venogram shows DVT in R. popliteal vein -Started Heparin drip so we can reverse as fluid above is believed to be hematoma. Diaphragmatic hernia, repaired gastroesophageal leak - s/p repair on 03/06, Dr. Hassan evaluated in ED -General Surgery- Dr. Hassan consulted- follow recs. CT abdomen shows no acute pathology related to recent surgery at this time. Plan as above. Will begin transfer for possible surgery. -Will px GI cocktail as needed to help with nausea. -Karafate prn. Pickwickian syndrome - Possible effusion w/ LE edema, -Pt had some LE edema. -BNP 91. Recent ECHO done back in 02/2018 showed normal EF and showed some elevated pulm artery pressure likely 2/2 to obesity. - Hold fluid for now - CPAP qhs Paroxysmal Afib - NSR on presentation - Continue to monitor - Continue home medications HTN - Labetolol PRN for SBP>180 - Continue home medications Seasonal allergies - Continue Claritin -Px flonase to help with nose clogged Hx Recurrent UTI -Pt U/A shows UTI at this time. On abx per above. Possible cause of back pain. Will culture and adjust abx if needed. Addendum - Attending - Attending Attestation Date/Time: 04/20/18 [id number] I personally evaluated the patient and discussed the management with Dr. Duenas I agree with the History, Examination, Assessment and Plan documented above with any addition or exceptions noted below. Tough situation need to explore further surgical options at higher level of care. Patient counseled and aware of significant risks of surgical intervention and endorsing desire to seek option for her significant diaphragmatic hernia fluid collection of uncertain etiology. Patient with DVT and placed on rapidly reversible anticoagulation will explore transfer options further today. Note C.difficile positive and started vancomycin 125mg po qid x 10 days appreciate Pharmacology and Supervisor Forming Department recs. .
[2018-04-20] MEDS: clonazePAM 0.5 MG TAB PO PRN ×2 (08:37→16:39)
[2018-04-20] MEDS: metroNIDAZOLE 500 MG TAB PO SCH (08:38)
[2018-04-20] MEDS: Loratadine 10 MG TAB PO SCH (08:38)
[2018-04-20] MEDS: Amlodipine 5 MG TAB PO SCH (08:38)
[2018-04-20] MEDS: PARoxetine 20 MG TAB PO SCH (08:38)
[2018-04-20] MEDS ORDERED: Potassium Chloride 20 MEQ TAB PO SCH (08:45)
[2018-04-20] MEDS ORDERED: Polyethylene Glycol 3350 17 GM Packet PER TUBE SCH (09:00)
[2018-04-20] MEDS: Magnesium Chloride 64 MG TAB PO SCH ×2 (10:08→20:21)
--- NOTE | 2018-04-20 10:11 | PRG ---
DATE OF SERVICE: 04/20/2018 SUBJECTIVE: The patient has been diagnosed with Clostridium difficile on the basis of positive toxin. She has been started on appropriate therapy. She still has some abdominal pain. OBJECTIVE: VITAL SIGNS: Her temperature is 98.8, pulse 111, blood pressure 160/74, and O2 saturation 94% on 2 L. HEENT: Unremarkable. NECK: No JVD. LUNGS: Fairly clear anteriorly bilaterally. CARDIOVASCULAR: S1 and S2, regular. ABDOMEN: No tenderness that I could elicit. EXTREMITIES: No edema. LABORATORY DATA: White blood cell count 4.8, hematocrit 28.9, and platelet count 252. Sodium 141, potassium 3.3, chloride 104, CO2 of 29, BUN 6, creatinine 0.8, glucose 102. ASSESSMENT: 1. She has a fluid collection posteriorly, which appears to be all hematoma. 2. Clostridium difficile colitis. 3. History of large right hiatal hernia. 4. History of gastric ulcer. PLAN: 1. My inclination would be to leave the hematoma alone and give it time to resolve. There is some talk of sending her to [place] or [place] for second opinion. I would continue with treatment for the Clostridium difficile colitis. 2. She has also been diagnosed with a deep venous thrombosis. She is currently on heparin drip for that. If anticoagulated, she needs to be on reversal agents such as this just in case. Job ID: [id number]
[2018-04-20] MEDS: Fluticasone Propionate Nasal Spray 16 gm Bottle NASAL SCH (10:41)
[2018-04-20] MEDS: Heparin 25,000 units/D5W 500 ML IVPB SCH (11:37)
[2018-04-20] MEDS: Vancomycin HCl 25 MG/ML Oral PO SCH ×3 (12:16→23:39)
[2018-04-20] MEDS: Calcium Carbonate 500 MG ChewTAB PO PRN ×2 (12:20→18:35)
[2018-04-20] MEDS: Acetaminophen 325 MG TAB PO PRN (14:38)
[2018-04-20] MEDS: Heparin 10,000 UNITS/ 10 ML VIAL SLOW IVP SCH (15:36)
[2018-04-20] MEDS: cefTRIAXone\\ROCEPHIN 1 GM in Sodium Chloride 0.9% 100 ML IVPB SCH (18:38)
[2018-04-20] MEDS: Azithromycin 500 MG in Sodium Chloride 0.9% 250 ML 250 ML IVPB SCH (19:22)
[2018-04-20] MEDS ORDERED: Lidocaine 2% Viscous Solution 20 ML, Aluminum & Magnesium Hydroxide 30 ML, Donnatal Eli... SSW SCH (19:45)
[2018-04-20] MEDS: Gabapentin 300 MG CAP PO SCH (20:16)
[2018-04-20 21:48] LABS: PTT Greater than 250.0 SEC (22.9-36.1)
[2018-04-20] MEDS: Zolpidem Tartrate 5 MG TAB PO PRN (23:40)
[2018-04-21] MEDS: Heparin 25,000 units/D5W 500 ML IVPB SCH ×2 (01:06→15:09)
[2018-04-21] MEDS: Vancomycin HCl 25 MG/ML Oral PO SCH ×3 (06:01→18:35)
[2018-04-21] MEDS: Sucralfate 1 GM/10 ML UDCUP PO PRN ×3 (06:01→22:36)
[2018-04-21] MEDS: clonazePAM 0.5 MG TAB PO PRN ×2 (06:02→22:36)
[2018-04-21] MEDS: Ondansetron PF 4 MG/2 ML Vial IVP PRN ×2 (06:03→19:14)
--- NOTE | 2018-04-21 06:28 | PDOC.FM ---
- Subjective Subjective: ms. Almaraz is sleeping comfortably in bed, she reports the nurse told her she doesnt have to wear her cpap if she doesnt want to. instructed to wear cpap - Objective Vital Signs & Weight: Vital Signs (12 hours) Temp Pulse Resp BP Pulse Ox 04/21/18 04:00 97.3 F L 97 17 131/63 96 04/20/18 23:37 97.9 F 99 18 117/59 L 95 04/20/18 19:40 95 04/20/18 19:33 98.3 F 103 H 19 134/65 95 Weight Admit Weight 135.996 kg Weight 130.136 kg I&O: 04/19/18 04/20/18 04/21/18 06:59 06:59 06:59 Intake Total 293 803 3120.5 Output Total 300 111 Balance 482 577 0878.5 Result Diagrams: 04/20/18 05:52 04/20/18 05:52 Phys Exam - Physical Examination Constitutional: NAD HEENT: moist MMs Neck: no JVD Gastrointestinal: no distention Musculoskeletal: no edema Neurological: moves all 4 limbs Psychiatric: normal affect Skin: no rash Dx/Plan (1) Community acquired pneumonia Code(s): J18.9 - PNEUMONIA, UNSPECIFIED ORGANISM Status: Acute (2) Pickwickian syndrome Code(s): E66.2 - MORBID (SEVERE) OBESITY WITH ALVEOLAR HYPOVENTILATION Status : Acute (3) A-fib Code(s): I48.91 - UNSPECIFIED ATRIAL FIBRILLATION Status: Acute (4) HTN (hypertension) Code(s): I10 - ESSENTIAL (PRIMARY) HYPERTENSION Status: Acute Qualifiers: Hypertension type: essential hypertension Qualified Code(s): I10 - Essential (primary) hypertension (5) Obesities, morbid Code(s): E66.01 - MORBID (SEVERE) OBESITY DUE TO EXCESS CALORIES Status: Chronic - Plan Plan: CAP with fluid collection - Afebrile, no elevated WBC, CXR positive for patchy infiltrates/possible pleural effusion -CT abdomen Pelvis shows collection in left and R. lung bases. -Procalcitonin negative. - Azithromycin and rocephin for abx coverage, blood cultures-NGTD -Pt been on O2 since previous discharge. -Pulm consulted- Dr. Prather- Will await recs. Consulted for possible drainage of fluid collection -General Surgery- Dr. Hassan consulted due to findings on CT scan initially. Will follow recs. At this time pt still having pain and we do not see it getting better. Pt having stomach pain as well. Pulm recommends that it will not be easy to drain fluid at this time here. Pt is not being active due to pain. Having decreased breathing effort. DVT Venogram shows DVT in R. popliteal vein -Started Heparin drip so we can reverse as fluid above is believed to be hematoma. Diaphragmatic hernia, repaired gastroesophageal leak - s/p repair on 03/06, Dr. Hassan evaluated in ED -General Surgery- Dr. Hassan consulted- follow recs. CT abdomen shows no acute pathology related to recent surgery at this time. Plan as above. -Will px GI cocktail as needed to help with nausea. -Karafate prn. Pickwickian syndrome - Possible effusion w/ LE edema, -Pt had some LE edema. -BNP 91. Recent ECHO done back in 02/2018 showed normal EF and showed some elevated pulm artery pressure likely 2/2 to obesity. - Hold fluid for now - CPAP qhs Paroxysmal Afib - NSR on presentation - Continue to monitor - Continue home medications HTN - Labetolol PRN for SBP>180 - Continue home medications Seasonal allergies - Continue Claritin -Px flonase to help with nose clogged Hx Recurrent UTI -Pt U/A shows UTI at this time. On abx per above. Possible cause of back pain. Will culture and adjust abx if needed. Code: full ppx: heparin Dispo: continue to monitor for improvement today, treat DVT.
[2018-04-21] MEDS: PARoxetine 20 MG TAB PO SCH (10:05)
[2018-04-21] MEDS: Loratadine 10 MG TAB PO SCH (10:05)
[2018-04-21] MEDS: Fluticasone Propionate Nasal Spray 16 gm Bottle NASAL SCH (10:05)
[2018-04-21] MEDS: Amlodipine 5 MG TAB PO SCH (10:05)
[2018-04-21] MEDS: Magnesium Chloride 64 MG TAB PO SCH ×2 (10:06→21:25)
--- NOTE | 2018-04-21 12:01 | CON ---
DATE OF CONSULTATION: 04/21/2018 NEUROLOGIC CONSULTATION CONSULTING PHYSICIAN: [facility]. IMPRESSION: 1. Possible simple partial seizures. 2. Sleep apnea. 3. Morbid obesity. PLAN: 1. Keppra 500 mg twice a day. 2. Office followup. HISTORY OF PRESENT ILLNESS: Ms. Almaraz is a 63-year-old white female, who has been admitted with a urinary tract infection. She reports a history of episodes that have occurred on 5 separate occasions. Her family reports they have seen her have an episode, where she suddenly rolled her eyes upward and then shuts them and is unable to open them for several minutes. She remains conscious and conversant. She does not have any stiffening of the extremities. She reports some discomfort around her eyes associated with the attack, but no other sensations. They reportedly have lasted up to 15 minutes. She had a CT scan of the brain, which was normal. Her lab work was all unremarkable other than the urinary tract infection. PAST MEDICAL HISTORY: As listed above. ALLERGIES: MULTIPLE PER CHART. SOCIAL HISTORY: No tobacco or illicit drug use. FAMILY HISTORY: Noncontributory. REVIEW OF SYSTEMS: A 10-system review of systems is otherwise unremarkable. PHYSICAL EXAMINATION: GENERAL: She is a morbidly obese, middle-aged woman, lying in bed, in no distress. HEENT: Within normal limits. EXTREMITIES: No cyanosis, clubbing, or edema. NEUROLOGIC: She is alert and appropriate. Her speech is fluent and clear. Exam is nonfocal. LABORATORY DATA: EKG shows sinus tachycardia. SUMMARY: Middle-aged woman with a history of episodes of which I could only explain with possible simple partial seizure, little bit suspect given the reported duration of the advance. Trial of Keppra would be a reasonable option. I would be happy to follow up. Job ID: [id number]
[2018-04-21] MEDS ORDERED: Clopidogrel Bisulfate 75 MG TAB ONE (12:10)
[2018-04-21 17:26] LABS: Hemoglobin 9.3 g/dL (12.0-16.0); Platelet Count 257 thou/uL (130-400)
[2018-04-21] MEDS: Azithromycin 250 MG TAB PO SCH (18:30)
[2018-04-21] MEDS: cefTRIAXone\\ROCEPHIN 1 GM in Sodium Chloride 0.9% 100 ML IVPB SCH (18:31)
--- NOTE | 2018-04-21 20:43 | PRG ---
DATE OF SERVICE: 04/21/2018 SERVICE: Pulmonary Medicine. INTERVAL HISTORY: The patient is doing really well from Respiratory standpoint. Breathing comfortably. Denies any current chest pain or fevers or chills. Her belly pain is improving a little bit. Her appetite is absolutely fantastic. Otherwise, there has been no interval change to her condition. PHYSICAL EXAMINATION: VITAL SIGNS: Afebrile, pulse 93, blood pressure 144/68, respirations 18, and saturation is 97% on 2 L nasal cannula. GENERAL: The patient is awake and alert, in no apparent distress. LUNGS: Excellent air entry. There is no prolonged expiratory phase. Dependently, crackles are present. HEART: Normal rate. Regular. ABDOMEN: Soft, nontender, and nondistended. Bowel sounds are positive. MUSCULOSKELETAL: No cyanosis or clubbing. There is trace to 1+ pitting in the bilateral lower extremities. NEUROLOGIC: Grossly nonfocal. LABORATORY DATA: Hemoglobin 9.3. PTT 104, pH 7.48, pCO2 of 39, and PO2 of 71. Potassium 3.3. Basic metabolic profile and liver function studies are otherwise unremarkable. Cardiac enzymes are negative. Urine culture is growing nonhemolytic streptococcus. Clostridium difficile antigen and toxin are positive. Campylobacter and shiga toxin are unremarkable. Blood cultures x2 are negative. ASSESSMENT: 1. Severe sepsis, resolving. 2. Clostridium difficile colitis. 3. Hiatal hernia. 4. History of peptic ulcer disease. 5. Deep vein thrombosis. PLAN: I will continue therapy for the Clostridium difficile colitis. We will continue heparin for her DVT. If her hemoglobin is stable until tomorrow, we can move her onto slightly longer-acting therapy. Pulmonary will continue to follow along. Job ID: [id number] [facility]
[2018-04-21] MEDS: Gabapentin 300 MG CAP PO SCH (21:25)
[2018-04-21] MEDS: Potassium Chloride 20 MEQ TAB PO SCH (21:25)
[2018-04-21] MEDS: Mag-Al Plus 1200 MG/1200 MG/120 MG/30 ML UDCUP PO PRN (21:26)
[2018-04-21] MEDS: Zolpidem Tartrate 5 MG TAB PO PRN (22:36)
[2018-04-22] MEDS: Potassium Chloride 20 MEQ TAB PO SCH (00:34)
[2018-04-22] MEDS: Vancomycin HCl 25 MG/ML Oral PO SCH ×4 (00:34→18:38)
[2018-04-22] MEDS: Nystatin Powder 15 GM BOT TOP PRN (00:34)
[2018-04-22] MEDS: Ondansetron PF 4 MG/2 ML Vial IVP PRN ×3 (00:35→18:40)
[2018-04-22] MEDS: Heparin 25,000 units/D5W 500 ML IVPB SCH ×2 (02:22→22:45)
--- NOTE | 2018-04-22 06:44 | PDOC.FM ---
- Subjective Subjective: Ms. Almaraz is resting comfortably in bed, she wore her CPAP last night. She thinks it might be best if she goes to SNF for a bit before home. - Objective Vital Signs & Weight: Vital Signs (12 hours) Temp Pulse Resp BP Pulse Ox 04/22/18 06:15 98.4 F 101 H 20 116/65 97 04/22/18 01:14 93 23 H 97 04/21/18 19:30 99.2 F 105 H 18 117/59 L 97 Weight Admit Weight 135.996 kg Weight 130.136 kg I&O: 04/20/18 04/21/18 04/22/18 06:59 06:59 06:59 Intake Total 850 2242.5 940 Output Total 111 Balance 739 2242.5 940 Result Diagrams: 04/21/18 17:16 04/20/18 05:52 Phys Exam - Physical Examination Constitutional: NAD HEENT: moist MMs Neck: no JVD Gastrointestinal: no distention Musculoskeletal: no edema, pulses present Neurological: moves all 4 limbs Psychiatric: normal affect Skin: no rash Dx/Plan (1) Community acquired pneumonia Code(s): J18.9 - PNEUMONIA, UNSPECIFIED ORGANISM Status: Acute (2) Pickwickian syndrome Code(s): E66.2 - MORBID (SEVERE) OBESITY WITH ALVEOLAR HYPOVENTILATION Status : Acute (3) A-fib Code(s): I48.91 - UNSPECIFIED ATRIAL FIBRILLATION Status: Acute (4) HTN (hypertension) Code(s): I10 - ESSENTIAL (PRIMARY) HYPERTENSION Status: Acute Qualifiers: Hypertension type: essential hypertension Qualified Code(s): I10 - Essential (primary) hypertension (5) Obesities, morbid Code(s): E66.01 - MORBID (SEVERE) OBESITY DUE TO EXCESS CALORIES Status: Chronic - Plan Plan: CAP with fluid collection - Afebrile, no elevated WBC, CXR positive for patchy infiltrates/possible pleural effusion -CT abdomen Pelvis shows collection in left and R. lung bases. -Procalcitonin negative. - Azithromycin and rocephin for abx coverage, blood cultures-NGTD -Pt been on O2 since previous discharge. -Pulm consulted- Dr. Prather- Will await recs. Consulted for possible drainage of fluid collection -General Surgery- Dr. Hassan consulted due to findings on CT scan initially. Will follow recs. At this time pt still having pain and we do not see it getting better. Pt having stomach pain as well. Pulm recommends that it will not be easy to drain fluid at this time here. Pt is not being active due to pain. Having decreased breathing effort. Complex partial seizures - frequent episodes of uncontrolled eye movements, pt remains lucid - CT head neg, neuro consulted, appreciate recs - 500 mg keppra BID DVT Venogram shows DVT in R. popliteal vein -Started Heparin drip so we can reverse as fluid above is believed to be hematoma. Diaphragmatic hernia, repaired gastroesophageal leak - s/p repair on 03/06, Dr. Hassan evaluated in ED -General Surgery- Dr. Hassan consulted- follow recs. CT abdomen shows no acute pathology related to recent surgery at this time. Plan as above. -Will px GI cocktail as needed to help with nausea. -Karafate prn. Pickwickian syndrome - Possible effusion w/ LE edema, -Pt had some LE edema. -BNP 91. Recent ECHO done back in 02/2018 showed normal EF and showed some elevated pulm artery pressure likely 2/2 to obesity. - Hold fluid for now - CPAP qhs Paroxysmal Afib - NSR on presentation - Continue to monitor - Continue home medications HTN - Labetolol PRN for SBP>180 - Continue home medications Seasonal allergies - Continue Claritin -Px flonase to help with nose clogged Hx Recurrent UTI -Pt U/A shows UTI at this time. On abx per above. Possible cause of back pain. Will culture and adjust abx if needed. Code: full ppx: heparin Dispo: continue to monitor for improvement today, treat DVT.
[2018-04-22] MEDS: Magnesium Chloride 64 MG TAB PO SCH ×2 (11:27→23:33)
[2018-04-22] MEDS: Amlodipine 5 MG TAB PO SCH (11:27)
[2018-04-22] MEDS: PARoxetine 20 MG TAB PO SCH (11:28)
[2018-04-22] MEDS: Loratadine 10 MG TAB PO SCH (11:28)
[2018-04-22] MEDS: Fluticasone Propionate Nasal Spray 16 gm Bottle NASAL SCH (11:30)
[2018-04-22] MEDS: Sucralfate 1 GM/10 ML UDCUP PO PRN (12:19)
[2018-04-22] MEDS: Ondansetron ODT 4 MG TAB PO PRN (12:19)
[2018-04-22] MEDS: Mag-Al Plus 1200 MG/1200 MG/120 MG/30 ML UDCUP PO PRN (15:42)
[2018-04-22] MEDS: clonazePAM 0.5 MG TAB PO PRN (15:42)
[2018-04-22] MEDS ORDERED: Pantoprazole 40 MG VIAL IVP SCH (17:00)
[2018-04-22] MEDS ORDERED: Furosemide 40 MG/4 ML VIAL SLOW IVP SCH (17:00)
--- NOTE | 2018-04-22 17:16 | PRG ---
DATE OF SERVICE: 04/22/2018 SERVICE: Pulmonary Medicine. INTERVAL HISTORY: The patient's base complaint today is a little bit of heartburn. She has a burning sensation inside of her chest. It is worse whenever she does not eat. She denies any current fevers, chills, nausea, or vomiting. She is having a little bit more work of breathing into the afternoon. This morning, she is breathing quite well. She really likes using her CPAP therapy. PHYSICAL EXAMINATION: VITAL SIGNS: Afebrile, pulse 117, blood pressure 137/76, respirations 22, saturation 96% on 2 L nasal cannula. GENERAL: The patient is awake and alert, in no apparent distress. LUNGS: Decent air entry. Crackles are present. No prolonged expiratory phase or wheezing appreciated. HEART: Normal rate and regular. ABDOMEN: Soft, nontender, and nondistended. Bowel sounds are positive. MUSCULOSKELETAL: No cyanosis or clubbing. There is 2+ pitting in the bilateral lower extremities. NEUROLOGIC: Grossly nonfocal. LABORATORY DATA: WBC 4.8, hemoglobin 9.0, platelets 252,000. Potassium 3.3. Basic metabolic profile and liver function studies are otherwise unremarkable. Creatinine 0.85 and stable. Urine is growing vancomycin-resistant Enterococcus. Blood cultures x2 are unremarkable. C diff antigen and toxin are positive. ASSESSMENT: 1. Severe sepsis, resolving. 2. Clostridium difficile colitis. 3. History of peptic ulcer disease. 4. Hiatal hernia. DISCUSSION AND PLAN: We will add Protonix. I will replace potassium. We will continue to diurese the patient till euvolemia. Pulmonary Critical Care will continue to follow along. Job ID: [id number]
[2018-04-22] MEDS: traMADol HCl 50 MG TAB PO PRN (18:36)
[2018-04-22] MEDS: Azithromycin 250 MG TAB PO SCH (18:37)
[2018-04-22] MEDS: Promethazine HCl 25 MG/ML VIAL IM PRN (22:35)
[2018-04-22] MEDS: Lidocaine 2% Viscous Solution 10 ML, Aluminum & Magnesium Hydroxide 30 ML SSW PRN (23:30)
[2018-04-22] MEDS: Lorazepam 0.5 MG TAB PO PRN (23:31)
[2018-04-22] MEDS: Gabapentin 300 MG CAP PO SCH (23:31)
[2018-04-23] MEDS: Vancomycin HCl 25 MG/ML Oral PO SCH ×4 (00:19→17:58)
[2018-04-23] MEDS: Sucralfate 1 GM/10 ML UDCUP PO PRN ×3 (00:32→21:57)
[2018-04-23] MEDS: Ondansetron PF 4 MG/2 ML Vial IVP PRN ×4 (00:32→22:07)
[2018-04-23] MEDS: Zolpidem Tartrate 5 MG TAB PO PRN ×2 (02:17→21:57)
[2018-04-23] MEDS: Promethazine HCl 25 MG/ML VIAL IM PRN (04:04)
[2018-04-23 05:49] LABS: PTT 148.8 SEC (22.9-36.1)
[2018-04-23] MEDS: Mag-Al Plus 1200 MG/1200 MG/120 MG/30 ML UDCUP PO PRN ×2 (06:13→13:41)
--- NOTE | 2018-04-23 06:51 | PDOC.FM ---
- Subjective Subjective: Ms. Almaraz is resting comfortably in bed. She reports significant n/v yesterday and today. She denies new SOB/CP - Objective Vital Signs & Weight: Vital Signs (12 hours) Temp Pulse Resp BP Pulse Ox 04/23/18 04:00 97.6 F 113 H 24 H 118/72 94 L 04/22/18 20:25 98.7 F 116 H 22 H 140/63 94 L Weight Admit Weight 135.996 kg Weight 130.136 kg I&O: 04/21/18 04/22/18 04/23/18 06:59 06:59 06:59 Intake Total 2242.5 1900 1428 Balance 2242.5 1900 1428 Result Diagrams: 04/21/18 17:16 04/20/18 05:52 Phys Exam - Physical Examination Constitutional: NAD dry MM Neck: no JVD Gastrointestinal: soft, non-tender Musculoskeletal: no edema, pulses present Neurological: moves all 4 limbs Lymphatic: no nodes Psychiatric: normal affect Skin: no rash Dx/Plan (1) Community acquired pneumonia Code(s): J18.9 - PNEUMONIA, UNSPECIFIED ORGANISM Status: Acute (2) Pickwickian syndrome Code(s): E66.2 - MORBID (SEVERE) OBESITY WITH ALVEOLAR HYPOVENTILATION Status : Acute (3) A-fib Code(s): I48.91 - UNSPECIFIED ATRIAL FIBRILLATION Status: Acute (4) HTN (hypertension) Code(s): I10 - ESSENTIAL (PRIMARY) HYPERTENSION Status: Acute Qualifiers: Hypertension type: essential hypertension Qualified Code(s): I10 - Essential (primary) hypertension (5) Obesities, morbid Code(s): E66.01 - MORBID (SEVERE) OBESITY DUE TO EXCESS CALORIES Status: Chronic - Plan Plan: CAP with fluid collection - Afebrile, no elevated WBC, CXR positive for patchy infiltrates/possible pleural effusion -CT abdomen Pelvis shows collection in left and R. lung bases. -Procalcitonin negative. - Begin PO azithromycin blood cultures-NGTD -Pt been on O2 since previous discharge. -Pulm consulted- Dr. Prather- Will await recs. Consulted for possible drainage of fluid collection -General Surgery- Dr. Hassan consulted due to findings on CT scan initially. Will follow recs. At this time pt still having pain and we do not see it getting better. Pt having stomach pain as well. Pulm recommends that it will not be easy to drain fluid at this time here. Pt is not being active due to pain. Having decreased breathing effort. Complex partial seizures - frequent episodes of uncontrolled eye movements, pt remains lucid - CT head neg, neuro consulted, appreciate recs - 500 mg keppra BID DVT Venogram shows DVT in R. popliteal vein -Started Heparin drip so we can reverse as fluid above is believed to be hematoma. Diaphragmatic hernia, repaired gastroesophageal leak - s/p repair on 03/06, Dr. Hassan evaluated in ED -General Surgery- Dr. Hassan consulted- follow recs. CT abdomen shows no acute pathology related to recent surgery at this time. Plan as above. -Will px GI cocktail as needed to help with nausea. -Karafate prn. Pickwickian syndrome - Possible effusion w/ LE edema, -Pt had some LE edema. -BNP 91. Recent ECHO done back in 02/2018 showed normal EF and showed some elevated pulm artery pressure likely 2/2 to obesity. - CPAP qhs Paroxysmal Afib - NSR on presentation - Continue to monitor - Continue home medications HTN - Labetolol PRN for SBP>180 - Continue home medications Seasonal allergies - Continue Claritin -Px flonase to help with nose clogged Hx Recurrent UTI -Pt U/A shows UTI at this time, MDR VRE - N/V/ feeling poorly - consider beginning linezolid, restarting fluids Code: full ppx: heparin Dispo: continue to monitor for improvement today, treat DVT, discharge planning.
--- NOTE | 2018-04-23 09:00 | CON ---
DATE OF CONSULTATION: ADDENDUM: Please see note from Dr. Crockett, for which I agree. The patient was seen, evaluated, and discussed with the residents by bedside. The patient is an extremely complicated 63-year-old female, who had a history of a very large hiatal hernia for which her stomach cavity was all the way up into her chest and eventually was surgically taken down and it sounds like a G-tube was placed to try to tack it into the abdomen, but apparently, that has been removed and then came in with more short of breath and CT eventually showed possible fluid or hematoma in the chest. Also having spells where she may be having small focal seizures and now also has C. diff diarrhea. She was found to have a DVT, but is on heparin, but has an IVC filter, so with her history of all the surgery and the hematoma, I think that is probably not quispe to have her on heparin because she has the IVC filter in, any way, but it was felt that she is doing better as long as she wears her CPAP at night, less edema, less shortness of breath. Question at this point in time are we doing anything with this fluid accumulation in her chest cavity or not and it sounds like Surgery and Pulmonary do not think that is warranted at this time. I am treating with antibiotics, although I am not sure if this represents a pneumonia or not, but certainly going to treating the C diff as well for now, and I think she get C. diff treatment and I am not sure if she needs to be in the hospital for much longer as long as the diarrhea improves. Job ID: [id number]
[2018-04-23] MEDS: Fluticasone Propionate Nasal Spray 16 gm Bottle NASAL SCH (09:23)
[2018-04-23] MEDS: Pantoprazole 40 MG VIAL IVP SCH ×2 (09:24→21:31)
--- NOTE | 2018-04-23 09:31 | PRG ---
DATE OF SERVICE: 04/23/2018 SUBJECTIVE: The patient is doing okay except for some abdominal pain. OBJECTIVE: VITAL SIGNS: Temperature 97.6, pulse 113, respiration 24, O2 saturation 94% on 2 L, blood pressure 118/72. HEENT: Unremarkable. NECK: No JVD. CHEST: Clear anteriorly. CARDIAC: S1, S2. Regular. ABDOMEN: Mildly tender. EXTREMITIES: No edema. LABORATORY DATA: C. diff was apparently positive. Also, has vanc-resistant enterococcus in urine culture. ASSESSMENT: 1. Polymicrobial sepsis. 2. Clostridium difficile colitis. 3. Hematoma. 4. Deep venous thrombosis. PLAN: Continuing anticoagulation with heparin. She could probably switched over to Coumadin. I would stop the Zithromax unless there is something we are specifically treating for that. Job ID: [id number]
[2018-04-23] MEDS: Loratadine 10 MG TAB PO SCH (10:15)
[2018-04-23] MEDS: Amlodipine 5 MG TAB PO SCH (10:15)
[2018-04-23] MEDS: PARoxetine 20 MG TAB PO SCH (10:16)
[2018-04-23] MEDS: Magnesium Chloride 64 MG TAB PO SCH ×2 (10:20→21:31)
[2018-04-23 10:26] LABS: #Eosinphils 0.1 thou/uL (0.0-0.7); #Lymphocytes 1.1 thou/uL (1.20-3.40); #Monocytes 0.3 thou/uL (0.11-0.59); #Neutrophils 5.7 thou/uL (1.40-6.50); %Basophils 0.3 % (0.0-1.0); %Eosinophils 1.1 % (0.0-10.0); %Lymphocytes 15.2 % (21.0-51.0); %Monocytes 4.7 % (0.0-10.0); %Neutrophils 78.7 % (42.0-75.0); Hemoglobin 9.7 g/dL (12.0-16.0); Mean Corpuscular HGB CONC 30.6 g/dL (32.0-36.0); Mean Corpuscular Hemoglobin 25.7 pg (27.0-31.0); Mean Corpuscular Volume 83.9 fL (78.0-98.0); Mean Platelet Volume 9.1 fL (7.4-10.4); Platelet Count 239 thou/uL (130-400); RBC Distribution Width 16.6 % (11.5-14.5); Red Blood Cell (RBC) Count 3.77 mill/uL (4.20-5.40); White Blood Cell (WBC) Count 7.3 thou/uL (4.8-10.8)
[2018-04-23 10:32] LABS: ALT (SGPT) Less than 7 U/L (8-55); AST (SGOT) 12 U/L (5-34); Alkaline Phosphatase 54 U/L (40-150); Anion Gap 16 mmol/L (10-20); BUN (Urea Nitrogen) 6 mg/dL (9.8-20.1); Bilirubin, Total 0.3 mg/dL (0.2-1.2); Calc. Creatinine Clearance 132 mL/min (70-130); Calcium 8.7 mg/dL (7.8-10.44); Carbon Dioxide 25 mmol/L (23-31); Chloride 101 mmol/L (98-107); Estimated GFR-MDRD 62; Globulin 2.8 g/dL (2.4-3.5); Glucose 114 mg/dL (80-115); Potassium 4.3 mmol/L (3.5-5.1); Protein, Total 5.8 g/dL (6.0-8.3); Sodium 138 mmol/L (136-145)
--- NOTE | 2018-04-23 11:05 | PRG ---
DATE OF SERVICE: ADDENDUM: Please see note from Dr. Crockett, for which I agree. The patient was seen, evaluated, and discussed with the patient by bedside. This 63-year-old really is fairly stable, having much complaint today as far as breathing, and is unfortunately having diarrhea, but lungs sound pretty clear. Unclear if this ever represented pneumonia or just old hematoma, but things seem to go in the right direction. She wants to consider rehab for a while. Did wear CPAP last night, which has helped her a lot, and so continue antibiotics for now. There is a question if she needs heparin, we discontinued yesterday because we realized she had an IVC filter, but then Pulmonary restarted, will run out by Pulmonary to see if there is any reason for that. Otherwise, likely she is going to be able to get out the [facility]cf unit next couple of days as she seems to be back to baseline otherwise. Job ID: [id number]
[2018-04-23] MEDS ORDERED: Lactated Ringer's 500 ML IV SCH ×2 (12:00→13:30)
[2018-04-23] MEDS: Heparin 25,000 units/D5W 500 ML IVPB SCH (13:39)
--- NOTE | 2018-04-23 14:34 | PRG ---
DATE OF SERVICE: 04/23/2018 ADDENDUM: This is an addendum to the note of Dr. Robel Crockett. Ms. Almaraz is a very unfortunate 63-year-old female with a large diaphragmatic hernia, status post repair with hematoma. She has also since developed a mild pneumonia and C. diff. She is under treatment for all of these problems. She also has a VRE UTI and we will consult Dr. Charlton for further management. Job ID: [id number]
[2018-04-23] MEDS: Heparin 10,000 UNITS/ 10 ML VIAL SLOW IVP SCH (17:58)
[2018-04-23] MEDS: Gabapentin 300 MG CAP PO SCH (21:31)
[2018-04-23] MEDS: Lorazepam 0.5 MG TAB PO PRN (21:57)
[2018-04-23] MEDS: Ondansetron ODT 4 MG TAB PO PRN (21:57)
[2018-04-24] MEDS: Vancomycin HCl 25 MG/ML Oral PO SCH ×4 (00:15→18:53)
[2018-04-24] MEDS: Lidocaine 2% Viscous Solution 10 ML, Aluminum & Magnesium Hydroxide 30 ML SSW PRN ×2 (00:16→16:01)
[2018-04-24] MEDS: Heparin 25,000 units/D5W 500 ML IVPB SCH ×2 (00:18→16:01)
[2018-04-24 00:23] LABS: PTT 155.2 SEC (22.9-36.1)
[2018-04-24] MEDS: traMADol HCl 50 MG TAB PO PRN ×2 (06:20→10:45)
[2018-04-24] MEDS: Sucralfate 1 GM/10 ML UDCUP PO PRN ×2 (06:27→22:28)
--- NOTE | 2018-04-24 07:35 | PDOC.FM ---
- Subjective Subjective: Ms. Almaraz is resting comfortably in bed, she reports n/v/d. - Objective Vital Signs & Weight: Vital Signs (12 hours) Temp Pulse Resp BP Pulse Ox 04/24/18 04:00 99.4 F 100 17 133/80 94 L 04/24/18 00:00 99.2 F 107 H 18 168/82 H 94 L 04/23/18 20:00 98.8 F 98 18 136/75 94 L Weight Admit Weight 135.996 kg Weight 127.63 kg I&O: 04/23/18 04/24/18 04/25/18 06:59 06:59 06:59 Intake Total 2467 1995 Output Total 700 750 Balance 1767 1246 Result Diagrams: 04/23/18 04:36 04/23/18 04:36 Phys Exam - Physical Examination Constitutional: NAD dry MM Neck: no JVD Gastrointestinal: no distention Musculoskeletal: no edema, pulses present Neurological: moves all 4 limbs Psychiatric: normal affect Skin: no rash Dx/Plan (1) Community acquired pneumonia Code(s): J18.9 - PNEUMONIA, UNSPECIFIED ORGANISM Status: Acute (2) Pickwickian syndrome Code(s): E66.2 - MORBID (SEVERE) OBESITY WITH ALVEOLAR HYPOVENTILATION Status : Acute (3) A-fib Code(s): I48.91 - UNSPECIFIED ATRIAL FIBRILLATION Status: Acute (4) HTN (hypertension) Code(s): I10 - ESSENTIAL (PRIMARY) HYPERTENSION Status: Acute Qualifiers: Hypertension type: essential hypertension Qualified Code(s): I10 - Essential (primary) hypertension (5) Obesities, morbid Code(s): E66.01 - MORBID (SEVERE) OBESITY DUE TO EXCESS CALORIES Status: Chronic - Plan Plan: CXR/CT abnormalities - Afebrile, no elevated WBC, CXR positive for patchy infiltrates/possible pleural effusion -CT abdomen Pelvis shows collection in left and R. lung bases. -Procalcitonin negative., no abx indicated at this time blood cultures-NGTD -Pt been on O2 since previous discharge. -Pulm consulted- Dr. Prather: no thoracentisis at this time -General Surgery- Dr. Hassan consulted due to findings on CT scan initially. no surgical intervention at this time Complex partial seizures - frequent episodes of uncontrolled eye movements, pt remains lucid - CT head neg, neuro consulted, appreciate recs - 500 mg keppra BID DVT Venogram shows DVT in R. popliteal vein -Started Heparin drip so we can reverse as fluid above is believed to be hematoma. - transition to warfarin today Hx Recurrent UTI -Pt U/A shows UTI at this time, MDR VRE - N/V/ feeling poorly - Dr. Charlton consulted, recommends no treatment at this time, re culture pending C. Diff positive - PO vancomycin - consider questran today for persistent diarrhea Diaphragmatic hernia, repaired gastroesophageal leak - s/p repair on 03/06, Dr. Hassan evaluated in ED -General Surgery- Dr. Hassan consulted- follow recs. CT abdomen shows no acute pathology related to recent surgery at this time. Plan as above. -Will px GI cocktail as needed to help with nausea. -Karafate prn. Pickwickian syndrome - Possible effusion w/ LE edema, -Pt had some LE edema. -BNP 91. Recent ECHO done back in 02/2018 showed normal EF and showed some elevated pulm artery pressure likely 2/2 to obesity. - CPAP qhs Paroxysmal Afib - NSR on presentation - Continue to monitor - Continue home medications HTN - Labetolol PRN for SBP>180 - Continue home medications Seasonal allergies - Continue Claritin -Px flonase to help with nose clogged Code: full ppx: heparin Dispo: transition to warfarin, prepare for DC to inpatient rehab
[2018-04-24] MEDS: Loratadine 10 MG TAB PO SCH (09:57)
[2018-04-24] MEDS: Amlodipine 5 MG TAB PO SCH (09:58)
[2018-04-24] MEDS: clonazePAM 0.5 MG TAB PO PRN ×2 (09:58→18:54)
[2018-04-24] MEDS: Promethazine HCl 25 MG/ML VIAL IM PRN (09:59)
[2018-04-24] MEDS: Magnesium Chloride 64 MG TAB PO SCH ×2 (09:59→22:25)
[2018-04-24] MEDS: PARoxetine 20 MG TAB PO SCH (10:00)
[2018-04-24] MEDS: Pantoprazole 40 MG VIAL IVP SCH ×2 (10:00→22:26)
--- NOTE | 2018-04-24 10:01 | PRG ---
DATE OF SERVICE: 04/24/2018 SUBJECTIVE: The patient is still complaining of diarrhea and nausea. OBJECTIVE: VITAL SIGNS: Temperature 99.4, pulse , respirations 17, O2 saturation 94%, blood pressure 133/80. HEENT: Unremarkable. NECK: No JVD. CHEST: Fairly clear. CARDIAC: S1, S2 regular. ABDOMEN: Slightly tender to palpation. EXTREMITIES: No edema. LABORATORY DATA: Labs were not done today. ASSESSMENT: 1. Clostridium difficile colitis. 2. Deep venous thrombosis. 3. Right chest hematoma. PLAN: The patient is continuing anticoagulation with heparin. Continue treatment for C. difficile colitis. Would consider GI evaluation, if the patient continues to struggle with symptoms. Job ID: [id number]
[2018-04-24] MEDS: Fluticasone Propionate Nasal Spray 16 gm Bottle NASAL SCH (10:02)
[2018-04-24] MEDS: Heparin 10,000 UNITS/ 10 ML VIAL SLOW IVP SCH (11:19)
[2018-04-24] MEDS: Mag-Al Plus 1200 MG/1200 MG/120 MG/30 ML UDCUP PO PRN (11:23)
--- NOTE | 2018-04-24 12:38 | PRG ---
DATE OF SERVICE: 04/24/2018 SUBJECTIVE: Ms. Almaraz is resting quietly in bed. We did discuss her bacteriuria with Dr. Charlton, who felt that this was a contaminant and should not be treated. We will, therefore, discontinue treatment, but continue her on her vancomycin for C. diff colitis. Otherwise, we are awaiting placement and we will start her on Coumadin. When her INR is above 2, we can stop the heparin. Job ID: [id number]
[2018-04-24] MEDS: Ondansetron PF 4 MG/2 ML Vial IVP PRN ×2 (13:08→22:25)
[2018-04-24 16:27] LABS: Prothrombin Time 13.5 SEC (12.0-14.7)
[2018-04-24 16:34] LABS: PTT 129.8 SEC (22.9-36.1)
[2018-04-24] MEDS: Warfarin Sodium 5 MG TAB PO SCH (18:53)
[2018-04-24] MEDS: Gabapentin 300 MG CAP PO SCH (22:25)
[2018-04-24] MEDS: Lorazepam 0.5 MG TAB PO PRN (22:25)
--- NOTE | 2018-04-24 23:34 | CON ---
DATE OF CONSULTATION: REASON FOR CONSULTATION: Possible UTI. HISTORY OF PRESENT ILLNESS: This is a 63-year-old, who has a history of hypertension and diaphragmatic hernia with repair on February 22, 2018. The repair was done by Dr. Hassan and it was laparoscopic converted to exploratory laparotomy with reduction of large hiatal hernia including most of the stoma to nearly the entire transverse colon with omental patch repair of perforated pre-pyloric gastric ulcer. She also had central line placement in the right IJ and a dialysis catheter placed in right femoral vein at that time. She was discharged at the end of February last year. Her previous echocardiogram showed EF of 60% to 65%, and a chest x-ray done showed a small right pleural effusion. She was discharged on Cardizem, Diflucan, melatonin, Reglan, MiraLAX, gabapentin, hydralazine, Claritin, and Ambien. She is readmitted with a 2-day history of worsening dyspnea before admission. Initial findings, heart rate 95, BP 130/90, and temperature 98.6. Lungs with expiratory crackles in left lower lobe. Heart exam showed S1, S2. Abdomen is soft and nontender. White cell count 5.2, hemoglobin 9.7, platelets 274, and creatinine 0.83. The patient had an abdomen and pelvis CT with residual hiatal hernia with gastric fundus to the right of midline. There is a pocket of fluid within the posterior right chest, but no internal gas in the fluid, small bilateral pleural effusions, new inferior vena cava filter. I was asked to evaluate this patient because she had a positive culture for VRE. Currently, Ms. Almaraz is lying supine in bed. She keeps complaining about her UTI. She is saying that she has a hard time in voiding, but she denies any dysuria. She just feels unwell. In general, she denies any headaches, no visual symptoms, no back pain. She is urinating spontaneously. She has one of those suction catheters in her perineal area. PAST MEDICAL HISTORY: Obesity; diaphragmatic hernia, which has been reduced surgically by Dr. Hassan; appendectomy; hypertension. FAMILY HISTORY: Diabetes. SOCIAL HISTORY: Never smoker. CURRENT MEDICATIONS: 1. Maalox. 2. Norvasc. 3. Tums. 4. Klonopin. 5. Fluticasone. 6. Neurontin. 7. Claritin. 8. Mycostatin. 9. Paxil. 10. Vancomycin. I think she is taking this orally. PHYSICAL EXAMINATION: VITAL SIGNS: T-max 99.4, blood pressure 140/90, pulse 104, respirations 18 to 20, and O2 sat 93% to 97%. SKIN: She has a peripheral IV access. No [place] catheter. No lymphadenopathy. HEENT: Ocular movements conjugate. The oral cavity is not remarkable. NECK: Supple. LUNGS: Symmetric breath sounds with faint basilar crackles, right side. Diminished breath sounds on the left side. HEART: S1 and S2. Regular rate. ABDOMEN: Soft without tenderness. Question of bladder distention. A bladder ultrasound done at the time of the exam showed 0 postvoid residual. EXTREMITIES: She is able to move extremities equally. Plantar responses are flexor. Pulses 1+ in dorsalis pedis. No edema. NEUROLOGIC: Cognitive function appears to be intact. LABORATORY DATA: White cell count 5.0 up to 7.3, hemoglobin 9.7, platelets 239, and 78% neutrophils. Liver profile within normal limits. Sodium 138 and creatinine 0.92. Albumin 3.0. Urinalysis with 11 to 20 wbc's from April 18. Cultures revealed vancomycin-resistant Enterococcus. Repeat urine culture with a straight catheter with no growth at 24 hours. ASSESSMENT: 1. Diaphragmatic hernia with repair and then fluid collection, which appears to be postoperative hematoma. 2. Clostridium difficile colitis, positive Clostridium difficile stool. 3. Symptoms that she blames on invasive urinary tract infection, I believe that she does not have enough evidence to suggest that. I believe the VRE is probably contamination of the sample because of the way that sample was collected. The second sample is a good one and it is a straight catheter sample and thus far we have negative growth. I would recommend against treating this finding at this point in time. Job ID: [id number]
[2018-04-25] MEDS: Mag-Al Plus 1200 MG/1200 MG/120 MG/30 ML UDCUP PO PRN ×3 (00:09→17:24)
[2018-04-25] MEDS: Vancomycin HCl 25 MG/ML Oral PO SCH ×4 (00:09→17:40)
[2018-04-25] MEDS: Zolpidem Tartrate 5 MG TAB PO PRN ×2 (00:10→22:16)
[2018-04-25 00:12] LABS: PTT 117.6 SEC (22.9-36.1)
[2018-04-25] MEDS: Lidocaine 2% Viscous Solution 10 ML, Aluminum & Magnesium Hydroxide 30 ML SSW PRN ×3 (00:45→21:14)
[2018-04-25 05:43] LABS: Prothrombin Time 13.7 SEC (12.0-14.7)
[2018-04-25] MEDS: Heparin 25,000 units/D5W 500 ML IVPB SCH ×2 (06:12→19:50)
--- NOTE | 2018-04-25 06:51 | PDOC.FM ---
- Subjective Subjective: Ms. Almaraz is sleeping comfortably in bed, she reports decreased nausea, no vomiting or diarrhea overnight. still concerned with UTI symptoms, as at baseline - Objective Vital Signs & Weight: Vital Signs (12 hours) Temp Pulse Resp BP Pulse Ox 04/25/18 05:37 17 04/25/18 05:00 98.7 F 88 16 119/82 95 04/25/18 03:14 17 04/25/18 00:30 98.9 F 04/24/18 21:48 99.2 F 101 H 18 132/78 94 L 04/24/18 21:45 94 L Weight Admit Weight 135.996 kg Weight 129.002 kg I&O: 04/23/18 04/24/18 04/25/18 06:59 06:59 06:59 Intake Total 2467 1996 800 Output Total 700 750 350 Balance 1767 1246 450 Result Diagrams: 04/23/18 04:36 04/23/18 04:36 Phys Exam - Physical Examination HEENT: moist MMs Neck: no JVD Gastrointestinal: soft, no distention Musculoskeletal: no edema Neurological: moves all 4 limbs Psychiatric: normal affect Skin: no rash Dx/Plan (1) Community acquired pneumonia Code(s): J18.9 - PNEUMONIA, UNSPECIFIED ORGANISM Status: Acute (2) Pickwickian syndrome Code(s): E66.2 - MORBID (SEVERE) OBESITY WITH ALVEOLAR HYPOVENTILATION Status : Acute (3) A-fib Code(s): I48.91 - UNSPECIFIED ATRIAL FIBRILLATION Status: Acute (4) HTN (hypertension) Code(s): I10 - ESSENTIAL (PRIMARY) HYPERTENSION Status: Acute Qualifiers: Hypertension type: essential hypertension Qualified Code(s): I10 - Essential (primary) hypertension (5) Obesities, morbid Code(s): E66.01 - MORBID (SEVERE) OBESITY DUE TO EXCESS CALORIES Status: Chronic - Plan Plan: CXR/CT abnormalities - Afebrile, no elevated WBC, CXR positive for patchy infiltrates/possible pleural effusion -CT abdomen Pelvis shows collection in left and R. lung bases. -Procalcitonin negative., no abx indicated at this time blood cultures-NGTD -Pt been on O2 since previous discharge. -Pulm consulted- Dr. Prather: no thoracentisis at this time -General Surgery- Dr. Hassan consulted due to findings on CT scan initially. no surgical intervention at this time Complex partial seizures - frequent episodes of uncontrolled eye movements, pt remains lucid - CT head neg, neuro consulted, appreciate recs - 500 mg keppra BID DVT Venogram shows DVT in R. popliteal vein -Started Heparin drip so we can reverse as fluid above is believed to be hematoma. - transition to warfarin Hx Recurrent UTI -Pt U/A shows UTI at this time, MDR VRE - N/V/ feeling poorly - Dr. Charlton consulted, recommends no treatment at this time, re culture pending C. Diff positive - PO vancomycin Diaphragmatic hernia, repaired gastroesophageal leak - s/p repair on 03/06, Dr. Hassan evaluated in ED -General Surgery- Dr. Hassan consulted- follow recs. CT abdomen shows no acute pathology related to recent surgery at this time. Plan as above. -Will px GI cocktail as needed to help with nausea. -Karafate prn. Pickwickian syndrome - Possible effusion w/ LE edema, -Pt had some LE edema. -BNP 91. Recent ECHO done back in 02/2018 showed normal EF and showed some elevated pulm artery pressure likely 2/2 to obesity. - CPAP qhs Paroxysmal Afib - NSR on presentation - Continue to monitor - Continue home medications HTN - Labetolol PRN for SBP>180 - Continue home medications Seasonal allergies - Continue Claritin -Px flonase to help with nose clogged Code: full ppx: heparin Dispo: transition to warfarin, prepare for DC to inpatient rehab
[2018-04-25] MEDS: Amlodipine 5 MG TAB PO SCH (09:27)
[2018-04-25] MEDS: Pantoprazole 40 MG VIAL IVP SCH ×2 (09:27→21:16)
[2018-04-25] MEDS: Loratadine 10 MG TAB PO SCH (09:27)
[2018-04-25] MEDS: Magnesium Chloride 64 MG TAB PO SCH ×2 (09:28→22:17)
[2018-04-25] MEDS: PARoxetine 20 MG TAB PO SCH (09:28)
[2018-04-25] MEDS: Fluticasone Propionate Nasal Spray 16 gm Bottle NASAL SCH (09:29)
[2018-04-25] MEDS: Promethazine HCl 25 MG/ML VIAL IM PRN (10:07)
[2018-04-25] MEDS: Sucralfate 1 GM/10 ML UDCUP PO PRN ×2 (11:13→17:24)
--- NOTE | 2018-04-25 12:05 | PRG ---
DATE OF SERVICE: 04/25/2018 SUBJECTIVE: Ms. Almaraz is still having diarrhea and she stomach with about any oral intake she takes. OBJECTIVE: VITAL SIGNS: Temperature 98.1, pulse 63, blood pressure 112/62, and O2 saturation 94%. HEENT: Unremarkable. NECK: No adenopathy. No JVD. LUNGS: Fairly clear anteriorly. CARDIAC: S1 and S2. Regular. ABDOMEN: Soft, somewhat distended. Bowel sounds hypoactive. EXTREMITIES: Edematous. ASSESSMENT: 1. Persistent abdominal pain and diarrhea with documented Clostridium difficile positive. Not really improving with therapy. 2. Pleural fluid collection probably old hematoma. RECOMMENDATIONS: I would recommend having GI check her to make sure we are not missing anything here. She is continuing the heparin for the DVT. The pleural fluid collection will have to be monitored. Job ID: [id number]
--- NOTE | 2018-04-25 12:27 | PRG ---
DATE OF SERVICE: 04/25/2018 Ms. Almaraz continues to complain of postprandial epigastric discomfort and nausea despite, but should be adequate therapy for her peptic ulcer disease. Given her age and the fact that she is not responding to what should be appropriate management, we will consult with GI for an opinion. Job ID: [id number]
[2018-04-25] MEDS ORDERED: Sodium Chloride 0.9% (PF) 10 ML VIAL FS PRN (12:57)
[2018-04-25 14:19] LABS: Hemoglobin 10.2 g/dL (12.0-16.0); Platelet Count 307 thou/uL (130-400)
[2018-04-25 14:28] LABS: INR-International Normal Ratio 1.1; Prothrombin Time 13.8 SEC (12.0-14.7)
--- NOTE | 2018-04-25 14:39 | ULT ---
ULTRASOUND ABDOMEN LIMITED: (RIGHT UPPER QUADRANT) DATE: 08-26-17 HISTORY: 63-year-old female with intractable right upper quadrant abdominal pain. FINDINGS: Gallbladder: There is a conglomeration of numerous small gallstones, perhaps mixed with sludge, in th e lumen of the gallbladder body. Neck of the gallbladder is not visualized. Gallbladder wall thicknes s is normal. No pericholecystic fluid. Common duct: 3 mm Liver: Much of the parenchyma is poorly visualized. The visualized portions have echogenicity which i s within normal limits. Pancreas: Obscured by shadowing from bowel gas. Right kidney: Not visualized, due to body habitus. IMPRESSION: Positive for cholelithiasis. MANE Morris POS: SAMEER
[2018-04-25] MEDS: Ondansetron PF 4 MG/2 ML Vial IVP PRN ×2 (15:59→22:17)
[2018-04-25] MEDS: WARFARIN PO SCH (17:24)
[2018-04-25] MEDS: Warfarin Sodium 5 MG TAB PO SCH (17:24)
--- NOTE | 2018-04-25 17:56 | CON ---
DATE OF CONSULTATION: 04/25/2018 CHIEF COMPLAINT: Abdominal pain, nausea, and vomiting. HISTORY OF PRESENT ILLNESS: Ms. Almaraz is a 63-year-old woman, who underwent surgery on 04/25/2017 for perforated gastric ulcer and a repair of large hiatal hernia with half of her colon and almost all of her stomach above the diaphragm. She went to rehab after that. She has had some persistent nausea since then and; however, a couple of weeks ago, she had worsening left upper quadrant aching constant abdominal pain and nausea, vomiting, and she was brought to the emergency room a couple of times in [place] and finally here. She has had diarrhea and stool studies were obtained on 04/19/2018, which were positive for toxigenic C. diff. She has been treated with oral vancomycin; however, she has continued to have diarrhea to this point. Her primarily complaint currently is nausea and vomiting. She has had some dry heaves this afternoon. She has remained on IV proton pump inhibitor for the gastric ulcer. She has been on warfarin as well. INR today 1.1 and PTT 74 on heparin. PAST MEDICAL HISTORY: Peptic ulcer. She had endoscopy in 2016 that showed a duodenal ulcer. Gastric biopsies at that time were negative for H. pylori. She has had possible seizure disorder or TIA. Hypertension. PAST SURGICAL HISTORY: Endoscopy, recent omental patch for perforated gastric ulcer and hiatal hernia repair, and appendectomy. FAMILY HISTORY: Negative for GI malignancies. SOCIAL HISTORY: No alcohol, tobacco, or drugs. ALLERGIES: HER ALLERGY LIST IS EXTENSIVE AND INCLUDES LISINOPRIL, MORPHINE, AMOXICILLIN, BACITRACIN, CEFACLOR, CLINDAMYCIN, CODEINE, IODINE, LEVOFLOXACIN, METFORMIN, NEOMYCIN, POLYMYXIN B, PHENAZOPYRIDINE, RANEXA, VIOXX, SULFA, AND TRAMADOL. CURRENT INPATIENT MEDICATIONS: Include; 1. Amlodipine. 2. Diltiazem. 3. Gabapentin. 4. Heparin. 5. Loratadine. 6. Magnesium. 7. Pantoprazole 40 mg IV q.12 hours. 8. Paroxetine. 9. Sucralfate. 10. Vancomycin 125 mg p.o. q.6 hours. 11. Warfarin 5 mg at 1700 hours daily. REVIEW OF SYSTEMS: Negative x10 systems reviewed except as stated in the history of present illness. PHYSICAL EXAMINATION: VITAL SIGNS: Temperature 98.0, pulse 106, and blood pressure 135/88. GENERAL: She is in no acute distress. She is alert and oriented x3. HEENT: Eyes have no scleral icterus. Oropharynx is clear without lesions. NECK: No cervical or supraclavicular lymphadenopathy. LUNGS: Clear to auscultation bilaterally. HEART: Tachycardic. S1 and S2. ABDOMEN: Soft. She does not have any significant tenderness at this time. No guarding. Bowel sounds are present. EXTREMITIES: No lower extremity edema. LABORATORY DATA: White blood cell count 7.3, hemoglobin 10.2, and platelets 307. INR 1.1. Creatinine 0.92, bilirubin 0.3, AST 12, ALT 7, alkaline phosphatase 54, albumin 3.0, and lipase 58. IMPRESSION: 1. Persistent nausea and vomiting and left upper quadrant abdominal pain. She had repair of a perforated gastric ulcer by omental patch a month and a half ago. She has a history of duodenal ulcer in the past with biopsies negative for Helicobacter pylori. I will plan endoscopy tomorrow to evaluate for persistent ulcer. She has been on twice daily IV proton pump inhibitor. 2. Clostridium difficile colitis. She continues to have watery diarrhea. She is on oral vancomycin at appropriate dosing. Just tested positive on 04/19. 3. Status post repair of hiatal hernia. She did have fluid collection noted by CT scan in the posterior right chest that may be related to that surgery. 4. Cholelithiasis. This seems to be asymptomatic at this time. Her pain is in the left upper quadrant. No focal changes of acute cholecystitis by ultrasound. RECOMMENDATIONS: 1. Continue IV PPI. 2. Plan upper endoscopy tomorrow. 3. Continue symptomatic treatment with antiemetics. She is on ondansetron now and promethazine p.r.n. Job ID: [id number]
[2018-04-25] MEDS: Gabapentin 300 MG CAP PO SCH (22:16)
[2018-04-26] MEDS: Vancomycin HCl 25 MG/ML Oral PO SCH ×4 (00:10→16:56)
[2018-04-26] MEDS: Sucralfate 1 GM/10 ML UDCUP PO PRN (00:57)
[2018-04-26 05:35] LABS: INR-International Normal Ratio 1.2; Prothrombin Time 15.3 SEC (12.0-14.7)
--- NOTE | 2018-04-26 06:48 | PDOC.FM ---
- Subjective Subjective: Ms. Almaraz is resting comfortably in bed, she denies nausea or vomiting - Objective Vital Signs & Weight: Vital Signs (12 hours) Temp Pulse Resp BP Pulse Ox 04/26/18 04:00 98.6 F 82 18 100/67 92 L 04/26/18 01:33 106/69 04/26/18 00:00 98.5 F 92 18 95/61 94 L 04/25/18 21:00 14 04/25/18 20:00 95 04/25/18 18:50 98.5 F 100 16 145/92 H 95 Weight Admit Weight 136 kg Weight 129.002 kg I&O: 04/24/18 04/25/18 04/26/18 06:59 06:59 06:59 Intake Total 9908 477 3493.2 Output Total 750 350 Balance 6731 892 2874.2 Result Diagrams: 04/25/18 13:48 04/23/18 04:36 Phys Exam - Physical Examination Constitutional: NAD HEENT: moist MMs Neck: no JVD Gastrointestinal: soft Musculoskeletal: no edema Neurological: moves all 4 limbs Psychiatric: normal affect Skin: no rash Dx/Plan (1) Community acquired pneumonia Code(s): J18.9 - PNEUMONIA, UNSPECIFIED ORGANISM Status: Acute (2) Pickwickian syndrome Code(s): E66.2 - MORBID (SEVERE) OBESITY WITH ALVEOLAR HYPOVENTILATION Status : Acute (3) A-fib Code(s): I48.91 - UNSPECIFIED ATRIAL FIBRILLATION Status: Acute (4) HTN (hypertension) Code(s): I10 - ESSENTIAL (PRIMARY) HYPERTENSION Status: Acute Qualifiers: Hypertension type: essential hypertension Qualified Code(s): I10 - Essential (primary) hypertension (5) Obesities, morbid Code(s): E66.01 - MORBID (SEVERE) OBESITY DUE TO EXCESS CALORIES Status: Chronic - Plan Plan: CXR/CT abnormalities - Afebrile, no elevated WBC, CXR positive for patchy infiltrates/possible pleural effusion -CT abdomen Pelvis shows collection in left and R. lung bases. -Procalcitonin negative., no abx indicated at this time blood cultures-NGTD -Pt been on O2 since previous discharge. -Pulm consulted- Dr. Prather: no thoracentisis at this time -General Surgery- Dr. Hassan consulted due to findings on CT scan initially. no surgical intervention at this time Complex partial seizures - frequent episodes of uncontrolled eye movements, pt remains lucid - CT head neg, neuro consulted, appreciate recs - 500 mg keppra BID DVT Venogram shows DVT in R. popliteal vein -Started Heparin drip so we can reverse as fluid above is believed to be hematoma. - transition to warfarin Hx Recurrent UTI -Pt U/A shows UTI at this time, MDR VRE - N/V/ feeling poorly - Dr. Charlton consulted, recommends no treatment at this time, re culture pending C. Diff positive - PO vancomycin Diaphragmatic hernia, repaired gastroesophageal leak - s/p repair on 03/06, Dr. Hassan evaluated in ED -General Surgery- Dr. Hassan consulted- follow recs. CT abdomen shows no acute pathology related to recent surgery at this time. Plan as above. -Will px GI cocktail as needed to help with nausea. -Karafate prn. Gastric ulcers - symptoms despite IV protonix, noted on EGDs in past, possible persistent ulcer /malignancy - RUQ US neg, lipase wnl - GI consulted, appreciate recs - EGD today Pickwickian syndrome - Possible effusion w/ LE edema, -Pt had some LE edema. -BNP 91. Recent ECHO done back in 02/2018 showed normal EF and showed some elevated pulm artery pressure likely 2/2 to obesity. - CPAP qhs Paroxysmal Afib - NSR on presentation - Continue to monitor - Continue home medications HTN - Labetolol PRN for SBP>180 - Continue home medications Seasonal allergies - Continue Claritin -Px flonase to help with nose clogged Code: full ppx: heparin Dispo: transition to warfarin, denied for rehab. continue DC planning
[2018-04-26] MEDS: Pantoprazole 40 MG VIAL IVP SCH ×2 (08:23→21:23)
[2018-04-26] MEDS: Heparin 25,000 units/D5W 500 ML IVPB SCH ×2 (08:24→21:36)
--- NOTE | 2018-04-26 09:41 | PRG ---
DATE OF SERVICE: 04/26/2018 SUBJECTIVE: She is not having abdominal pain this morning, but admits that she did not eat because she is n.p.o. for endoscopy. OBJECTIVE: VITAL SIGNS: Temperature is 98.5, pulse 81, respirations 16, O2 saturation 93%, and blood pressure 92/56. HEENT: Unremarkable. NECK: No adenopathy or JVD. CHEST: Clear. CARDIAC: S1 and S2, regular. ABDOMEN: Soft. EXTREMITIES: No edema. ASSESSMENT: 1. Hematoma in the pleural space. 2. Clostridium difficile colitis. 3. Failure to thrive. PLAN: Await endoscopy results. Continue observation for hematoma. Job ID: [id number]
[2018-04-26] MEDS: Magnesium Chloride 64 MG TAB PO SCH ×2 (11:23→21:23)
[2018-04-26] MEDS: PARoxetine 20 MG TAB PO SCH (11:23)
[2018-04-26] MEDS: Fluticasone Propionate Nasal Spray 16 gm Bottle NASAL SCH (11:24)
[2018-04-26] MEDS: Loratadine 10 MG TAB PO SCH (11:24)
[2018-04-26] MEDS: WARFARIN PO SCH (11:25)
[2018-04-26] MEDS: Amlodipine 5 MG TAB PO SCH (11:27)
--- NOTE | 2018-04-26 15:00 | PRG ---
DATE OF SERVICE: 04/26/2018 Ms. Almaraz was seen in consultation by the GI service and we appreciate their input. This morning, she is being taken for repeat EGD given her symptoms of persistent nausea and vomiting and history of gastric ulcer. Job ID: [id number]
[2018-04-26] MEDS: Warfarin Sodium 7.5 MG TAB PO SCH (16:56)
--- NOTE | 2018-04-26 17:45 | PRG ---
DATE OF SERVICE: 04/26/2018 SUBJECTIVE: Ms. Almaraz has tolerated some solid foods today without vomiting. She still has some nausea and some soreness in the left upper abdomen. OBJECTIVE: VITAL SIGNS: Temperature 99.1, pulse 92, blood pressure 125/78. GENERAL: She is in no acute distress. She is awake and alert. LUNGS: Clear to auscultation bilaterally. HEART: Regular rate and rhythm. ABDOMEN: Soft, nontender, and nondistended. Bowel sounds are present. EXTREMITIES: No lower extremity edema. LABORATORY DATA: Hemoglobin is 10.2. Creatinine 0.92. IMPRESSION: 1. Persistent nausea and vomiting and left upper quadrant pain. She seems actually to be doing a bit better today and is tolerating some solid food. She has had a repair of perforated gastric ulcer by omental patch a month and a half ago and correction of hiatal hernia, containing most of the stomach and half of the transverse colon. Endoscopy was delayed today after she received a heparin bolus for her anticoagulation. We will reschedule for tomorrow and hold the heparin in the morning. 2. Clostridium difficile colitis. She has had watery diarrhea and is receiving oral vancomycin. RECOMMENDATIONS: 1. EGD tomorrow. 2. Continue vancomycin orally. 3. We will hold heparin drip in the morning. Job ID: [id number]
[2018-04-26] MEDS: Gabapentin 300 MG CAP PO SCH (21:21)
[2018-04-26] MEDS: Ondansetron PF 4 MG/2 ML Vial IVP PRN (21:24)
[2018-04-26] MEDS: Lidocaine 2% Viscous Solution 10 ML, Aluminum & Magnesium Hydroxide 30 ML SSW PRN (21:27)
[2018-04-26] MEDS: clonazePAM 0.5 MG TAB PO PRN (22:42)
[2018-04-27] MEDS: Vancomycin HCl 25 MG/ML Oral PO SCH ×5 (00:08→23:17)
[2018-04-27] MEDS: Zolpidem Tartrate 5 MG TAB PO PRN (00:08)
[2018-04-27 05:58] LABS: INR-International Normal Ratio 1.3; Prothrombin Time 16.6 SEC (12.0-14.7)
[2018-04-27] MEDS: Nystatin Powder 15 GM BOT TOP PRN (08:58)
[2018-04-27] MEDS: Fluticasone Propionate Nasal Spray 16 gm Bottle NASAL SCH (08:58)
--- NOTE | 2018-04-27 09:03 | PDOC.FM ---
- Objective Vital Signs & Weight: Vital Signs (12 hours) Temp Pulse Resp BP Pulse Ox 04/27/18 08:00 98.5 F 89 18 121/79 94 L 04/27/18 02:20 98 19 92 L Weight Admit Weight 136 kg Weight 120.202 kg I&O: 04/26/18 04/27/18 04/28/18 06:59 06:59 06:59 Intake Total 1682.2 2779.9 Balance 1682.2 2779.9 Result Diagrams: 04/25/18 13:48 04/23/18 04:36 Dx/Plan (1) Community acquired pneumonia Code(s): J18.9 - PNEUMONIA, UNSPECIFIED ORGANISM Status: Acute (2) Pickwickian syndrome Code(s): E66.2 - MORBID (SEVERE) OBESITY WITH ALVEOLAR HYPOVENTILATION Status : Acute (3) A-fib Code(s): I48.91 - UNSPECIFIED ATRIAL FIBRILLATION Status: Acute (4) HTN (hypertension) Code(s): I10 - ESSENTIAL (PRIMARY) HYPERTENSION Status: Acute Qualifiers: Hypertension type: essential hypertension Qualified Code(s): I10 - Essential (primary) hypertension (5) Obesities, morbid Code(s): E66.01 - MORBID (SEVERE) OBESITY DUE TO EXCESS CALORIES Status: Chronic - Plan Plan: CXR/CT abnormalities - Afebrile, no elevated WBC, CXR positive for patchy infiltrates/possible pleural effusion -CT abdomen Pelvis shows collection in left and R. lung bases. -Procalcitonin negative., no abx indicated at this time blood cultures-NGTD -Pt been on O2 since previous discharge. -Pulm consulted- Dr. Prather: no thoracentisis at this time -General Surgery- Dr. Hassan consulted due to findings on CT scan initially. no surgical intervention at this time Complex partial seizures - frequent episodes of uncontrolled eye movements, pt remains lucid - CT head neg, neuro consulted, appreciate recs - 500 mg keppra BID DVT Venogram shows DVT in R. popliteal vein -Started Heparin drip so we can reverse as fluid above is believed to be hematoma. 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 Charlton consulted, recommends no treatment at this time, re culture pending C. Diff positive - PO vancomycin Diaphragmatic hernia, repaired gastroesophageal leak - s/p repair on 03/06, Dr. Hassan evaluated in ED -General Surgery- Dr. Hassan consulted- follow recs. CT abdomen shows no acute pathology related to recent surgery at this time. Plan as above. -Will px GI cocktail as needed to help with nausea. -Karafate prn. Gastric ulcers - symptoms despite IV protonix, noted on EGDs in past, possible persistent ulcer /malignancy - RUQ US neg, lipase wnl - GI consulted, appreciate recs - EGD today Pickwickian syndrome - Possible effusion w/ LE edema, -Pt had some LE edema. -BNP 91. Recent ECHO done back in 02/2018 showed normal EF and showed some elevated pulm artery pressure likely 2/2 to obesity. - CPAP qhs Paroxysmal Afib - NSR on presentation - Continue to monitor - Continue home medications HTN - Labetolol PRN for SBP>180 - Continue home medications Seasonal allergies - Continue Claritin -Px flonase to help with nose clogged Code: full ppx: heparin Dispo: transition to warfarin, denied for rehab. continue DC planning
[2018-04-27] MEDS: Pantoprazole 40 MG VIAL IVP SCH ×2 (09:11→21:30)
--- NOTE | 2018-04-27 09:21 | PRG ---
DATE OF SERVICE: 04/27/2018 SUBJECTIVE: The patient is doing well. Says her abdominal pain is better. She is still scheduled for an EGD today. OBJECTIVE: VITAL SIGNS: On exam, temperature 98.5, pulse 89, respirations 18, O2 saturation 94%, and blood pressure 121/79. HEENT: Unremarkable. NECK: No JVD. LUNGS: Clear. CARDIAC: S1 and S2, regular. ABDOMEN: Nontender. ASSESSMENT: 1. Loculated hematoma from previous surgery. 2. Hiatal hernia. PLAN: EGD today. Continue to follow. Job ID: [id number]
[2018-04-27] MEDS: Magnesium Chloride 64 MG TAB PO SCH ×2 (11:38→21:28)
--- NOTE | 2018-04-27 11:56 | PRG ---
DATE OF SERVICE: 04/27/2018 Ms. Almaraz is resting quietly in bed. Her EGD was canceled yesterday because she was still on heparin. This will be undertaken this morning and we will await the recommendations of the GI Service. Clinically, she seems improved and is tolerating her diet better than the last several days. Job ID: [id number]
[2018-04-27] MEDS: WARFARIN PO SCH (15:14)
[2018-04-27] MEDS ORDERED: Lidocaine 1% PF 5 ML VIAL ONE (15:56)
[2018-04-27] MEDS ORDERED: PROPOFOL 200 MG/20 ML VIAL ONE (15:56)
[2018-04-27] MEDS ORDERED: Ondansetron PF 4 MG/2 ML Vial ONE (15:56)
[2018-04-27] MEDS ORDERED: Glycopyrrolate 0.2 MG/ML 5 ML SYRINGE ONE (15:56)
[2018-04-27] MEDS: Warfarin Sodium 7.5 MG TAB PO SCH (18:19)
[2018-04-27] MEDS: Amlodipine 5 MG TAB PO SCH (18:20)
[2018-04-27] MEDS: Loratadine 10 MG TAB PO SCH (18:21)
[2018-04-27] MEDS: PARoxetine 20 MG TAB PO SCH (18:21)
[2018-04-27] MEDS: Heparin 10,000 UNITS/ 10 ML VIAL SLOW IVP SCH (20:02)
[2018-04-27] MEDS: Gabapentin 300 MG CAP PO SCH (21:27)
[2018-04-27] MEDS: Sucralfate 1 GM/10 ML UDCUP PO PRN (21:54)
[2018-04-27] MEDS: clonazePAM 0.5 MG TAB PO PRN (21:54)
--- NOTE | 2018-04-27 23:29 | OP ---
DATE OF PROCEDURE: 04/27/2018 PREOPERATIVE DIAGNOSES: Left upper quadrant abdominal pain, nausea, vomiting, and gastric ulcer. DESCRIPTION OF PROCEDURE: Informed consent was obtained from the patient. She was sedated with total intravenous anesthesia. The bite block was placed and the endoscope was advanced easily to the second portion of the duodenum and retroflexion was performed in the stomach. The esophagus was normal. She had a 5 cm hiatal hernia present. This had retained fibrous vegetable food particles and some fluid within the hiatal hernia. This was suctioned as much as possible. The stomach below the diaphragm had no retention of food or liquid. There were two 6 mm ulcers adjacent to each other in the proximal antrum. Biopsies were obtained from the antrum and body to rule out H. pylori. The pylorus and first and second portions of the duodenum are unremarkable. IMPRESSION: 1. 5 cm hiatal hernia with retained fibrous food particles and fluid. 2. Two small 6 mm ulcers adjacent to each other in the proximal antrum and biopsies were obtained to rule out H. pylori. These appeared to be healing overall. 3. Otherwise normal esophagogastroduodenoscopy. RECOMMENDATIONS: 1. Low-fiber diet. 2. Proton pump inhibitor twice daily. Job ID: [id number]
[2018-04-28] MEDS: Zolpidem Tartrate 5 MG TAB PO PRN (00:47)
[2018-04-28] MEDS: Ondansetron PF 4 MG/2 ML Vial IVP PRN ×3 (00:47→19:34)
[2018-04-28] MEDS: Heparin 25,000 units/D5W 500 ML IVPB SCH ×2 (01:21→20:32)
[2018-04-28 02:37] LABS: PTT 171.6 SEC (22.9-36.1)
--- NOTE | 2018-04-28 05:55 | PDOC.FM ---
- Subjective Subjective: Pt reports improved abdominal pain. She states her breathing is better and that she wants a CPAP machine when she gets out. She also reports knee pain and wants injections when she is home. In regards to her urination, she states that it is difficult for her to initiate urination. She states that her right arm is bothering her. It is made worse when she moves it. - Objective MAR Reviewed: Yes Vital Signs & Weight: Vital Signs (12 hours) Temp Pulse Resp BP Pulse Ox 04/28/18 05:28 102 H 16 93 L 04/27/18 20:00 98.9 F 103 H 20 134/84 95 04/27/18 18:20 90 Weight Admit Weight 136 kg Weight 121.5 kg I&O: 04/26/18 04/27/18 04/28/18 06:59 06:59 06:59 Intake Total 1682.2 2779.9 1270 Balance 1682.2 2779.9 1270 Result Diagrams: 04/25/18 13:48 04/23/18 04:36 Phys Exam - Physical Examination Constitutional: NAD HEENT: moist MMs Neck: no JVD Bilateral crackles in bases, no respiratory distress Cardiovascular: RRR, no significant murmur Gastrointestinal: soft diffuse tenderness, worse on the left near the peg tube Musculoskeletal: pulses present, edema present (1+ pitting edema to the mid calf , tenderness to palpation of right deltoid) Neurological: non-focal, normal sensation, moves all 4 limbs Psychiatric: normal affect, A&O x 3 Skin: normal turgor, cap refill <2 seconds Dx/Plan (1) Pleural effusion Code(s): J90 - PLEURAL EFFUSION, NOT ELSEWHERE CLASSIFIED Status: Acute (2) Complex partial seizure Code(s): G40.209 - LOCAL-REL SYMPTC EPI W CMPLX PRT SEIZ,NOT NTRCT,W/O STAT EPI Status: Acute Qualifiers: Epilepsy type: partial symptomatic (3) Clostridium difficile colitis Status: Acute (4) Status post repair of paraesophageal diaphragmatic hernia Code(s): Z98.890 - OTHER SPECIFIED POSTPROCEDURAL STATES; Z87.19 - PERSONAL HISTORY OF OTHER DISEASES OF THE DIGESTIVE SYSTEM Status: Acute (5) DVT (deep venous thrombosis) Code(s): I82.409 - ACUTE EMBOLISM AND THOMBOS UNSP DEEP VN UNSP LOWER EXTREMITY Status: Acute (6) Pickwickian syndrome Code(s): E66.2 - MORBID (SEVERE) OBESITY WITH ALVEOLAR HYPOVENTILATION Status : Acute (7) A-fib Code(s): I48.91 - UNSPECIFIED ATRIAL FIBRILLATION Status: Acute (8) HTN (hypertension) Code(s): I10 - ESSENTIAL (PRIMARY) HYPERTENSION Status: Acute Qualifiers: Hypertension type: essential hypertension Qualified Code(s): I10 - Essential (primary) hypertension (9) History of chronic urinary tract infection Code(s): Z87.440 - PERSONAL HISTORY OF URINARY (TRACT) INFECTIONS Status: Acute - Plan Plan: This is a 63 yo female pmh of HTN, recurrent UTIs CXR/CT abnormalities -CT abdomen pelvis shows bilateral collection in lung bases -Procal negative, blood cultures negative, no clinical signs of infection -Pulm consulted-Dr. Prather: no thoracentisis at this time -General surgery-Dr. Hassan: no surgical interventions at this time Complex partial seizures -Episodes of uncontrolled eye movements -Neuro consulted, CT head negative, appreciate their recommendations -500mg keppra BID DVT -Venogram shows right DVT in popliteal vein -Heparin bridge to warfarin, pharmacy to dose warfarin Hx recurrent UTI -Ucx shows MDR VRE -Dr. Charlton consulted, repeat culture shows no growth at 48hr without abx intervention -Pt would likely benefit from outpt urology consult. C. Diff positive present on admission -Positive test on 04/19/18 -PO vancomycin Diaphragmatic hernia, repaired gastroesophgeal leak -s/p repair on 03/[address] Hassan, Dr. Hassan consulted as above -PRN GI cocktail and karafate Gastric ulcers -EGD on 04/27 shows 5cm hiatal hernia, two 6mm ulcers in proximal antrum -Biopsy taken for H. pylori, negative -Continue ppi BID Pickwickian syndrome -Possibly effusion w/ LE edema -BNP 91 -Echo in 02/2018 shows normal EF with increased pulmonary artery pressure likely 2/2 obesity vs AMI -CPAP qhs -Denies previous sleep study, will need outpt study Paroxysmal Afib -NSR on admission -Continue home meds HTN -Labetolol PRN for SBP>180 -Continue home medications Seasonal allergies -continue claritin and flonase Osteoarthritis -Pt will likely need outpt follow up, pt requesting injections
[2018-04-28 06:04] LABS: INR-International Normal Ratio 1.4; Prothrombin Time 17.5 SEC (12.0-14.7)
[2018-04-28] MEDS: Heparin 10,000 UNITS/ 10 ML VIAL SLOW IVP SCH ×2 (06:18→19:26)
[2018-04-28] MEDS: Vancomycin HCl 25 MG/ML Oral PO SCH ×4 (06:20→23:37)
[2018-04-28] MEDS: Amlodipine 5 MG TAB PO SCH (09:35)
[2018-04-28] MEDS: PARoxetine 20 MG TAB PO SCH (09:36)
[2018-04-28] MEDS: Pantoprazole 40 MG VIAL IVP SCH (09:36)
[2018-04-28] MEDS: Loratadine 10 MG TAB PO SCH (09:36)
[2018-04-28] MEDS: Magnesium Chloride 64 MG TAB PO SCH ×2 (09:37→20:28)
[2018-04-28] MEDS: Fluticasone Propionate Nasal Spray 16 gm Bottle NASAL SCH (09:37)
[2018-04-28] MEDS: Sucralfate 1 GM/10 ML UDCUP PO PRN ×2 (09:38→19:17)
--- NOTE | 2018-04-28 10:01 | PRG ---
DATE OF SERVICE: Ms. Almaraz is resting quietly in bed. She states her abdominal pain has improved and she only has very slight nausea. She states she gets good relief from the Carafate. She did undergo EGD yesterday with findings of a 5 cm hiatal hernia. She had two small 6 mm ulcers adjacent to each other in the proximal antrum and biopsies were obtained for H pylori and were negative for H pylori. The pain with this appear to be healing overall. We will continue with the PPI and Carafate. We really appreciate the input from Dr. Jamison and the GI service. Job ID: [id number]
[2018-04-28] MEDS: Mag-Al Plus 1200 MG/1200 MG/120 MG/30 ML UDCUP PO PRN ×3 (11:35→23:37)
[2018-04-28] MEDS: Lorazepam 0.5 MG TAB PO PRN ×2 (11:43→19:23)
--- NOTE | 2018-04-28 12:26 | PRG ---
DATE OF SERVICE: 04/28/2018 SUBJECTIVE: Danna Almaraz is doing well this morning. She says less short of breath. She is still using the noninvasive ventilation at nighttime. She probably has sleep apnea. She was found to have a loculated hematoma from previous surgery. OBJECTIVE: VITAL SIGNS: Temperature 99, pulse 100, respiratory rate 20, saturations are 96%, blood pressure 122/80. CHEST: Decreased breath sounds. No wheezing. CARDIAC: Normal S1 and S2. No gallops. ABDOMEN: No masses. IMPRESSION: Respiratory failure, chronic obstructive pulmonary disease, probably sleep apnea. PLAN: Continue nocturnal ventilation, PT, and supportive care. Job ID: [id number]
[2018-04-28] MEDS ORDERED: WARFARIN PO PRN (14:45)
[2018-04-28] MEDS: WARFARIN PO SCH (14:46)
--- NOTE | 2018-04-28 14:49 | PRG ---
DATE OF SERVICE: 04/28/2018 SUBJECTIVE: Ms. Almaraz tolerated solid diet yesterday evening and this morning, however, later this morning she had nausea and bloating after breakfast. OBJECTIVE: VITAL SIGNS: Temperature 99.1, pulse 100, blood pressure 122/80. GENERAL: She is in no acute distress. Alert and oriented x3. LUNGS: Clear to auscultation bilaterally. HEART: Regular rate and rhythm without murmur. ABDOMEN: Soft. Mild tenderness in the epigastric region without guarding. Bowel sounds are present. EXTREMITIES: No lower extremity edema. IMPRESSION: 1. Persistent nausea with retained food in the hiatal hernia above the diaphragm. She has been started on a low fiber diet for this reason. Upper endoscopy yesterday did show two small ulcers in the antrum that appeared to be healing. RECOMMENDATIONS: 1. Await histopathology to evaluate for Helicobacter pylori. 2. Low-fiber diet. 3. Continue proton-pump inhibitor. 4. She remains on vancomycin for Clostridium difficile colitis. 5. Cholelithiasis. Between the recent surgery and hiatal hernia and peptic ulcer and Clostridium difficile, I believe her symptoms have adequate explanation otherwise and I doubt the cholelithiasis is her primary problem. We will just follow this clinically. Job ID: [id number]
[2018-04-28 15:13] LABS: PTT 179.7 SEC (22.9-36.1)
[2018-04-28] MEDS ORDERED: Warfarin Sodium 5 MG TAB PO SCH ×2 (17:00→17:45)
--- NOTE | 2018-04-28 18:44 | EKG ---
Test Reason : Blood Pressure : / mmHG Vent. Rate : 101 BPM Atrial Rate : 101 BPM P-R Int : 134 ms QRS Dur : 078 ms QT Int : 352 ms P-R-T Axes : 016 -03 009 degrees QTc Int : 456 ms Sinus tachycardia Otherwise normal ECG Confirmed by GINNY SMITH ([id number]), general expeditor ISMAEL JACOB ([id number] on 04/28/2018 6:43:51 PM Referred By: Confirmed By:GINNY SMITH
[2018-04-28] MEDS: Acetaminophen 325 MG TAB PO PRN (20:26)
[2018-04-28] MEDS: Lidocaine 2% Viscous Solution 10 ML, Aluminum & Magnesium Hydroxide 30 ML SSW PRN (20:27)
[2018-04-28] MEDS: Gabapentin 300 MG CAP PO SCH (20:29)
[2018-04-28] MEDS: Calcium Carbonate 500 MG ChewTAB PO PRN (21:45)
[2018-04-28] MEDS: clonazePAM 0.5 MG TAB PO PRN (21:46)
[2018-04-28] MEDS: Promethazine HCl 25 MG/ML VIAL IM PRN (21:54)
[2018-04-29] MEDS: traMADol HCl 50 MG TAB PO PRN (01:10)
[2018-04-29] MEDS: Ondansetron PF 4 MG/2 ML Vial IVP PRN ×2 (01:11→09:17)
[2018-04-29] MEDS: Zolpidem Tartrate 5 MG TAB PO PRN ×2 (01:11→23:13)
[2018-04-29] MEDS: Sucralfate 1 GM/10 ML UDCUP PO PRN ×3 (01:12→23:04)
[2018-04-29 02:13] LABS: PTT 205.5 SEC (22.9-36.1)
[2018-04-29] MEDS: Lorazepam 0.5 MG TAB PO PRN ×2 (03:12→11:48)
[2018-04-29] MEDS: Lidocaine 2% Viscous Solution 10 ML, Aluminum & Magnesium Hydroxide 30 ML SSW PRN (03:14)
[2018-04-29 05:07] LABS: INR-International Normal Ratio 1.6; Prothrombin Time 18.9 SEC (12.0-14.7)
--- NOTE | 2018-04-29 05:46 | PDOC.FM ---
- Subjective Subjective: Pt reports worsening nausea with 1 episode of vomiting overnight. She also states that she has abdominal pain today. She reports three nonbloody bowel movements overnight. - Objective MAR Reviewed: Yes Vital Signs & Weight: Vital Signs (12 hours) Temp Pulse Resp BP Pulse Ox 04/29/18 03:39 98.4 F 103 H 20 142/90 H 93 L 04/29/18 01:33 109 H 22 H 94 L 04/29/18 00:04 98.6 F 116 H 24 H 169/84 H 94 L 04/28/18 23:54 107 H 04/28/18 19:30 98.6 F 107 H 24 H 130/74 94 L 04/28/18 19:14 97.9 F 103 H 18 115/72 94 L 04/28/18 19:13 93 L 04/28/18 19:00 98.8 F 109 H 26 H 121/73 93 L Weight Admit Weight 136 kg Weight 126 kg I&O: 04/27/18 04/28/18 04/29/18 06:59 06:59 06:59 Intake Total 2779.9 1270 1280 Balance 2779.9 1270 1280 Result Diagrams: 04/25/18 13:48 04/23/18 04:36 Phys Exam - Physical Examination Mild distress HEENT: moist MMs Neck: no JVD Respiratory: no wheezing mild crackles in bases bilaterally, nonlabored breathing Cardiovascular: RRR, no significant murmur Gastrointestinal: soft diffusely tender abdomen, no rebound Musculoskeletal: pulses present, edema present (1+ to mid calf) Neurological: normal sensation, moves all 4 limbs Psychiatric: normal affect, A&O x 3 Skin: cap refill <2 seconds Dx/Plan (1) Pleural effusion Code(s): J90 - PLEURAL EFFUSION, NOT ELSEWHERE CLASSIFIED Status: Acute (2) Complex partial seizure Code(s): G40.209 - LOCAL-REL SYMPTC EPI W CMPLX PRT SEIZ,NOT NTRCT,W/O STAT EPI Status: Acute Qualifiers: Epilepsy type: partial symptomatic (3) Clostridium difficile colitis Status: Acute (4) Status post repair of paraesophageal diaphragmatic hernia Code(s): Z98.890 - OTHER SPECIFIED POSTPROCEDURAL STATES; Z87.19 - PERSONAL HISTORY OF OTHER DISEASES OF THE DIGESTIVE SYSTEM Status: Acute (5) DVT (deep venous thrombosis) Code(s): I82.409 - ACUTE EMBOLISM AND THOMBOS UNSP DEEP VN UNSP LOWER EXTREMITY Status: Acute (6) Pickwickian syndrome Code(s): E66.2 - MORBID (SEVERE) OBESITY WITH ALVEOLAR HYPOVENTILATION Status : Acute (7) A-fib Code(s): I48.91 - UNSPECIFIED ATRIAL FIBRILLATION Status: Acute (8) HTN (hypertension) Code(s): I10 - ESSENTIAL (PRIMARY) HYPERTENSION Status: Acute Qualifiers: Hypertension type: essential hypertension Qualified Code(s): I10 - Essential (primary) hypertension (9) History of chronic urinary tract infection Code(s): Z87.440 - PERSONAL HISTORY OF URINARY (TRACT) INFECTIONS Status: Acute - Plan Plan: This is a 63 yo female pmh of HTN, recurrent UTIs CXR/CT abnormalities -CT abdomen pelvis shows bilateral collection in lung bases -Procal negative, blood cultures negative, no clinical signs of infection -Pulm consulted-Dr. Prather: no thoracentisis at this time -General surgery-Dr. Hassan: no surgical interventions at this time Complex partial seizures -Episodes of uncontrolled eye movements -Neuro consulted, CT head negative, appreciate their recommendations -500mg keppra BID DVT -Venogram shows right DVT in popliteal vein -Heparin bridge to warfarin, pharmacy to dose warfarin -INR currently 1.6 and rising Hx recurrent UTI -Ucx shows MDR VRE -Dr. Charlton consulted, repeat culture shows no growth at 48hr without abx intervention -Pt would likely benefit from outpt urology consult. C. Diff positive present on admission -Positive test on 04/19/18 -PO vancomycin Diaphragmatic hernia, repaired gastroesophgeal leak -s/p repair on 03/[address] Hassan, Dr. Hassan consulted as above -PRN GI cocktail and karafate Gastric ulcers -EGD on 04/27 shows 5cm hiatal hernia, two 6mm ulcers in proximal antrum -Biopsy taken for H. pylori, negative -Continue ppi BID Pickwickian syndrome -Possibly effusion w/ LE edema -BNP 91 -Echo in 02/2018 shows normal EF with increased pulmonary artery pressure likely 2/2 obesity vs AMI -CPAP qhs -Denies previous sleep study, will need outpt study Paroxysmal Afib -NSR on admission -Continue home meds HTN -Labetolol PRN for SBP>180 -Continue home medications Seasonal allergies -continue claritin and flonase Osteoarthritis -Pt will likely need outpt follow up, pt requesting injections
[2018-04-29] MEDS: Mag-Al Plus 1200 MG/1200 MG/120 MG/30 ML UDCUP PO PRN ×2 (05:55→20:19)
[2018-04-29] MEDS: Vancomycin HCl 25 MG/ML Oral PO SCH ×4 (05:55→23:04)
[2018-04-29] MEDS: Promethazine HCl 25 MG/ML VIAL IM PRN ×2 (07:31→11:48)
[2018-04-29] MEDS: PARoxetine 20 MG TAB PO SCH ×2 (09:00→16:27)
[2018-04-29] MEDS: Magnesium Chloride 64 MG TAB PO SCH ×3 (09:00→20:20)
--- NOTE | 2018-04-29 09:20 | RAD ---
SINGLE VIEW OF THE CHEST: COMPARISON: 04/18/2018. HISTORY: Nausea. History of large hiatal hernia status post repair. FINDINGS: A single view of the chest shows an enlarged cardiomediastinal silhouette. Opacity is seen overlying the right hemidiaphragm which may represent atelectasis or an infiltrate. There is elevation of the right hemidiaphragm. No left-sided pleural effusion or atelectasis is seen. IMPRESSION: Right pleural effusion with adjacent atelectasis versus infiltrate. POS: SAMEER
[2018-04-29] MEDS: Nystatin Powder 15 GM BOT TOP PRN (09:23)
[2018-04-29] MEDS: Fluticasone Propionate Nasal Spray 16 gm Bottle NASAL SCH (09:23)
[2018-04-29 10:07] LABS: #Lymphocytes 1.2 thou/uL (1.20-3.40); #Monocytes 0.4 thou/uL (0.11-0.59); #Neutrophils 4.2 thou/uL (1.40-6.50); %Basophils 0.2 % (0.0-1.0); %Eosinophils 0.5 % (0.0-10.0); %Lymphocytes 19.7 % (21.0-51.0); %Monocytes 7.6 % (0.0-10.0); %Neutrophils 72.1 % (42.0-75.0); Hemoglobin 9.9 g/dL (12.0-16.0); Mean Corpuscular HGB CONC 31.9 g/dL (32.0-36.0); Mean Corpuscular Hemoglobin 26.4 pg (27.0-31.0); Mean Corpuscular Volume 82.7 fL (78.0-98.0); Mean Platelet Volume 8.6 fL (7.4-10.4); Platelet Count 248 thou/uL (130-400); RBC Distribution Width 16.4 % (11.5-14.5); Red Blood Cell (RBC) Count 3.75 mill/uL (4.20-5.40); White Blood Cell (WBC) Count 5.8 thou/uL (4.8-10.8)
[2018-04-29 10:25] LABS: Anion Gap 14 mmol/L (10-20); BUN (Urea Nitrogen) 9 mg/dL (9.8-20.1); Calc. Creatinine Clearance 135 mL/min (70-130); Carbon Dioxide 27 mmol/L (23-31); Chloride 102 mmol/L (98-107); Estimated GFR-MDRD 66; Glucose 121 mg/dL (80-115); Potassium 3.8 mmol/L (3.5-5.1); Sodium 139 mmol/L (136-145)
--- NOTE | 2018-04-29 10:28 | PRG ---
DATE OF SERVICE: 04/29/2018 SUBJECTIVE: Ms. Almaraz has significant nausea this morning. She has not been taking any solid foods. OBJECTIVE: VITAL SIGNS: Temperature 98.9, pulse 106, blood pressure 161/102 to 142/90. GENERAL: She appears uncomfortable from her nausea. LUNGS: Clear to auscultation bilaterally. HEART: Regular rate and rhythm to tachycardic, S1, S2. ABDOMEN: Soft. Mild tenderness in the upper epigastric region without guarding. Bowel sounds are present. EXTREMITIES: No lower extremity edema. IMPRESSION: Persistent nausea. Endoscopy showed retained fibrous food contents and the hiatal hernia. She has not tolerated a low-fiber diet at this point. I will switch her back to a full liquid diet. Continue antiemetics. RECOMMENDATIONS: 1. Check labs today. These are pending. 2. Give a trial of metoclopramide. 3. Continue pantoprazole. 4. Switch back to a full liquid diet. Job ID: [id number]
[2018-04-29 10:31] LABS: Troponin I Less than 0.010 ng/mL (< 0.028)
[2018-04-29] MEDS: Amlodipine 5 MG TAB PO SCH ×2 (10:36→16:28)
[2018-04-29] MEDS: Loratadine 10 MG TAB PO SCH ×2 (10:37→11:40)
--- NOTE | 2018-04-29 11:22 | PRG ---
DATE OF SERVICE: 04/29/2018 Ms. Almaraz unfortunately developed some more nausea this morning. She has had no abdominal pain or vomiting. Just for completeness sake, I want to check a troponin and EKG to be certain that we are not dealing with some type of strange angina equivalent with her persistent nausea despite more than adequate treatment for her peptic ulcer disease and a recently mostly benign EGD. Job ID: [id number]
[2018-04-29] MEDS: Metoclopramide HCl 10 MG/2 ML VIAL IVP SCH ×3 (11:35→23:04)
--- NOTE | 2018-04-29 11:35 | PRG ---
DATE OF SERVICE: 04/29/2018 SUBJECTIVE: Danna Almaraz this morning remains nauseated. OBJECTIVE: VITAL SIGNS: Temperature 98, pulse 106, blood pressure 147/94, sats 94 on 2 L. She is unable to wear the BiPAP last night. CHEST: Decreased breath sounds. No wheezing. CARDIAC: Normal S1 and S2. No gallop. ABDOMEN: No masses. LABORATORY DATA: Lytes are normal. PTT is 41. IMAGING STUDIES: She had an x-ray taken this morning, which shows cardiomegaly and right-sided infiltrate versus atelectasis or maybe just a large hiatal hernia. IMPRESSION: Persistent nausea and vomiting. She was started on Reglan for the nausea. Large hiatal hernia accounting probably on the x-ray. Morbid obesity, severe deconditioning, sleep apnea. PLAN: Continue present treatment. We will follow. Job ID: [id number]
[2018-04-29] MEDS: Heparin 25,000 units/D5W 500 ML IVPB SCH (12:48)
[2018-04-29] MEDS: Warfarin Sodium 5 MG TAB PO SCH (16:25)
[2018-04-29] MEDS: Gabapentin 300 MG CAP PO SCH (20:21)
[2018-04-29] MEDS: clonazePAM 0.5 MG TAB PO PRN (23:04)
[2018-04-30 01:04] LABS: PTT 232.6 SEC (22.9-36.1)
[2018-04-30 03:38] LABS: INR-International Normal Ratio 2.3; Prothrombin Time 25.3 SEC (12.0-14.7)
[2018-04-30] MEDS: Heparin 25,000 units/D5W 500 ML IVPB SCH (03:54)
[2018-04-30] MEDS: Vancomycin HCl 25 MG/ML Oral PO SCH ×2 (05:02→11:38)
[2018-04-30] MEDS: Metoclopramide HCl 10 MG/2 ML VIAL IVP SCH ×3 (05:03→17:48)
[2018-04-30] MEDS: Sucralfate 1 GM/10 ML UDCUP PO PRN ×3 (05:03→20:04)
--- NOTE | 2018-04-30 06:15 | PDOC.FM ---
- Subjective Subjective: Pt complains of some periumbilical to left sided abdominal pain this AM. States she had 8 loose bowel movements yesterday. - Objective Vital Signs & Weight: Vital Signs (12 hours) Temp Pulse Resp BP Pulse Ox 04/30/18 05:19 98.7 F 91 20 107/73 95 04/30/18 03:32 93 L 04/30/18 00:39 98.8 F 106 H 20 143/89 H 93 L 04/29/18 20:00 98.7 F 109 H 20 148/83 H 94 L Weight Admit Weight 136 kg Weight 126 kg I&O: 04/28/18 04/29/18 04/30/18 06:59 06:59 06:59 Intake Total 1270 2114 1385 Balance 1270 2114 1385 Result Diagrams: 04/29/18 09:06 04/29/18 09:06 Phys Exam - Physical Examination Constitutional: NAD HEENT: moist MMs Neck: no nodes, supple Respiratory: no wheezing, clear to auscultation bilateral Cardiovascular: RRR, no significant murmur Gastrointestinal: soft, positive bowel sounds slightly tender to palpation, no rebound or guarding 1+ pitting edema in BLE Neurological: moves all 4 limbs Psychiatric: normal affect Skin: normal turgor, cap refill <2 seconds Dx/Plan (1) Clostridium difficile colitis Status: Acute (2) Complex partial seizure Code(s): G40.209 - LOCAL-REL SYMPTC EPI W CMPLX PRT SEIZ,NOT NTRCT,W/O STAT EPI Status: Chronic Qualifiers: Epilepsy type: partial symptomatic (3) DVT (deep venous thrombosis) Code(s): I82.409 - ACUTE EMBOLISM AND THOMBOS UNSP DEEP VN UNSP LOWER EXTREMITY Status: Acute (4) Pickwickian syndrome Code(s): E66.2 - MORBID (SEVERE) OBESITY WITH ALVEOLAR HYPOVENTILATION Status : Chronic (5) Pleural effusion Code(s): J90 - PLEURAL EFFUSION, NOT ELSEWHERE CLASSIFIED Status: Acute (6) Status post repair of paraesophageal diaphragmatic hernia Code(s): Z98.890 - OTHER SPECIFIED POSTPROCEDURAL STATES; Z87.19 - PERSONAL HISTORY OF OTHER DISEASES OF THE DIGESTIVE SYSTEM Status: Chronic (7) A-fib Code(s): I48.91 - UNSPECIFIED ATRIAL FIBRILLATION Status: Chronic (8) HTN (hypertension) Code(s): I10 - ESSENTIAL (PRIMARY) HYPERTENSION Status: Chronic Qualifiers: Hypertension type: essential hypertension Qualified Code(s): I10 - Essential (primary) hypertension (9) History of chronic urinary tract infection Code(s): Z87.440 - PERSONAL HISTORY OF URINARY (TRACT) INFECTIONS Status: Chronic - Plan Plan: This is a 63 yo female pmh of HTN, recurrent UTIs Left sided fluid collection -CT abdomen pelvis showed bilateral collection in lung bases -Procal had been negative, blood cultures negative, no clinical signs of infection -Pulm was consulted-Dr. Prather: had decided no thoracentesis -CXR 04/29/18 - worsened Rt sided pleural effusion vs atelectasis -Procal .06 this AM -Will discuss with Dr. Prather today, recommendations appreciated -General surgery-Dr. Hassan: no surgical interventions at this time Complex partial seizures -Episodes of uncontrolled eye movements -Neuro consulted, CT head negative, appreciate their recommendations -500mg keppra BID DVT -Venogram shows right DVT in popliteal vein -Heparin bridge to warfarin complete -INR currently therapeutic 2.3, d/c heparin today -patient will need to follow up outpatient for warfarin management Hx recurrent UTI -Ucx shows MDR VRE -Dr. Charlton consulted, repeat culture shows no growth at 48hr without abx intervention -Pt would likely benefit from outpt urology consult. C. Diff positive present on admission -Positive test on 04/19/18 -PO vancomycin -D/c today if stools normal today, per nursing she had 2 BM yesterday, patient is poor historian but reports 8 BM Diaphragmatic hernia, repaired gastroesophageal leak -s/p repair on 03/[address] Hassan, Dr. Hassan consulted as above -PRN GI cocktail and karafate Gastric ulcers -EGD on 04/27 shows 5cm hiatal hernia, two 6mm ulcers in proximal antrum -Biopsy taken for H. pylori, negative -Continue ppi BID Pickwickian syndrome -Possibly effusion w/ LE edema -BNP 91 -Echo in 02/2018 shows normal EF with increased pulmonary artery pressure likely 2/2 obesity vs AMI -CPAP qhs -Denies previous sleep study, will need outpt study Paroxysmal Afib -NSR on admission -Continue home meds HTN -Labetolol PRN for SBP>180 -Continue home medications Seasonal allergies -continue claritin and flonase Osteoarthritis -Pt will likely need outpt follow up, pt requesting injections Dispo: possibly discharge today, pending respiratory status Addendum - Attending - Attending Attestation Date/Time: 04/30/18 4405 I personally evaluated the patient and discussed the management with Dr. Keyes I agree with the History, Examination, Assessment and Plan documented above with any addition or exceptions noted below. Patient nearing completion hospital benefit discharge planning liquid diet at this time. Patient has completed 10 day course oral vancomycin. Patient desire home with .
--- NOTE | 2018-04-30 08:57 | PRG ---
DATE OF SERVICE: 04/30/2018 SUBJECTIVE: She is continuing to complain of some diarrhea and some mild abdominal pain. OBJECTIVE: VITAL SIGNS: Temperature 98.0, pulse 100, respirations 20, O2 saturation 94%, blood pressure 110/73. HEENT: Unremarkable. NECK: No JVD. LUNGS: Slightly diminished breath sounds on right compared to left. CARDIAC: S1, S2. Regular. ABDOMEN: Soft. EXTREMITIES: Generalized edema. LABORATORY DATA: No labs were obtained today. ASSESSMENT: Stable pulmonary status. She has a hematoma in the most inferior portion of the right hemothorax, which is thought secondary to previous surgery. She also has a large hiatal hernia. PLAN: Watchful waiting on that at this point. Main issues are gastrointestinal related to her hiatal hernia, antral ulcers, and C difficile colitis. Job ID: [id number]
[2018-04-30] MEDS: Amlodipine 5 MG TAB PO SCH (10:08)
[2018-04-30] MEDS: Fluticasone Propionate Nasal Spray 16 gm Bottle NASAL SCH (10:08)
[2018-04-30] MEDS: Loratadine 10 MG TAB PO SCH (10:08)
[2018-04-30] MEDS: PARoxetine 20 MG TAB PO SCH (10:08)
[2018-04-30] MEDS: Magnesium Chloride 64 MG TAB PO SCH ×2 (10:09→20:08)
--- NOTE | 2018-04-30 12:52 | PRG ---
DATE OF SERVICE: 04/30/2018 SUBJECTIVE: Ms. Almaraz continues to have ongoing chronic nausea. She reports 7 liquidy stools yesterday. OBJECTIVE: VITAL SIGNS: Temperature is 98.0, pulse 100, blood pressure 110/73. GENERAL: She is in no acute distress. Awake and alert. LUNGS: Clear to auscultation bilaterally. HEART: Regular rate and rhythm. ABDOMEN: Soft, nontender, nondistended. Bowel sounds are present. EXTREMITIES: No lower extremity edema. LABORATORY DATA: White blood cell count 3.4, hemoglobin 8.7, platelets 57. Creatinine 2.83. IMPRESSION: 1. Chronic nausea. Appears to be associated with hiatal hernia with retention of fibrous food above the diaphragm. She has been placed on a full liquid diet. Started Reglan yesterday without much help as of yet. 2. Clostridium difficile colitis. She started vancomycin on 04/18. I would complete a 14-day course of this vancomycin at this point. She continues to have diarrhea. RECOMMENDATIONS: 1. Full liquid diet. 2. We will allow a little more times to see how she responds to the Reglan. 3. Continue antiemetics. 4. PPI. Job ID: [id number]
[2018-04-30] MEDS: Ondansetron PF 4 MG/2 ML Vial IVP PRN ×2 (13:00→20:04)
[2018-04-30] MEDS: Lorazepam 0.5 MG TAB PO PRN (13:11)
[2018-04-30] MEDS: Mag-Al Plus 1200 MG/1200 MG/120 MG/30 ML UDCUP PO PRN (16:07)
[2018-04-30] MEDS ORDERED: Lidocaine 2% Viscous Solution 10 ML, Aluminum & Magnesium Hydroxide 30 ML SSW SCH (16:30)
[2018-04-30] MEDS: Warfarin Sodium 5 MG TAB PO SCH (17:46)
[2018-04-30] MEDS: Floranex Packet PO SCH (18:16)
[2018-04-30] MEDS: Gabapentin 300 MG CAP PO SCH (20:08)
[2018-05-01] MEDS: Metoclopramide HCl 10 MG/2 ML VIAL IVP SCH ×4 (00:09→17:25)
[2018-05-01] MEDS: Mag-Al Plus 1200 MG/1200 MG/120 MG/30 ML UDCUP PO PRN ×2 (00:37→15:20)
[2018-05-01] MEDS: clonazePAM 0.5 MG TAB PO PRN (00:38)
[2018-05-01] MEDS: Zolpidem Tartrate 5 MG TAB PO PRN (00:38)
[2018-05-01 05:48] LABS: INR-International Normal Ratio 2.7; Prothrombin Time 28.8 SEC (12.0-14.7)
--- NOTE | 2018-05-01 06:41 | PDOC.FM ---
- Subjective Subjective: Patient complains of difficulty urinating and mild abdominal pain this morning. Reports continued nausea, states she ate a little yesterday. - Objective Vital Signs & Weight: Vital Signs (12 hours) Temp Pulse Resp BP Pulse Ox 04/30/18 20:00 98.5 F 107 H 18 116/81 95 Weight Admit Weight 136 kg Weight 126 kg I&O: 04/29/18 04/30/18 05/01/18 06:59 06:59 06:59 Intake Total 2114 1385 350 Balance 2114 1385 350 Result Diagrams: 04/29/18 09:06 04/29/18 09:06 Phys Exam - Physical Examination Constitutional: NAD HEENT: moist MMs Neck: no nodes, supple Respiratory: no wheezing, clear to auscultation bilateral Cardiovascular: RRR, no significant murmur Gastrointestinal: soft, no distention, positive bowel sounds No rebound or guarding 1+ pitting edema bilat Psychiatric: normal affect Dx/Plan (1) Clostridium difficile colitis Status: Acute (2) Complex partial seizure Code(s): G40.209 - LOCAL-REL SYMPTC EPI W CMPLX PRT SEIZ,NOT NTRCT,W/O STAT EPI Status: Chronic Qualifiers: Epilepsy type: partial symptomatic (3) DVT (deep venous thrombosis) Code(s): I82.409 - ACUTE EMBOLISM AND THOMBOS UNSP DEEP VN UNSP LOWER EXTREMITY Status: Acute (4) Pickwickian syndrome Code(s): E66.2 - MORBID (SEVERE) OBESITY WITH ALVEOLAR HYPOVENTILATION Status : Chronic (5) Pleural effusion Code(s): J90 - PLEURAL EFFUSION, NOT ELSEWHERE CLASSIFIED Status: Acute (6) Status post repair of paraesophageal diaphragmatic hernia Code(s): Z98.890 - OTHER SPECIFIED POSTPROCEDURAL STATES; Z87.19 - PERSONAL HISTORY OF OTHER DISEASES OF THE DIGESTIVE SYSTEM Status: Chronic (7) A-fib Code(s): I48.91 - UNSPECIFIED ATRIAL FIBRILLATION Status: Chronic (8) HTN (hypertension) Code(s): I10 - ESSENTIAL (PRIMARY) HYPERTENSION Status: Chronic Qualifiers: Hypertension type: essential hypertension Qualified Code(s): I10 - Essential (primary) hypertension (9) History of chronic urinary tract infection Code(s): Z87.440 - PERSONAL HISTORY OF URINARY (TRACT) INFECTIONS Status: Chronic - Plan Plan: This is a 63 yo female pmh of HTN, recurrent UTIs Left sided fluid collection -CT abdomen pelvis showed bilateral collection in lung bases -Procal had been negative, blood cultures negative, no clinical signs of infection -Pulm was consulted-Dr. Prather: had decided no thoracentesis -General surgery-Dr. Hassan: no surgical interventions at this time Rt sided pleural effusion vs atelectasis -CXR 04/29/18 - worsened Rt sided pleural effusion vs atelectasis -Procal .06 -Incentive spirometry at bedside Complex partial seizures -Episodes of uncontrolled eye movements -Neuro consulted, CT head negative, appreciate their recommendations -500mg keppra BID DVT -Venogram shows right DVT in popliteal vein -INR currently therapeutic 2.7 -patient will need to follow up outpatient for warfarin management Hx recurrent UTI -Ucx shows MDR VRE -Dr. Charlton consulted, repeat culture shows no growth at 48hr without abx intervention -Pt would likely benefit from outpt urology consult. C. Diff positive present on admission -Positive test on 04/19/18 -PO vancomycin -Per GI, continue vancomycin to complete 14 day regimen Diaphragmatic hernia, repaired gastroesophageal leak -s/p repair on 03/[address] Hassan, Dr. Hassan consulted as above -PRN GI cocktail and karafate Gastric ulcers -EGD on 04/27 shows 5cm hiatal hernia, two 6mm ulcers in proximal antrum -Biopsy taken for H. pylori, negative -Continue ppi BID -sucralfate -Patient complains of nausea, reglan started per GI -Will discuss with GI today Pickwickian syndrome -Possibly effusion w/ LE edema -BNP 91 -Echo in 02/2018 shows normal EF with increased pulmonary artery pressure likely 2/2 obesity vs AMI -CPAP qhs -Denies previous sleep study, will need outpt study Paroxysmal Afib -NSR on admission -Continue home meds HTN -Labetolol PRN for SBP>180 -Continue home medications Seasonal allergies -continue claritin and flonase Osteoarthritis -Pt will likely need outpt follow up, pt requesting injections Dispo: possibly discharge within next few days to home, pending GI recommendations Addendum - Attending - Attending Attestation Date/Time: 05/01/181911 I personally evaluated the patient and discussed the management with Dr. Keyes I agree with the History, Examination, Assessment and Plan documented above with any addition or exceptions noted below. Patient to continue Po vancomycin 2 additional days. GI started metoclopramide to optimize Rx for nausea prior to dismissal. Candid discussion with patient regard need to lose weight for optimal [facility] benefit.
[2018-05-01] MEDS: Magnesium Chloride 64 MG TAB PO SCH ×2 (09:01→20:12)
[2018-05-01] MEDS: Amlodipine 5 MG TAB PO SCH (09:02)
[2018-05-01] MEDS: Fluticasone Propionate Nasal Spray 16 gm Bottle NASAL SCH (09:03)
[2018-05-01] MEDS: Loratadine 10 MG TAB PO SCH (09:03)
[2018-05-01] MEDS: PARoxetine 20 MG TAB PO SCH (09:03)
[2018-05-01] MEDS: Floranex Packet PO SCH (09:04)
[2018-05-01] MEDS: Ondansetron PF 4 MG/2 ML Vial IVP PRN ×2 (09:08→15:21)
[2018-05-01] MEDS: Lorazepam 0.5 MG TAB PO PRN ×2 (11:26→20:15)
[2018-05-01] MEDS: Sucralfate 1 GM/10 ML UDCUP PO PRN ×2 (11:27→17:22)
[2018-05-01] MEDS: traMADol HCl 50 MG TAB PO PRN (17:23)
[2018-05-01] MEDS: Warfarin Sodium 5 MG TAB PO SCH (17:25)
[2018-05-01] MEDS: Gabapentin 300 MG CAP PO SCH (20:12)
--- NOTE | 2018-05-01 22:05 | PRG ---
DATE OF SERVICE: 05/01/2018 SUBJECTIVE: Ms. Almaraz continues to have chronic nausea. She had some trouble in urinating today. OBJECTIVE: VITAL SIGNS: Temperature is 99.1, pulse 106, and blood pressure 127/81. GENERAL: She is in no acute distress. She is awake and alert. LUNGS: Clear to auscultation bilaterally. HEART: Regular rate and rhythm without murmur. ABDOMEN: Soft. Mild chronic tenderness in left upper quadrant without guarding. Bowel sounds are present. EXTREMITIES: Trace lower extremity edema. LABORATORY DATA: INR is 2.7. IMPRESSION: 1. Chronic nausea associated with hiatal hernia with retention of fibrous food above the diaphragm. She has been started on Reglan and continued on proton pump inhibitor. She has had no vomiting over the last couple of days and is doing better from that standpoint, however, she continues to have the nausea. 2. Clostridium difficile colitis. She has completed a course of vancomycin. We will continue to follow her clinical course with that. 3. Deconditioning. 4. Protein-calorie malnutrition. RECOMMENDATIONS: 1. Full liquid diet and continue to push supplements. She has been given recommendations for full liquid diet and high-protein supplements by the dietary service. 2. She is potentially to be discharged home soon with home health or to assisted living rehab or halfway. She can follow up in GI clinic. She can transition to oral metoclopramide over the next month, however, we will avoid long-term use of this medication for her. Job ID: [id number]
--- NOTE | 2018-05-01 23:08 | PDOC.EVN ---
Event Note - Event Note Event Note: Paged by nurse because patient complained of fast heartbeat. HR 150s, BP 109/ 73. Dr. Major and I went to bedside. EKG showed SVT. Patient placed on cardiac cath technologist. Asymptomatic, denied CP, SOB (no greater than normal). Reported only fast hearbeat. Vagal maneuver failed. Adry heaton called. Dr. Cano at bedside. HR 160, 118/64. Adenosine 6 mg pushed. Responded well. HR 113, BP 126/ 77. Transfer to [facility] [place].
[2018-05-02 00:11] LABS: #Eosinphils 0.1 thou/uL (0.0-0.7); #Lymphocytes 1.3 thou/uL (1.20-3.40); #Monocytes 0.6 thou/uL (0.11-0.59); #Neutrophils 4.9 thou/uL (1.40-6.50); %Basophils 0.3 % (0.0-1.0); %Eosinophils 1.3 % (0.0-10.0); %Lymphocytes 19.1 % (21.0-51.0); %Monocytes 8.1 % (0.0-10.0); %Neutrophils 71.2 % (42.0-75.0); Hemoglobin 9.5 g/dL (12.0-16.0); Mean Corpuscular Hemoglobin 25.6 pg (27.0-31.0); Mean Corpuscular Volume 82.3 fL (78.0-98.0); Mean Platelet Volume 8.1 fL (7.4-10.4); Platelet Count 243 thou/uL (130-400); RBC Distribution Width 16.2 % (11.5-14.5); Red Blood Cell (RBC) Count 3.71 mill/uL (4.20-5.40); White Blood Cell (WBC) Count 6.9 thou/uL (4.8-10.8)
[2018-05-02 00:27] LABS: ALT (SGPT) 13 U/L (8-55); AST (SGOT) 13 U/L (5-34); Albumin 2.9 g/dL (3.4-4.8); Alkaline Phosphatase 56 U/L (40-150); Anion Gap 12 mmol/L (10-20); BUN (Urea Nitrogen) 9 mg/dL (9.8-20.1); Bilirubin, Total 0.2 mg/dL (0.2-1.2); Calc. Creatinine Clearance 125 mL/min (70-130); Calcium 8.8 mg/dL (7.8-10.44); Carbon Dioxide 28 mmol/L (23-31); Chloride 102 mmol/L (98-107); Estimated GFR-MDRD 62; Globulin 2.5 g/dL (2.4-3.5); Glucose 104 mg/dL (80-115); Magnesium 1.9 mg/dL (1.6-2.6); Phosphorus 3.5 mg/dL (2.3-4.7); Potassium 3.7 mmol/L (3.5-5.1); Protein, Total 5.4 g/dL (6.0-8.3); Sodium 138 mmol/L (136-145)
[2018-05-02] MEDS: clonazePAM 0.5 MG TAB PO PRN (00:30)
[2018-05-02] MEDS: Zolpidem Tartrate 5 MG TAB PO PRN (00:30)
[2018-05-02 05:58] LABS: INR-International Normal Ratio 3.3; Prothrombin Time 33.2 SEC (12.0-14.7)
--- NOTE | 2018-05-02 06:06 | PDOC.FM ---
- Subjective Subjective: Patient complains of inability to urinate this morning. Still having diarrhea this AM per patient. Had an episode of SVT overnight, which resolved with adenosine. Patient states she was just watching TV when it happened, and felt dizzy during the episode. - Objective Vital Signs & Weight: Vital Signs (12 hours) Temp Pulse Pulse Pulse Resp Resp Resp 05/02/18 05:00 97.2 F L 95 18 05/01/18 23:30 98.9 F 106 H 18 05/01/18 22:41 162 H 114 H 20 20 05/01/18 20:00 05/01/18 19:27 99.1 F 106 H 18 BP BP BP BP Pulse Ox Pulse Ox 05/02/18 05:00 95/50 L 95 05/01/18 23:30 133/76 94 L 05/01/18 22:41 108/74 120/82 91 L 05/01/18 20:00 94 L 05/01/18 19:27 127/81 97 Weight Admit Weight 136 kg Weight 123.037 kg I&O: 04/30/18 05/01/18 05/02/18 06:59 06:59 06:59 Intake Total 1385 350 360 Balance 1385 350 360 Result Diagrams: 05/01/18 23:58 05/01/18 23:58 Phys Exam - Physical Examination Constitutional: NAD HEENT: moist MMs Respiratory: no wheezing, clear to auscultation bilateral Cardiovascular: RRR, no significant murmur Gastrointestinal: soft, non-tender, no distention, positive bowel sounds 1+ Pitting edema Psychiatric: normal affect, A&O x 3 Skin: normal turgor Dx/Plan (1) Clostridium difficile colitis Status: Acute (2) Complex partial seizure Code(s): G40.209 - LOCAL-REL SYMPTC EPI W CMPLX PRT SEIZ,NOT NTRCT,W/O STAT EPI Status: Chronic Qualifiers: Epilepsy type: partial symptomatic (3) DVT (deep venous thrombosis) Code(s): I82.409 - ACUTE EMBOLISM AND THOMBOS UNSP DEEP VN UNSP LOWER EXTREMITY Status: Acute (4) Pickwickian syndrome Code(s): E66.2 - MORBID (SEVERE) OBESITY WITH ALVEOLAR HYPOVENTILATION Status : Chronic (5) Pleural effusion Code(s): J90 - PLEURAL EFFUSION, NOT ELSEWHERE CLASSIFIED Status: Acute (6) Status post repair of paraesophageal diaphragmatic hernia Code(s): Z98.890 - OTHER SPECIFIED POSTPROCEDURAL STATES; Z87.19 - PERSONAL HISTORY OF OTHER DISEASES OF THE DIGESTIVE SYSTEM Status: Chronic (7) A-fib Code(s): I48.91 - UNSPECIFIED ATRIAL FIBRILLATION Status: Chronic (8) HTN (hypertension) Code(s): I10 - ESSENTIAL (PRIMARY) HYPERTENSION Status: Chronic Qualifiers: Hypertension type: essential hypertension Qualified Code(s): I10 - Essential (primary) hypertension (9) History of chronic urinary tract infection Code(s): Z87.440 - PERSONAL HISTORY OF URINARY (TRACT) INFECTIONS Status: Chronic - Plan Plan: This is a 63 yo female pmh of HTN, recurrent UTIs with multiple chronic problems Tachycardia -episode of tachycardia to 150s overnight 05/01/18, EKG showed SVT, responded to adenosine -transferred to telemetry -repeat EKG pending -Rechecking TSH Hx recurrent UTI -Repeat UA pending, as patient reporting continued symptoms -Dirty catch 2 wks ago: Ucx shows MDR VRE -Dr. Charlton was consulted at that time, repeat culture showed no growth at 48hr without abx intervention -Pt would likely benefit from outpt urology consult DVT -Venogram shows right DVT in popliteal vein -INR currently supratherapeutic at 3.3 -Pharmacy to dose -patient will need to follow up outpatient for continued warfarin management after discharge C. Diff positive present on admission -Positive test on 04/19/18 -PO vancomycin -Per GI, continue vancomycin to complete 14 day regimen Left sided fluid collection -CT abdomen pelvis showed bilateral collection in lung bases -Procal had been negative, blood cultures negative, no clinical signs of infection -Pulm was consulted-Dr. Prather: had decided no thoracentesis -General surgery-Dr. Hassan: no surgical interventions at this time Rt sided pleural effusion vs atelectasis -CXR 04/29/18 - worsened Rt sided pleural effusion vs atelectasis -Procal .06 -Incentive spirometry at bedside Complex partial seizures -Episodes of uncontrolled eye movements -Neuro consulted, CT head negative, appreciate their recommendations -500mg keppra BID Diaphragmatic hernia, repaired gastroesophageal leak -s/p repair on 03/[address] Hassan, Dr. Hassan consulted as above -PRN GI cocktail and karafate Gastric ulcers -EGD on 04/27 shows 5cm hiatal hernia, two 6mm ulcers in proximal antrum -Biopsy taken for H. pylori, negative -Continue ppi BID -sucralfate -Patient complains of nausea, reglan started per GI -Will discuss with GI today Pickwickian syndrome -Possibly effusion w/ LE edema -BNP 91 -Echo in 02/2018 shows normal EF with increased pulmonary artery pressure likely 2/2 obesity vs AMI -CPAP qhs -Denies previous sleep study, will need outpt study Paroxysmal Afib -NSR on admission, episode SVT overnight -Continue home meds HTN -Labetolol PRN for SBP>180 -Continue home medications Seasonal allergies -continue claritin and flonase Osteoarthritis -Pt will likely need outpt follow up, pt requesting injections Dispo: will stay today, as INR is supratherapeutic Addendum - Attending - Attending Attestation Date/Time: 05/02/18 2278 I personally evaluated the patient and discussed the management with Dr. Shaver I agree with the History, Examination, Assessment and Plan documented above with any addition or exceptions noted below. Note SVT last pm with response to adenosine x 1 stable at present note hypotension, troponins negative electrolytes wnl recheck U/A no clinical evidence sepsis or PE will check TFT as well and continue observation in telemetry.
--- NOTE | 2018-05-02 09:02 | PRG ---
DATE OF SERVICE: 05/02/2018 SUBJECTIVE: Ms. Almaraz was transferred to telemetry last night because of atrial tachycardia. She feels a little better this morning. OBJECTIVE: VITAL SIGNS: Temperature 97.6, pulse is down to the 90s, blood pressure 97/54, O2 saturation 95%. HEENT: Unremarkable. NECK: No JVD. CHEST: Clear anteriorly. CARDIAC: S1 and S2, regular. ABDOMEN: Soft. EXTREMITIES: No edema. ASSESSMENT: 1. Pleural hematoma, stable. 2. Status post endoscopy with identification of gastric ulcers, improved GI symptoms. 3. Atrial tachycardia. PLAN: The patient probably needs to be formally evaluated by Cardiology for the tachyarrhythmias. Job ID: [id number]
[2018-05-02] MEDS: Floranex Packet PO SCH (09:21)
[2018-05-02] MEDS: Magnesium Chloride 64 MG TAB PO SCH ×2 (09:21→21:02)
[2018-05-02] MEDS: Metoclopramide HCl 10 MG TAB PO SCH ×4 (09:23→21:02)
[2018-05-02] MEDS: Loratadine 10 MG TAB PO SCH (09:23)
[2018-05-02] MEDS: Acetaminophen 325 MG TAB PO PRN ×2 (09:23→18:23)
[2018-05-02] MEDS: PARoxetine 20 MG TAB PO SCH (09:23)
[2018-05-02] MEDS: Amlodipine 5 MG TAB PO SCH (09:24)
[2018-05-02] MEDS: Fluticasone Propionate Nasal Spray 16 gm Bottle NASAL SCH (09:25)
[2018-05-02] MEDS ORDERED: levETIRAcetam 500 MG TAB PO SCH (11:15)
--- NOTE | 2018-05-02 12:46 | EKG ---
Test Reason : Blood Pressure : / mmHG Vent. Rate : 105 BPM Atrial Rate : 105 BPM P-R Int : 158 ms QRS Dur : 086 ms QT Int : 348 ms P-R-T Axes : 048 009 030 degrees QTc Int : 459 ms Sinus tachycardia Otherwise normal ECG When compared with ECG of 18-APR-2018 21:22, No significant change was found Confirmed by DR. Kalpesh MCINTOSH ([id number]) on 05/02/2018 12:45:47 PM Referred By: Confirmed By:DR. Kalpesh MCINTOSH
[2018-05-02] MEDS: Vancomycin HCl 25 MG/ML Oral PO SCH ×3 (14:03→21:07)
[2018-05-02] MEDS: Lorazepam 0.5 MG TAB PO PRN ×2 (14:04→21:01)
[2018-05-02 16:47] LABS: Blood, Urine Moderate (Negative); Glucose, Urine (Dipstick) Negative (Negative); Leukocyte Large (Negative); Protein, Urine (Dipstick) 30 mg/dL (Neg-Trace); Specific Gravity, Urine 1.018 (1.002-1.036)
[2018-05-02 16:50] LABS: Squamous Epithelial 0-3 HPF (0-3)
[2018-05-02 16:52] LABS: Pathc Cast-AUWi Flag 10.27 (0-2.49); Yeast-AUWi Flag 161.2 (0-25.0)
[2018-05-02 17:02] LABS: Bilirubin Unable to Interpret (Negative); Clarity Cloudy (Clear); Nitrite Unable to Interpret (Negative); Urobilinogen UNABLE TO INTERPRET mg/dL (0.2-1.0)
[2018-05-02 17:03] LABS: Hyaline Casts/LPF NONE SEEN LPF (0-3 Hyaline); Other Casts/LPF None Seen LPF (0-3 Hyaline)
[2018-05-02 17:04] LABS: Bacteria/HPF Rare-Few HPF (None Seen)
[2018-05-02] MEDS: Warfarin Sodium 7.5 MG TAB PO SCH (18:23)
[2018-05-02] MEDS: Gabapentin 300 MG CAP PO SCH (21:01)
[2018-05-02] MEDS: levETIRAcetam 500 MG TAB PO SCH (21:02)
--- NOTE | 2018-05-03 05:23 | PDOC.FM ---
- Subjective Subjective: Pt has same complaints this morning, reports difficulty voiding and urge to urinate, however bladder scan shows minimal to no residual. Continued complaint of "my stomach hurts on the left and is upset no the right." BM decreasing in frequency, becoming more formed per nursing. - Objective Vital Signs & Weight: Vital Signs (12 hours) Temp Pulse Resp BP BP Pulse Ox 05/03/18 04:00 97.8 F 92 18 108/59 L 95 05/03/18 00:00 98.2 F 90 19 92/52 L 95 05/02/18 20:00 99.1 F 103 H 19 119/57 L 93 L 05/02/18 18:22 98 F 93 20 107/63 96 Weight Admit Weight 136 kg Weight 123.037 kg I&O: 05/01/18 05/02/18 05/03/18 06:59 06:59 06:59 Intake Total 350 797 9214 Output Total 400 Balance 350 720 900 Result Diagrams: 05/01/18 23:58 05/01/18 23:58 Phys Exam - Physical Examination Constitutional: NAD HEENT: moist MMs Neck: supple Respiratory: no wheezing, clear to auscultation bilateral Cardiovascular: RRR, no significant murmur Gastrointestinal: soft, no distention, positive bowel sounds No rebound or guarding Psychiatric: normal affect, A&O x 3 Skin: no rash, normal turgor Dx/Plan (1) Clostridium difficile colitis Status: Acute (2) Complex partial seizure Code(s): G40.209 - LOCAL-REL SYMPTC EPI W CMPLX PRT SEIZ,NOT NTRCT,W/O STAT EPI Status: Chronic Qualifiers: Epilepsy type: partial symptomatic (3) DVT (deep venous thrombosis) Code(s): I82.409 - ACUTE EMBOLISM AND THOMBOS UNSP DEEP VN UNSP LOWER EXTREMITY Status: Acute (4) Pickwickian syndrome Code(s): E66.2 - MORBID (SEVERE) OBESITY WITH ALVEOLAR HYPOVENTILATION Status : Chronic (5) Pleural effusion Code(s): J90 - PLEURAL EFFUSION, NOT ELSEWHERE CLASSIFIED Status: Acute (6) Status post repair of paraesophageal diaphragmatic hernia Code(s): Z98.890 - OTHER SPECIFIED POSTPROCEDURAL STATES; Z87.19 - PERSONAL HISTORY OF OTHER DISEASES OF THE DIGESTIVE SYSTEM Status: Chronic (7) A-fib Code(s): I48.91 - UNSPECIFIED ATRIAL FIBRILLATION Status: Chronic (8) HTN (hypertension) Code(s): I10 - ESSENTIAL (PRIMARY) HYPERTENSION Status: Chronic Qualifiers: Hypertension type: essential hypertension Qualified Code(s): I10 - Essential (primary) hypertension (9) History of chronic urinary tract infection Code(s): Z87.440 - PERSONAL HISTORY OF URINARY (TRACT) INFECTIONS Status: Chronic - Plan Plan: This is a 63 yo female pmh of HTN, recurrent UTIs with multiple chronic problems Tachycardia -episode of tachycardia to 150s overnight 05/01/18, EKG showed SVT, responded to adenosine -transferred to telemetry -repeat EKG normal -TSH normal, mag and phos normal -Will consult cardiology today, recommendations appreciated Hx recurrent UTI -Repeat UA with culture pending, as patient reporting continued symptoms -Dirty catch 2 wks ago: Ucx shows MDR VRE -Dr. Charlton was consulted at that time, repeat culture showed no growth at 48hr without abx intervention -Pt would likely benefit from outpt urology consult DVT -Venogram shows right DVT in popliteal vein -INR currently supratherapeutic at 3.2 -Pharmacy to dose -patient will need to follow up outpatient for continued warfarin management after discharge C. Diff positive present on admission -Positive test on 04/19/18 -Continue PO vancomycin to complete 14 day regimen, will complete today -BM decreasing in frequency, 4 yesterday. Becoming more formed -Continue oral probiotic Left sided fluid collection -CT abdomen pelvis showed bilateral collection in lung bases -Procal had been negative, blood cultures negative, no clinical signs of infection -Pulm was consulted-Dr. Prather: had decided no thoracentesis -General surgery-Dr. Hassan: no surgical interventions at this time Rt sided pleural effusion vs atelectasis -CXR 04/29/18 - worsened Rt sided pleural effusion vs atelectasis -Incentive spirometry at bedside Complex partial seizures -Episodes of uncontrolled eye movements, CT head negative -Neuro consulted, appreciate their recommendations -500mg keppra BID Diaphragmatic hernia, repaired gastroesophageal leak -s/p repair on 03/[address] Hassan, Dr. Hassan consulted as above -PRN GI cocktail and karafate Gastric ulcers -EGD on 04/27 shows 5cm hiatal hernia, two 6mm ulcers in proximal antrum -Biopsy taken for H. pylori, negative -Continue ppi BID -sucralfate -Continue reglan, patient seems to be eating well Pickwickian syndrome -Possibly effusion w/ LE edema -BNP 91 -Echo in 02/2018 shows normal EF with increased pulmonary artery pressure likely 2/2 obesity vs AMI -CPAP qhs -Denies previous sleep study, will need outpt study Paroxysmal Afib -NSR on admission, with one episode SVT so transferred to tele -Continue home meds HTN -Labetolol PRN for SBP>180 -Continue home medications Seasonal allergies -continue claritin and flonase Osteoarthritis -Pt will likely need outpt follow up, pt requesting injections Dispo: will stay today, as INR is supratherapeutic Diet: added Glucerna TID Addendum - Attending - Attending Attestation Date/Time: 05/03/18 7300 I personally evaluated the patient and discussed the management with Dr. Norm Shaver I agree with the History, Examination, Assessment and Plan documented above with any addition or exceptions noted below. Patient with continued dysuria awaiting C&S results prior any ABX. Consult Urology for any further rec while inpat consider interstitial cystitis or neurogenic bladder however post void residuals do not support this.Considered pyridium however patient list this as allergy. Regard SVT will ask Cardiology for consult as well. Looking into placement for rehab restorative care.
[2018-05-03 06:31] LABS: INR-International Normal Ratio 3.2; Prothrombin Time 32.6 SEC (12.0-14.7)
[2018-05-03] MEDS: Metoclopramide HCl 10 MG TAB PO SCH ×4 (09:47→20:35)
[2018-05-03] MEDS: Vancomycin HCl 25 MG/ML Oral PO SCH ×4 (09:48→20:34)
[2018-05-03] MEDS: PARoxetine 20 MG TAB PO SCH (09:48)
[2018-05-03] MEDS: levETIRAcetam 500 MG TAB PO SCH ×2 (09:48→20:35)
[2018-05-03] MEDS: Loratadine 10 MG TAB PO SCH (09:49)
[2018-05-03] MEDS: Fluticasone Propionate Nasal Spray 16 gm Bottle NASAL SCH (09:49)
[2018-05-03] MEDS: Magnesium Chloride 64 MG TAB PO SCH ×2 (09:49→20:43)
[2018-05-03] MEDS: Floranex Packet PO SCH (09:52)
[2018-05-03] MEDS: Amlodipine 5 MG TAB PO SCH (09:55)
--- NOTE | 2018-05-03 14:24 | CON ---
DATE OF CONSULTATION: 05/03/2018 REASON FOR CONSULTATION: Supraventricular tachycardia. HISTORY OF PRESENT ILLNESS: Ms. Almaraz is a 63-year-old woman who has had multiple medical problems as it has been outlined in the chart. The patient has had an episode of supraventricular tachycardia. Ms. Almaraz has a history of a very large hiatal hernia with most of the stomach and nearly the entire transverse colon requiring reduction. She also had omental patch and repair of perforated pyloric gastric ulcer. The patient also had problem with deep venous thrombosis, has an IVC filter. Also, has had an abdominal hematoma. The patient remains here in the hospital with multiple medical problems as outlined above. It has been noted she has had some supraventricular tachycardia. The patient does have a history of supraventricular tachycardia in the past. She has been maintained on diltiazem with the thought that if her medical problems improved and her symptoms persisted, ablation could be done. PAST MEDICAL HISTORY: 1. Hiatal hernia. 2. Abdominal surgeries as outlined above. 3. Hypertension. PAST SURGICAL HISTORY: As outlined above. SOCIAL HISTORY: Nonsmoker. REVIEW OF SYSTEMS: The patient is very sleepy now, is unable to give a very extensive review of systems. She denies shortness of breath or chest pain. PHYSICAL EXAMINATION: GENERAL: This is a very pleasant, morbidly obese patient, 5 feet 6 inches tall, 271 pounds. BMI is 43.8. VITAL SIGNS: Blood pressure 108/54, pulse 90, it is regular. HEENT: Eyes; sclerae nonicteric. Mouth; mucous membranes moist. NECK: Supple. No lymphadenopathy. LUNGS: Clear. No wheezing, rales, or rhonchi. CARDIAC: Normal S1, normal S2. There is no murmur, rub, or gallop. ABDOMEN: Obese, nontender. EXTREMITIES: No clubbing or cyanosis. There is no significant edema. SKIN: Warm and dry. PERTINENT LABORATORY DATA: Hemoglobin is 9.5, potassium is 3.7. Reviewing the rhythm strips. The patient is in sinus rhythm and sinus tachycardia the vast majority of the time. There was an episode of tachycardia earlier during this hospitalization that looked like AV souleymane reentry, a narrow complex, or rapid tachycardia. The patient also had an episode of tachycardia within the last 2 days that responded to intravenous adenosine, indicating it is likely supraventricular tachycardia with AV souleymane reentry. ASSESSMENT: 1. Tachycardia, looks to be supraventricular tachycardia, probably AV souleymane reentry. 2. Previous evaluation included an echocardiogram on 03/02, which revealed ejection fraction of 60% to 65%, sinus tachycardia. 3. EKG otherwise currently unremarkable other than intermittent sinus tachycardia. 4. Extensive abdominal problems as outlined above. PLAN: 1. We will give her diltiazem on a daily basis to try to prevent the tachycardia. We will increase dose to 240 mg a day. 2. If she has recurrent problems, eventually could consider SVT ablation, but the patient remains quite ill now. It would appear to be best to try to optimize her medical condition first. 3. She is also anticoagulated with INR of 3.2. Job ID: [id number]
[2018-05-03] MEDS: clonazePAM 0.5 MG TAB PO PRN ×2 (16:50→22:59)
[2018-05-03] MEDS: Warfarin Sodium 7.5 MG TAB PO SCH (16:51)
[2018-05-03] MEDS: Gabapentin 300 MG CAP PO SCH (20:35)
[2018-05-03] MEDS: Ondansetron PF 4 MG/2 ML Vial IVP PRN (21:52)
[2018-05-03] MEDS: Acetaminophen 325 MG TAB PO PRN (21:52)
--- NOTE | 2018-05-04 05:39 | PDOC.FM ---
- Subjective Subjective: Patient complains of same abdominal pain today. No new complaints. Feeling well otherwise. - Objective Vital Signs & Weight: Vital Signs (12 hours) Temp Pulse Resp BP Pulse Ox 05/04/18 04:00 97.9 F 80 16 108/63 94 L 05/03/18 23:01 98.9 F 99 20 111/56 L 92 L 05/03/18 20:00 99.2 F 104 H 20 109/61 92 L Weight Admit Weight 136 kg Weight 123.037 kg I&O: 05/02/18 05/03/18 05/04/18 06:59 06:59 06:59 Intake Total 720 1500 1150 Output Total 400 400 Balance 720 1100 750 Result Diagrams: 05/04/18 09:24 05/04/18 09:24 Phys Exam - Physical Examination Constitutional: NAD Respiratory: no wheezing, no rales Cardiovascular: RRR, no significant murmur Gastrointestinal: soft, non-tender, positive bowel sounds 2+ pitting edema in ankles, <2 sec cap refill Psychiatric: normal affect, A&O x 3 Skin: normal turgor, cap refill <2 seconds Deviation from normal: some bruising on arms Dx/Plan (1) Clostridium difficile colitis Status: Acute (2) Complex partial seizure Code(s): G40.209 - LOCAL-REL SYMPTC EPI W CMPLX PRT SEIZ,NOT NTRCT,W/O STAT EPI Status: Chronic Qualifiers: Epilepsy type: partial symptomatic (3) DVT (deep venous thrombosis) Code(s): I82.409 - ACUTE EMBOLISM AND THOMBOS UNSP DEEP VN UNSP LOWER EXTREMITY Status: Acute (4) Pickwickian syndrome Code(s): E66.2 - MORBID (SEVERE) OBESITY WITH ALVEOLAR HYPOVENTILATION Status : Chronic (5) Pleural effusion Code(s): J90 - PLEURAL EFFUSION, NOT ELSEWHERE CLASSIFIED Status: Acute (6) Status post repair of paraesophageal diaphragmatic hernia Code(s): Z98.890 - OTHER SPECIFIED POSTPROCEDURAL STATES; Z87.19 - PERSONAL HISTORY OF OTHER DISEASES OF THE DIGESTIVE SYSTEM Status: Chronic (7) A-fib Code(s): I48.91 - UNSPECIFIED ATRIAL FIBRILLATION Status: Chronic (8) HTN (hypertension) Code(s): I10 - ESSENTIAL (PRIMARY) HYPERTENSION Status: Chronic Qualifiers: Hypertension type: essential hypertension Qualified Code(s): I10 - Essential (primary) hypertension (9) History of chronic urinary tract infection Code(s): Z87.440 - PERSONAL HISTORY OF URINARY (TRACT) INFECTIONS Status: Chronic - Plan Plan: This is a 63 yo female pmh of HTN, recurrent UTIs with multiple chronic problems DVT -Venogram shows right DVT in popliteal vein -INR currently supratherapeutic at 3.2 -Pharmacy to dose -patient will need to follow up outpatient for continued warfarin management after discharge Hx recurrent UTI -Repeat UA with culture pending, as patient reporting continued symptoms -Dirty catch 2 wks ago: Ucx shows MDR VRE -Dr. Charlton was consulted at that time, repeat culture showed no growth at 48hr without abx intervention -Repeat UA (straight cath) sent for culture, results pending NGTD -Urology Dr. Ramos consulted- states patient has seen Dr. Salvador, so he will contact [place] to see patient today. Recommendations appreciated SVT -episode of tachycardia to 150s overnight 05/01/18, EKG showed SVT, responded to adenosine -transferred to telemetry -repeat EKG normal -TSH normal, mag and phos normal -Cardiology Dr. Rodriguez consulted, recommendations appreciated -Diltiazem increased to 240 mg/day -consider SVT ablation in the future, medical management for now C. Diff positive present on admission -Positive test on 04/19/18 -PO Vanc regimen complete -BM decreasing in frequency, becoming more formed -Continue oral probiotic Left sided fluid collection -CT abdomen pelvis showed bilateral collection in lung bases -Procal had been negative, blood cultures negative, no clinical signs of infection -Pulm was consulted-Dr. Prather: had decided no thoracentesis -General surgery-Dr. Hassan: no surgical interventions at this time Rt sided pleural effusion vs atelectasis -CXR 04/29/18 - worsened Rt sided pleural effusion vs atelectasis -Incentive spirometry at bedside Complex partial seizures -Episodes of uncontrolled eye movements, CT head negative -Neuro consulted, appreciate their recommendations -500mg keppra BID Diaphragmatic hernia, repaired gastroesophageal leak -s/p repair on 03/[address] Hassan, Dr. Hassan consulted -large hiatal hernia requiring reductionn -PPI, GI cocktail and karafate Gastric ulcers -EGD on 04/27 shows 5cm hiatal hernia, two 6mm ulcers in proximal antrum -Biopsy taken for H. pylori, negative -omental patch and repair of perforated pyloric gastric ulcer -Continue ppi BID -sucralfate -Continue reglan, patient seems to be eating well, glucerna added Pickwickian syndrome -Possibly effusion w/ LE edema -BNP 91 -Echo in 02/2018 shows normal EF with increased pulmonary artery pressure likely 2/2 obesity vs AMI -CPAP qhs -Denies previous sleep study, will need outpt study Paroxysmal Afib -NSR on admission, with one episode SVT so transferred to tele -See cards consult above HTN -Labetolol PRN for SBP>180 -Continue home medications Seasonal allergies -continue claritin and flonase Osteoarthritis -Pt will likely need outpt follow up, pt requesting injections Anxiety -ativan PRN Dispo: will stay today, as INR is supratherapeutic Diet: supplement with Glucerna TID Addendum - Attending - Attending Attestation Date/Time: 05/04/18 1107 I personally evaluated the patient and discussed the management with Dr. Norm Shaver I agree with the History, Examination, Assessment and Plan documented above with any addition or exceptions noted below. Patient significantly mobility impaired stressed to her not a viable option to go home without rehab. Strongly encourage weight loss. Urine culture negative consult with Urology for any further consideration have concern interstitial cystitis. Appreciate specialty consultation.
[2018-05-04 05:52] LABS: INR-International Normal Ratio 3.2; Prothrombin Time 33.1 SEC (12.0-14.7)
[2018-05-04] MEDS: Amlodipine 5 MG TAB PO SCH (08:54)
[2018-05-04] MEDS: Floranex Packet PO SCH (08:54)
[2018-05-04] MEDS: levETIRAcetam 500 MG TAB PO SCH ×2 (08:57→20:14)
[2018-05-04] MEDS: Loratadine 10 MG TAB PO SCH (08:57)
[2018-05-04] MEDS: PARoxetine 20 MG TAB PO SCH (08:57)
[2018-05-04] MEDS: Metoclopramide HCl 10 MG TAB PO SCH ×4 (08:58→20:13)
[2018-05-04] MEDS: Magnesium Chloride 64 MG TAB PO SCH ×2 (08:59→20:14)
[2018-05-04] MEDS: Lorazepam 0.5 MG TAB PO SCH ×3 (09:10→20:13)
[2018-05-04] MEDS: Fluticasone Propionate Nasal Spray 16 gm Bottle NASAL SCH (09:12)
[2018-05-04 09:32] LABS: #Basophils 0.1 thou/uL (0.0-0.2); #Eosinphils 0.2 thou/uL (0.0-0.7); #Lymphocytes 1.6 thou/uL (1.20-3.40); #Monocytes 0.5 thou/uL (0.11-0.59); #Neutrophils 3.4 thou/uL (1.40-6.50); %Basophils 0.9 % (0.0-1.0); %Eosinophils 3.8 % (0.0-10.0); %Monocytes 8.3 % (0.0-10.0); %Neutrophils 59.1 % (42.0-75.0); Mean Corpuscular HGB CONC 30.6 g/dL (32.0-36.0); Mean Corpuscular Hemoglobin 25.2 pg (27.0-31.0); Mean Corpuscular Volume 82.5 fL (78.0-98.0); Mean Platelet Volume 8.3 fL (7.4-10.4); Platelet Count 249 thou/uL (130-400); RBC Distribution Width 16.3 % (11.5-14.5); Red Blood Cell (RBC) Count 3.97 mill/uL (4.20-5.40); White Blood Cell (WBC) Count 5.8 thou/uL (4.8-10.8)
[2018-05-04 09:51] LABS: Anion Gap 13 mmol/L (10-20); BUN (Urea Nitrogen) 12 mg/dL (9.8-20.1); Calc. Creatinine Clearance 125 mL/min (70-130); Carbon Dioxide 28 mmol/L (23-31); Chloride 101 mmol/L (98-107); Estimated GFR-MDRD 62; Potassium 4.4 mmol/L (3.5-5.1); Sodium 138 mmol/L (136-145)
[2018-05-04 09:52] LABS: Calcium 9.1 mg/dL (7.8-10.44); Glucose 90 mg/dL (80-115)
[2018-05-04] MEDS: Acetaminophen 325 MG TAB PO PRN ×2 (16:43→23:48)
[2018-05-04] MEDS ORDERED: Warfarin Sodium 3 MG TAB PO SCH (17:00)
[2018-05-04] MEDS: Calcium Carbonate 500 MG ChewTAB PO PRN (20:12)
[2018-05-04] MEDS: Zolpidem Tartrate 5 MG TAB PO PRN ×2 (20:13→22:44)
[2018-05-04] MEDS: Gabapentin 300 MG CAP PO SCH (20:13)
[2018-05-04] MEDS: traMADol HCl 50 MG TAB PO PRN (21:18)
[2018-05-04] MEDS: Ondansetron PF 4 MG/2 ML Vial IVP PRN (21:18)
[2018-05-05] MEDS: traMADol HCl 50 MG TAB PO PRN ×2 (05:37→21:49)
[2018-05-05 06:05] LABS: INR-International Normal Ratio 3.8; Prothrombin Time 37.3 SEC (12.0-14.7)
--- NOTE | 2018-05-05 06:39 | PDOC.FM ---
- Subjective Subjective: PT feeling well. Complains of R shoulder pain. No longer having diarrhea. Using CPAP at night. Unwilling to go to halfway; CM working on placement. - Objective Vital Signs & Weight: Vital Signs (12 hours) Temp Pulse Resp BP Pulse Ox 05/05/18 04:00 98.4 F 91 18 116/60 94 L 05/05/18 00:00 97.5 F L 101 H 18 108/56 L 93 L 05/04/18 20:00 97.5 F L 105 H 18 119/58 L 97 Weight Admit Weight 136 kg Weight 123.831 kg I&O: 05/03/18 05/04/18 05/05/18 06:59 06:59 06:59 Intake Total 1500 1150 734 Output Total 400 400 Balance 1100 750 734 Result Diagrams: 05/04/18 09:24 05/04/18 09:24 Phys Exam - Physical Examination Constitutional: NAD (Constitutional: NAD) HEENT: PERRLA, moist MMs, sclera anicteric Neck: no nodes, no JVD Respiratory: no wheezing, no rales, no rhonchi Cardiovascular: RRR, no significant murmur, no rub Gastrointestinal: soft, no distention (obese) Musculoskeletal: pulses present, edema present (2+ b/l) Neurological: non-focal, normal sensation Lymphatic: no nodes Dx/Plan (1) Clostridium difficile colitis Status: Acute (2) Community acquired pneumonia Code(s): J18.9 - PNEUMONIA, UNSPECIFIED ORGANISM Status: Acute (3) DVT (deep venous thrombosis) Code(s): I82.409 - ACUTE EMBOLISM AND THOMBOS UNSP DEEP VN UNSP LOWER EXTREMITY Status: Acute (4) Pleural effusion Code(s): J90 - PLEURAL EFFUSION, NOT ELSEWHERE CLASSIFIED Status: Acute (5) Complex partial seizure Code(s): G40.209 - LOCAL-REL SYMPTC EPI W CMPLX PRT SEIZ,NOT NTRCT,W/O STAT EPI Status: Chronic Qualifiers: Epilepsy type: partial symptomatic (6) Pickwickian syndrome Code(s): E66.2 - MORBID (SEVERE) OBESITY WITH ALVEOLAR HYPOVENTILATION Status : Chronic (7) Status post repair of paraesophageal diaphragmatic hernia Code(s): Z98.890 - OTHER SPECIFIED POSTPROCEDURAL STATES; Z87.19 - PERSONAL HISTORY OF OTHER DISEASES OF THE DIGESTIVE SYSTEM Status: Chronic (8) Acute and chronic respiratory failure with hypoxia Code(s): J96.21 - ACUTE AND CHRONIC RESPIRATORY FAILURE WITH HYPOXIA Status: Acute - Plan Plan: This is a 63 yo female pmh of HTN, recurrent UTIs with multiple chronic problems DVT - right DVT in popliteal vein -Pharm dosing warfarin; INR currently supratherapeutic at 3.2 -patient will need to follow up outpatient for continued warfarin management after discharge Hx recurrent UTI with Persistentn Dysuria -Recent VRE with resolution w/o abx. Additional culture on 04/30 shows no growth and blieved she does not have a UTI currently. -Urology consult Dr. Salvador, Recommendations appreciated SVT -Controlled on Diltiazem. Does have hx/o A-fib Cardiology following -TSH normal, mag and phos normal C. Diff positive present on admission -Positive test on 04/19/18 -PO Vanc 14d regimen completed on 05/04 -Continue oral probiotic Left Thorax Hematoma -Pulm was consulted-Dr. Prather: had decided no thoracentesis -General surgery-Dr. Hassan: no surgical interventions at this time Rt sided pleural effusion vs atelectasis -Likely related to hematoma. Atelectasis present and incentive spirometry at bedside Complex partial seizures -500mg keppra BID per neurology recommendations. Diaphragmatic hernia, repaired gastroesophageal leak -s/p repair on 03/[address] Hassan with some residual hiatal hernia. -On PPI, GI cocktail and karafate and continue Liquid diet. May be unable to resume solids. PUD: Gastric ulcers -Confirmed with EGD on 04/27 showing 5cm hiatal hernia, two 6mm ulcers in proximal antrum, with negative H. pylori, negative -omental patch and repair of perforated pyloric gastric ulcer -Continue medications Pickwickian syndrome -Denies previous sleep study, will need outpt AMI workup, but will continue CPAP qhs. Would greatly benefit from weight loss. 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 Continue ativan, Atarax PRN Addendum - Attending - Attending Attestation Date/Time: 05/05/18 0684 I personally evaluated the patient and discussed the management with Dr. Torrez I agree with the History, Examination, Assessment and Plan documented above with any addition or exceptions noted below.
[2018-05-05] MEDS: Metoclopramide HCl 10 MG TAB PO SCH ×4 (08:29→21:35)
[2018-05-05] MEDS: Acetaminophen 325 MG TAB PO PRN (08:46)
[2018-05-05] MEDS: Lorazepam 0.5 MG TAB PO SCH ×3 (08:46→21:35)
[2018-05-05] MEDS: Loratadine 10 MG TAB PO SCH (08:47)
[2018-05-05] MEDS: levETIRAcetam 500 MG TAB PO SCH ×2 (08:48→21:35)
[2018-05-05] MEDS: PARoxetine 20 MG TAB PO SCH (08:48)
[2018-05-05] MEDS: Amlodipine 5 MG TAB PO SCH (08:48)
[2018-05-05] MEDS: Magnesium Chloride 64 MG TAB PO SCH ×2 (08:49→21:37)
[2018-05-05] MEDS: Fluticasone Propionate Nasal Spray 16 gm Bottle NASAL SCH (08:49)
[2018-05-05] MEDS: Floranex Packet PO SCH (09:25)
[2018-05-05] MEDS ORDERED: Phenazopyridine HCl 97.5 MG TABLET PO SCH (10:30)
[2018-05-05] MEDS: Gabapentin 300 MG CAP PO SCH (21:34)
[2018-05-05] MEDS: Ondansetron PF 4 MG/2 ML Vial IVP PRN (21:49)
[2018-05-05] MEDS: Zolpidem Tartrate 5 MG TAB PO PRN ×2 (21:49→23:18)
[2018-05-06 06:20] LABS: INR-International Normal Ratio 3.3; Prothrombin Time 33.5 SEC (12.0-14.7)
--- NOTE | 2018-05-06 06:21 | PDOC.FM ---
- Subjective Subjective: Pt complains only of dysuria. Toleratin liquid diet well. diarrhea improved. On 2l baseline O2. Deciding between shelter vs home. Pt counseled assistance would be much better for her. Mild MARVIN today, but sleeping well. - Objective Vital Signs & Weight: Vital Signs (12 hours) Temp Pulse Resp BP Pulse Ox 05/06/18 04:00 98.4 F 98 16 122/66 93 L 05/06/18 00:00 98.5 F 99 16 145/71 H 92 L 05/05/18 21:30 18 94 L 05/05/18 21:00 94 L 05/05/18 20:00 98.5 F 99 16 133/66 91 L Weight Admit Weight 136 kg Weight 127.459 kg I&O: 05/04/18 05/05/18 05/06/18 06:59 06:59 06:59 Intake Total 1150 1434 1250 Output Total 400 Balance 750 1434 1250 Result Diagrams: 05/04/18 09:24 05/04/18 09:24 Phys Exam - Physical Examination Constitutional: NAD HEENT: PERRLA, moist MMs, sclera anicteric Neck: no nodes, no JVD, supple Respiratory: no wheezing, no rales, no rhonchi Cardiovascular: RRR, no significant murmur, no rub Gastrointestinal: soft, non-tender, no distention (obese) Musculoskeletal: no edema (1+ pitting), pulses present Neurological: non-focal, normal sensation Psychiatric: normal affect, A&O x 3 Skin: no rash, normal turgor, cap refill <2 seconds Dx/Plan (1) Clostridium difficile colitis Status: Acute (2) Community acquired pneumonia Code(s): J18.9 - PNEUMONIA, UNSPECIFIED ORGANISM Status: Acute (3) DVT (deep venous thrombosis) Code(s): I82.409 - ACUTE EMBOLISM AND THOMBOS UNSP DEEP VN UNSP LOWER EXTREMITY Status: Acute (4) Pleural effusion Code(s): J90 - PLEURAL EFFUSION, NOT ELSEWHERE CLASSIFIED Status: Acute (5) Complex partial seizure Code(s): G40.209 - LOCAL-REL SYMPTC EPI W CMPLX PRT SEIZ,NOT NTRCT,W/O STAT EPI Status: Chronic Qualifiers: Epilepsy type: partial symptomatic (6) Pickwickian syndrome Code(s): E66.2 - MORBID (SEVERE) OBESITY WITH ALVEOLAR HYPOVENTILATION Status : Chronic (7) Status post repair of paraesophageal diaphragmatic hernia Code(s): Z98.890 - OTHER SPECIFIED POSTPROCEDURAL STATES; Z87.19 - PERSONAL HISTORY OF OTHER DISEASES OF THE DIGESTIVE SYSTEM Status: Chronic (8) Acute and chronic respiratory failure with hypoxia Code(s): J96.21 - ACUTE AND CHRONIC RESPIRATORY FAILURE WITH HYPOXIA Status: Acute - Plan Plan: This is a 63 yo female pmh of HTN, recurrent UTIs with multiple chronic problems DVT - right DVT in popliteal vein -Pharm dosing warfarin; INR currently supratherapeutic at 3.8. This must be 2-3 prior to discharge and requires close f/u. Hx recurrent UTI with Persistent Dysuria -Recent VRE with resolution w/o abx. Additional culture on 04/30 shows no growth and believed she does not have a UTI currently. -Formal urology consult Dr. Beatty as she has seen her in the past, Recommendations appreciated SVT -Controlled on Diltiazem. Does have hx/o A-fib Cardiology following -TSH normal, mag and phos normal C. Diff positive present on admission -Positive test on 04/19/18 -PO Vanc 14d regimen completed on 05/04 -Continue oral probiotic Left Thorax Hematoma -Pulm was consulted-Dr. Prather: had decided no thoracentesis -General surgery-Dr. Hassan: no surgical interventions at this time Rt sided pleural effusion vs atelectasis -Likely related to hematoma. Atelectasis present and incentive spirometry at bedside Complex partial seizures -500mg keppra BID per neurology recommendations. Diaphragmatic hernia, repaired gastroesophageal leak -s/p repair on 03/[address] Hassan with some residual hiatal hernia. -On PPI, GI cocktail and karafate and continue Liquid diet. May be unable to resume solids. PUD: Gastric ulcers -Confirmed with EGD on 04/27 showing 5cm hiatal hernia, two 6mm ulcers in proximal antrum, with negative H. pylori, negative -omental patch and repair of perforated pyloric gastric ulcer -Continue medications Pickwickian syndrome -Denies previous sleep study, will need outpt AMI workup, but will continue CPAP qhs. Would greatly benefit from weight loss. 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 Continue ativan, Atarax PRN Addendum - Attending - Attending Attestation Date/Time: 05/06/18 7001 I personally evaluated the patient and discussed the management with Dr. Torrez I agree with the History, Examination, Assessment and Plan documented above with any addition or exceptions noted below.Patient tolerating po well . 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 Urology recommended flomax trial.
[2018-05-06] MEDS: Amlodipine 5 MG TAB PO SCH (09:10)
[2018-05-06] MEDS: Metoclopramide HCl 10 MG TAB PO SCH ×4 (09:10→22:57)
[2018-05-06] MEDS: Lorazepam 0.5 MG TAB PO SCH ×3 (09:11→22:58)
[2018-05-06] MEDS: Floranex Packet PO SCH (09:11)
[2018-05-06] MEDS: PARoxetine 20 MG TAB PO SCH (09:11)
[2018-05-06] MEDS: Loratadine 10 MG TAB PO SCH (09:12)
[2018-05-06] MEDS: Fluticasone Propionate Nasal Spray 16 gm Bottle NASAL SCH (09:12)
[2018-05-06] MEDS: levETIRAcetam 500 MG TAB PO SCH ×2 (09:12→22:58)
[2018-05-06] MEDS: traMADol HCl 50 MG TAB PO PRN (09:29)
[2018-05-06] MEDS: Acetaminophen 325 MG TAB PO PRN ×2 (09:29→22:57)
[2018-05-06] MEDS: Magnesium Chloride 64 MG TAB PO SCH ×2 (09:30→22:58)
[2018-05-06] MEDS ORDERED: Tamsulosin HCl 0.4 MG CAP PO SCH (11:45)
[2018-05-06 17:43] LABS: Bilirubin Small (Negative); Blood, Urine Small (Negative); Clarity TURBID (Clear); Glucose, Urine (Dipstick) Negative (Negative); Leukocyte Large (Negative); Nitrite Positive (Negative); Protein, Urine (Dipstick) 100 mg/dL (Neg-Trace); Specific Gravity, Urine 1.017 (1.002-1.036); pH, Urine 5.5 (5.0-9.0)
[2018-05-06 17:46] LABS: Hyaline Casts/LPF 0-3 HYALINE CAST LPF (0-3 Hyaline); Pathc Cast-AUWi Flag 0.26 (0-2.49); Squamous Epithelial None Seen HPF (0-3)
[2018-05-06 17:50] LABS: Yeast-AUWi Flag 225.6 (0-25.0)
[2018-05-06 17:59] LABS: Bacteria/HPF 4+ HPF (None Seen); Yeast-All Forms None Seen HPF (None Seen)
[2018-05-06] MEDS: Gabapentin 300 MG CAP PO SCH (22:58)
[2018-05-07] MEDS: Zolpidem Tartrate 5 MG TAB PO PRN ×2 (00:24→22:38)
[2018-05-07] MEDS: Ondansetron PF 4 MG/2 ML Vial IVP PRN ×2 (00:24→21:14)
--- NOTE | 2018-05-07 05:19 | PDOC.FM ---
- Subjective Subjective: Patient states that she's feeling well this AM, states medication from Dr. Beatty helped. She is tolerating her diet. Abdominal pain improved. - Objective Vital Signs & Weight: Vital Signs (12 hours) Temp Pulse Resp BP BP Pulse Ox 05/07/18 00:00 98.6 F 95 20 115/73 92 L 05/06/18 20:10 93 L 05/06/18 20:00 97.6 F 98 18 117/65 93 L Weight Admit Weight 136 kg Weight 127.459 kg I&O: 05/05/18 05/06/18 05/07/18 06:59 06:59 06:59 Intake Total 1434 1250 920 Output Total 100 Balance 1434 1250 820 Result Diagrams: 05/04/18 09:24 05/04/18 09:24 Phys Exam - Physical Examination Constitutional: NAD Neck: no nodes, supple Respiratory: no wheezing, clear to auscultation bilateral Cardiovascular: RRR, no significant murmur Gastrointestinal: soft, non-tender, no distention, positive bowel sounds 2+ pitting edema bilat Psychiatric: normal affect, A&O x 3 Skin: normal turgor, cap refill <2 seconds Dx/Plan (1) Clostridium difficile colitis Status: Acute (2) Complex partial seizure Code(s): G40.209 - LOCAL-REL SYMPTC EPI W CMPLX PRT SEIZ,NOT NTRCT,W/O STAT EPI Status: Chronic Qualifiers: Epilepsy type: partial symptomatic (3) DVT (deep venous thrombosis) Code(s): I82.409 - ACUTE EMBOLISM AND THOMBOS UNSP DEEP VN UNSP LOWER EXTREMITY Status: Acute (4) Pickwickian syndrome Code(s): E66.2 - MORBID (SEVERE) OBESITY WITH ALVEOLAR HYPOVENTILATION Status : Chronic (5) Pleural effusion Code(s): J90 - PLEURAL EFFUSION, NOT ELSEWHERE CLASSIFIED Status: Acute (6) Status post repair of paraesophageal diaphragmatic hernia Code(s): Z98.890 - OTHER SPECIFIED POSTPROCEDURAL STATES; Z87.19 - PERSONAL HISTORY OF OTHER DISEASES OF THE DIGESTIVE SYSTEM Status: Chronic (7) A-fib Code(s): I48.91 - UNSPECIFIED ATRIAL FIBRILLATION Status: Chronic (8) HTN (hypertension) Code(s): I10 - ESSENTIAL (PRIMARY) HYPERTENSION Status: Chronic Qualifiers: Hypertension type: essential hypertension Qualified Code(s): I10 - Essential (primary) hypertension (9) History of chronic urinary tract infection Code(s): Z87.440 - PERSONAL HISTORY OF URINARY (TRACT) INFECTIONS Status: Chronic - Plan Plan: This is a 63 yo female pmh of HTN, recurrent UTIs with multiple chronic problems DVT - right DVT in popliteal vein -Pharm dosing warfarin; INR within therapeutic window. Will need F/up outpatient at warfarin clinic for continued management. Hx recurrent UTI with Persistent Dysuria -Recent VRE with resolution w/o abx. Additional culture on 04/30 shows no growth and believed she does not have a UTI currently. -Formal urology consult Dr. Beatty as she has seen her in the past, Recommendations appreciated -Started Tamsulosin SVT -Controlled on Diltiazem. Does have hx/o A-fib Cardiology following -TSH normal, mag and phos normal C. Diff positive present on admission -Positive test on 04/19/18 -PO Vanc 14d regimen completed on 05/04 -Continue oral probiotic Left Thorax Hematoma -Pulm was consulted-Dr. Prather: had decided no thoracentesis -General surgery-Dr. Hassan: no surgical interventions at this time Rt sided pleural effusion vs atelectasis -Likely related to hematoma. Atelectasis present and incentive spirometry at bedside Complex partial seizures -500mg keppra BID per neurology recommendations. Diaphragmatic hernia, repaired gastroesophageal leak -s/p repair on 03/[address] Hassan with some residual hiatal hernia. -On PPI, GI cocktail and karafate and continue Liquid diet. May be unable to resume solids. PUD: Gastric ulcers -Confirmed with EGD on 04/27 showing 5cm hiatal hernia, two 6mm ulcers in proximal antrum, with negative H. pylori, negative -omental patch and repair of perforated pyloric gastric ulcer -Continue medications Pickwickian syndrome -Denies previous sleep study, will need outpt AMI workup, but will continue CPAP qhs. Would greatly benefit from weight loss. 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 Continue ativan PRN Dispo: Will contact Case management, ready for discharge pending placement or if patient chooses home, then home with Home health PT/OT. Addendum - Attending - Attending Attestation Date/Time: 05/07/18 3507 I personally evaluated the patient and discussed the management with Dr. Shaver. I agree with the History, Examination, Assessment and Plan documented above with any addition or exceptions noted below. Patient stable. Has some increased LE edema and mild increase in O2 requirement , will give Lasix and remove some excess fluid. Her INR is in appropriate range today. Awaiting GI recs regarding her pathology showing H pylori as part cause of her ulcerative disease. Urology also continuing their workup related to chronic UTI. She is otherwise stable and we are working on arranging placement for her in the post-acute care setting.
[2018-05-07 05:26] LABS: INR-International Normal Ratio 2.7; Prothrombin Time 28.8 SEC (12.0-14.7)
[2018-05-07] MEDS: Magnesium Chloride 64 MG TAB PO SCH ×2 (08:03→21:19)
[2018-05-07] MEDS: Amlodipine 5 MG TAB PO SCH (08:04)
[2018-05-07] MEDS: Lorazepam 0.5 MG TAB PO SCH ×3 (08:04→21:14)
[2018-05-07] MEDS: PARoxetine 20 MG TAB PO SCH (08:06)
[2018-05-07] MEDS: Loratadine 10 MG TAB PO SCH (08:06)
[2018-05-07] MEDS: Metoclopramide HCl 10 MG TAB PO SCH ×4 (08:06→21:26)
[2018-05-07] MEDS: Fluticasone Propionate Nasal Spray 16 gm Bottle NASAL SCH (08:07)
[2018-05-07] MEDS: levETIRAcetam 500 MG TAB PO SCH ×2 (08:07→21:19)
[2018-05-07] MEDS ORDERED: Tamsulosin HCl 0.4 MG CAP PO SCH (09:00)
[2018-05-07] MEDS: Floranex Packet PO SCH (09:28)
[2018-05-07] MEDS ORDERED: Furosemide 40 MG/4 ML VIAL SLOW IVP SCH (09:45)
[2018-05-07] MEDS ORDERED: Furosemide 100 MG/10 ML VIAL SLOW IVP SCH (09:45)
--- NOTE | 2018-05-07 10:18 | CON ---
DATE OF CONSULTATION: 05/06/2018 HISTORY OF PRESENT ILLNESS: I followed the patient for UTIs and stone disease as an outpatient. I have not seen her in the office since November 2017 when I did cystoscopy to rule out any nidus. There were no concerning findings on that and she was admitted on the with concerns for DVT and there have been concerns about her urination, so I was consulted. PAST MEDICAL HISTORY: Includes hypertension, DJD, coronary artery disease with an FL in 2008, CHF, kidney stones, hiatal hernia, known gallstones, varicose veins, Larose cyst, and cataracts. PAST SURGICAL HISTORY: Includes a coronary stent in 2008, tonsils, ureteroscopies in 2015 and 2017 not performed by me and then more recently since I last saw her , she had an emergent surgery for a perforated ulcer and hiatal hernia in February 2018. ALLERGIES ? , but I have listed CODEINE and MORPHINE as her allergies. CURRENT MEDICATIONS Include: 1. Amlodipine. 2. Diltiazem. 3. Gabapentin. 4. Keppra. 5. Claritin. 6. Ativan scheduled. 7. Reglan scheduled. 8. Pantoprazole. 9. Paxil. 10. Coumadin. SOCIAL HISTORY: She has never smoked. She does not drink or use drugs. She has no children and she has been on disability for arthritis for several years. She lives with her elderly mother and a sister lives nearby. REVIEW OF SYSTEMS: Reveal colonoscopy in 2015, which was normal. Endoscopy this day, which showed a 5 cm recurrent hiatal hernia with retained food particles within it and 2 small healing ulcers. She refuses any mammogram. Pap smear was remote. There was concern about seizures, for which she has on been started on the Keppra as well as H. pylori, for which she has had treatment and now also developed C. diff. Dr. Charlton consulted on her this day and recommended not treating the prior urine. FAMILY HISTORY: Dad at 86 with diabetes and heart disease. Mom lived to 92. PHYSICAL EXAMINATION: VITAL SIGNS: T-max is 99.3 and current blood pressure 130/65, heart rate in the 90s, sating 92 to 94% on room air I think and then nasal cannula was added, but I do not have an updated saturation. Her output has been listed as diaper, however, when looking back on the , she was straight cathed for 400. Her complaints, this state to me, are hesitancy, weak stream, straining and feeling like she is not emptying. She has not seen blood in the urine. She does have burning. This appears to be chronic and does improve with AZO. She is having no back pain. LABORATORY VALUES: Reveal anemia of 10.0 and 32.8. Chemistries reveal a creatinine of 0.92. Last urine was from the showed rare bacteria. Urinalysis from admission showed 3+ bacteria with urine showing vancomycin-resistant Enterococcus, which Dr. Charlton recommended not treating and subsequent urine cultures have been negative. A CT scan from 04/18/2018, with contrast personally revealed 5 x 3 mm left either superior pelvis or abutting the infundibulum stone and when compared to a CT from 03/06, it looks like that similar stone was possibly 2 cm lower, so may actually be in the renal pelvis, but there is no hydronephrosis and all the other stones are chronic and either in calyces or cortical. The bladder appeared normal and on the CT from 02/20, the bladder was fully decompressed and hard to evaluate. ASSESSMENT: We have a 63-year-old female with multiple medical issues, complaining of lower urinary tract symptoms and may have retention or partial retention. Add tamsulosin. Check residual. Check another urine and monitor. Job ID: [id number] [facility]
[2018-05-07] MEDS: Warfarin Sodium 5 MG TAB PO SCH (17:37)
--- NOTE | 2018-05-07 18:09 | PRG ---
DATE OF SERVICE: 05/07/2018 SUBJECTIVE: The patient was straight cathed for minimal to no volume, but it was enough to send for micro and culture and actually showed 4+ bacteria with significant inflammation, and so I asked for Dr. Charlton to be able to review this. By the time I saw her at the end of the day, the patient was complaining of more burning, so I did not want hematuria or infection to progress and I ordered one dose of Rocephin for now given that the culture showing gram-negative rods. She also reports the tamsulosin seems to be helping significantly and asked if she could take it twice a day, which I said is fine, slowly increase this. OBJECTIVE: VITAL SIGNS: Have been stable, 94% on 3L, with urine output being recorded as diapers. ASSESSMENT: A 63-year-old female with complete incontinence at this time related to body habitus and immobility as well as lower urinary tract symptoms that are present even when she does not have infection, but does appear to have an infection at this time. Increase tamsulosin to twice a day. Add 1 g of Rocephin for now. Await further recommendations based on culture and Dr. Charlton. Job ID: [id number]
[2018-05-07] MEDS: Gabapentin 300 MG CAP PO SCH (21:16)
[2018-05-07] MEDS: traMADol HCl 50 MG TAB PO PRN (21:17)
[2018-05-08 05:12] LABS: INR-International Normal Ratio 2.1; Prothrombin Time 23.7 SEC (12.0-14.7)
--- NOTE | 2018-05-08 06:50 | PDOC.FM ---
- Subjective Subjective: Patient is a 63 yo F with multiple medical problems, now stable for dc. Patient complains of leg pain this morning, would like to advance her diet, and is wondering if she will be placed on antibiotics for UTI. Discussed that we will reach out to Dr. Beatty today to discuss her plan of care. - Objective Vital Signs & Weight: Vital Signs (12 hours) Temp Pulse Resp BP Pulse Ox 05/08/18 04:00 99.3 F 98 16 110/70 92 L 05/08/18 00:00 99.3 F 104 H 16 118/58 L 91 L 05/07/18 20:00 99 F 108 H 16 112/64 96 Weight Admit Weight 136 kg Weight 129.274 kg I&O: 05/06/18 05/07/18 05/08/18 06:59 06:59 06:59 Intake Total 1250 1220 1999 Output Total 100 1 Balance 1250 1120 1998 Result Diagrams: 05/04/18 09:24 05/04/18 09:24 Phys Exam - Physical Examination Constitutional: NAD Neck: no nodes, supple Respiratory: no wheezing, no rales, no rhonchi Cardiovascular: RRR, no significant murmur Gastrointestinal: soft, non-tender, no distention, positive bowel sounds Musculoskeletal: no edema, pulses present Neurological: non-focal, moves all 4 limbs Psychiatric: normal affect, A&O x 3 Skin: normal turgor, cap refill <2 seconds Dx/Plan (1) Clostridium difficile colitis Status: Acute (2) Complex partial seizure Code(s): G40.209 - LOCAL-REL SYMPTC EPI W CMPLX PRT SEIZ,NOT NTRCT,W/O STAT EPI Status: Chronic Qualifiers: Epilepsy type: partial symptomatic (3) DVT (deep venous thrombosis) Code(s): I82.409 - ACUTE EMBOLISM AND THOMBOS UNSP DEEP VN UNSP LOWER EXTREMITY Status: Acute (4) Pickwickian syndrome Code(s): E66.2 - MORBID (SEVERE) OBESITY WITH ALVEOLAR HYPOVENTILATION Status : Chronic (5) Pleural effusion Code(s): J90 - PLEURAL EFFUSION, NOT ELSEWHERE CLASSIFIED Status: Acute (6) Status post repair of paraesophageal diaphragmatic hernia Code(s): Z98.890 - OTHER SPECIFIED POSTPROCEDURAL STATES; Z87.19 - PERSONAL HISTORY OF OTHER DISEASES OF THE DIGESTIVE SYSTEM Status: Chronic (7) A-fib Code(s): I48.91 - UNSPECIFIED ATRIAL FIBRILLATION Status: Chronic (8) HTN (hypertension) Code(s): I10 - ESSENTIAL (PRIMARY) HYPERTENSION Status: Chronic Qualifiers: Hypertension type: essential hypertension Qualified Code(s): I10 - Essential (primary) hypertension (9) History of chronic urinary tract infection Code(s): Z87.440 - PERSONAL HISTORY OF URINARY (TRACT) INFECTIONS Status: Chronic - Plan Plan: This is a 63 yo female pmh of HTN, recurrent UTIs with multiple chronic problems Lower extremity edema -Gave additional 1x dose 40 mg IV lasix yesterday, patient responded well H Pylori Gastritis -H pylori on biopsy path report -Dr. Jamison consulted, appreciate recs -On discharge, bismuth quadruple therapy 14 days: -PPI BID -Bismuth 2 tabs (524 mg) QID -Metronidazole 250 mg QID -Doxycyline 100 mg BID Paroxysmal A fib, SVT -NSR overnight -Pharm dosing warfarin; INR within therapeutic window. Will need F/up outpatient at warfarin clinic for continued management. -Controlled on Diltiazem. Does have hx/o A-fib Cardiology Dr. Rodriguez following, appreciate recommendations. -TSH normal, mag and phos normal DVT - Anticoagulation as above - right DVT in popliteal vein, IVC in place Hx recurrent UTI with Persistent Dysuria -Recent VRE with resolution w/o abx. Additional culture on 04/30 shows no growth and believed she does not have a UTI currently. -Formal urology consult Dr. Beatty as she has seen her in the past, Recommendations appreciated -Started Tamsulosin -Will contact Dr. Beatty today to discuss Tamsulosin/antibiotics -Dr. Charlton consulted, appreciate recommendations C. Diff positive present on admission -Positive test on 04/19/18 -PO Vanc 14d regimen completed on 05/04 -Continue oral probiotic Left Thorax Hematoma -Pulm was consulted-Dr. Prather: had decided no thoracentesis -General surgery-Dr. Hassan: no surgical interventions at this time Rt sided pleural effusion vs atelectasis -Likely related to hematoma. Atelectasis present and incentive spirometry at bedside Complex partial seizures -500mg keppra BID per neurology recommendations. Diaphragmatic hernia, repaired gastroesophageal leak -s/p repair on 03/[address] Hassan with some residual hiatal hernia. -On PPI, GI cocktail and karafate and continue Liquid diet. May be unable to resume solids. PUD: Gastric ulcers -Confirmed with EGD on 04/27 showing 5cm hiatal hernia, two 6mm ulcers in proximal antrum, with negative H. pylori, negative -omental patch and repair of perforated pyloric gastric ulcer -Continue medications Pickwickian syndrome -Denies previous sleep study, will need outpt AMI workup, but will continue CPAP qhs. Would greatly benefit from weight loss. 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 Continue ativan PRN Dispo: Case management following, ready for discharge pending placement or if patient chooses home, then home with Home health PT/OT and hospital bed. Will discharge on quadruple therapy. Patient will need outpatient follow up for warfarin monitoring, sleep study for AMI, knee osteoarthritis, weight loss management. Addendum - Attending - Attending Attestation Date/Time: 05/08/18 1087 I personally evaluated the patient and discussed the management with Dr. Shaver. I agree with the History, Examination, Assessment and Plan documented above with any addition or exceptions noted below. Patient doing well. Continue to await Urology and ID recs regarding treatment of her UTI that is now growing Citrobacter. Labile INR continues to be therapeutic. We will start h pylori treatment on her upon discharge per GI recs. Working on placement as she is a poor candidate to return home as she is inadequately able to care for herself, ambulate, and take her medications as prescribed which results in return hospitalizations.
[2018-05-08] MEDS: Lorazepam 0.5 MG TAB PO SCH ×3 (09:48→21:03)
[2018-05-08] MEDS: Magnesium Chloride 64 MG TAB PO SCH ×2 (09:49→21:02)
[2018-05-08] MEDS: Amlodipine 5 MG TAB PO SCH (09:50)
[2018-05-08] MEDS: Loratadine 10 MG TAB PO SCH (09:50)
[2018-05-08] MEDS: Metoclopramide HCl 10 MG TAB PO SCH ×4 (09:50→21:03)
[2018-05-08] MEDS: Tamsulosin HCl 0.4 MG CAP PO SCH ×2 (09:51→21:03)
[2018-05-08] MEDS: Floranex Packet PO SCH (09:52)
[2018-05-08] MEDS: PARoxetine 20 MG TAB PO SCH (09:52)
[2018-05-08] MEDS: levETIRAcetam 500 MG TAB PO SCH ×2 (09:52→21:04)
[2018-05-08] MEDS: Fluticasone Propionate Nasal Spray 16 gm Bottle NASAL SCH (09:52)
[2018-05-08] MEDS: Warfarin Sodium 5 MG TAB PO SCH (17:00)
--- NOTE | 2018-05-08 17:29 | PRG ---
DATE OF SERVICE: 05/08/2018 SUBJECTIVE: The patient's urine culture actually came back for Citrobacter freundii, which was resistant to Rocephin, but sensitive to Levaquin, so I will give her three days of Levaquin for this. We discussed this and her tamsulosin, which she can keep taking b.i.d. Keep her followup as an outpatient with me. If there are further issues, please do not hesitate to contact me. Job ID: [id number] [facility]
[2018-05-08] MEDS: traMADol HCl 50 MG TAB PO PRN (19:18)
[2018-05-08] MEDS: Gabapentin 300 MG CAP PO SCH (21:03)
[2018-05-08] MEDS: Acetaminophen 325 MG TAB PO PRN (21:10)
[2018-05-08] MEDS: Ondansetron PF 4 MG/2 ML Vial IVP PRN (21:11)
[2018-05-08] MEDS: Zolpidem Tartrate 5 MG TAB PO PRN (22:20)
[2018-05-09 04:53] LABS: INR-International Normal Ratio 1.9; Prothrombin Time 21.4 SEC (12.0-14.7)
--- NOTE | 2018-05-09 05:39 | PDOC.FM ---
- Subjective Subjective: Patient enjoyed her low residue diet change made yesterday. NAEO - Objective Vital Signs & Weight: Vital Signs (12 hours) Temp Pulse Resp BP Pulse Ox 05/09/18 04:00 98.7 F 100 18 96/61 92 L 05/09/18 00:00 98 F 94 18 103/58 L 94 L 05/08/18 20:00 98.6 F 107 H 18 118/58 L 94 L Weight Admit Weight 136 kg Weight 129.183 kg I&O: 05/07/18 05/08/18 05/09/18 06:59 06:59 06:59 Intake Total 1220 1999 1460 Output Total 100 1 Balance 1120 1998 1460 Result Diagrams: 05/04/18 09:24 05/04/18 09:24 Phys Exam - Physical Examination Constitutional: NAD HEENT: PERRLA, moist MMs Neck: no nodes, supple Respiratory: no wheezing, clear to auscultation bilateral Cardiovascular: RRR, no significant murmur Gastrointestinal: soft, non-tender, no distention, positive bowel sounds Musculoskeletal: pulses present 2+ pitting edema Neurological: non-focal, moves all 4 limbs Psychiatric: normal affect, A&O x 3 Skin: no rash, normal turgor Dx/Plan (1) Clostridium difficile colitis Status: Acute (2) Complex partial seizure Code(s): G40.209 - LOCAL-REL SYMPTC EPI W CMPLX PRT SEIZ,NOT NTRCT,W/O STAT EPI Status: Chronic Qualifiers: Epilepsy type: partial symptomatic (3) DVT (deep venous thrombosis) Code(s): I82.409 - ACUTE EMBOLISM AND THOMBOS UNSP DEEP VN UNSP LOWER EXTREMITY Status: Acute (4) Pickwickian syndrome Code(s): E66.2 - MORBID (SEVERE) OBESITY WITH ALVEOLAR HYPOVENTILATION Status : Chronic (5) Pleural effusion Code(s): J90 - PLEURAL EFFUSION, NOT ELSEWHERE CLASSIFIED Status: Acute (6) Status post repair of paraesophageal diaphragmatic hernia Code(s): Z98.890 - OTHER SPECIFIED POSTPROCEDURAL STATES; Z87.19 - PERSONAL HISTORY OF OTHER DISEASES OF THE DIGESTIVE SYSTEM Status: Chronic (7) A-fib Code(s): I48.91 - UNSPECIFIED ATRIAL FIBRILLATION Status: Chronic (8) HTN (hypertension) Code(s): I10 - ESSENTIAL (PRIMARY) HYPERTENSION Status: Chronic Qualifiers: Hypertension type: essential hypertension Qualified Code(s): I10 - Essential (primary) hypertension (9) History of chronic urinary tract infection Code(s): Z87.440 - PERSONAL HISTORY OF URINARY (TRACT) INFECTIONS Status: Chronic (10) Physical deconditioning Code(s): R53.81 - OTHER MALAISE Status: Acute - Plan Plan: This is a 63 yo female pmh of HTN, recurrent UTIs with multiple chronic problems Physical deconditioning -PT/OT consulted -Essentially bed-ridden, deconditioning with decreased functional mobility -Patient would benefit from rehab or some form of physical/occupational therapy , she does not seem safe to return home UTI with Persistent Dysuria -Recent VRE with resolution w/o abx. Additional culture on 04/30 shows no growth. -Formal urology consult Dr. Beatty as she has seen her in the past, Recommendations appreciated -UTI with citrobacter -Started Tamsulosin BID -3 days levaquin, received 2nd dose today. May switch today as she had C diff this hospitalization. Lower extremity edema -Gave additional 1x dose 40 mg IV lasix yesterday, patient responded well H Pylori Gastritis -H pylori on biopsy path report -Dr. Jamison consulted, appreciate recs -On discharge, bismuth quadruple therapy 14 days: -PPI BID -Bismuth 2 tabs (524 mg) QID -Metronidazole 250 mg QID -Doxycyline 100 mg BID Paroxysmal A fib, SVT -NSR overnight -Pharm dosing warfarin; INR within therapeutic window. Will need F/up outpatient at warfarin clinic for continued management. -Controlled on Diltiazem. Does have hx/o A-fib Cardiology Dr. Rodriguez following, appreciate recommendations. -TSH normal, mag and phos normal DVT - Anticoagulation as above - right DVT in popliteal vein, IVC in place C. Diff positive present on admission -Positive test on 04/19/18 -PO Vanc 14d regimen completed on 05/04 -Continue oral probiotic Left Thorax Hematoma -Pulm was consulted-Dr. Prather: had decided no thoracentesis -General surgery-Dr. Hassan: no surgical interventions at this time Rt sided pleural effusion vs atelectasis -Likely related to hematoma. Atelectasis present and incentive spirometry at bedside Complex partial seizures -500mg keppra BID per neurology recommendations. Diaphragmatic hernia, repaired gastroesophageal leak -s/p repair on 03/[address] Hassan with some residual hiatal hernia. -On PPI, GI cocktail and karafate and continue Liquid diet. May be unable to resume solids. PUD: Gastric ulcers -Confirmed with EGD on 04/27 showing 5cm hiatal hernia, two 6mm ulcers in proximal antrum, with negative H. pylori, negative -omental patch and repair of perforated pyloric gastric ulcer -Continue medications Pickwickian syndrome -Denies previous sleep study, will need outpt AMI workup, but will continue CPAP qhs. Would greatly benefit from weight loss. 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 Continue ativan PRN Dispo: Case management following, ready for discharge pending placement or if patient chooses home, then home with Home health PT/OT and hospital bed. Will discharge on quadruple therapy. Patient will need outpatient follow up for warfarin monitoring, sleep study for AMI, knee osteoarthritis, weight loss management. Addendum - Attending - Attending Attestation Date/Time: 05/09/18 7715 I personally evaluated the patient and discussed the management with Dr. Shaver. I agree with the History, Examination, Assessment and Plan documented above with any addition or exceptions noted below. Patient doing well and is medically stable for discharge. She reports to us this morning that she has plans to return home with family, but that they are leaving town tomorrow and will not be back until next week. We are still working on short term placement as patient has limited mobilitiy and is overall unable to care for herself at home. She would benefit from at minimum short term placement for therapy as she is otherwise likely to frequent this hospital as we have already seen from the current admission.
[2018-05-09] MEDS: Magnesium Chloride 64 MG TAB PO SCH ×2 (09:03→20:28)
[2018-05-09] MEDS: Metoclopramide HCl 10 MG TAB PO SCH ×4 (09:03→20:25)
[2018-05-09] MEDS: Loratadine 10 MG TAB PO SCH (09:03)
[2018-05-09] MEDS: Amlodipine 5 MG TAB PO SCH (09:03)
[2018-05-09] MEDS: Lorazepam 0.5 MG TAB PO SCH ×3 (09:03→20:25)
[2018-05-09] MEDS: Tamsulosin HCl 0.4 MG CAP PO SCH ×2 (09:03→20:25)
[2018-05-09] MEDS: Floranex Packet PO SCH (09:04)
[2018-05-09] MEDS: PARoxetine 20 MG TAB PO SCH (09:04)
[2018-05-09] MEDS: levETIRAcetam 500 MG TAB PO SCH ×2 (09:04→20:25)
[2018-05-09] MEDS ORDERED: Furosemide 20 MG/2 ML VIAL SLOW IVP SCH (09:15)
[2018-05-09] MEDS: Fluticasone Propionate Nasal Spray 16 gm Bottle NASAL SCH (09:25)
[2018-05-09 13:31] VITALS: BMI 45.9
[2018-05-09] MEDS: Acetaminophen 325 MG TAB PO PRN ×2 (14:24→20:34)
[2018-05-09] MEDS: Warfarin Sodium 5 MG TAB PO SCH (17:27)
[2018-05-09] MEDS: Gabapentin 300 MG CAP PO SCH (20:25)
[2018-05-09] MEDS: Ondansetron PF 4 MG/2 ML Vial IVP PRN (20:35)
[2018-05-09] MEDS: Zolpidem Tartrate 5 MG TAB PO PRN (22:56)
[2018-05-10 05:29] LABS: Prothrombin Time 22.5 SEC (12.0-14.7)
--- NOTE | 2018-05-10 05:30 | PDOC.FM ---
- Subjective Subjective: Patient complains of some leg discomfort again today, similar to previous when she receive a dose of lasix. Her leg swelling is improved. - Objective Vital Signs & Weight: Vital Signs (12 hours) Temp Pulse Resp BP BP Pulse Ox 05/10/18 04:50 97.8 F 93 20 109/61 94 L 05/09/18 21:05 92 L 05/09/18 20:00 98.1 F 102 H 16 114/69 91 L Weight Admit Weight 136 kg Weight 129.183 kg I&O: 05/08/18 05/09/18 05/10/18 06:59 06:59 06:59 Intake Total 1999 1460 1440 Output Total 1 Balance 1998 1460 1440 Result Diagrams: 05/04/18 09:24 05/04/18 09:24 Phys Exam - Physical Examination Constitutional: NAD HEENT: moist MMs Neck: no nodes, supple Respiratory: no wheezing, clear to auscultation bilateral Cardiovascular: RRR, no significant murmur Gastrointestinal: soft, non-tender, no distention, positive bowel sounds trace pitting edema Neurological: moves all 4 limbs Psychiatric: normal affect, A&O x 3 Skin: no rash, cap refill <2 seconds Dx/Plan (1) Clostridium difficile colitis Status: Acute (2) Complex partial seizure Code(s): G40.209 - LOCAL-REL SYMPTC EPI W CMPLX PRT SEIZ,NOT NTRCT,W/O STAT EPI Status: Chronic Qualifiers: Epilepsy type: partial symptomatic (3) DVT (deep venous thrombosis) Code(s): I82.409 - ACUTE EMBOLISM AND THOMBOS UNSP DEEP VN UNSP LOWER EXTREMITY Status: Acute (4) Pickwickian syndrome Code(s): E66.2 - MORBID (SEVERE) OBESITY WITH ALVEOLAR HYPOVENTILATION Status : Chronic (5) Pleural effusion Code(s): J90 - PLEURAL EFFUSION, NOT ELSEWHERE CLASSIFIED Status: Acute (6) Status post repair of paraesophageal diaphragmatic hernia Code(s): Z98.890 - OTHER SPECIFIED POSTPROCEDURAL STATES; Z87.19 - PERSONAL HISTORY OF OTHER DISEASES OF THE DIGESTIVE SYSTEM Status: Chronic (7) A-fib Code(s): I48.91 - UNSPECIFIED ATRIAL FIBRILLATION Status: Chronic (8) HTN (hypertension) Code(s): I10 - ESSENTIAL (PRIMARY) HYPERTENSION Status: Chronic Qualifiers: Hypertension type: essential hypertension Qualified Code(s): I10 - Essential (primary) hypertension (9) History of chronic urinary tract infection Code(s): Z87.440 - PERSONAL HISTORY OF URINARY (TRACT) INFECTIONS Status: Chronic (10) Physical deconditioning Code(s): R53.81 - OTHER MALAISE Status: Acute - Plan Plan: This is a 63 yo female pmh of HTN, recurrent UTIs with multiple chronic problems Physical deconditioning -PT/OT consulted -Essentially bed-ridden, deconditioning with decreased functional mobility -Patient would benefit from rehab or some form of physical/occupational therapy , she does not seem safe to return home -Awaiting placement UTI with Persistent Dysuria -Recent VRE with resolution w/o abx. Additional culture on 04/30 shows no growth. -Formal urology consult Dr. Beatty as she has seen her in the past, Recommendations appreciated -UTI with citrobacter -Started Tamsulosin BID -3 days levaquin, received 2nd dose today. May switch today as she had C diff this hospitalization. Lower extremity edema -Gave additional 1x dose 40 mg IV lasix yesterday, patient responded well H Pylori Gastritis -H pylori on biopsy path report -Dr. Jamison consulted, appreciate recs -On discharge, bismuth quadruple therapy 14 days: -PPI BID -Bismuth 2 tabs (524 mg) QID -Metronidazole 250 mg QID -Doxycyline 100 mg BID Paroxysmal A fib, SVT -NSR overnight -Pharm dosing warfarin; INR within therapeutic window. Will need F/up outpatient at warfarin clinic for continued management. -Controlled on Diltiazem. Does have hx/o A-fib Cardiology Dr. Rodriguez following, appreciate recommendations. -TSH normal, mag and phos normal DVT - Anticoagulation as above - right DVT in popliteal vein, IVC in place C. Diff positive present on admission -Positive test on 04/19/18 -PO Vanc 14d regimen completed on 05/04 -Continue oral probiotic Left Thorax Hematoma -Pulm was consulted-Dr. Prather: had decided no thoracentesis -General surgery-Dr. Hassan: no surgical interventions at this time Rt sided pleural effusion vs atelectasis -Likely related to hematoma. Atelectasis present and incentive spirometry at bedside Complex partial seizures -500mg keppra BID per neurology recommendations. Diaphragmatic hernia, repaired gastroesophageal leak -s/p repair on 03/[address] Hassan with some residual hiatal hernia. -On PPI, GI cocktail and karafate and continue Liquid diet. May be unable to resume solids. PUD: Gastric ulcers -Confirmed with EGD on 04/27 showing 5cm hiatal hernia, two 6mm ulcers in proximal antrum, with negative H. pylori, negative -omental patch and repair of perforated pyloric gastric ulcer -Continue medications Pickwickian syndrome -Denies previous sleep study, will need outpt AMI workup, but will continue CPAP qhs. Would greatly benefit from weight loss. 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 Continue ativan PRN Dispo: Case management following, ready for discharge pending placement or if patient chooses home, then home with Home health PT/OT and hospital bed. Will discharge on quadruple therapy. Patient will need outpatient follow up for warfarin monitoring, sleep study for AMI, knee osteoarthritis, weight loss management. Addendum - Attending - Attending Attestation Date/Time: 05/10/18 9424 I personally evaluated the patient and discussed the management with Dr. Shaver. I agree with the History, Examination, Assessment and Plan documented above with any addition or exceptions noted below. Patient stable. Continue PT. Awaiting placement. INR stable today. She has now completed course of Levaquin for UTI per Urology.
[2018-05-10] MEDS: Acetaminophen 325 MG TAB PO PRN ×3 (05:59→20:30)
[2018-05-10] MEDS: Amlodipine 5 MG TAB PO SCH (10:07)
[2018-05-10] MEDS: PARoxetine 20 MG TAB PO SCH (10:08)
[2018-05-10] MEDS: Metoclopramide HCl 10 MG TAB PO SCH ×4 (10:08→20:27)
[2018-05-10] MEDS: Tamsulosin HCl 0.4 MG CAP PO SCH ×2 (10:08→20:26)
[2018-05-10] MEDS: Floranex Packet PO SCH (10:08)
[2018-05-10] MEDS: Lorazepam 0.5 MG TAB PO SCH ×3 (10:08→20:26)
[2018-05-10] MEDS: levETIRAcetam 500 MG TAB PO SCH ×2 (10:08→20:26)
[2018-05-10] MEDS: Loratadine 10 MG TAB PO SCH (10:08)
[2018-05-10] MEDS: Magnesium Chloride 64 MG TAB PO SCH ×2 (10:10→20:27)
[2018-05-10] MEDS: Fluticasone Propionate Nasal Spray 16 gm Bottle NASAL SCH ×2 (10:10→17:26)
[2018-05-10] MEDS: Warfarin Sodium 5 MG TAB PO SCH (17:25)
[2018-05-10] MEDS: Gabapentin 300 MG CAP PO SCH (20:26)
[2018-05-10] MEDS: Ondansetron PF 4 MG/2 ML Vial IVP PRN (21:09)
[2018-05-10] MEDS: Zolpidem Tartrate 5 MG TAB PO PRN (23:32)
[2018-05-11 05:11] LABS: INR-International Normal Ratio 2.2; Prothrombin Time 24.1 SEC (12.0-14.7)
--- NOTE | 2018-05-11 05:46 | PDOC.FM ---
- Subjective Subjective: Patient feeling well this morning. Plans to leave at 10 AM. Discussed her medication regimen for H. Pylori gastritis, which was sent into her pharmacy. - Objective Vital Signs & Weight: Vital Signs (12 hours) Temp Pulse Resp BP Pulse Ox 05/11/18 04:00 91 17 121/68 94 L 05/11/18 00:00 98.2 F 100 18 120/58 L 95 05/10/18 19:30 98.2 F 99 18 96/53 L 94 L Weight Admit Weight 136 kg Weight 128.412 kg I&O: 05/09/18 05/10/18 05/11/18 06:59 06:59 06:59 Intake Total 1460 1740 900 Balance 1460 1740 900 Result Diagrams: 05/04/18 09:24 05/04/18 09:24 Phys Exam - Physical Examination Constitutional: NAD HEENT: moist MMs Neck: no nodes, supple Respiratory: no wheezing, clear to auscultation bilateral Cardiovascular: RRR, no significant murmur Gastrointestinal: soft, non-tender, no distention, positive bowel sounds 1+ pitting edema bilaterally Neurological: moves all 4 limbs Psychiatric: normal affect Skin: normal turgor, cap refill <2 seconds Dx/Plan (1) Clostridium difficile colitis Status: Acute (2) Complex partial seizure Code(s): G40.209 - LOCAL-REL SYMPTC EPI W CMPLX PRT SEIZ,NOT NTRCT,W/O STAT EPI Status: Chronic Qualifiers: Epilepsy type: partial symptomatic (3) DVT (deep venous thrombosis) Code(s): I82.409 - ACUTE EMBOLISM AND THOMBOS UNSP DEEP VN UNSP LOWER EXTREMITY Status: Acute (4) Pickwickian syndrome Code(s): E66.2 - MORBID (SEVERE) OBESITY WITH ALVEOLAR HYPOVENTILATION Status : Chronic (5) Pleural effusion Code(s): J90 - PLEURAL EFFUSION, NOT ELSEWHERE CLASSIFIED Status: Acute (6) Status post repair of paraesophageal diaphragmatic hernia Code(s): Z98.890 - OTHER SPECIFIED POSTPROCEDURAL STATES; Z87.19 - PERSONAL HISTORY OF OTHER DISEASES OF THE DIGESTIVE SYSTEM Status: Chronic (7) A-fib Code(s): I48.91 - UNSPECIFIED ATRIAL FIBRILLATION Status: Chronic (8) HTN (hypertension) Code(s): I10 - ESSENTIAL (PRIMARY) HYPERTENSION Status: Chronic Qualifiers: Hypertension type: essential hypertension Qualified Code(s): I10 - Essential (primary) hypertension (9) History of chronic urinary tract infection Code(s): Z87.440 - PERSONAL HISTORY OF URINARY (TRACT) INFECTIONS Status: Chronic (10) Physical deconditioning Code(s): R53.81 - OTHER MALAISE Status: Acute (11) H. pylori infection Code(s): A04.8 - OTHER SPECIFIED BACTERIAL INTESTINAL INFECTIONS Status: Acute - Plan Plan: This is a 63 yo female pmh of HTN, recurrent UTIs with multiple chronic problems Physical deconditioning -PT/OT consulted -Essentially bed-ridden, deconditioning with decreased functional mobility -Patient would benefit from rehab or some form of physical/occupational therapy , she does not seem safe to return home -Placement unable to be found, patient returning home to be cared for by sister and niece. UTI with Persistent Dysuria, resolved -Recent VRE with resolution w/o abx. Additional culture on 04/30 shows no growth. -Formal urology consult Dr. Beatty as she has seen her in the past, Recommendations appreciated -UTI with citrobacter -Continue Tamsulosin BID -s/p 3 days levaquin Lower extremity edema -On lasix daily H Pylori Gastritis -H pylori on biopsy path report -Dr. Jamison consulted, appreciate recs -On discharge, bismuth quadruple therapy 14 days: -PPI BID -Bismuth 2 tabs (524 mg) QID -Metronidazole 250 mg QID -Doxycyline 100 mg BID Paroxysmal A fib, SVT -NSR - INR within therapeutic window. Will need F/up outpatient at warfarin clinic for continued management. -Controlled on Diltiazem. Does have hx/o A-fib Cardiology Dr. Rodriguez following, appreciate recommendations. -TSH normal, mag and phos normal DVT - Anticoagulation as above - right DVT in popliteal vein, IVC in place C. Diff positive present on admission -Positive test on 04/19/18 -PO Vanc 14d regimen completed on 05/04 -Continue oral probiotic Left Thorax Hematoma -Pulm was consulted-Dr. Prather: had decided no thoracentesis -General surgery-Dr. Hassan: no surgical interventions at this time Rt sided pleural effusion vs atelectasis -Likely related to hematoma. Atelectasis present and incentive spirometry at bedside Complex partial seizures -500mg keppra BID per neurology recommendations. Diaphragmatic hernia, repaired gastroesophageal leak -s/p repair on 03/[address] Hassan with some residual hiatal hernia. -On PPI, GI cocktail and karafate and continue Liquid diet. May be unable to resume solids. PUD: Gastric ulcers -Confirmed with EGD on 04/27 showing 5cm hiatal hernia, two 6mm ulcers in proximal antrum, with negative H. pylori, negative -omental patch and repair of perforated pyloric gastric ulcer -Continue medications -Medications as above for H pylori Pickwickian syndrome -Denies previous sleep study, will need outpt AMI workup, but will continue CPAP qhs. Would greatly benefit from weight loss. 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 Continue ativan PRN Dispo: Discharge to home, with Home health PT/OT and hospital bed. Will discharge on quadruple therapy. Patient will need outpatient follow up for warfarin monitoring, sleep study for AMI, knee osteoarthritis, weight loss management. Addendum - Attending - Attending Attestation Date/Time: 05/11/18 3046 I personally evaluated the patient and discussed the management with Dr. Shaver. I agree with the History, Examination, Assessment and Plan documented above with any addition or exceptions noted below. Patient doing well. Stable for discharge today as previously arranged.
[2018-05-11 07:30] VITALS: BP 99/57; TEMP 98.6
[2018-05-11] MEDS: Magnesium Chloride 64 MG TAB PO SCH (07:59)
[2018-05-11] MEDS: levETIRAcetam 500 MG TAB PO SCH (07:59)
[2018-05-11] MEDS: Floranex Packet PO SCH (07:59)
[2018-05-11] MEDS: PARoxetine 20 MG TAB PO SCH (07:59)
[2018-05-11] MEDS: Tamsulosin HCl 0.4 MG CAP PO SCH (08:00)
[2018-05-11] MEDS: Lorazepam 0.5 MG TAB PO SCH (08:00)
[2018-05-11] MEDS: Metoclopramide HCl 10 MG TAB PO SCH (08:01)
[2018-05-11] MEDS: Amlodipine 5 MG TAB PO SCH (08:02)
[2018-05-11] MEDS: Loratadine 10 MG TAB PO SCH (08:02)
[2018-05-11] MEDS: Fluticasone Propionate Nasal Spray 16 gm Bottle NASAL SCH (08:03)
[2018-05-11] MEDS: Ondansetron ODT 4 MG TAB PO PRN (08:32)
[2018-05-11] MEDS: Acetaminophen 325 MG TAB PO PRN (08:32)
--- NOTE | 2018-05-14 11:14 | DIS ---
DATE OF ADMISSION: 04/19/2018 DATE OF DISCHARGE: 05/11/2018 CONSULTS: 1. Dr. Soy Verdin on 05/03/2018, Cardiology. 2. Gastroenterology, Dr. Martinez, 04/25/2018. 3. General Surgery, Dr. Hassan, 04/18/2018. 4. Infectious Disease, Dr. Jamel Charlton, 04/23/2018. 5. Neurology, Dr. Dontae Vasquez, 04/20/2018. 6. Pulmonology, Dr. Prather 04/19/2018. 7. Urology, Dr. Pat Beatty, 05/06/2018. PROCEDURES: 1. Chest x-ray, 04/17/2018: Impression, patchy parenchymal changes, left infrahilar region. Small amount of pleural fluid within the minor fissure. 2. Chest x-ray, 04/18/2018: Impression, slight interval decrease in radiographic degree of pulmonary vascular congestion. Bilateral pleural fluid and right medial basilar parenchymal opacities are otherwise stable. 3. Abdomen and pelvis CT, 04/18/2018: Impression, some residual hiatal hernia within the gastric fundus to the right of midline in lower mediastinum. New inferior vena cava filter in place. 4. Venogram, 04/18/2018: Impression, evidence of DVT involving the right popliteal vein. 5. Brain CT, 04/19/2018: No acute intracranial findings. 6. Abdominal ultrasound, 04/25/2018: Impression, positive for cholelithiasis. There is a conglomeration of small gallstones, perhaps mixed with sludge in the lumen of the gallbladder body. 7. Gallbladder is not visualized. Gallbladder wall thickness is normal. No pericholecystic fluid. Common duct is 3 mm. 8. Operative note by Dr. Tae Jamison, 04/27/2018: Impression, 5 cm hiatal hernia with retained fibrous food particles and fluid. Two small 6 mm ulcers adjacent to each other in proximal antrum and biopsies obtained that were positive for H pylori. These appear to be healing overall. Otherwise, normal esophagogastroduodenoscopy. 9. Chest x-ray, 04/29/2018: Impression, right pleural effusion with adjacent atelectasis versus infiltrate. PRIMARY DIAGNOSIS: 1. Pickwickian syndrome. 2. Seizures. SECONDARY DIAGNOSES: 1. Deep venous thrombosis. 2. C Diff Colitis 3. Hx Pulmonary embolism. 4. Status post repair of paraesophageal diaphragmatic hernia. 5. Atrial fibrillation. 6. Hypertension. 7. History of chronic urinary tract infection. 8. Physical deconditioning. 9. Helicobacter pylori infection. DISCHARGE MEDICATIONS: 1. Floranex 1 g oral daily. 2. Aluminum and magnesium hydroxide 30 mL, the patient to swallow q.6 hours as needed for epigastric pain. 3. Amlodipine 5 mg p.o. daily. 4. Cardizem 240 mg p.o. daily. 5. Fluticasone nasal spray. 6. Gabapentin 600 mg p.o. at bedtime. 7. Levetiracetam 500 mg p.o. b.i.d. 8. Metoclopramide 10 mg p.o. before meals and at bedtime, this should not be continued for more than 30 days. 9. Zofran 4 mg q.6 hours as needed for nausea and vomiting. 10. Protonix 40 mg p.o. b.i.d. 11. Carafate 1 g oral q.6 hours as needed for heartburn and indigestion. 12. Tamsulosin, Flomax 0.4 mg b.i.d. 13. Coumadin 5 mg p.o. at 1700 hours. 14. Ambien 5 mg p.o. at bedtime as needed for insomnia. 15. Bismuth subsalicylate two tablets p.o. q.i.d. for 14 days. 16. Doxycycline 100 mg p.o. b.i.d. for two weeks. 17. Metronidazole 250 mg p.o. q.i.d. for two weeks. 18. Flexeril 5 mg p.o. daily p.r.n. 19. Loratadine 10 mg p.o. daily. 20. Paroxetine 20 mg p.o. daily. 21. Nystatin one application topical b.i.d. 22. Metoprolol 25 mg p.o. b.i.d. 23. Hydroxyzine 25 mg p.o. q.i.d. p.r.n. for itching. 24. Hydrocodone 5/325 one tablet p.o. q.6 hours as needed for pain. 25. Lasix 20 mg p.o. daily. 26. Klonopin 0.5 mg p.o. t.i.d. p.r.n. for anxiety. 27. Potassium 20 mEq p.o. b.i.d. 28. Magnesium oxide 400 mg p.o. b.i.d. 29. Senna/docusate one at bedtime as needed for constipation. 30. Multivitamin daily. DISCONTINUED MEDICATIONS: Keflex 500 mg p.o. t.i.d. HOSPITAL COURSE: The patient is a 63-year-old female who presented with shortness of breath. However, she is a poor historian. The history was compiled from her medical records. She presented to [place] from [facility] after being told that she had a fluid collection in and around her lungs, may be related to her surgery, has need to follow up with her surgeon. She reported that for the past two days she has been feeling that of increasing pain on the left side of her abdomen. She reported that in rehab, she started feeling this pain. She also reported her eyes " rolled back in her head." She denies any substernal chest pain, fever, chills, syncope, increased shortness of breath. She is normally on 2 L nasal cannula at home. In the ED, she was given metoprolol and Ina. The patient has diaphragmatic hernia status post repair on March 06, 2018, with Dr. Hassan, who evaluated her in the ED. She had no surgical worsening. No surgical intervention was indicated at that time. She was also found to have a left thorax hematoma and Pulmonology was consulted. It was decided that she was not to have any thoracentesis at this time. She was started on a liquid diet and her abdominal pain improved, then transitioned to a low residue diet (low fiber), which she should continue on discharge. Physical deconditioning: The patient was bedridden, with decreased functional mobility. The patient would benefit from rehab or some form of physical or occupational therapy. Placement was unable to be found and the patient returned home, to be cared for by her niece and relatives with assistance from home health. UTI with persistent dysuria: The patient had a recent VRE, resolution without antibiotics. She had multiple cultures that showed no growth. Her 3rd culture did show growth of Citrobacter. She was given [address] Beatty was consulted for persistent dysuria and she was started on Flomax b.i.d. For H pylori gastritis that was seen on biopsy from EGD, the patient was started on bismuth quadruple therapy for 2 weeks at discharge. The patient was found to have gastric ulcers that were confirmed on EGD on April 27 showing 5 cm hiatal hernia and two 6 mm ulcers in the proximal antrum. The patient was started on H pylori medication as well as above. The patient was found to have paroxysmal atrial fibrillation. She was started on Lovenox which was transitioned to warfarin. She will need followup at outpatient clinic for continued management of her warfarin. She also was on diltiazem for atrial fibrillation for rate control. Lior cardizem dose was increased during her stay here to control her A fib. Her TSH was normal. Mag and phos normal. The patient continues to have a right DVT in the popliteal vein, IVC is in place. The patient is on anticoagulation as above. The patient also had C diff positive stool on 04/19/2018. The patient completed a 14-day regimen of oral vancomycin and was started on an oral probiotic. Complex partial seizures. The patient has had episodes of eyes rolling back in her head during her hospitalization. Neurology, Dr. Vasquez was consulted. The patient was started on 500 mg Keppra b.i.d. per his recommendation. Pickwickian syndrome. The patient is in need of an outpatient obstructive sleep apnea workup, but she was continued on CPAP during her stay here. She also would really benefit from weight loss. The patient complained of knee osteoarthritis. The patient will need outpatient followup, consider steroid injections of her bilateral knees for pain relief. Anxiety. 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 She was continued on her home regimen at discharge. Disposition: Guarded. She was discharged to home with home health PT, OT, and hospital bed. She will need outpatient followup for warfarin monitoring, sleep study, knee osteoarthritis, and weight loss management. DISCHARGE INSTRUCTIONS: 1. Location, home. 2. Diet, Coumadin prudent diet, heart healthy diet, low-sodium diet, no salt added diet, low-fiber diet. 3. Activity, as tolerated. 4. Follow up with PCP within one week. Follow up with warfarin clinic to monitor [facility]. [facility] Job ID: [id number] [facility]
== END 2018-05-11 10:10 | disposition home or self-care (01) | DRG 919 ==
LOC: ERS 11:56 → ERHOLD 16:42 → SURG A 04-18 04:52 → 2NO 04-18 22:26 → OBSVTOIN 04-19 15:17 → T4-A 04-25 19:03 → 2SE 05-01 23:20 → 2NO 05-09 21:20
PROVIDERS: ADMIT Family Medicine; ATTEND Family Medicine
PROC: 5A09357 Assistance with Respiratory Ventilation, Less than 24 Consecutive Hours, Continuous Positive Airway Pressure (ICD-10-PCS; principal; 2018-04-20)
PROC: 0DB68ZX Excision of Stomach, Via Natural or Artificial Opening Endoscopic, Diagnostic (ICD-10-PCS; 2018-04-27)
DX: J95.861 Postprocedural hematoma of a respiratory system organ or structure following other procedure (principal); J96.21 Acute and chronic respiratory failure with hypoxia; E66.2 Morbid (severe) obesity with alveolar hypoventilation; Z68.42 Body mass index [BMI] 45.0-49.9, adult; A04.72 Enterocolitis due to Clostridium difficile, not specified as recurrent; N39.0 Urinary tract infection, site not specified; G40.209 Localization-related (focal) (partial) symptomatic epilepsy and epileptic syndromes with complex partial seizures, not intractable, without status epilepticus; I82.431 Acute embolism and thrombosis of right popliteal vein; I47.1 Supraventricular tachycardia; K44.9 Diaphragmatic hernia without obstruction or gangrene; I48.0 Paroxysmal atrial fibrillation; I10 Essential (primary) hypertension; K25.9 Gastric ulcer, unspecified as acute or chronic, without hemorrhage or perforation; R62.7 Adult failure to thrive; F41.9 Anxiety disorder, unspecified; K29.70 Gastritis, unspecified, without bleeding; B96.81 Helicobacter pylori [H. pylori] as the cause of diseases classified elsewhere; Z79.899 Other long term (current) drug therapy; Z87.440 Personal history of urinary (tract) infections; Z88.5 Allergy status to narcotic agent; Z88.8 Allergy status to other drugs, medicaments and biological substances; Y83.8 Other surgical procedures as the cause of abnormal reaction of the patient, or of later complication, without mention of misadventure at the time of the procedure
CPT/HCPCS: 36415; 36416; 70450; 71045; 74177; 76705; 80048; 80053; 81001; 81003; 81015; 82805; 83605; 83690; 83735; 83880; 84100; 84145; 84443; 84484; 85014; 85018; 85025; 85049; 85520; 85610; 85652; 85730; 87040; 87045; 87046; 87077; 87086; 87186; 87324; 87338; 87449; 87493; 87899; 88305; 88312; 93005; 93010; 93970; 94660; 96365; 96367; 96368; 96375; A4353; C9113; J0360; J0456; J0696; J1644; J1650; J1940; J1956; J2001; J2405; J2543; J2550; J2704; J2765; J3370; J7050; J8597; Q0162; Q9966; Q9967